=== PATIENT | male | born 1965 | race African-American/Black ===

== ENCOUNTER 2025-10-22 01:26 | Inpatient (IN) | payer MEDICAID, SELFPAY ==
[2025-10-22] VITALS (119 sets, daily range): BP systolic 0–162; BP diastolic 0–112; PULSE 42–111; RESP 0–117; TEMP 35.5–36.9; O2SAT 74–100; BMI 35.0
--- NOTE | 2025-10-22 01:53 | XR_ITS ---
EXAMINATION: AP chest single view TECHNIQUE: AP portable upright chest single view Date and time: October 22, 2025, 0314 hours, comparison January 26, 2024 INDICATIONS: Shortness of breath today. FINDINGS: Mild enlargement cardiac contour Moderate vascular congestion Scarring versus atelectasis in the upper lung zones and left lower lobe No amelia pulmonary edema No lobar pneumonia IMPRESSION: Enlarged cardiac contour with moderate vascular congestion
--- NOTE | 2025-10-22 01:53 | EKG_ITS ---
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 : 1965 Requested By: Yuliana Lindsay Order Number: [id number] Reading MD: Yuliana Lindsay Measurements Intervals [place] Rate: 78 P: [place]: QRS: 188 QRSD: 117 T: 32 QT: 417 QTc: 478 Interpretive Statements ATRIAL FIBRILLATION INCOMPLETE RIGHT BUNDLE BRANCH BLOCK POSSIBLE RIGHT VENTRICULAR HYPERTROPHY POSSIBLE ANTERIOR MYOCARDIAL INFARCTION , PROBABLY OLD Compared to ECG 01/26/2024 16:35:08 Incomplete right bundle-branch block now present Junctional rhythm no longer present Intraventricular conduction delay no longer present Myocardial infarct finding still present /store/S0/[id number]/ecg/[id number].pdf
--- NOTE | 2025-10-22 01:56 | PD.EDADULT ---
ED General RME/HPI General Chief complaint: General Adult/Misc Complain Stated complaint: ABNORMAL LABS Time Seen by Provider: 10/22/25 02:06 Source: patient, EMS and RN notes reviewed Arrival date/time: 10/22/25 01:26 Mode of arrival: EMS Limitations: no limitations RME / HPI RME / HPI narrative: This is a 60-year-old male with chronic low back pain, COPD, hypertension who is not on dialysis coming in with shortness of breath, wheezing x 1 day. The [facility] also reported that he may have had an elevated potassium earlier today. The patient states that this is similar to his COPD exacerbation in the past. Related Data Previous Rx's ?Medication ?Instructions ?Recorded amoxicillin 875 mg-potassium 1 tab PO Q12H #14 tabs 01/26/24 clavulanate 125 mg tablet doxycycline monohydrate 100 mg 100 mg PO BID #14 caps 01/26/24 capsule ibuprofen 600 mg tablet 600 mg PO Q8H PRN pain #14 tabs 01/26/24 Allergies Allergy/AdvReac Type Severity Reaction Status Date / Time No Known Allergies Allergy Verified 01/26/24 20:00 Past Medical History Past Medical History CARDIAC: Positive Congestive Heart Failure, Congenital Heart Disease, Deep Vein Thrombosis and Hypertension; Negative Cardiac Disorders RESPIRATORY: Positive Chronic Obstructive Pulmonary Disease (COPD) and Asthma GENITOURINARY: Negative Renal Disease ENDOCRINE: Negative Diabetes Mellitus Type 1 or Diabetes Mellitus Type 2 HEMATOLOGIC: Negative Sickle Cell Disease Social History SMOKING STATUS: Former smoker ED Exam Narrative Physical exam: Physical Exam: GENERAL: Awake, answering questions appropriately, appears stated age HEENT: NC/AT. Moist mucosa. PERRLA/EOMI. Possible Leser-Trelat freckling/seborrheic keratoses. Exophthalmos. CARDIO: Heart RRR, no obvious murmurs, no JVD. PULM: No coughing or visible SOB. Lungs CTA B/L. GI: Abdomen grossly distended with fluid wave noted, tympanic on percussion, mildly tender to palpation, borborygmi apparent. SKIN/MSK/EXT: No wounds/rashes/edema/amputations noted. +Pedal pulses present B/L. NEURO: Oriented x3, Moves extremities x4, no focal neurologic deficits noted General Limitations: Present no limitations General appearance: Present alert and in no apparent distress Head Head exam: Present atraumatic Eye Eye exam: Present normal appearance, PERRL and EOMI ENT ENT exam: Present normal exam, normal oropharynx and mucous membranes moist Neck Neck exam: Present normal inspection, full ROM and trachea midline Chest Chest inspection: Present normal inspection and symmetric chest wall rise Abdominal Exam Abdominal exam: Present soft and normal bowel sounds Extremities Exam Extremities exam: Present normal inspection and full ROM Back Exam Back exam: Present normal inspection and full ROM Neurological Exam Neurological exam: Present alert, oriented X3 and CN II-XII intact Psychiatric Psychiatric exam: Present normal affect and normal mood Skin Skin exam: Present warm, dry, intact and normal color Course Quality Measures none Orders Category Date Time Status COVID-19 Screening Questionnaire NOW Care 10/22/25 05:14 Active Decision to Admit X1 Care 10/22/25 05:14 Active EKG (ED ONLY) *Do not use* NOW Care 10/22/25 01:53 Completed EKG (ED Only) Stat Exams 10/22/25 01:53 Ordered US abdomen Stat Exams 10/22/25 03:25 Taken XR chest 1V portable Stat Exams 10/22/25 01:53 Taken ABG [Arterial Blood Gas] Stat Lab 10/22/25 03:27 Completed B-Type Natriuretic Peptide Stat Lab 10/22/25 02:46 Completed Blood Culture (Lab) Stat Lab 10/22/25 02:46 Received CBC Stat Lab 10/22/25 02:30 Completed Comprehensive Metabolic Panel Stat Lab 10/22/25 02:46 Completed D-Dimer Stat Lab 10/22/25 02:46 Completed Magnesium Stat Lab 10/22/25 02:46 Completed Partial Thromboplastin Time Stat Lab 10/22/25 02:46 Completed Path Review Blood Smear Stat Lab 10/22/25 02:30 Completed Prothrombin Time with INR Stat Lab 10/22/25 02:46 Completed Renal Function Panel Stat Lab 10/22/25 05:40 Ordered Troponin I Stat Lab 10/22/25 02:46 Completed Urinalysis, C/S if Indicated Stat Lab 10/22/25 01:53 Ordered Albuterol/Ipratr Rt Irais [Duoneb Rt Irais] Med 10/22/25 01:56 Discontinued 3 ml INH X1 ONE Calcium Gluconate 10% Inj Med 10/22/25 03:58 Discontinued 1 gm IV X1 ONE Dextrose 50% Syr [D50w Syringe Abboject] Med 10/22/25 03:57 Discontinued 50 ml IVP X1 ONE Insulin Regular Med 10/22/25 03:57 Discontinued 10 unit IV X1 ONE MethylPREDNISolone.* [SoluMEDROL Inj] Med 10/22/25 01:56 Discontinued 125 mg IVP X1 ONE Morphine* Inj Med 10/22/25 02:07 Discontinued 4 mg IVP X1 ONE Ondansetron Inj [Zofran Inj] Med 10/22/25 03:20 Discontinued 4 mg .ROUTE .STK-MED ONE Ondansetron Inj [Zofran Inj] Med 10/22/25 02:07 Discontinued 4 mg IVP X1 ONE Sod Polystyrene Sulfon Susp [Kayexalate Susp] Med 10/22/25 03:58 Discontinued 15 gm PO X1 ONE Vital Signs Vital signs: Vital Signs Pulse Rate 87 10/22/25 02:09 Respiratory Rate 18 10/22/25 02:09 Pulse Oximetry (%) 95 10/22/25 02:09 Oxygen Flow Rate 2 10/22/25 02:09 Discharge Plan Plan Patient Disposition: Admit Acute Care w/in Hospital Patient condition on transfer: Stable Prescriptions/Referrals Prescriptions/Med Rec: No Action doxycycline monohydrate 100 mg capsule 100 mg PO BID Qty: 14 0RF ibuprofen 600 mg tablet 600 mg PO Q8H PRN (Reason: pain) Qty: 14 0RF amoxicillin-pot clavulanate 875-125 mg tablet 1 tab PO Q12H Qty: 14 0RF Referrals: Duke Mojica MD [Primary Care Provider] - In 1 week Problem List Clinical Impression: Acute renal failure Patient/Caregiver Discharge Instructions Print Language: [place]serratian Stand Alone Forms: Norma Award Info., Patient Portal Info Letter MDM Narrative MDM hospital course (for use when minimal MDM required): HPI: 60-year-old male with past medical history of possible lymphoma, COPD, cirrhosis, CKD presenting to the ED on 10/22 from nursing facility for increased shortness of breath and wheezing. Patient apparently has not had any home oxygen but has been feeling more short of breath recently. He was apparently seen by PCP who did blood work and noted that the patient had elevated potassium levels; as a result, patient was brought into the ED. Patient states that he feels generalized pain all throughout his body and then his shortness of breath waxes and wanes. History is difficult to obtain as the patient is somewhat confused although does answer to questions correctly at times. He states that in the past he was told that he has lymphoma that a biopsy was not; however, he denies having any chemotherapy or follow-up with any oncologist. He also did not know that he has cirrhosis and does not follow any GI physician outpatient. On examination, please review physical exam note above; vitals include blood pressure 159/112, heart rate of 82, respiratory 22, afebrile satting at 92 on 5 L nasal cannula. Pertinent lab findings include no white count, microcytic anemia likely secondary to liver disease versus other etiology, mildly elevated coagulation panel with PT of 15.4 and INR of 1.5, ABG does show mild acidosis with a pCO2 of 48, pH of 7.30, CMP does show potassium of 6.3, creatinine 2.9, eGFR 24 but T. bili is 1.3, AST 31, ALT 16 alk phos of 37. Troponin 0.028 and BNP 638. Chest x-ray and abdominal ultrasound have been ordered and are pending official read from radiology. Differentials include: Acute renal failure secondary to hepatorenal syndrome, acute respiratory failure secondary to COPD exacerbation, volume overload state from acute renal failure, cirrhosis with ascites #Hyperkalemia Patient's potassium of 6.3 without any EKG changes noted; plan: Gave patient 50 mg of Kayexalate IV insulin regular 10 units along with D50, DuoNeb breathing treatment and 1 g of calcium gluconate IV Repeat renal panel ordered #Acute renal failure secondary to hepatorenal syndrome Will admit patient for closer monitoring #Acute respiratory failure secondary to possibly COPD exacerbation Supplemental oxygen Chest x-ray is pending read but no infiltration seen Hospitalist team has been informed and will be reviewing the case for admission. Patient seen and assessed with attending Dr. Enriqueta Cullen, PGY-2 Internal Medicine - G[facility] Medication Administration(s) Medication Administration History Discontinued Medications Albuterol/Ipratropium (Albuterol/Ipratropium (Duoneb) Rt Irais 3 Ml Nebu) 3 ml INH X1 ONE Stop: 10/22/25 01:57 Last Admin: 10/22/25 02:07 Dose: 3 ml Documented By: BRYANNA Calcium Gluconate (Calcium Gluconate 10% Inj 1 Gm/10 Ml Vial) 1 gm IV X1 ONE Stop: 10/22/25 03:59 Last Admin: 10/22/25 05:31 Dose: 1 gm Documented By: ASHLEY Dextrose (Dextrose 50%-Water Inj 50 Ml Syringe) 50 ml IVP X1 ONE Stop: 10/22/25 03:58 Last Admin: 10/22/25 05:30 Dose: 50 ml Documented By: ASHLEY Insulin Human Regular (Insulin Hum Regular 1 Unit/0.01 Ml (Per Unit)) 10 unit IV X1 ONE Stop: 10/22/25 03:58 Last Admin: 10/22/25 05:31 Dose: 10 unit Documented By: ASHLEY Co-signed By: JODI Methylprednisolone Sodium Succinate (Methylprednisolone Sod Succ 62.5 Mg/Ml 2ml Vial) 125 mg IVP X1 ONE Stop: 10/22/25 01:57 Last Admin: 10/22/25 03:23 Dose: 125 mg Documented By: JODI Morphine Sulfate (Morphine Sulf Inj 4 Mg/Ml Vial) 4 mg IVP X1 ONE Stop: 10/22/25 02:08 Last Admin: 10/22/25 03:22 Dose: 4 mg Documented By: JODI Ondansetron HCl (Ondansetron Inj 2 Mg/Ml Inj 2 Ml) 4 mg IVP X1 ONE; Protocol Stop: 10/22/25 02:08 Last Admin: 10/22/25 03:22 Dose: 4 mg Documented By: JODI Ondansetron HCl (Ondansetron Inj 2 Mg/Ml Inj 2 Ml) Confirm Administered Dose 4 mg .ROUTE .STK-MED ONE Stop: 10/22/25 03:21 Last Admin: 10/22/25 03:23 Dose: Not Given Documented By: JODI Non-Admin Reason: Duplicate Medication on eMAR Sodium Polystyrene Sulfonate (Sod Polystyrene Sulfon Susp 15 Gm/60 Ml Btl) 15 gm PO X1 ONE Stop: 10/22/25 03:59 Last Admin: 10/22/25 05:30 Dose: 15 gm Documented By: ASHLEY
[2025-10-22] MEDS: ALBUTEROL/IPRATROPIUM (Duoneb) RT SOL 3 ML NEBU INH ×4 (02:07→22:18)
[2025-10-22 03:00] LABS: Basophils # (Auto) 0.1 Thou/mm3 (0.0-0.2); Basophils % (Auto) 1 % (0-2.5); Eosinophils # (Auto) 0.1 Thou/mm3 (0.0-0.5); Eosinophils % (Auto) 1 % (0-10); Hematocrit 32.4 % (41.0-53.0); Hemoglobin 9.7 g/dL (13.5-16.0); Immature Granulocytes Auto 0.10 Thou/mm3 (0.00-0.00); Lymphocytes # (Auto) 0.8 Thou/mm3 (1.0-4.8); Lymphocytes % (Auto) 10 % (10-50); Mean Corpuscular HGB Conc 29.9 g/dl (31.0-37.0); Mean Corpuscular Hemoglobin 20.7 pg (25.0-35.0); Mean Corpuscular Volume 69 fL (80-100); Monocytes # (Auto) 1.7 Thou/mm3 (0.0-0.8); Monocytes % (Auto) 20 % (0-12); Neutrophils # (Auto) 5.7 Thou/mm3 (1.8-7.7); Neutrophils % (Auto) 67 % (37-80); Nucleated Red Blood Cell # 0.08 Thou/mm3 (0.00-0.00); Nucleated Red Blood Cell % 1 /100 WBC (0); Platelet Count 272 Thou/mm3 (140-440); RDW Standard Deviation 53.3 fL (35.1-43.9); Red Blood Count 4.68 Miln/mm3 (4.50-5.90); White Blood Count 8.4 Thou/mm3 (3.8-10.6)
[2025-10-22 03:20] LABS: D-Dimer 1600 ng/mL (<600)
[2025-10-22] MEDS: MORPHINE SULF INJ 4 MG/ML VIAL IVP (03:22)
[2025-10-22] MEDS: ONDANSETRON INJ 2 MG/ML INJ 2 ML 4 MG IVP (03:22)
[2025-10-22] MEDS: MethylPREDNISolone SOD SUCC 62.5 MG/ML 2ML VIAL 125 MG IVP (03:23)
[2025-10-22 03:24] LABS: B-Type Natriuretic Peptide 638 pg/mL (0-100)
--- NOTE | 2025-10-22 03:25 | XR_ITS ---
Examination: Abdomen sonogram, complete Date and time of exam: October 22, 2025, 0416 hours INDICATIONS: Diagnosis cirrhosis, abdominal distention and ascites today. Technique: Multiple real-time grayscale transabdominal sonographic images of the abdomen have been obtained. Findings: No diagnostic visualization gallbladder Common bile duct 10 mm no stones Pancreas obscured by bowel gas as well as aorta Liver 16.7 cm, contour is irregular, significant ascites Normal hepatopetal portal venous flow Patent IVC Right kidney 9.8 cm renal cortex 1.6 cm Left ovary obscured by bowel gas Spleen obscured by bowel gas IMPRESSION: Limited study as above Cirrhosis Significant ascites
[2025-10-22 03:30] LABS: INR 1.5 (0.9-1.3); Partial Thromboplastin Time 28.5 Seconds (22.0-36.0); Prothrombin Time 15.4 Seconds (9.0-12.2)
[2025-10-22 03:31] LABS: Troponin I 0.028 ng/mL (0.0-0.045)
[2025-10-22 03:35] LABS: Base Excess -2 (-3-3); HCO3 24 mEq/L (20-26); Inspired O2, VO2 Liters 3 L/min; Inspired Oxygen, FIO2 21 %; PCO2 48 mmHg (32.0-48.0); PO2 80 mmHg (83-108); pH, Arterial 7.30 (7.35-7.45)
[2025-10-22 03:39] LABS: Allen Test Performed/OK; O2 Saturation 98 % (91-98); Puncture Site Left Radial
[2025-10-22 03:41] LABS: Alanine Aminotransferase 16 U/L (10-49); Albumin, Serum 4.4 gm/dL (3.5-5.0); Albumin/Globulin Ratio 1.2 (1.2-2.2); Alkaline Phosphatase 307 U/L (46-116); Anion Gap 7 (7-16); Aspartate Amino Transferase 31 U/L (0-34); BUN/Creatinine Ratio 14 Ratio (12-20); Bilirubin,Total 1.3 mg/dL (0.3-1.2); Blood Urea Nitrogen 42 mg/dL (9-23); Calcium 8.9 mg/dL (8.3-10.6); Calcium (Corrected) 8.9 mg/dL (8.5-10.1); Carbon Dioxide 26.8 mMol/L (20.0-31.0); Chloride 102 mMol/L (98-107); Creatinine (Component) 2.9 mg/dL (0.6-1.3); Estimated Creatinine Clearance 28.6 mL/min (>60); Globulin 3.7 gm/dL (2.3-3.5); Glucose 110 mg/dL (74-106); Magnesium 1.8 mg/dL (1.6-2.6); Osmolality,Calculated 283 (275-295); Sodium 136 mMol/L (136-145); Total Protein 8.1 gm/dL (5.7-8.2); eGFR 24 See Note
[2025-10-22 03:44] LABS: Potassium 6.3 mMol/L (3.4-5.1)
[2025-10-22 04:12] LABS: Path Review Blood Smear Sent to Pathologist
[2025-10-22] MEDS: SOD POLYSTYRENE SULFON SUSP 15 GM/60 ML BTL PO (05:30)
[2025-10-22] MEDS: DEXTROSE 50%-WATER INJ 50 ML SYRINGE IVP ×3 (05:30→17:40)
[2025-10-22] MEDS: INSULIN HUM REGULAR 1 UNIT/0.01 ML (PER UNIT) 10 UNIT IV ×3 (05:31→17:39)
[2025-10-22] MEDS: CALCIUM GLUCONATE 10% INJ 1 GM/10 ML VIAL IV ×2 (05:31→10:14)
--- NOTE | 2025-10-22 05:34 | PRELIM_ITS ---
Ultrasound Abdomen. October 22, 2025 0416 hours Clinical history: Cirrhosis, ascites. Technique: Grayscale and color flow images of the abdomen are provided. Hepatic and portal veins were also imaged with color flow images. No prior study is available for comparison. Findings: The liver demonstrates a nodular contour. Main portal vein is patent with hepatopetal flow. No intrahepatic biliary ductal dilatation. The gallbladder is surgically absent. The common bile duct is dilated up to 9.6 mm without evidence of stones. Free fluid is seen in all quadrants. The pancreas is not seen due to bowel gas. The right kidney measures 9.8 x 5.2 x 5.9 cm. The left kidney is not seen due to bowel gas. There is no hydronephrosis and the corticomedullary differentiation is maintained. The spleen is not seen due to bowel gas. The abdominal aorta is not seen. The inferior vena cava to the extent visualized is within normal limits. Impression: Liver cirrhosis. Ascites. Common bile duct dilatation in the postcholecystectomy state. Suggest clinical correlation and further evaluation with MRCP, if clinically indicated. Report Electronically Signed By: Surinder Galeano 10/22/2025 5:33:44 AM [EST]
--- NOTE | 2025-10-22 06:05 | ECHO_ITS ---
Patient Info Name: Isaias Amador Age: 60 years : 1965 Gender: Male Ht: 163 cm Wt: 95 kg BSA: 2.12 m2 BP: 151 / 113 mmHg HR: 67 bpm Heart Rhythm: Atrial Fibrillation Exam Date: 10/22/2025 7:08 AM Admit Date: 10/22/2025 Site: [facility] Room Number: ER 7 Patient Status: I Technical Quality: Fair Exam Type: CA echo doppler complete Technical Internship: Sofia Cloud Ordering Physician: Carroll Gutiérrez Study Info Indications History of Heart Failure - Primary Location: [facility] Left Ventricular Outflow Tract Name Value Normal LVOT 2D LVOT Diameter 1.9 cm LVOT Doppler LVOT Peak Velocity 99 cm/s LVOT Mean Gradient 2 mmHg LVOT VTI 15 cm LVOT VTI/AV VTI Ratio 0.8 LVOT Stroke Volume 41 ml Pulmonic Valve Name Value Normal PV Doppler PV Peak Velocity 98 cm/s PV Regurgitation Doppler OH Peak End Diastolic Velocity 205 cm/s Mitral Valve Name Value Normal MV Doppler MV Decel Greene 434 cm/s2 MV PHT 49 ms MV Area (PHT) 4.5 cm2 4.0-5.0 MV Diastolic Function MV E Peak Velocity 73 cm/s Tricuspid Valve Name Value Normal TV Regurgitation Doppler TR Peak Velocity 286 cm/s Estimated PAP/RSVP RA Pressure 15 mmHg <=5 PA Systolic Pressure 48 mmHg <36 RV Systolic Pressure 48 mmHg <36 Aortic Valve Name Value Normal AV 2D/MM AV Cusp Sep (MM) 1.2 cm AV Doppler AV Peak Velocity 135 cm/s AV Mean Gradient 4 mmHg AV VTI 18 cm AV Area (Cont Eq VTI) 2.3 cm2 >=3.0 AV Area (Cont Eq Ceferino) 2.1 cm2 AV DI (Ceferino) 0.73 AV Regurgitation 2D LVOT Area 2.8 cm2 Ventricles Name Value Normal LV Dimensions 2D/MM IVS Diastolic Thickness (2D) 1.4 cm 0.6-1.0 LVID Diastole (2D) 5.4 cm 4.2-5.8 LVIW Diastolic Thickness (2D) 1.5 cm 0.6-1.0 LVID Systole (2D) 4.7 cm 2.5-4.0 LVOT Diameter 1.9 cm LV Mass (2D Cubed) 345.32 g 88.00-224.00 LV Mass Index (2D Cubed) 163 g/m2 49-115 Relative Wall Thickness (2D) 0.56 <=0.42 IVS/LVIW Diastolic Thickness (2D) 0.93 0.00-1.50 LV Fractional Shortening/Ejection Fraction 2D/MM LV Fractional Shortening (2D) 13 % 25-43 LV EF (2D Teichholz) 28 % LV Diastolic Volume (4C MOD) 84 ml LV EF (4C MOD) 7 % LV Diastolic Volume (2C MOD) 191 ml LV EF (2C MOD) 20 % LV Diastolic Volume (BP MOD) 133 ml 62-150 LV Diastolic Volume Index (BP MOD) 63 ml/m2 34-74 LV Systolic Volume (BP MOD) 113 ml 21-61 LV Systolic Volume Index (BP MOD) 53 ml/m2 11-31 LV EF (BP MOD) 15 % 52-72 LV Diastolic Length (4C) 7.1 cm LV Systolic Length (4C) 7.5 cm LV Stroke Volume (4C MOD) 6 ml Atria Name Value Normal LA Dimensions LA Volume (4C A-L) 106 ml LA Volume (BP A-L) 112 ml Wall Motion Scoring Wall Motion Scoring Index: 2.38 Left Ventricle Left ventricular chamber dimension is normal. Left ventricular systolic function is severely reduced with visually estimated ejection fraction of 35-40%. There is mild concentric hypertrophy noted in the left ventricle. Left ventricular segmental wall motion is normal. There is indeterminate diastolic function in the left ventricle. Right Ventricle Right ventricular chamber dimension is severely enlarged. Right ventricular systolic function is reduced. Flattening of the ventricular septum in mid to late systole consistent with right ventricular volume overload. Left Atrium Left atrial chamber dimension is moderately enlarged. Right Atrium Right atrial chamber dimension is severely enlarged. Aortic Valve The aortic valve is trileaflet. There is no aortic valve sclerosis. There is no aortic valve stenosis with a peak velocity of 135 cm/s, mean gradient of 4 mmHg, and aortic valve area of 2.3 cm2. There is no aortic valve regurgitation. Pulmonic Valve The pulmonic valve is normal. There is no pulmonic valve stenosis. There is mild to moderate pulmonic regurgitation. Mitral Valve The mitral valve has thickened leaflets. There is no mitral valve stenosis. There is mild to moderate mitral valve regurgitation. Tricuspid Valve The tricuspid valve leaflets are normal. There is no tricuspid valve stenosis. There is moderate tricuspid valve regurgitation. Pulmonary hypertension, estimated pulmonary arterial systolic pressure is 48 mmHg and systemic blood pressure of 151 mmHg in systole. Pericardium/Pleural The pericardium appears normal. There is no pericardial effusion. No pleural effusion visualized. Inferior Vena Cava Not well visualized inferior vena cava with >50% collapse upon inspiration consistent with normal right atrial pressure, 15 mmHg. Aorta The aortic measurements are indexed to age and body surface area. The aortic root at the sinus of Valsalva is not well visualized. The prox ascending aorta is not well visualized. Summary 1. Left ventricle size is normal and systolic function is severely reduced. Estimated ejection fraction is 35-40%. There is indeterminate diastolic function. There is mild concentric hypertrophy noted. 2. Right ventricle chamber size is severely enlarged and systolic function is reduced. Estimated RVSP is 48 mmHg. Moderate pulmonary hypertension Group II. 3. The mitral valve has thickened leaflets. 4. Flattening of the ventricular septum in mid to late systole consistent with right ventricular volume overload. 5. There is mild to moderate mitral valve regurgitation. 6. There is moderate tricuspid valve regurgitation. 7. mild to moderate pulmonic valve regurgitation. 8. The left atrium is moderately enlarged. The right atrium is severely enlarged. 9. Not well visualized IVC with estimated RA pressure 15 mmHg. Report Signatures Finalized by Toni Marinelli on 10/22/2025 05:54 PM
--- NOTE | 2025-10-22 06:09 | ESHP_ITS ---
<Statement entered by Elias Tavera MD - 10/22/25 07:10> Patient is a poor historian. 60-year-old male with significant past medical history of cirrhosis, COPD on oxygen at home, chronic low back pain, hypertension,? Lymphoma on the left neck, gout was brought to the hospital from nursing facility in view of worsening shortness of breath. Reported that since a week, shortness of breath is gradually worsening and progressive in nature. 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 Vitals at the time of admission are stable. On physical examination, noted to have diffuse pigmentation all over the body predominantly on the face, noted to have proptosis, swelling in the left neck, cystic in consistency, severe abdominal distention and tense without any tenderness, Mild bilateral 1+ pitting pedal edema. Labs at the time of admission are significant for hemoglobin 9.7, platelets 272, INR 1.5, potassium 6.3, BUN 42, creatinine 2.9, total bilirubin 1.3, BNP 638. Chest x-ray noted to have cardiomegaly. Abdominal ultrasound showed cirrhosis, ascites, mildly dilated CBD secondary to postcholecystectomy state. Ultrasound-guided paracentesis and peritoneal fluid analysis was ordered. Received hyperkalemia treatment in the ED. Repeated renal panel. Started on ceftriaxone 1 g daily for SBP prophylaxis and resume his home medications. I have personally seen and examined the patient, agree with residents assessment and plan Patient plan of care was discussed with the attending physician, Dr. Aubrey Tavera, PGY2 Documentation for date of: 10/22/25 HPI History of Present Illness History of present illness: HPI: 60-year-old male past medical history of COPD, alcoholic cirrhosis, diabetes, gout, hypertension, A-fib, heart failure, hyperlipidemia, acidosis, CKD, stage III lymphoma who presented from SNF to the ED in the enterprise applications manager hours of 10/2025 with shortness of breath. He was found to have a potassium of 6.3, BNP of 638, creatinine of 2.9, and ascites. He was also confused compared to his baseline. Patient was admitted for acute decompensated cirrhosis, hyperkalemia, and CADY. ED Course: * Significant vitals: BP 108/89. Patient was desaturating into the 70s on 4 L nasal cannula, however upon arousal he would return to the 90s. * Significant vitals: Potassium 6.3, BUN 42, creatinine 2.9, alk phos 307, BNP 638, PT 15.4, INR 1.5, D-dimer 1600, ABG pH of 7.3, pO2 of 80. * Imaging: Both are pending official read. Chest x-ray showed vascular congestion, heart failure. Abdominal ultrasound showed ascites. * ED intervention: Patient received DuoNeb treatment, 4 mg morphine, 4 mg Zofran, methylprednisolone 125 IV push x 1, dextrose, 10 units of insulin, and 1 g of calcium gluconate, and 15 GM sodium polystyrene sulfonate orally. History: (Unable to obtain from the patient as he was giving one-word answers and was lethargic. Obtained from contacting his SNF.) * Past medical history: COPD, alcoholic cirrhosis, diabetes, gout, hypertension, A-fib, heart failure, hyperlipidemia, stage III lymphoma * Social history: Lives at SNF, baseline is alert and oriented x 4 and conversational Allergies: * No known drug allergies Home medications: (Pending Med Rec) * Amoxicillin, doxycycline, ibuprofen, allopurinol 100 mg, budesonide 2 mg, buspirone 7.5 mg, carvedilol 3.125 mg, empagliflozin 10 mg, vitamin D2, gabapentin 300 mg, levothyroxine 25 mg, neomycin 100 mg, pantoprazole 40 mg, potassium chloride 10 mill EQ tablets, spironolactone 100 mg, tamsulosin 0.4 mg, hydrocodone 5-3 25, ipratropium, fluticasone, nystatin powder, lactulose, albuterol, hydroxyzine 25 mg, rifaximin 550 mg, furosemide 40 mg CODE STATUS: Full code Review of Systems Review of Systems Narrative Review of Systems: Review of systems: Patient mentioned shortness of breath. A full review of systems was unable to be obtained due to the patient being lethargic and giving one-word answers. Exam Vital Signs Temp Pulse Resp BP Pulse Ox O2 Del Method O2 Flow Rate 98.4 F 82 22 H 151/112 H 92 L Nasal Cannula 4 10/22/25 03:23 10/22/25 05:23 10/22/25 05:23 10/22/25 05:23 10/22/25 05:23 10/22/25 05:23 10/22/25 05:23 Narrative Exam General: Lethargic. Giving one-word answers Neurologic: No gross neurological deficit, and patient able to move all 4 extremities. HEENT: Large left-sided neck mass, nontender to palpation. Proptosis. Mucous membranes dry. Heart: Regular rate and rhythm, normal S1 and S2, no murmurs. Lungs: Crackles in the bases bilaterally. Abdomen: Distended, fluid wave. No guarding or rebound tenderness. Extremities: No edema. 2+ radial and dorsalis pedis pulses bilaterally. Skin: Warm. Dry. No rash or ecchymoses. Results: Labs 10/23/25 06:24 10/23/25 15:00 Labs: Short CBC 10/22/25 Range/Units 02:30 WBC 8.4 (3.8-10.6) Thou/mm3 Hgb 9.7 L (13.5-16.0) g/dL Hct 32.4 L (41.0-53.0) % Plt Count 272 (140-440) Thou/mm3 BMP 10/22/25 02:46 Sodium 136 Potassium 6.3 H* Chloride 102 Carbon Dioxide 26.8 BUN 42 H Creatinine 2.9 H Glucose 110 H Calcium 8.9 Cardiac Enzymes 10/22/25 Range/Units 02:46 Troponin I 0.028 (0.0-0.045) ng/mL Liver Function 10/22/25 Range/Units 02:46 Total Bilirubin 1.3 H (0.3-1.2) mg/dL AST 31 (0-34) U/L ALT 16 (10-49) U/L Alkaline Phosphatase 307 H (46-116) U/L Albumin 4.4 (3.5-5.0) gm/dL ABG Interpretation ABG results: 10/22/25 03:27 ABG pH 7.30 L ABG pCO2 48 ABG pO2 80 L ABG HCO3 24 ABG O2 Saturation 98 ABG Base Excess -2 Quality Measures Quality Measures VTE prophylaxis Medications Home Medications and Allergies Allergies Allergy/AdvReac Type Severity Reaction Status Date / Time No Known Allergies Allergy Verified 01/26/24 20:00 Visit Medications Acetaminophen (Acetaminophen 325 Mg Tablet) 650 mg PO Q6H PRN PRN Reason: Fever >101.5 Stop: 11/21/25 06:00 Allopurinol (Allopurinol 100 Mg Tablet) 100 mg PO QDAY [facility] Stop: 11/21/25 08:59 Bumetanide (Bumetanide Inj 0.25 Mg/Ml Vial 4 Ml) 2 mg IVP QDAY [facility] Stop: 11/21/25 08:59 Carvedilol (Carvedilol 3.125 Mg Tablet) 3.125 mg PO BIDWM [facility] Stop: 11/21/25 07:59 Enoxaparin Sodium (Enoxaparin Sod Inj 30 Mg/0.3 Ml Syringe) 30 mg SC QDAY [facility] Stop: 11/05/25 08:59 Ceftriaxone Sodium/Dextrose (Rocephin/D5w 1gm Iv Premix) 1 gm in 50 mls @ 100 mls/hr IV QDAY [facility] Stop: 10/29/25 06:08 Lactulose (Lactulose Syrup 20 Gm/30 Ml Udc) 20 gm PO QID [facility]; Protocol Stop: 11/21/25 06:14 Levothyroxine Sodium (Levothyroxine Sodium 25 Mcg Tablet) 25 mcg PO ACBR [facility] Stop: 11/22/25 05:59 Spironolactone (Spironolactone 25 Mg Tablet) 100 mg PO QDAY [facility] Stop: 11/21/25 08:59 Discontinued Medications Albuterol/Ipratropium (Albuterol/Ipratropium (Duoneb) Rt Irais 3 Ml Nebu) 3 ml INH X1 ONE Stop: 10/22/25 01:57 Last Admin: 10/22/25 02:07 Dose: 3 ml Calcium Gluconate (Calcium Gluconate 10% Inj 1 Gm/10 Ml Vial) 1 gm IV X1 ONE Stop: 10/22/25 03:59 Last Admin: 10/22/25 05:31 Dose: 1 gm Dextrose (Dextrose 50%-Water Inj 50 Ml Syringe) 50 ml IVP X1 ONE Stop: 10/22/25 03:58 Last Admin: 10/22/25 05:30 Dose: 50 ml Insulin Human Regular (Insulin Hum Regular 1 Unit/0.01 Ml (Per Unit)) 10 unit IV X1 ONE Stop: 10/22/25 03:58 Last Admin: 10/22/25 05:31 Dose: 10 unit Methylprednisolone Sodium Succinate (Methylprednisolone Sod Succ 62.5 Mg/Ml 2ml Vial) 125 mg IVP X1 ONE Stop: 10/22/25 01:57 Last Admin: 10/22/25 03:23 Dose: 125 mg Morphine Sulfate (Morphine Sulf Inj 4 Mg/Ml Vial) 4 mg IVP X1 ONE Stop: 10/22/25 02:08 Last Admin: 10/22/25 03:22 Dose: 4 mg Ondansetron HCl (Ondansetron Inj 2 Mg/Ml Inj 2 Ml) 4 mg IVP X1 ONE; Protocol Stop: 10/22/25 02:08 Last Admin: 10/22/25 03:22 Dose: 4 mg Sodium Polystyrene Sulfonate (Sod Polystyrene Sulfon Susp 15 Gm/60 Ml Btl) 15 gm PO X1 ONE Stop: 10/22/25 03:59 Last Admin: 10/22/25 05:30 Dose: 15 gm Assessment & Plan Plan Summary: 60-year-old male past medical history of COPD, alcoholic cirrhosis, diabetes, gout, hypertension, A-fib, heart failure, hyperlipidemia, acidosis, CKD, stage III lymphoma who presented from SNF with shortness of breath. He was found to have a potassium of 6.3, BNP of 638, creatinine of 2.9, and ascites. Patient was admitted for acute decompensated cirrhosis, hyperkalemia, and CADY. #Acute Decompensated Cirrhosis #Acute hepatic encephalopathy? * Patient has a history of alcoholic cirrhosis * Abdominal ultrasound pending official read but showed evidence of ascites * PT 15.4, INR 1.5, may reinforce cirrhosis * Maddrey score 16 * Child-Dove score 8 * MELD score 24, 14-15% estimated 90-day mortality Plan: * Ceftriaxone 1 g daily for SBP prophylaxis * Ammonia ordered * Paracentesis ordered * Restarted home rifaximin 550 mg p.o. twice daily * Restarted home lactulose 20 GM p.o. 4 times daily #Hyperkalemia * Patient presented with a potassium of 6.3 * Received 1 g calcium gluconate, 10 units insulin, dextrose in the ED Plan: * Repeat potassium pending, ordered for 9 AM on 10/22/25 #CADY on CKD * Patient presented with a creatinine of 2.9, baseline unknown * Presented with a BUN 42 * Patient is not on dialysis Plan: * No direct intervention at this time, monitor # HFrEF * Per history given by staff from [facility] * Patient has crackles on exam * Chest x-ray showed enlarged cardiac silhouette * BNP 638 Plan: * Echo ordered * Bumex 2 mg IV push daily * Strict ins and outs * Fluid restriction #Hypertension stage II * Per patient history * BP 151/112 on admission Plan: * Resumed home carvedilol 3.125 mg p.o. twice daily #Hypothyroidism * Per patient history Plan: * Restarted home levothyroxine * Follow-up TSH #Microcytic Anemia * Hemoglobin 9.7 on arrival * MCV 69 Plan: * No direct intervention at this time * Transfuse if hemoglobin below 7 #History of gout * Per patient history Plan: * Restarted home allopurinol Hospital Maintenance: DVT ppx: Lovenox 30 mg subcu daily GI ppx: Protonix IV 40 mg daily Diet: N.p.o. IV lines: Peripheral IVs Code status: Full code Dispo: Telemetry monitoring floor, paracentesis ordered, ammonia ordered, repeat potassium ordered. Patient was seen and discussed with my attending physician Dr. Aubrey CARROLL and my senior resident Dr. Ayse CARROLL PGY-2. Carroll Gutiérrez DO PGY-1. Attending Provider Attestation/Addendum I have seen and examined the patient. I was physically present for the blount portions of the services provided including history, physical exam, diagnosis, treatment plans and orders. I agree with assessment and plan of care as documented by residents. After examination of the patient and review of the clinical data I feel that this patient needs admission in the hospital for further treatment/evaluation. Even though this note was carefully revised there may still be minor errors in sheet combining operator due to voice recognition software. Nicole Burgos MD
[2025-10-22] MEDS: cefTRIAXone/D5w 1gm IV premix 1 GM/50 ML BAG IV (06:23)
[2025-10-22] MEDS: LACTULOSE SYRUP 20 GM/30 ML UDC PO ×3 (06:26→21:37)
[2025-10-22 06:50] LABS: Collection Type, Urine Clean Catch; Squamous Epithelial Cell,Urine 0 /hpf (0-5)
[2025-10-22 07:01] LABS: Bilirubin,Urine Negative (Negative); Blood,Urine Negative (Negative); Clarity,Urine Clear (Clear/Hazy); Color,Urine Yellow (Lt Yel-Yel); Culture Indicated,Urine Not Indicated; Glucose, Urine Negative (Negative); Hyaline Casts,Urine 1 /hpf (0-1); Ketones,Urine Negative (Negative); Leukocyte Esterase,Urine Negative (Negative); Nitrite,Urine Negative (Negative); PH,Urine 5.5 (5.0-7.0); Protein,Urine Negative (Neg - Trace); RBC,Urine 1 /hpf (0-3); Specific Gravity,Urine 1.013 (1.001-1.035); Urobilinogen,Urine Negative mg/dL (0.0-1.0); WBC,Urine 1 /hpf (0-5)
[2025-10-22 07:19] LABS: COVID-19 Antigen (In-House) Negative (Negative)
[2025-10-22] MEDS: BUMETANIDE INJ 0.25 MG/ML VIAL 4 ML 2 MG IVP (07:51)
[2025-10-22] MEDS: ALBUMIN HUMAN 25% IVPB 12.5 GM/50 ML BTL IV (07:55)
[2025-10-22 08:58] LABS: Ammonia 32 uMol/L (11-32)
[2025-10-22 09:17] LABS: Albumin, Serum 4.6 gm/dL (3.5-5.0); Anion Gap 11 (7-16); BUN/Creatinine Ratio 14 Ratio (12-20); Blood Urea Nitrogen 41 mg/dL (9-23); Calcium 9.1 mg/dL (8.3-10.6); Calcium (Corrected) 9.1 mg/dL (8.5-10.1); Carbon Dioxide 23.3 mMol/L (20.0-31.0); Chloride 101 mMol/L (98-107); Creatinine (Component) 3.0 mg/dL (0.6-1.3); Estimated Creatinine Clearance 27.6 mL/min (>60); Free T4 (Free Thyroxine) 0.94 ng/dL (0.89-1.76); Glucose 139 mg/dL (74-106); Osmolality,Calculated 282 (275-295); Phosphorous 8.1 mg/dL (2.4-5.1); Sodium 135 mMol/L (136-145); Thyroid Stimulating Hormone 11.98 uIU/mL (0.55-4.78); eGFR 23 See Note
[2025-10-22] MEDS: ENOXAPARIN SOD INJ 30 MG/0.3 ML SYRINGE SC (09:22)
[2025-10-22 09:26] LABS: Potassium 7.0 mMol/L (3.4-5.1)
[2025-10-22 09:57] LABS: Potassium 6.8 mMol/L (3.4-5.1)
[2025-10-22] MEDS: ALBUTEROL RT 2.5 MG/0.5 ML NEBU INH (10:20)
--- NOTE | 2025-10-22 11:14 | PD.RESCONSUL ---
HPI Data of Consult Consult date: 10/22/25 Requesting Physician: Nicole Burgos MD Admitting Provider: Nicole Burgos MD Attending Provider: Nicole Burgos MD Primary Care Provider: Gal Paz MD Consult Narrative Reason for consult: CADY, hyperkalemia-need for dialysis History of present illness: 60-year-old male past medical history of COPD, alcoholic cirrhosis, diabetes, gout, hypertension, A-fib, heart failure, hyperlipidemia, acidosis, CKD, stage III lymphoma who presented from SNF on 10/22 with shortness of breath and altered mental status. He was found to have a potassium of 6.3, BNP of 638, creatinine of 2.9, and ascites. Per staff, patient is AOx4 and conversational at baseline. ED course: - Vitals: BP 108/89. Patient was desaturating into the 70s on 4 L nasal cannula, however upon arousal he would return to the 90s. - Labs: Potassium 6.3, BUN 42, creatinine 2.9, alk phos 307, BNP 638, PT 15.4, INR 1.5, D-dimer 1600, ABG pH of 7.3, pO2 of 80. - Imaging: Chest x-ray showed vascular congestion, heart failure. Abdominal ultrasound showed ascites. - Patient received DuoNeb treatment, 4 mg morphine, 4 mg Zofran, methylprednisolone 125 IV push x 1, dextrose, 10 units of insulin, and 1 g of calcium gluconate, and 15 GM sodium polystyrene sulfonate orally. Past Medical History: COPD, alcoholic cirrhosis, diabetes, gout, hypertension, A-fib, heart failure, hyperlipidemia, stage III lymphoma Family History: unable to be obtained due to AMS Surgical History: unable to be obtained due to AMS Social History: Hx of alcohol use, unknown amount. Current Medications: allopurinol 100 mg, budesonide 2 mg, buspirone 7.5 mg, carvedilol 3.125 mg, empagliflozin 10 mg, vitamin D2, gabapentin 300 mg, levothyroxine 25 mg, pantoprazole 40 mg, potassium chloride 10 mill EQ tablets, spironolactone 100 mg, tamsulosin 0.4 mg, hydrocodone 5-3 25, ipratropium, fluticasone, lactulose, albuterol, hydroxyzine 25 mg, rifaximin 550 mg, furosemide 40 mg (Source: ) Allergies: No known drug allergies Patient was admitted for acute decompensated cirrhosis, hyperkalemia, and CADY, upgraded to ICU for worsening AHRF requiring intubation. Nephrology was consulted for urgent dialysis for hyperkalemia likely secondary to concomitant use of spironolactone and potassium. cc:: cc: Nicole Burgos MD Review of Systems Review of Systems ROS Unobtainable: due to endotracheal tube Exam Vital Signs Temp Pulse Resp BP Pulse Ox O2 Del Method O2 Flow Rate 97.6 F 52 L 15 138/104 H 98 Nasal Cannula 4 10/22/25 07:33 10/22/25 10:20 10/22/25 10:20 10/22/25 07:51 10/22/25 10:20 10/22/25 07:33 10/22/25 07:33 FiO2 50 10/22/25 10:20 Narrative Exam Physical Exam General: Intubated and sedated. HEENT: Normocephalic, atraumatic, mucous membranes dry. Heart: Distant. Regular rate and rhythm, normal S1 and S2, no murmurs appreciated. Lungs: Bibasilar crackles. Abdomen: Soft, obese, positive bowel sounds. Moderate ascites. No guarding or rebound tenderness. Neurologic: Unable to assess due to sedation. Extremities: No lower edema. Skin: Scattered freckles on face and upper arms. No rash or ecchymoses. Results Labs 10/23/25 06:24 10/23/25 11:42 Labs: Short CBC 10/22/25 Range/Units 02:30 WBC 8.4 (3.8-10.6) Thou/mm3 Hgb 9.7 L (13.5-16.0) g/dL Hct 32.4 L (41.0-53.0) % Plt Count 272 (140-440) Thou/mm3 BMP 10/22/25 10/22/25 10/22/25 02:46 06:35 08:13 Sodium 136 135 L Potassium 6.3 H* 6.8 H* D 7.0 H* Chloride 102 101 Carbon Dioxide 26.8 23.3 BUN 42 H 41 H Creatinine 2.9 H 3.0 H Glucose 110 H 139 H Calcium 8.9 9.1 Cardiac Enzymes 10/22/25 Range/Units 02:46 Troponin I 0.028 (0.0-0.045) ng/mL Liver Function 10/22/25 10/22/25 Range/Units 02:46 08:13 Total Bilirubin 1.3 H (0.3-1.2) mg/dL AST 31 (0-34) U/L ALT 16 (10-49) U/L Alkaline Phosphatase 307 H (46-116) U/L Albumin 4.4 4.6 (3.5-5.0) gm/dL Urine 10/22/25 Range/Units 06:40 Urine Color Yellow (Lt Yel-Yel) Urine Clarity Clear (Clear/Hazy) Urine pH 5.5 (5.0-7.0) Ur Specific [place] 1.013 (1.001-1.035) Urine Protein Negative (Neg - Trace) Urine Glucose (UA) Negative (Negative) ABG Interpretation ABG results: 10/22/25 03:27 ABG pH 7.30 L ABG pCO2 48 ABG pO2 80 L ABG HCO3 24 ABG O2 Saturation 98 ABG Base Excess -2 Quality Measures Quality Measures VTE prophylaxis Medications Home Medications and Allergies Allergies Allergy/AdvReac Type Severity Reaction Status Date / Time No Known Allergies Allergy Verified 01/26/24 20:00 Visit Medications Acetaminophen (Acetaminophen 325 Mg Tablet) 650 mg PO Q6H PRN PRN Reason: Fever >101.5 Stop: 11/21/25 06:00 Albuterol/Ipratropium (Albuterol/Ipratropium (Duoneb) Rt Irais 3 Ml Nebu) 3 ml INH [facility] Stop: 11/21/25 06:59 Last Admin: 10/22/25 08:11 Dose: 3 ml Allopurinol (Allopurinol 100 Mg Tablet) 100 mg PO QDAY [facility] Stop: 11/21/25 08:59 Last Admin: 10/22/25 09:35 Dose: Not Given Bumetanide (Bumetanide Inj 0.25 Mg/Ml Vial 4 Ml) 2 mg IVP BID [facility] Stop: 11/21/25 20:59 Carvedilol (Carvedilol 3.125 Mg Tablet) 3.125 mg PO BIDWM [facility] Stop: 11/21/25 07:59 Last Admin: 10/22/25 07:50 Dose: 3.125 mg Enoxaparin Sodium (Enoxaparin Sod Inj 30 Mg/0.3 Ml Syringe) 30 mg SC QDAY [facility] Stop: 11/05/25 08:59 Last Admin: 10/22/25 09:22 Dose: 30 mg Ceftriaxone Sodium/Dextrose (Rocephin/D5w 1gm Iv Premix) 1 gm in 50 mls @ 100 mls/hr IV QDAY [facility] Stop: 10/29/25 06:08 Last Infusion: 10/22/25 06:59 Dose: Infused Octreotide Acetate 1,000 mcg/ (Sodium Chloride) 102 mls @ 5.1 mls/hr IV .Q20H [facility]; Protocol Stop: 10/27/25 04:29 Octreotide Acetate 1,000 mcg/ (Sodium Chloride) 102 mls @ 5.1 mls/hr IV .Q20H [facility]; Protocol Stop: 10/23/25 03:29 Last Admin: 10/22/25 09:21 Dose: Not Given Albumin Human (Albuminar-25 Ivpb) 12.5 gm in 50 mls @ 100 mls/hr IV QDAY [facility] Stop: 11/21/25 07:21 Last Admin: 10/22/25 09:11 Dose: Not Given Lactulose (Lactulose Syrup 20 Gm/30 Ml Udc) 20 gm PO QID [facility]; Protocol Stop: 11/21/25 06:14 Last Admin: 10/22/25 06:26 Dose: 20 gm Levothyroxine Sodium (Levothyroxine Sodium 25 Mcg Tablet) 25 mcg PO ACBR [facility] Stop: 11/22/25 05:59 Pantoprazole Sodium (Pantoprazole Inj 40 Mg Vial) 40 mg IVP QDAY [facility] Stop: 11/21/25 08:59 Last Admin: 10/22/25 09:21 Dose: 40 mg Rifaximin (Rifaximin 550 Mg Tablet) 550 mg PO BID [facility] Stop: 10/29/25 08:59 Last Admin: 10/22/25 09:35 Dose: Not Given Discontinued Medications Albuterol (Albuterol Rt 2.5 Mg/0.5 Ml Nebu) 2.5 mg INH X1 ONE Stop: 10/22/25 09:27 Last Admin: 10/22/25 10:20 Dose: 2.5 mg Albuterol/Ipratropium (Albuterol/Ipratropium (Duoneb) Rt Irais 3 Ml Nebu) 3 ml INH X1 ONE Stop: 10/22/25 01:57 Last Admin: 10/22/25 02:07 Dose: 3 ml Bumetanide (Bumetanide Inj 0.25 Mg/Ml Vial 4 Ml) 2 mg IVP QDAY [facility] Stop: 10/22/25 09:00 Bumetanide (Bumetanide Inj 0.25 Mg/Ml Vial 4 Ml) 2 mg IVP QDAY [facility] Stop: 11/21/25 08:59 Bumetanide (Bumetanide Inj 0.25 Mg/Ml Vial 4 Ml) 2 mg IVP X1 ONE Stop: 10/22/25 07:31 Last Admin: 10/22/25 07:51 Dose: 2 mg Calcium Gluconate (Calcium Gluconate 10% Inj 1 Gm/10 Ml Vial) 1 gm IV X1 ONE Stop: 10/22/25 03:59 Last Admin: 10/22/25 05:31 Dose: 1 gm Calcium Gluconate (Calcium Gluconate 10% Inj 1 Gm/10 Ml Vial) 1 gm IV X1 ONE Stop: 10/22/25 09:32 Last Admin: 10/22/25 10:14 Dose: 1 gm Dextrose (Dextrose 50%-Water Inj 50 Ml Syringe) 50 ml IVP X1 ONE Stop: 10/22/25 03:58 Last Admin: 10/22/25 05:30 Dose: 50 ml Dextrose (Dextrose 50%-Water Inj 50 Ml Syringe) 50 ml IVP X1 ONE Stop: 10/22/25 09:27 Last Admin: 10/22/25 10:00 Dose: 50 ml Insulin Human Regular (Insulin Hum Regular 1 Unit/0.01 Ml (Per Unit)) 10 unit IV X1 ONE Stop: 10/22/25 03:58 Last Admin: 10/22/25 05:31 Dose: 10 unit Insulin Human Regular (Insulin Hum Regular 1 Unit/0.01 Ml (Per Unit)) 10 unit IV X1 ONE Stop: 10/22/25 09:27 Last Admin: 10/22/25 10:00 Dose: 10 unit Methylprednisolone Sodium Succinate (Methylprednisolone Sod Succ 62.5 Mg/Ml 2ml Vial) 125 mg IVP X1 ONE Stop: 10/22/25 01:57 Last Admin: 10/22/25 03:23 Dose: 125 mg Morphine Sulfate (Morphine Sulf Inj 4 Mg/Ml Vial) 4 mg IVP X1 ONE Stop: 10/22/25 02:08 Last Admin: 10/22/25 03:22 Dose: 4 mg Ondansetron HCl (Ondansetron Inj 2 Mg/Ml Inj 2 Ml) 4 mg IVP X1 ONE; Protocol Stop: 10/22/25 02:08 Last Admin: 10/22/25 03:22 Dose: 4 mg Sodium Polystyrene Sulfonate (Sod Polystyrene Sulfon Susp 15 Gm/60 Ml Btl) 15 gm PO X1 ONE Stop: 10/22/25 03:59 Last Admin: 10/22/25 05:30 Dose: 15 gm Sodium Polystyrene Sulfonate (Sod Polystyrene Sulfon Susp 15 Gm/60 Ml Btl) 15 gm PO X1 ONE Stop: 10/22/25 09:27 Sodium Polystyrene Sulfonate (Sod Polystyrene Sulfon Susp 15 Gm/60 Ml Btl) 15 gm AL X1 ONE Stop: 10/22/25 09:48 Spironolactone (Spironolactone 25 Mg Tablet) 100 mg PO QDAY [facility] Stop: 11/21/25 08:59 Assessment & Plan Plan Patient is a 60-year-old male past medical history of COPD, alcoholic cirrhosis, diabetes, gout, hypertension, A-fib, heart failure, hyperlipidemia, acidosis, CKD IIIa, stage III lymphoma who presented from SNF on 10/22 with shortness of breath and altered mental status, upgraded to ICU due to worsening AHRF requiring intubation. Nephrology consulted for urgent dialysis for hyperkalemia. #Hyperkalemia #CADY on CKD IIIa - Presented with altered mental status from SNF - Home medications include potassium chloride 10 mill EQ tablets and spironolactone 100 mg - Potassium 6.3 on admission, increased to 7.0 despite insulin, albuterol, and Kayexelate - Cr 2.9 on admission, previously 1.4 in 01/2024 - EKG showed normal sinus rhythm, no peaked T waves observed Plan: - Upgraded to ICU - Per ICU, will give Kayexelate and Patiromer and repeat renal panel. If potassium remains uncorrected, will place vasc cath and plan for urgent dialysis. #Respiratory acidosis #AHRF #Intubated #Acute decompensated cirrhosis 2/2 alcohol use #Acute encephalopathy #HFrEF #Hypertension #Hypothyroidism #Microcytic Anemia #History of gout #Stage III lymphoma #Diabetes #Afib paroxysmal? #HLD - Defer to primary team for management Thank you for your consultation, please do not hesitate to reach out if you have any question or concern Patient plan of care was discussed with the attending physician, Dr. Platt. Celeste Nation DO, PGY-1 Attending Provider Attestation/Addendum Patient currently seen and examined with resident physician Dr. Nation. Note reviewed, agree with findings and recommendations. Patient currently seen in ICU. Ventilated. He has hypercarbic respiratory failure and metabolic acidosis. Noted to have hyperkalemia. ICU team was able to place right IJ Vas-Cath with difficulty. Patient on dialysis. Tolerating dialysis without any problems. Hemodialysis for 2 hours, 2K, ultrafiltration 0 L, Epogen 6000, no heparin ordered. Plan of care discussed with the dialysis nurse. Please see dialysis flowsheet for further details. Spoke to ICU team. Next dialysis scheduled for tomorrow. Thank you Penelope for allowing me to participate in the care of Mr. Esparza.
[2025-10-22 11:40] LABS: Base Excess -5 (-3-3); HCO3 25 mEq/L (20-26); Inspired Oxygen, FIO2 50 %; O2 Saturation 40 % (91-98); PCO2 80 mmHg (32.0-48.0)
[2025-10-22 11:41] LABS: Allen Test Performed/OK; Puncture Site Right Brachial
[2025-10-22 11:49] LABS: PO2 34 mmHg (83-108); pH, Arterial 7.10 (7.35-7.45)
[2025-10-22] MEDS: ALBUTEROL RT 2.5 MG/0.5 ML NEBU 10 MG INH ×2 (11:49→18:03)
[2025-10-22 12:02] LABS: Albumin, Serum 5.0 gm/dL (3.5-5.0); Anion Gap 11 (7-16); BUN/Creatinine Ratio 15 Ratio (12-20); Blood Urea Nitrogen 46 mg/dL (9-23); Calcium 9.3 mg/dL (8.3-10.6); Calcium (Corrected) 9.3 mg/dL (8.5-10.1); Carbon Dioxide 24.5 mMol/L (20.0-31.0); Chloride 101 mMol/L (98-107); Creatinine (Component) 3.0 mg/dL (0.6-1.3); Estimated Creatinine Clearance 27.6 mL/min (>60); Glucose 131 mg/dL (74-106); Osmolality,Calculated 285 (275-295); Phosphorous 7.9 mg/dL (2.4-5.1); Sodium 136 mMol/L (136-145); eGFR 23 See Note
[2025-10-22 12:09] LABS: Potassium 7.0 mMol/L (3.4-5.1)
[2025-10-22] MEDS: MIDAZOLAM INJ 1 MG/ML VIAL 2 ML 4 MG IVP ×2 (12:32→12:47)
[2025-10-22] MEDS: ETOMIDATE INJ 2 MG/ML VIAL 10 ML 15 MG IVP (12:33)
[2025-10-22] MEDS: ROCURONIUM INJ 10 MG/ML VIAL 10 ML 100 MG IVP (12:34)
[2025-10-22] MEDS: ROCURONIUM INJ 10 MG/ML VIAL 10 ML 100 MG IV ×2 (12:34→12:43)
[2025-10-22] MEDS: fentaNYL CIT INJ 50 mCg/ML AMP 2ML 100 MCG IVP (12:42)
[2025-10-22] MEDS: EPINEPHrine INJ 0.1 MG/ML SYRINGE 10ML 0.5 MG IVP (12:53)
[2025-10-22] MEDS: PROPOFOL 1,000 MG IVPB 1,000 MG/100 ML VIAL 2.864 MG IV (12:56)
[2025-10-22] MEDS: fentaNYL 2,500 MCG/250 ML BAG 2,500 MCG/250 ML BAG IV (12:56)
--- NOTE | 2025-10-22 12:56 | XR_ITS ---
EXAMINATION: AP chest single view TECHNIQUE: AP portable semiupright chest single view Date and time: October 22, 2025, 1445 hours, comparison October 22, 2025 0314 hours INDICATIONS: Hypoxic respiratory failure post intubation FINDINGS: Pneumonia left base with air bronchograms Enlarged cardiac contour and enlarged ectatic thoracic aorta Endotracheal tube tip 2.3 cm above víctor Orogastric tube in the stomach Right lung clear IMPRESSION: Significant left base pneumonia
[2025-10-22 13:09] LABS: Lactate (Lactic Acid) 2.0 mMol/L (0.4-2.0)
--- NOTE | 2025-10-22 13:15 | ESCONSULT_ITS ---
<Statement entered by Rishabh Luo MD - 10/22/25 20:02> I have reviewed the note and agree with the resident's assessment & plan with exceptions as below. I have personally reviewed labs, imaging, home meds/prior records, examined the patient, formulated and discussed management plan with the IM team. Mr. Amador is a 60-year-old male with a past medical history of left neck lymphoma, cirrhosis, COPD on home oxygen, CKD who was upgraded to the ICU after respiratory failure secondary to CO2 retention complicated with respiratory acidosis requiring emergent endotracheal intubation. The patient required high doses of sedatives and muscle relaxants including fentanyl, multiple doses of midazolam, rocuronium and etomidate. Patient's case was also complicated with severe hyperkalemia that was unable to be managed medically. Nephrology was consulted with recommendations for hemodialysis, Dr Platt. After multiple attempts for try flow hemodialysis line insertion, it was successfully inserted. Patient's respiratory failure was also complicated with ascites in which patient had paracentesis diagnostic and therapeutic done and had 9 L removed. Patient with continue with hemodialysis per nephrology recommendations. Patient is currently mechanically intubated as well. Will continue to follow-up patient's respiratory and renal failure. Head CT ordered for patient as patient's pupils have become pinpoint, will follow-up. Repeat hematology, chemistry in the a.m. #Acute encephalopathy #History of HFrEF #History of hypertension #Acute hypoxic hypercarbic respiratory failure #History of COPD #Mucor pneumonia #Acute decompensated liver failure secondary to cirrhosis and complicated with ascites #Acute renal failure #Severe hyperkalemia #Respiratory acidosis with compensatory metabolic alkalosis #Hyperphosphatemia #History of hypothyroidism #Microcytic anemia Rishabh Luo, PGY-2 Internal Medicine HPI Data of Consult Requesting Physician: Nicole Burgos MD Admitting Provider: Nicole Burgos MD Attending Provider: Nicole Burgos MD Primary Care Provider: Gal Paz MD Consult Narrative Reason for consult: Severe Acidemia on abg History of present illness: Mr. Amador is a 60-year-old gentleman with a past medical history significant for left neck lymphoma, cirrhosis, COPD on home oxygen, and? 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 Patient was admitted to floors overnight labs were notable for ABG with pH 7.3, pCO2 48, pO2 80, subsequent ABG at 11 AM with pH of 7.10, pCO2 80, pO2 34. CMP notable for potassium 7.0 bicarb 24.5, anion gap 11, BUN 46, creatinine of 3.0 with baseline of 1.4 as of greater than 1 year ago. eGFR 23, lactic acid 2.0, Phos 7.9, mag 1.8, T. bili 1.3, AST ALT within normal limits, elevated alk phos at 307 (chronic), ammonia 32, BNP 638 previously noted to be in the 600 in January 2024, TSH 11.98, free T4 94, urine analysis bland urine culture not indicated SARS COVID-negative. Labs notable for PTT elevation 15.4, INR 1.5, PTT 28.5, D-dimer 1600 ABG initially was 7.21 with pCO2 48 subsequent ABG demonstrated severe acidemia with pH of 7.10 pCO2 of 80 and pO2 of 34 Nephrology was consulted taras Green to be placed by ICU team pending initiation of emergent HD given severe acidosis and hyperkalemia Patient was given 3 times of hyperkalemia cocktail with albuterol, insulin calcium gluconate and Kayexalate. Hyperkalemia was refractory so nephrology was notified Patient was then intubated for acute hypoxic respiratory failure? Acute encephalopathy. Patient was transferred physically to ICU where there was multiple attempts to place central access all of which failed. Bilateral IJ's were attempted and right Baum was attempted with severe kinking noted in the wire. Right IJ was reattempted by attending physician Dr. Jacobson with success chest x-ray confirms position of Tri flow venous catheter. HD to be initiated today. Paracentesis was performed with 9 L removed subsequently 50 g of albumin was given. Will follow-up with LFTs and physical exam for subsequent paracentesis. cc:: cc: Nicole Burgos MD Exam Vital Signs Temp Pulse Resp BP Pulse Ox O2 Del Method O2 Flow Rate 97.6 F 75 14 117/82 99 BiPAP 4 10/22/25 08:45 10/22/25 11:50 10/22/25 11:50 10/22/25 08:45 10/22/25 11:50 10/22/25 08:45 10/22/25 07:33 FiO2 100 10/22/25 11:50 Narrative Exam Patient with head normocephalic atraumatic Eyes fixed and dilated nonresponsive to light eyes noted to be protuberant with bulging. Heart regular rate rhythm no murmurs appreciated on auscultation Lungs diminished breath sounds on the left lung bases with ventilator breaths noted patient is on mechanical ventilation Abdomen is protuberant and soft with positive fluid wave, status post paracentesis with 9 L removed caput medusa noted on lower abdomen Lower extremities with 1+ pitting up to the thigh most notably on the lateral aspects of bilateral thighs and 1+ to trace pitting edema on the anterior tibial surfaces Feet are cool to the touch with pedal pulses unable to be appreciated upon palpation, will follow-up with Doppler Results Labs 10/23/25 06:24 10/23/25 11:42 Labs: Short CBC 10/22/25 Range/Units 02:30 WBC 8.4 (3.8-10.6) Thou/mm3 Hgb 9.7 L (13.5-16.0) g/dL Hct 32.4 L (41.0-53.0) % Plt Count 272 (140-440) Thou/mm3 BMP 10/22/25 10/22/25 10/22/25 02:46 06:35 08:13 Sodium 136 135 L Potassium 6.3 H* 6.8 H* D 7.0 H* Chloride 102 101 Carbon Dioxide 26.8 23.3 BUN 42 H 41 H Creatinine 2.9 H 3.0 H Glucose 110 H 139 H Calcium 8.9 9.1 10/22/25 10:45 Sodium 136 Potassium 7.0 H* Chloride 101 Carbon Dioxide 24.5 BUN 46 H Creatinine 3.0 H Glucose 131 H Calcium 9.3 Cardiac Enzymes 10/22/25 Range/Units 02:46 Troponin I 0.028 (0.0-0.045) ng/mL Liver Function 10/22/25 10/22/25 10/22/25 Range/Units 02:46 08:13 10:45 Total Bilirubin 1.3 H (0.3-1.2) mg/dL AST 31 (0-34) U/L ALT 16 (10-49) U/L Alkaline Phosphatase 307 H (46-116) U/L Albumin 4.4 4.6 5.0 (3.5-5.0) gm/dL Urine 10/22/25 Range/Units 06:40 Urine Color Yellow (Lt Yel-Yel) Urine Clarity Clear (Clear/Hazy) Urine pH 5.5 (5.0-7.0) Ur Specific [place] 1.013 (1.001-1.035) Urine Protein Negative (Neg - Trace) Urine Glucose (UA) Negative (Negative) ABG Interpretation ABG results: 10/22/25 10/22/25 03:27 11:26 ABG pH 7.30 L 7.10 L* D ABG pCO2 48 80 H* D ABG pO2 80 L 34 L* D ABG HCO3 24 25 ABG O2 Saturation 98 40 L ABG Base Excess -2 -5 L Quality Measures Quality Measures VTE prophylaxis Medications Home Medications and Allergies Allergies Allergy/AdvReac Type Severity Reaction Status Date / Time No Known Allergies Allergy Verified 01/26/24 20:00 Visit Medications Acetaminophen (Acetaminophen 325 Mg Tablet) 650 mg PO Q6H PRN PRN Reason: Fever >101.5 Stop: 11/21/25 06:00 Albuterol/Ipratropium (Albuterol/Ipratropium (Duoneb) Rt Irais 3 Ml Nebu) 3 ml INH Q8HRRT [facility] Stop: 11/21/25 06:59 Last Admin: 10/22/25 08:11 Dose: 3 ml Allopurinol (Allopurinol 100 Mg Tablet) 100 mg PO QDAY [facility] Stop: 11/21/25 08:59 Last Admin: 10/22/25 09:35 Dose: Not Given Bumetanide (Bumetanide Inj 0.25 Mg/Ml Vial 4 Ml) 2 mg IVP BID [facility] Stop: 11/21/25 20:59 Carvedilol (Carvedilol 3.125 Mg Tablet) 3.125 mg PO BIDWM [facility] Stop: 11/21/25 07:59 Last Admin: 10/22/25 07:50 Dose: 3.125 mg Enoxaparin Sodium (Enoxaparin Sod Inj 30 Mg/0.3 Ml Syringe) 30 mg SC QDAY [facility] Stop: 11/05/25 08:59 Last Admin: 10/22/25 09:22 Dose: 30 mg Fentanyl Citrate (Fentanyl Cit Inj 50 Mcg/Ml Amp 2ml) 100 mcg IVP X1 ONE Stop: 11/19/25 12:42 Last Admin: 10/22/25 12:42 Dose: 100 mcg Ceftriaxone Sodium/Dextrose (Rocephin/D5w 1gm Iv Premix) 1 gm in 50 mls @ 100 mls/hr IV QDAY [facility] Stop: 10/29/25 06:08 Last Infusion: 10/22/25 06:59 Dose: Infused Octreotide Acetate 1,000 mcg/ (Sodium Chloride) 102 mls @ 5.1 mls/hr IV .Q20H [facility]; Protocol Stop: 10/27/25 04:29 Octreotide Acetate 1,000 mcg/ (Sodium Chloride) 102 mls @ 5.1 mls/hr IV .Q20H [facility]; Protocol Stop: 10/23/25 03:29 Last Admin: 10/22/25 09:21 Dose: Not Given Albumin Human (Albuminar-25 Ivpb) 12.5 gm in 50 mls @ 100 mls/hr IV QDAY [facility] Stop: 11/21/25 07:21 Last Admin: 10/22/25 09:11 Dose: Not Given Propofol (Diprivan Ivpb) 1,000 mg in 100 mls @ 2.864 mls/hr IV .Q24H PRN; Protocol PRN Reason: PER PROTOCOL Stop: 11/21/25 12:08 Fentanyl Citrate (Sublimaze Inj 2,500 Mcg/250 Ml Bag) 2,500 mcg in 250 mls @ 2.5 mls/hr IV .Q24H PRN; Protocol PRN Reason: PER PROTOCOL Stop: 10/27/25 12:08 Lactulose (Lactulose Syrup 20 Gm/30 Ml Udc) 20 gm PO QID [facility]; Protocol Stop: 11/21/25 06:14 Last Admin: 10/22/25 06:26 Dose: 20 gm Levothyroxine Sodium (Levothyroxine Sodium 25 Mcg Tablet) 25 mcg PO ACBR [facility] Stop: 11/22/25 05:59 Pantoprazole Sodium (Pantoprazole Inj 40 Mg Vial) 40 mg IVP QDAY [facility] Stop: 11/21/25 08:59 Last Admin: 10/22/25 09:21 Dose: 40 mg Rifaximin (Rifaximin 550 Mg Tablet) 550 mg PO BID [facility] Stop: 10/29/25 08:59 Last Admin: 10/22/25 09:35 Dose: Not Given Sodium Chloride (Sodium Chloride Rt Irais 0.9% 3 Ml Nebu) 3 ml INH PRN PRN PRN Reason: SOLN Stop: 11/21/25 11:25 Discontinued Medications Albuterol (Albuterol Rt 2.5 Mg/0.5 Ml Nebu) 2.5 mg INH X1 ONE Stop: 10/22/25 09:27 Last Admin: 10/22/25 10:20 Dose: 2.5 mg Albuterol (Albuterol Rt 2.5 Mg/0.5 Ml Nebu) 10 mg INH X1 ONE Stop: 10/22/25 11:27 Last Admin: 10/22/25 11:49 Dose: 10 mg Albuterol/Ipratropium (Albuterol/Ipratropium (Duoneb) Rt Irais 3 Ml Nebu) 3 ml INH X1 ONE Stop: 10/22/25 01:57 Last Admin: 10/22/25 02:07 Dose: 3 ml Bumetanide (Bumetanide Inj 0.25 Mg/Ml Vial 4 Ml) 2 mg IVP QDAY [facility] Stop: 10/22/25 09:00 Bumetanide (Bumetanide Inj 0.25 Mg/Ml Vial 4 Ml) 2 mg IVP QDAY [facility] Stop: 11/21/25 08:59 Bumetanide (Bumetanide Inj 0.25 Mg/Ml Vial 4 Ml) 2 mg IVP X1 ONE Stop: 10/22/25 07:31 Last Admin: 10/22/25 07:51 Dose: 2 mg Calcium Gluconate (Calcium Gluconate 10% Inj 1 Gm/10 Ml Vial) 1 gm IV X1 ONE Stop: 10/22/25 03:59 Last Admin: 10/22/25 05:31 Dose: 1 gm Calcium Gluconate (Calcium Gluconate 10% Inj 1 Gm/10 Ml Vial) 1 gm IV X1 ONE Stop: 10/22/25 09:32 Last Admin: 10/22/25 10:14 Dose: 1 gm Dextrose (Dextrose 50%-Water Inj 50 Ml Syringe) 50 ml IVP X1 ONE Stop: 10/22/25 03:58 Last Admin: 10/22/25 05:30 Dose: 50 ml Dextrose (Dextrose 50%-Water Inj 50 Ml Syringe) 50 ml IVP X1 ONE Stop: 10/22/25 09:27 Last Admin: 10/22/25 10:00 Dose: 50 ml Epinephrine HCl (Epinephrine Inj 0.1 Mg/Ml Syringe 10ml) 0.5 mg IVP X1 ONE Stop: 10/22/25 12:53 Etomidate (Etomidate Inj 2 Mg/Ml Vial 10 Ml) 15 mg IVP X1 ONE Stop: 10/22/25 12:31 Insulin Human Regular (Insulin Hum Regular 1 Unit/0.01 Ml (Per Unit)) 10 unit IV X1 ONE Stop: 10/22/25 03:58 Last Admin: 10/22/25 05:31 Dose: 10 unit Insulin Human Regular (Insulin Hum Regular 1 Unit/0.01 Ml (Per Unit)) 10 unit IV X1 ONE Stop: 10/22/25 09:27 Last Admin: 10/22/25 10:00 Dose: 10 unit Methylprednisolone Sodium Succinate (Methylprednisolone Sod Succ 62.5 Mg/Ml 2ml Vial) 125 mg IVP X1 ONE Stop: 10/22/25 01:57 Last Admin: 10/22/25 03:23 Dose: 125 mg Midazolam HCl (Midazolam Inj 1 Mg/Ml Vial 2 Ml) 4 mg IVP X1 ONE Stop: 10/22/25 12:07 Last Admin: 10/22/25 12:32 Dose: 4 mg Midazolam HCl (Midazolam Inj 1 Mg/Ml Vial 2 Ml) 4 mg IVP X1 ONE Stop: 10/22/25 12:48 Morphine Sulfate (Morphine Sulf Inj 4 Mg/Ml Vial) 4 mg IVP X1 ONE Stop: 10/22/25 02:08 Last Admin: 10/22/25 03:22 Dose: 4 mg Ondansetron HCl (Ondansetron Inj 2 Mg/Ml Inj 2 Ml) 4 mg IVP X1 ONE; Protocol Stop: 10/22/25 02:08 Last Admin: 10/22/25 03:22 Dose: 4 mg Rocuronium [place] (Rocuronium Inj 10 Mg/Ml Vial 10 Ml) 100 mg IV X1 ONE Stop: 10/22/25 12:07 Last Admin: 10/22/25 12:43 Dose: 100 mg Rocuronium [place] (Rocuronium Inj 10 Mg/Ml Vial 10 Ml) 100 mg IVP X1 ONE Stop: 10/22/25 12:43 Sodium Chloride (Sodium Chloride Rt 10% 15 Ml Nebu) 5 ml INH X1 ONE Stop: 10/22/25 12:19 Sodium Polystyrene Sulfonate (Sod Polystyrene Sulfon Susp 15 Gm/60 Ml Btl) 15 gm PO X1 ONE Stop: 10/22/25 03:59 Last Admin: 10/22/25 05:30 Dose: 15 gm Sodium Polystyrene Sulfonate (Sod Polystyrene Sulfon Susp 15 Gm/60 Ml Btl) 15 gm PO X1 ONE Stop: 10/22/25 09:27 Sodium Polystyrene Sulfonate (Sod Polystyrene Sulfon Susp 15 Gm/60 Ml Btl) 15 gm VA X1 ONE Stop: 10/22/25 09:48 Spironolactone (Spironolactone 25 Mg Tablet) 100 mg PO QDAY [facility] Stop: 11/21/25 08:59 Assessment & Plan Plan Mr. Amador is a 60-year-old gentleman with history of heart failure with reduced ejection fraction alcohol-related cirrhosis COPD on home oxygen hypertension CKD and? Lymphoma of the right neck was brought in for 1 week of shortness of breath from prison who had severe refractory hyperkalemia that was refractory to hyperkalemia cocktail upgraded from floors to the ICU with severe acidemia and refractory hyper-K. Plan to start HD. Patient was intubated on 10/22 given decreased mental status and increased respiration. Neuro Acute metabolic encephalopathy secondary to cirrhosis Pupils fixed and dilated Diagnostic workup: - pending head ct - sedated CVS Acute CHF exacerbation Heart failure with reduced ejection fraction 20 to 25%, on this admission 10/2025 Home medications GDMT carvedilol, spironolactone, empagliflozin not on GREY or ARB His exacerbation likely secondary to cystitis or pneumonia with chest x-ray showing vascular congestion with pedal and lower extremity edema with increased perihilar interstitial markings left greater than right At this time , no plan for diuresis, with plan for fluid removal on HD Left basilar pneumonia Versus aspiration pneumonia versus community-acquired pneumonia versus healthcare-acquired pneumonia Patient presents from SNF, chest x-ray with left basilar opacities, patient intubated today concern for aspiration pneumonia versus pneumonitis Treatment given 1 g ceftriaxone daily Follow-up on sputum cultures GI Acute decompensated liver failure ? Acute hepatic encephalopathy Severe ascites Status post paracentesis with 9 L of fluid removed that were straw-colored fluid studies pending follow-up for SAAG calculation 15 g of albumin given Follow-up LFTs and reassess for possible repeat paracentesis if clinically indicated Renal CADY on CKD versus worsening CKD No baseline creatinine given patient does not have several labs here at [facility] January 2024 with creatinine 1.4 presented today with creatinine of 3 GFR of 23 from 60 and January 2024 Plan for urgent dialysis today and every 6 hour renal panel Hyperkalemia refractory At home patient is on spironolactone and potassium 10 mill equivalents Upon ED presentation potassium was 7.3 given hyperkalemia cocktail x 3 and current potassium level is 6.8 plan for urgent HD Hyperphosphatemia Plan first of Alomere 800 3 times daily per NG tube Endo Hypothyroidism Patient has history of hypothyroidism, takes levothyroxine 25 at home, plan for oral given patient is not on pressors actively ? Diabetes versus metabolic syndrome Patient does not have any documentation of type 2 diabetes however patient is obese and there is? Concern for possible diabetes will follow-up with a.m. A1c and lipid panel Heme/unk Chronic microcytic anemia Follow-up iron panel, plan to treat with IV iron 200 IV daily for 3 days ? epgen to be given with HD per nephrology recommendations PRBC if hemoglobin is less than 7, postprocedure for multiple attempts at venous central access for HD patient lost significant amount of blood follow-up post H&H and transfuse as indicated type and screen already in Coagulopathy secondary to cirrhosis and acute decompensated liver failure PT, INR, PTT all elevated with elevated D-dimer 1600 Follow-up coags in the a.m. ID ? Community-acquired pneumonia versus healthcare associated pneumonia Patient received 1 g of ceftriaxone in the ED continue with ceftriaxone 1 g daily IV DVT prophylaxis, heparin 500 every 12 GI prophylaxis Protonix 40 IV daily given patient's intubated CODE STATUS: Full Case disclosed with my senior resident Dr. Luo and my Attending Dr. Kavon Goff MD PGY1 Attending Provider Attestation/Addendum Patient seen and examined. Discussed with resident. In brief this is a 60-year-old male who was admitted to the hospital for COPD and cirrhosis. He was originally admitted to telemetry. He was found to have some labored breathing and started on a BiPAP. An ABG was ordered and he was found to have significant CO2 retention with respiratory acidosis and pH 7.1. He had a significant amount abdominal distention due to tense ascites. The decision was made to take him to the ICU for intubation due to his acute encephalopathy and acute respiratory failure on BiPAP. He was intubated and it was a complicated intubation. He had significant hyperkalemia and nephrology requested an HD line. There was an extreme amount of difficulty placing an HD line as the patient had difficult vasculature with multiple kinking of guidewires. Initially the resident tried to place a right IJ unsuccessfully then an attempt was made at a right femoral. Both of these attempts were unsuccessful. I attempted a left IJ however had trouble advancing the guidewire. Since there was resistance with advancing the guidewire the guidewire was withdrawn and the attempt aborted. Eventually I was successful in placing a right IJ Tri flow catheter for emergent dialysis. He was treated with medical management for his hyperkalemia until dialysis can be achieved. Vent settings were adjusted for his respiratory acidosis. He had did undergo a paracentesis for his tense ascites. Approximately 9 L were removed and albumin was given postprocedure. He is continued on medications for his cirrhosis. Case discussed with ICU team Labs, imaging and records reviewed Approximately 85 critical care minutes required for evaluation, exam, review, intervention, discussion and formulation of plan of care for this critically ill patient with acute hypercapnic respiratory failure and cirrhosis at high risk for further and ongoing decompensation.
--- NOTE | 2025-10-22 14:00 | PD.RESPROC ---
PROCEDURES: Procedure Date / Time 10/22/25 1400 Central Line Placement Right IJ: Indication(s): other (Hemodialysis (Tri-Flow) ) Informed consent obtained: procedure done urgently Time out done, and the following verified: correct patient, side and site, procedure and patient position Patient placed on monitor/pulse ox: Yes Hand Hygiene: soap & water Max Sterile Barrier Techniques used: cap, mask, sterile gown, sterile gloves and sterile full body drape Central line prep: Chlorhexidine scrub Local anesthesia used: lidocaine 1% Amount of anesthesia used (mL): 3 Ultrasound used for placement: Yes Sterile Technique if Ultrasound used, including sterile gel: yes Central line lumen inserted: triple EBL(ml): 5 Complications: other (Could not dilate catheter ) Procedure comment: My hands were washed immediately prior to the procedure. I wore a surgical cap, mask, full gown and sterile gloves throughout the procedure. The patient was placed flat. The RIGHT chest and neck region was prepped using chlorhexidine scrub and draped in sterile fashion using a full drape and sterile probe cover and sterile gel employed. The Internal Jugular vein was identified using the ultrasound. Anesthesia was achieved over the vein using 1% lidocaine. Using real-time out of plane guidance, the introducer needle was inserted into the Internal Jugular vein under direct ultrasound visualization. Venous blood was withdrawn. The syringe was removed and a guidewire was advanced into the introducer needle. The guidewire was visualized in the Internal Jugular Vein by ultrasound. A small incision was made at the skin surface with a scalpel and the introducer needle was exchanged for a dilator over the guidewire. However, after multiple attempts to dilate, dilator would get kinked and skin could not be fully penetrated. A decision was made to stop the procedure at this time as line placement was unsuccessful at this time.
[2025-10-22 15:43] LABS: Base Excess -3 (-3-3); HCO3 23 mEq/L (20-26); Inspired Oxygen, FIO2 21 %; O2 Saturation 101 % (91-98); PCO2 48 mmHg (32.0-48.0); PO2 236 mmHg (83-108); pH, Arterial 7.29 (7.35-7.45)
[2025-10-22 15:44] LABS: Allen Test Not Performed; Puncture Site Right Radial
[2025-10-22] MEDS: SOD POLYSTYRENE SULFON SUSP 15 GM/60 ML BTL 45 GM PO (15:44)
[2025-10-22] MEDS: ALBUMIN HUMAN-KJDA 25% IVPB 25 GM/100 ML BTL IV ×2 (16:14→16:22)
[2025-10-22] MEDS: PATIROMER CALCIUM 8.4 GM PACKET PO (16:22)
--- NOTE | 2025-10-22 16:32 | PD.INTPROC ---
PROCEDURES: Procedure Date / Time 10/22/25 5742 Intubation Indication(s): acute Resp Failure and inability to protect airway Informed consent obtained: procedure done urgently Time out done, and the following verified: correct patient, side and site, procedure, patient position and implants and/or equipment Sedative: versed Mg given: 8 Sedative #2: etomidate Mg Given (sedative #2): 15 Paralytic: rocuronium Mg given: 200 Laryngoscope: fiber optic video scope ET tube size: 7.5 ET tube uncuffed: No Tube secured depth (cm): 21 Tube secured location: lips Tube placement confirmation: visualized tube passing through cords, equal breath sounds bilaterally, no breath sounds over epigastrium and confirmation by capnometry Patient tolerated procedure: well Intubation complications: difficult intubation and hypotension Additional comments: Patient had a very anterior airway. Initially gave 4 mg of Versed and 15 of etomidate with 100 of sadi. The patient was still awake and it seemed that the line may have infiltrated. Switched to the other arm and given another 4 of Versed and another 100 of sadi. Once the patient was sedated GlideScope with an S3 blade was used however unable to visualize the cords given his body habitus. At that point in time the patient was bagged and the blade was switched out to an S4. With the S4 I was able to visualize the patient's cords however he was very anterior cricoid pressure was required. He was intubated with some difficulty and placement was confirmed with capnography. There was some bleeding noted in the airway. A chest x-ray was later obtained to confirm position and the tube was found to be too deep on the left. The ET tube was retracted by 4 cm and eventually secured 1 more time at 21 cm from original 25.
--- NOTE | 2025-10-22 16:38 | PD.RESPROC ---
PROCEDURES: Procedure Date / Time 10/22/25 1538 Paracentesis Indication: Ascites Informed consent obtained: from patient Time out done, and the following verified: correct patient, side and site, procedure and patient position Procedure: therapeutic paracentesis Location: RLQ Local anesthetic used: lidocaine 1% Amount of anesthesia used (mL): 4 Bedside ultrasound used: yes, Ascites confirmed and location marked Preparation: sterile prep and drape Amount of fluid obtained (mL): 9,000 Fluid: sent to lab for analysis EBL(ml): 0 Post procedure exam: other (sedated and intubated) Patient tolerated procedure: well Complications: none Procedure comment: Indication: Symptomatic ascites with abdominal distention Supervising Physician: Dr. Jacobson (Reject Opener And Filler) ? present, supervised, and assisted throughout the procedure. Performing Physician: Dr. Coley, PGY1 Consent: Prior to the patient being intubated and sedated, the patient was awake and oriented. I discussed the presence of significant ascites causing abdominal distention and discomfort. The patient expressed understanding and verbally agreed to proceed with therapeutic paracentesis. Risks, benefits, and alternatives were explained. The patient consented to the procedure. Time Out: Completed. Verified correct patient, procedure, site, side (RLQ), and patient position prior to starting. Procedure: Therapeutic paracentesis Location: Right lower quadrant (RLQ) Bedside Ultrasound: Used; confirmed large volume ascites and appropriate needle insertion site. Site was marked. Preparation: Sterile technique maintained throughout. Area prepped with antiseptic solution and draped. Anesthesia: Local anesthesia with 1% lidocaine; total of 4 mL used. Technique: Using ultrasound guidance, a paracentesis needle/catheter was advanced into the ascitic fluid pocket. Clear yellow fluid was aspirated without resistance. Catheter connected to drainage system. Amount of Fluid Removed: 9,000 mL of ascitic fluid removed. Fluid Studies: Specimen sent to laboratory for analysis. EBL: 0 mL Needle Size: Standard paracentesis catheter (per hospital kit). Post-Procedure Exam: Patient sedated and intubated (post-intubation for respiratory status). Abdomen softer and less tense. Hemodynamically stable. Complications: None observed. Procedure tolerated well. Successful large-volume therapeutic paracentesis performed under direct supervision of Dr. Jacosbon. No immediate complications. ----- Jared Coley MD PGY-1 Internal Medicine Attending note I was present for and assisted with all blount aspects of this procedure. Approximately 9 L of ascitic fluid were removed and the patient tolerated the procedure well. He remained hemodynamically stable.
--- NOTE | 2025-10-22 16:40 | PC.RT ---
unable to obtain sputum sample at this time.
[2025-10-22 17:50] LABS: Peritoneal Fluid WBC 80 /cmm; RBC,Peritoneal Fluid 0.003 /cmm
[2025-10-22] MEDS: CALCIUM CHLORIDE 10% INJ 10 ML SYRG IV (17:50)
[2025-10-22] MEDS: Sodium Bicarb Inj 8.4% SYR 50 ML SYRINGE IV (17:50)
[2025-10-22 17:55] LABS: Peritoneal Fluid Appearance Clear; Peritoneal Fluid Color Yellow; Peritoneal Fluid Mononuclear 77 %; Peritoneal Fluid Polynuclear 23 %
[2025-10-22 18:04] LABS: Albumin, Peritoneal Fluid 2.4 gm/dL; Glucose,Peritoneal Fluid 124 mg/dL; Protein Total,Peritoneal Fluid 4 g/dL
[2025-10-22 18:10] LABS: Alanine Aminotransferase 12 U/L (10-49); Albumin, Serum 4.2 gm/dL (3.5-5.0); Albumin/Globulin Ratio 1.4 (1.2-2.2); Alkaline Phosphatase 251 U/L (46-116); Anion Gap 12 (7-16); Aspartate Amino Transferase 26 U/L (0-34); BUN/Creatinine Ratio 14 Ratio (12-20); Bilirubin,Total 1.2 mg/dL (0.3-1.2); Blood Urea Nitrogen 44 mg/dL (9-23); Calcium 9.2 mg/dL (8.3-10.6); Calcium (Corrected) 9.2 mg/dL (8.5-10.1); Carbon Dioxide 23.5 mMol/L (20.0-31.0); Chloride 101 mMol/L (98-107); Creatinine (Component) 3.1 mg/dL (0.6-1.3); Estimated Creatinine Clearance 26.7 mL/min (>60); Globulin 3.1 gm/dL (2.3-3.5); Glucose 126 mg/dL (74-106); Osmolality,Calculated 285 (275-295); Sodium 136 mMol/L (136-145); Total Protein 7.3 gm/dL (5.7-8.2); eGFR 22 See Note
[2025-10-22 18:13] LABS: Potassium 6.8 mMol/L (3.4-5.1)
--- NOTE | 2025-10-22 18:28 | XR_ITS ---
EXAMINATION: AP chest single view TECHNIQUE: AP portable supine chest single view Date and time: October 22, 2025, 1840 hours INDICATIONS: Post dialysis catheter insertion FINDINGS: Right internal jugular dialysis catheter tip SVC satisfactory position Endotracheal tube tip 4.2 cm above víctor Orogastric tube in the stomach tip below the level of the film Moderate enlargement left ventricle Suspicious for pneumonia and pleural fluid left base IMPRESSION: Right internal jugular dialysis catheter tip SVC satisfactory position, no pneumothorax
--- NOTE | 2025-10-22 18:28 | PD.INTPROC ---
PROCEDURES: Procedure Date / Time 10/22/25 1828 Central Line Placement Right IJ: Indication(s): poor, or inadequate peripheral venous access Informed consent obtained: from patient and procedure done urgently Time out done, and the following verified: correct patient, side and site, procedure and patient position Patient placed on monitor/pulse ox: Yes Hand Hygiene: scrub and alcohol-based hand rub Max Sterile Barrier Techniques used: cap, mask, sterile gown, sterile gloves and sterile full body drape Central line prep: Chlorhexidine scrub and sterile drapes applied Local anesthesia used: lidocaine 1% Amount of anesthesia used (mL): 5 Ultrasound used for placement: Yes Sterile Technique if Ultrasound used, including sterile gel: yes Central line lumen inserted: triple Post procedure: sutured in place, good blood return, all ports aspirated, flushed, capped and sterile dressing applied Post procedure x-ray: tip of catheter in good position and no pneumothorax seen EBL(ml): 45 Complications: hematoma at puncture site
--- NOTE | 2025-10-22 18:33 | XR_ITS ---
Examination: CT brain head without contrast. 2-D sagittal coronal reconstructions Date and time of exam: October 22, 2025, 1936 hours INDICATIONS: Fixed and dilated pupils beginning 1 hour ago CTDI: vol (mGy): 56.2 DLP: (mGycm): 1134 Technique: Multiple CT axial sections of the brain have been obtained, 5 mm slice thickness. Contrast has not been administered. 2-D sagittal, coronal reconstructions have been obtained Low dose protocols were performed. One or more of the following dose reduction techniques were used; automated exposure control, adjustment of the mA and/or KV according to patient size, use of iterative reconstruction technique. Findings: No significant ventricular enlargement. Intra-axial or extra-axial hemorrhage density is not seen. No mass effect or midline shift Basal cisterns are not remarkable. Fourth ventricle is midline. Cranial vault intact. 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
[2025-10-22] MEDS: HEPARIN SOD INJ 1000 UNIT/ML VIAL 10 ML 3000 UNIT INDWELLCAT ×2 (18:46→22:24)
[2025-10-22 19:05] LABS: Basophils # (Auto) 0.0 Thou/mm3 (0.0-0.2); Basophils % (Auto) 0 % (0-2.5); Eosinophils # (Auto) 0.0 Thou/mm3 (0.0-0.5); Eosinophils % (Auto) 0 % (0-10); Hematocrit 29.9 % (41.0-53.0); Hemoglobin 8.9 g/dL (13.5-16.0); Immature Granulocytes Auto 0.02 Thou/mm3 (0.00-0.00); Lymphocytes # (Auto) 0.3 Thou/mm3 (1.0-4.8); Lymphocytes % (Auto) 7 % (10-50); Mean Corpuscular HGB Conc 29.8 g/dl (31.0-37.0); Mean Corpuscular Hemoglobin 20.7 pg (25.0-35.0); Mean Corpuscular Volume 70 fL (80-100); Monocytes # (Auto) 0.2 Thou/mm3 (0.0-0.8); Monocytes % (Auto) 4 % (0-12); Neutrophils # (Auto) 4.3 Thou/mm3 (1.8-7.7); Neutrophils % (Auto) 89 % (37-80); Nucleated Red Blood Cell # 0.05 Thou/mm3 (0.00-0.00); Nucleated Red Blood Cell % 1 /100 WBC (0); Platelet Count 189 Thou/mm3 (140-440); RDW Standard Deviation 49.8 fL (35.1-43.9); Red Blood Count 4.30 Miln/mm3 (4.50-5.90); White Blood Count 4.9 Thou/mm3 (3.8-10.6)
[2025-10-22 19:12] LABS: Base Excess -1 (-3-3); HCO3 24 mEq/L (20-26); Inspired Oxygen, FIO2 21 %; O2 Saturation 100 % (91-98); PCO2 43 mmHg (32.0-48.0); PO2 173 mmHg (83-108); pH, Arterial 7.36 (7.35-7.45)
[2025-10-22 19:14] LABS: Puncture Site Left Radial
[2025-10-22 19:15] LABS: Allen Test Not Performed
[2025-10-22 19:22] LABS: INR 1.6 (0.9-1.3); Prothrombin Time 16.7 Seconds (9.0-12.2)
[2025-10-22 19:23] LABS: Alanine Aminotransferase 11 U/L (10-49); Albumin, Serum 4.2 gm/dL (3.5-5.0); Albumin/Globulin Ratio 1.4 (1.2-2.2); Alkaline Phosphatase 231 U/L (46-116); Anion Gap 10 (7-16); Aspartate Amino Transferase 22 U/L (0-34); BUN/Creatinine Ratio 15 Ratio (12-20); Bilirubin,Total 1.2 mg/dL (0.3-1.2); Blood Urea Nitrogen 46 mg/dL (9-23); Calcium 9.9 mg/dL (8.3-10.6); Calcium (Corrected) 9.9 mg/dL (8.5-10.1); Carbon Dioxide 25.3 mMol/L (20.0-31.0); Chloride 103 mMol/L (98-107); Creatinine (Component) 3.1 mg/dL (0.6-1.3); Estimated Creatinine Clearance 26.7 mL/min (>60); Globulin 3.0 gm/dL (2.3-3.5); Glucose 162 mg/dL (74-106); Osmolality,Calculated 291 (275-295); Potassium 5.6 mMol/L (3.4-5.1); Sodium 138 mMol/L (136-145); Total Protein 7.2 gm/dL (5.7-8.2); eGFR 22 See Note
--- NOTE | 2025-10-22 19:39 | XR_ITS ---
Examination: CT CT soft tissue neck, without contrast. 2-D sagittal reconstructions. 2-D coronal reconstructions. 3-D reconstructions. Date and time of exam: October 22, 2025, 1947 hours INDICATIONS: Neck pain and swelling months CTDI: vol (mGy): 17.9 DLP: (mGycm): 627 Technique: Multiple 1.25 mm axial sections of the neck without intravenous contrast 2D sagittal coronal reconstructions 3D reconstructions Low-dose protocols, automatic exposure control, adjustment of MA KV according to patien size FINDINGS: There are large areas of posterior bilateral lipomatous change, on the right side measuring 10 x 8.8 cm, on the right side 10.6 x 9.4 cm No pathologic cervical lymphadenopathy Thyroid lobes exhibit symmetry The endotracheal tube obliterates detail of the epiglottis Maxillary antra are clear Symmetrical optic globes Cellulitis pattern in the subcutaneous fatty tissue posterior upper chest primarily on the right side IMPRESSION: Large areas of lipomatous change in the posterior neck bilaterally Cellulitis pattern in the subcutaneous fatty tissue posterior upper chest primarily on the right side
[2025-10-22] MEDS: MIDAZOLAM INJ 1 MG/ML VIAL 2 ML 2 MG IVP (20:40)
--- NOTE | 2025-10-22 20:49 | ESPR_ITS ---
<Statement entered by Richard John MD - 11/02/25 09:19> I reviewed above note and agree with findings and plans. I have also personally examined the patient with medicine team and went over assessment and plan with medical team including communications intern and resident physician. <Statement entered by Lilian Quiñonez MD - 10/24/25 09:48> In summary: A 60-year-old man with a history of COPD, alcoholic cirrhosis, CKD, and heart failure presented with worsening shortness of breath, hyperkalemia, and CADY. He was intubated and transferred to the ICU for treatment of acute decompensated cirrhosis, respiratory failure, and refractory hyperkalemia. He is currently under close care in the ICU. His acute decompensated cirrhosis is complicated by possible hepatic encephalopathy, with worsening ascites, lethargy, and coagulopathy PT 15.4, INR 1.5. He?s being treated with Ceftriaxone for SBP prophylaxis, ammonia monitoring, paracentesis, and his home medications of rifaximin and lactulose have been restarted. His CADY, on top of CKD, is complicated by malignant hyperkalemia. Despite treatments with insulin, albuterol, Kayexalate, and calcium gluconate, his potassium levels remained elevated. Nephrology has been consulted for emergent dialysis, and his renal function is being carefully monitored. He also developed acute hypoxic respiratory failure and respiratory acidosis, initially managed with BiPAP, but his condition worsened, requiring intubation. His HFpEF EF 35-40% is being managed with Bumex for diuresis and strict fluid monitoring. His blood pressure is under control with carvedilol, and his hypothyroidism is being managed with levothyroxine. Additionally, his microcytic anemia is being monitored, and his gout treatment has resumed with allopurinol. I?ve reviewed the note and agree with this assessment and plan, with the exceptions outlined above. I personally went over the labs, imaging, home medications, and prior records, and examined the patient. The case was also reviewed with the attending physician. Please note: this document was transcribed using voice recognition technology; minor inaccuracies may be present. Lilian Quiñonez DO PGY II Documentation for date of: 10/22/25 Subjective Subjective Interval history: 60-year-old male with a history of COPD, alcoholic cirrhosis, diabetes, gout, hypertension, A-fib, heart failure with reduced ejection fraction (HFrEF), hyperlipidemia, acidosis, CKD, and stage III lymphoma. He was brought to the hospital from the nursing facility due to worsening shortness of breath for the past week. The patient reports that his breathing has been gradually worsening and has become more difficult over the last few days. He also mentioned a history of kidney issues, but it was noted that he has never undergone dialysis and had previous problems with potassium. He is unable to provide further history due to lethargy. This morning, patient was initially managed on the primary team floor but was later upgraded to the ICU due to worsening respiratory failure and acidosis, as evidenced by ABG findings. Exam Vital Signs Temp Pulse Resp BP Pulse Ox O2 Del Method O2 Flow Rate 95.9 F L 74 18 123/80 100 BiPAP 4 10/22/25 19:44 10/22/25 20:45 10/22/25 19:44 10/22/25 20:45 10/22/25 19:44 10/22/25 08:45 10/22/25 07:33 FiO2 80 10/22/25 19:44 Narrative Exam Physical Exam General: Lethargy, requiring a lot of effort to speak, obese body habitus. HEENT: Normocephalic, atraumatic, mucous membranes moist. Proptosis. Heart: Regular rate and rhythm, no murmurs. Labored respirations and use of accessory muscles. Lungs: Crackles in the bases bilaterally. Abdomen: Protuberant and soft with positive fluid wave. No guarding or rebound tenderness. Neurologic: Alert and oriented x3, no gross neurological deficit, and patient able to move all 4 extremities. Extremities: Lower extremities with 1+ pitting up to the thigh most notably on the lateral aspects of bilateral thighs and 1+ to trace pitting edema on the anterior tibial surfaces. Skin: No rash or ecchymoses. Scattered freckles on face and upper arms. Psychiatric: Cooperative, appropriate mood and affect. Objective Labs 10/24/25 04:32 10/24/25 04:32 Labs: Laboratory Results - last 24 hr 10/22/25 10/22/25 10/22/25 02:30 02:46 03:27 WBC 8.4 RBC 4.68 Hgb 9.7 L Hct 32.4 L MCV 69 L MCH 20.7 L MCHC 29.9 L RDW Std Deviation 53.3 H Plt Count 272 Neut % (Auto) 67 Lymph % (Auto) 10 [place] % (Auto) 20 H Eos % (Auto) 1 Baso % (Auto) 1 Neut # (Auto) 5.7 Lymph # (Auto) 0.8 L [place] # (Auto) 1.7 H Eos # (Auto) 0.1 Baso # (Auto) 0.1 Immature Gran # (Auto) 0.10 H Absolute Nucleated RBC 0.08 H Immature Gran % 1 H Nucleated RBC % 1 H Smear Path Review Sent to Pathologist PT 15.4 H INR 1.5 H APTT 28.5 D-Dimer 1600 H Puncture Site Left Radial ABG pH 7.30 L ABG pCO2 48 ABG pO2 80 L ABG HCO3 24 ABG O2 Saturation 98 ABG Base Excess -2 Oxygen Liter Flow 3 FiO2 21 Sodium 136 Potassium 6.3 H* Chloride 102 Carbon Dioxide 26.8 Anion Gap 7 BUN 42 H Creatinine 2.9 H Estim Creat Clear Calc 28.6 L eGFR 24 L BUN/Creatinine Ratio 14 Glucose 110 H Calculated Osmolality 283 Lactic Acid Calcium 8.9 Corrected Calcium 8.9 Phosphorus Magnesium 1.8 Total Bilirubin 1.3 H AST 31 ALT 16 Alkaline Phosphatase 307 H Ammonia Troponin I 0.028 B-Natriuretic Peptide 638 H* Total Protein 8.1 Albumin 4.4 Globulin 3.7 H Albumin/Globulin Ratio 1.2 TSH Free T4 Ur Collection Type Urine Color Urine Clarity Urine pH Ur Specific [place] Urine Protein Urine Glucose (UA) Urine Ketones Urine Blood Urine Nitrite Urine Bilirubin Urine Urobilinogen (Auto) Ur Leukocyte Esterase Urine RBC Urine WBC Ur Squamous Epith Cells Urine Bacteria Hyaline Casts Ur Culture Indicated? Peritoneal Color Peritoneal Appearance Peritoneal WBC Peritoneal RBC Periton Polynucl WBCs Periton Mononucl WBCs Peritoneal Tot Protein Peritoneal Albumin Peritoneal Glucose SARS-CoV-2 Ag (Rapid) Blood Type Antibody Screen Crossmatch Blood Bank Wristband ID 10/22/25 10/22/25 10/22/25 06:15 06:35 06:40 WBC RBC Hgb Hct MCV MCH MCHC RDW Std Deviation Plt Count Neut % (Auto) Lymph % (Auto) [place] % (Auto) Eos % (Auto) Baso % (Auto) Neut # (Auto) Lymph # (Auto) [place] # (Auto) Eos # (Auto) Baso # (Auto) Immature Gran # (Auto) Absolute Nucleated RBC Immature Gran % Nucleated RBC % Smear Path Review PT INR APTT D-Dimer Puncture Site ABG pH ABG pCO2 ABG pO2 ABG HCO3 ABG O2 Saturation ABG Base Excess Oxygen Liter Flow FiO2 Sodium Potassium 6.8 H* D Chloride Carbon Dioxide Anion Gap BUN Creatinine Estim Creat Clear Calc eGFR BUN/Creatinine Ratio Glucose Calculated Osmolality Lactic Acid Calcium Corrected Calcium Phosphorus Magnesium Total Bilirubin AST ALT Alkaline Phosphatase Ammonia Troponin I B-Natriuretic Peptide Total Protein Albumin Globulin Albumin/Globulin Ratio TSH Free T4 Ur Collection Type Clean Catch Urine Color Yellow Urine Clarity Clear Urine pH 5.5 Ur Specific [place] 1.013 Urine Protein Negative Urine Glucose (UA) Negative Urine Ketones Negative Urine Blood Negative Urine Nitrite Negative Urine Bilirubin Negative Urine Urobilinogen (Auto) Negative Ur Leukocyte Esterase Negative Urine RBC 1 Urine WBC 1 Ur Squamous Epith Cells 0 Urine Bacteria None Hyaline Casts 1 Ur Culture Indicated? Not Indicated Peritoneal Color Peritoneal Appearance Peritoneal WBC Peritoneal RBC Periton Polynucl WBCs Periton Mononucl WBCs Peritoneal Tot Protein Peritoneal Albumin Peritoneal Glucose SARS-CoV-2 Ag (Rapid) Negative Blood Type B Positive Antibody Screen NEGATIVE Crossmatch See Detail Blood Bank Wristband ID Yes 10/22/25 10/22/25 10/22/25 08:13 10:45 11:26 WBC RBC Hgb Hct MCV MCH MCHC RDW Std Deviation Plt Count Neut % (Auto) Lymph % (Auto) [place] % (Auto) Eos % (Auto) Baso % (Auto) Neut # (Auto) Lymph # (Auto) [place] # (Auto) Eos # (Auto) Baso # (Auto) Immature Gran # (Auto) Absolute Nucleated RBC Immature Gran % Nucleated RBC % Smear Path Review PT INR APTT D-Dimer Puncture Site Right Brachial ABG pH 7.10 L* D ABG pCO2 80 H* D ABG pO2 34 L* D ABG HCO3 25 ABG O2 Saturation 40 L ABG Base Excess -5 L Oxygen Liter Flow FiO2 50 Sodium 135 L 136 Potassium 7.0 H* 7.0 H* Chloride 101 101 Carbon Dioxide 23.3 24.5 Anion Gap 11 11 BUN 41 H 46 H Creatinine 3.0 H 3.0 H Estim Creat Clear Calc 27.6 L 27.6 L eGFR 23 L 23 L BUN/Creatinine Ratio 14 15 Glucose 139 H 131 H Calculated Osmolality 282 285 Lactic Acid Calcium 9.1 9.3 Corrected Calcium 9.1 9.3 Phosphorus 8.1 H 7.9 H Magnesium Total Bilirubin AST ALT Alkaline Phosphatase Ammonia 32 Troponin I B-Natriuretic Peptide Total Protein Albumin 4.6 5.0 Globulin Albumin/Globulin Ratio TSH 11.98 H Free T4 0.94 Ur Collection Type Urine Color Urine Clarity Urine pH Ur Specific [place] Urine Protein Urine Glucose (UA) Urine Ketones Urine Blood Urine Nitrite Urine Bilirubin Urine Urobilinogen (Auto) Ur Leukocyte Esterase Urine RBC Urine WBC Ur Squamous Epith Cells Urine Bacteria Hyaline Casts Ur Culture Indicated? Peritoneal Color Peritoneal Appearance Peritoneal WBC Peritoneal RBC Periton Polynucl WBCs Periton Mononucl WBCs Peritoneal Tot Protein Peritoneal Albumin Peritoneal Glucose SARS-CoV-2 Ag (Rapid) Blood Type Antibody Screen Crossmatch Blood Bank Wristband ID 10/22/25 10/22/25 10/22/25 13:05 15:35 16:16 WBC RBC Hgb Hct MCV MCH MCHC RDW Std Deviation Plt Count Neut % (Auto) Lymph % (Auto) [place] % (Auto) Eos % (Auto) Baso % (Auto) Neut # (Auto) Lymph # (Auto) [place] # (Auto) Eos # (Auto) Baso # (Auto) Immature Gran # (Auto) Absolute Nucleated RBC Immature Gran % Nucleated RBC % Smear Path Review PT INR APTT D-Dimer Puncture Site Right Radial ABG pH 7.29 L D ABG pCO2 48 D ABG pO2 236 H D ABG HCO3 23 ABG O2 Saturation 101 H ABG Base Excess -3 Oxygen Liter Flow FiO2 21 Sodium Potassium Chloride Carbon Dioxide Anion Gap BUN Creatinine Estim Creat Clear Calc eGFR BUN/Creatinine Ratio Glucose Calculated Osmolality Lactic Acid 2.0 Calcium Corrected Calcium Phosphorus Magnesium Total Bilirubin AST ALT Alkaline Phosphatase Ammonia Troponin I B-Natriuretic Peptide Total Protein Albumin Globulin Albumin/Globulin Ratio TSH Free T4 Ur Collection Type Urine Color Urine Clarity Urine pH Ur Specific [place] Urine Protein Urine Glucose (UA) Urine Ketones Urine Blood Urine Nitrite Urine Bilirubin Urine Urobilinogen (Auto) Ur Leukocyte Esterase Urine RBC Urine WBC Ur Squamous Epith Cells Urine Bacteria Hyaline Casts Ur Culture Indicated? Peritoneal Color Yellow Peritoneal Appearance Clear Peritoneal WBC 80 Peritoneal RBC 0.003 Per[place] Polynucl WBCs 23 Periton Mononucl WBCs 77 Peritoneal Tot Protein 4 Peritoneal Albumin 2.4 Peritoneal Glucose 124 SARS-CoV-2 Ag (Rapid) Blood Type Antibody Screen Crossmatch Blood Bank Wristband ID 10/22/25 10/22/25 10/22/25 16:20 17:30 18:41 WBC 4.9 D RBC 4.30 L Hgb 8.9 L Hct 29.9 L MCV 70 L MCH 20.7 L MCHC 29.8 L RDW Std Deviation 49.8 H Plt Count 189 D Neut % (Auto) 89 H Lymph % (Auto) 7 L [place] % (Auto) 4 Eos % (Auto) 0 Baso % (Auto) 0 Neut # (Auto) 4.3 Lymph # (Auto) 0.3 L [place] # (Auto) 0.2 Eos # (Auto) 0.0 Baso # (Auto) 0.0 Immature Gran # (Auto) 0.02 H Absolute Nucleated RBC 0.05 H Immature Gran % 0 Nucleated RBC % 1 H Smear Path Review PT 16.7 H INR 1.6 H APTT D-Dimer Puncture Site ABG pH ABG pCO2 ABG pO2 ABG HCO3 ABG O2 Saturation ABG Base Excess Oxygen Liter Flow FiO2 Sodium Cancelled 136 138 Potassium Cancelled 6.8 H* 5.6 H D Chloride Cancelled 101 103 Carbon Dioxide Cancelled 23.5 25.3 Anion Gap Cancelled 12 10 BUN Cancelled 44 H 46 H Creatinine Cancelled 3.1 H 3.1 H Estim Creat Clear Calc Cancelled 26.7 L 26.7 L eGFR Cancelled 22 L 22 L BUN/Creatinine Ratio Cancelled 14 15 Glucose Cancelled 126 H 162 H Calculated Osmolality Cancelled 285 291 Lactic Acid Calcium Cancelled 9.2 9.9 Corrected Calcium Cancelled 9.2 9.9 Phosphorus Magnesium Total Bilirubin Cancelled 1.2 1.2 AST Cancelled 26 22 ALT Cancelled 12 11 Alkaline Phosphatase Cancelled 251 H D 231 H D Ammonia Troponin I B-Natriuretic Peptide Total Protein Cancelled 7.3 7.2 Albumin Cancelled 4.2 D 4.2 Globulin Cancelled 3.1 3.0 Albumin/Globulin Ratio Cancelled 1.4 1.4 TSH Free T4 Ur Collection Type Urine Color Urine Clarity Urine pH Ur Specific [place] Urine Protein Urine Glucose (UA) Urine Ketones Urine Blood Urine Nitrite Urine Bilirubin Urine Urobilinogen (Auto) Ur Leukocyte Esterase Urine RBC Urine WBC Ur Squamous Epith Cells Urine Bacteria Hyaline Casts Ur Culture Indicated? Peritoneal Color Peritoneal Appearance Peritoneal WBC Peritoneal RBC Periton Polynucl WBCs Periton Mononucl WBCs Peritoneal Tot Protein Peritoneal Albumin Peritoneal Glucose SARS-CoV-2 Ag (Rapid) Blood Type Antibody Screen Crossmatch Blood Bank Wristband ID 10/22/25 19:01 WBC RBC Hgb Hct MCV MCH MCHC RDW Std Deviation Plt Count Neut % (Auto) Lymph % (Auto) [place] % (Auto) Eos % (Auto) Baso % (Auto) Neut # (Auto) Lymph # (Auto) [place] # (Auto) Eos # (Auto) Baso # (Auto) Immature Gran # (Auto) Absolute Nucleated RBC Immature Gran % Nucleated RBC % Smear Path Review PT INR APTT D-Dimer Puncture Site Left Radial ABG pH 7.36 ABG pCO2 43 ABG pO2 173 H D ABG HCO3 24 ABG O2 Saturation 100 H ABG Base Excess -1 Oxygen Liter Flow FiO2 21 Sodium Potassium Chloride Carbon Dioxide Anion Gap BUN Creatinine Estim Creat Clear Calc eGFR BUN/Creatinine Ratio Glucose Calculated Osmolality Lactic Acid Calcium Corrected Calcium Phosphorus Magnesium Total Bilirubin AST ALT Alkaline Phosphatase Ammonia Troponin I B-Natriuretic Peptide Total Protein Albumin Globulin Albumin/Globulin Ratio TSH Free T4 Ur Collection Type Urine Color Urine Clarity Urine pH Ur Specific [place] Urine Protein Urine Glucose (UA) Urine Ketones Urine Blood Urine Nitrite Urine Bilirubin Urine Urobilinogen (Auto) Ur Leukocyte Esterase Urine RBC Urine WBC Ur Squamous Epith Cells Urine Bacteria Hyaline Casts Ur Culture Indicated? Peritoneal Color Peritoneal Appearance Peritoneal WBC Peritoneal RBC Periton Polynucl WBCs Periton Mononucl WBCs Peritoneal Tot Protein Peritoneal Albumin Peritoneal Glucose SARS-CoV-2 Ag (Rapid) Blood Type Antibody Screen Crossmatch Blood Bank Wristband ID ABG Interpretation ABG results: 10/22/25 10/22/25 10/22/25 03:27 11:26 15:35 ABG pH 7.30 L 7.10 L* D 7.29 L D ABG pCO2 48 80 H* D 48 D ABG pO2 80 L 34 L* D 236 H D ABG HCO3 24 25 23 ABG O2 Saturation 98 40 L 101 H ABG Base Excess -2 -5 L -3 10/22/25 19:01 ABG pH 7.36 ABG pCO2 43 ABG pO2 173 H D ABG HCO3 24 ABG O2 Saturation 100 H ABG Base Excess -1 Quality Measures Quality Measures VTE prophylaxis Assessment & Plan Assessment Current Active Medications: Generic Name Dose Route Start Last Admin Trade Name Freq PRN Reason Stop Dose Admin Acetaminophen 650 mg 10/22/25 06:01 Acetaminophen 325 Mg Tablet PO 11/21/25 06:00 Q6H PRN Fever >101.5 Albuterol/Ipratropium 3 ml 10/22/25 07:00 10/22/25 14:49 Albuterol/Ipratropium (Duoneb) Rt Irais 3 Ml Nebu INH 11/21/25 06:59 3 ml [id number] YOVANI Administration Carvedilol 3.125 mg 10/22/25 08:00 10/22/25 17:55 Carvedilol 3.125 Mg Tablet PO 11/21/25 07:59 Not Given On Hold: 10/22/25 19:26 BIDWM YOVANI Enoxaparin Sodium 30 mg 10/22/25 09:00 10/22/25 09:22 Enoxaparin Sod Inj 30 Mg/0.3 Ml Syringe SC 11/05/25 08:59 30 mg QDAY YOVANI Administration Fentanyl Citrate 100 mcg 11/19/25 12:41 10/22/25 12:42 Fentanyl Cit Inj 50 Mcg/Ml Amp 2ml IVP 11/19/25 12:42 100 mcg X1 ONE Administration Heparin Sodium (Porcine) 3,000 unit 10/22/25 18:42 10/22/25 18:46 Heparin Sod Inj 1000 Unit/Ml Vial 10 Ml [facility] 11/05/25 18:41 3,000 unit PRN PRN Administration heplock vascath Heparin Sodium (Porcine) 3,000 unit 10/22/25 20:09 Heparin Sod Inj 1000 Unit/Ml Vial 10 Ml [facility] 11/05/25 20:08 X1 PRN DIALYSIS Ceftriaxone Sodium/Dextrose 1 gm in 50 mls @ 100 mls/hr 10/22/25 06:09 10/22/25 06:59 Rocephin/D5w 1gm Iv Premix IV 10/29/25 06:08 Infused QDAY YOVANI Infusion Octreotide Acetate 1,000 mcg/ 102 mls @ 5.1 mls/hr 10/22/25 07:30 10/22/25 09:21 Sodium Chloride IV 10/23/25 03:29 Not Given .Q20H YOVANI Protocol 50 MCG/HR Propofol 1,000 mg in 100 mls @ 2.864 mls/hr 10/22/25 12:09 10/22/25 19:00 Diprivan Ivpb IV 11/21/25 12:08 5 mcg/kg/min .Q24H PRN 2.864 mls/hr PER PROTOCOL Titration Protocol 5 MCG/KG/MIN Fentanyl Citrate 2,500 mcg in 250 mls @ 2.5 mls/hr 10/22/25 12:09 10/22/25 19:00 Sublimaze Inj 2,500 Mcg/250 Ml Bag IV 10/27/25 12:08 25 mcg/hr .Q24H PRN 2.5 mls/hr PER PROTOCOL Titration Protocol 25 MCG/HR Octreotide Acetate 1,000 mcg/ 102 mls @ 5.1 mls/hr 10/23/25 04:30 Sodium Chloride IV 10/27/25 04:29 .Q20H YOVANI Protocol 50 MCG/HR Albumin Human 25 gm in 100 mls @ 0 mls/hr 10/22/25 19:47 Albuminex 25% Ivpb IV Q30MIN PRN To maintain SBP>90 Per Protocol Lactulose 20 gm 10/22/25 06:15 10/22/25 17:54 Lactulose Syrup 20 Gm/30 Ml Udc PO 11/21/25 06:14 Not Given QID YOVANI Protocol Levothyroxine Sodium 25 mcg 10/23/25 06:00 Levothyroxine Sodium 25 Mcg Tablet PO 11/22/25 05:59 ACBR YOVANI Pantoprazole Sodium 40 mg 10/22/25 09:00 10/22/25 09:21 Pantoprazole Inj 40 Mg Vial IVP 11/21/25 08:59 40 mg QDAY YOVANI Administration Patiromer 8.4 gm 10/22/25 16:15 10/22/25 16:22 Patiromer Calcium 8.4 Gm Packet PO 10/25/25 16:14 8.4 gm QDAY YOVANI Administration Protocol Rifaximin 550 mg 10/22/25 09:00 10/22/25 09:35 Rifaximin 550 Mg Tablet PO 10/29/25 08:59 Not Given BID YOVANI Sodium Chloride 3 ml 10/22/25 11:26 Sodium Chloride Rt Irais 0.9% 3 Ml Nebu INH 11/21/25 11:25 PRN PRN SOLN Sodium Chloride 3 ml 10/22/25 17:47 Sodium Chloride Rt [place] 0.9% 3 Ml Nebu INH 11/21/25 17:46 PRN PRN SOLN Plan 60-year-old male with a history of COPD, alcoholic cirrhosis, CKD, and heart failure, presenting with worsening shortness of breath, hyperkalemia, and CADY, currently upgraded to ICU and intubated and managed in the ICU for acute decompensated cirrhosis, respiratory failure, and refractory hyperkalemia. #Acute decompensated cirrhosis #Possible acute hepatic encephalopathy - History of alcoholic cirrhosis. - Present with worsening shortness of breath, ascites, lethargy - Coagulopathy PT 15.4, INR 1.5. Plan: * Ceftriaxone 1 g daily for SBP prophylaxis. * Ammonia ordered. * Paracentesis ordered. * Restarted home rifaximin 550 mg p.o. twice daily. * Restarted home lactulose 20 GM p.o. 4 times daily #CADY on CKD IIIa #Malignant hyperkalemia - Potassium on admission was 6.3. - Home medications include potassium chloride 10 mill EQ tablets and spironolactone 100 mg. - Potassium 6.3 on admission, increased to 7.0 despite insulin, albuterol, Kayexelate, and calcium gluconate. - Cr 2.9 on admission, previously 1.4 in 01/2024. - Potassium continue to increase despite treatment. Plan: * Continue monitoring potassium levels closely. * Nephrology consult for emergent dialysis. * Monitor renal function with repeat renal panel. * Consult nephrology. #Acute hypoxic respiratory failure #Respiratory acidosis - Initial ABG: pH 7.30, pCO2 48, pO2 80, HCO3 24. - Initially placed on BiPAP - Second ABG: pH 7.10, pCO2 80, pO2 34, HCO3 25, O2 saturation 40. Plan: * Upgrade to ICU for intubation. #Congestive heart failure - Heart failure with reduced ejection fraction 35-40%, on this admission 10/2025. - Home medications GDMT carvedilol, spironolactone, empagliflozin, not on GREY or ARB. - CXR showed mild enlargement cardiac contour and moderate vascular congestion. - BNP 638 Plan: * Continue Bumex 2 mg IV daily. * Strict fluid management and monitoring of input/output. * Fluid restriction as needed. #Hypertension - BP 151/112 on admission, managed with home carvedilol. Plan: * Resume carvedilol 3.125 mg PO twice daily. * Monitor BP closely. #Hypothyroidism Plan: * Resumed home levothyroxine 25 mg PO daily. * Follow-up with TSH levels. #Microcytic Anemia - Hemoglobin 9.7 on admission. - MCV 69. Plan: * No direct intervention unless hemoglobin falls below 7. #History of Gout Gout, managed with allopurinol. Plan: * Restart allopurinol 100 mg daily. Hospital Maintenance: DVT Prophylaxis: Lovenox 30 mg subcutaneous daily. GI Prophylaxis: Protonix 40 mg IV daily. Diet: NPO. Code Status: Full code. Disposition: Patient upgraded to ICU due to worsening AHRF and severe acidemia. Continue dialysis per nephrology recommendations. Paracentesis and ammonia level ordered. Repeat potassium check. Patient plan of care was discussed with the senior resident, Dr. Quiñonez, and attending physician, Dr John. . Juana Schumacher, PGY-1
[2025-10-22 20:58] LABS: Basophils # (Auto) 0.0 Thou/mm3 (0.0-0.2); Basophils % (Auto) 0 % (0-2.5); Eosinophils # (Auto) 0.0 Thou/mm3 (0.0-0.5); Eosinophils % (Auto) 0 % (0-10); Hematocrit 29.1 % (41.0-53.0); Hemoglobin 8.9 g/dL (13.5-16.0); Immature Granulocytes Auto 0.02 Thou/mm3 (0.00-0.00); Lymphocytes # (Auto) 0.4 Thou/mm3 (1.0-4.8); Lymphocytes % (Auto) 8 % (10-50); Mean Corpuscular HGB Conc 30.6 g/dl (31.0-37.0); Mean Corpuscular Hemoglobin 21.2 pg (25.0-35.0); Mean Corpuscular Volume 70 fL (80-100); Monocytes # (Auto) 0.3 Thou/mm3 (0.0-0.8); Monocytes % (Auto) 5 % (0-12); Neutrophils # (Auto) 4.5 Thou/mm3 (1.8-7.7); Neutrophils % (Auto) 87 % (37-80); Nucleated Red Blood Cell # 0.04 Thou/mm3 (0.00-0.00); Nucleated Red Blood Cell % 1 /100 WBC (0); Platelet Count 223 Thou/mm3 (140-440); RDW Standard Deviation 50.0 fL (35.1-43.9); Red Blood Count 4.19 Miln/mm3 (4.50-5.90); White Blood Count 5.2 Thou/mm3 (3.8-10.6)
[2025-10-22 21:12] LABS: Albumin, Serum 3.8 gm/dL (3.5-5.0); Anion Gap 12 (7-16); BUN/Creatinine Ratio 13 Ratio (12-20); Blood Urea Nitrogen 37 mg/dL (9-23); Calcium 9.6 mg/dL (8.3-10.6); Calcium (Corrected) 9.8 mg/dL (8.5-10.1); Carbon Dioxide 25.0 mMol/L (20.0-31.0); Chloride 102 mMol/L (98-107); Creatinine (Component) 2.8 mg/dL (0.6-1.3); Estimated Creatinine Clearance 29.6 mL/min (>60); Glucose 131 mg/dL (74-106); Osmolality,Calculated 288 (275-295); Phosphorous 7.0 mg/dL (2.4-5.1); Potassium 5.4 mMol/L (3.4-5.1); Sodium 139 mMol/L (136-145); eGFR 25 See Note
[2025-10-22 23:03] LABS: INR 1.8 (0.9-1.3); Prothrombin Time 18.2 Seconds (9.0-12.2)
[2025-10-22 23:28] LABS: Albumin, Serum 3.6 gm/dL (3.5-5.0); Anion Gap 12 (7-16); BUN/Creatinine Ratio 13 Ratio (12-20); Blood Urea Nitrogen 35 mg/dL (9-23); Calcium 9.5 mg/dL (8.3-10.6); Calcium (Corrected) 9.8 mg/dL (8.5-10.1); Carbon Dioxide 25.6 mMol/L (20.0-31.0); Chloride 101 mMol/L (98-107); Creatinine (Component) 2.6 mg/dL (0.6-1.3); Estimated Creatinine Clearance 31.9 mL/min (>60); Glucose 128 mg/dL (74-106); Osmolality,Calculated 287 (275-295); Phosphorous 6.4 mg/dL (2.4-5.1); Potassium 5.2 mMol/L (3.4-5.1); Sodium 139 mMol/L (136-145); eGFR 28 See Note
[2025-10-23] VITALS (62 sets, daily range): BP systolic 87–153; BP diastolic 55–130; PULSE 61–93; RESP 15–51; TEMP 35.7–36.4; O2SAT 87–100; BMI 37.6
[2025-10-23 04:09] LABS: Albumin, Serum 3.5 gm/dL (3.5-5.0); Anion Gap 11 (7-16); BUN/Creatinine Ratio 15 Ratio (12-20); Blood Urea Nitrogen 41 mg/dL (9-23); Calcium 9.2 mg/dL (8.3-10.6); Calcium (Corrected) 9.6 mg/dL (8.5-10.1); Carbon Dioxide 26.7 mMol/L (20.0-31.0); Chloride 101 mMol/L (98-107); Creatinine (Component) 2.7 mg/dL (0.6-1.3); Estimated Creatinine Clearance 30.7 mL/min (>60); Glucose 148 mg/dL (74-106); Osmolality,Calculated 290 (275-295); Phosphorous 7.4 mg/dL (2.4-5.1); Potassium 5.2 mMol/L (3.4-5.1); Sodium 139 mMol/L (136-145); eGFR 26 See Note
[2025-10-23] MEDS: OCTREOTIDE ACET INJ 1,000 MCG in SODIUM CHLORIDE 0.9% 100 ML 5.1 MCG IV (05:36)
[2025-10-23 05:37] LABS: Base Excess 1 (-3-3); HCO3 27 mEq/L (20-26); Inspired Oxygen, FIO2 45 %; O2 Saturation 65 % (91-98); PCO2 50 mmHg (32.0-48.0); pH, Arterial 7.34 (7.35-7.45)
[2025-10-23] MEDS: LEVOTHYROXINE SODIUM 25 MCG TABLET PO (05:37)
[2025-10-23] MEDS: LACTULOSE SYRUP 20 GM/30 ML UDC PO ×4 (05:37→20:43)
--- NOTE | 2025-10-23 06:00 | XR_ITS ---
EXAMINATION: AP chest single view TECHNIQUE: AP portable semiupright chest single view Date and time: October 23, 2025, 0523 hours, comparison October 22, 2025 INDICATIONS: Diagnosis cirrhosis, hypoxic respiratory failure, post intubation FINDINGS: Mild heart failure. Mild to moderate enlargement cardiac contour, prominent vascular congestion and septal edema at the lung bases Small to moderate bilateral pleural effusions Endotracheal tube tip 4.5 cm above víctor Right internal jugular dialysis catheter tip satisfactory position SVC Orogastric tube in the stomach, the tip is below the level of the film Prominent osteopenia IMPRESSION: Mild heart failure Small to moderate bilateral pleural effusions Endotracheal tube tip 4.5 cm above víctor
[2025-10-23 06:16] LABS: Allen Test Not Performed; Puncture Site Left Radial
[2025-10-23 06:18] LABS: PO2 40 mmHg (83-108)
[2025-10-23] MEDS: PROPOFOL 1,000 MG IVPB 1,000 MG/100 ML VIAL 5.727 MG IV (06:45)
[2025-10-23] MEDS: fentaNYL 2,500 MCG/250 ML BAG 2,500 MCG/250 ML BAG IV (06:45)
[2025-10-23 06:55] LABS: Basophils # (Auto) 0.0 Thou/mm3 (0.0-0.2); Basophils % (Auto) 0 % (0-2.5); Eosinophils # (Auto) 0.0 Thou/mm3 (0.0-0.5); Eosinophils % (Auto) 0 % (0-10); Hematocrit 33.7 % (41.0-53.0); Hemoglobin 10.6 g/dL (13.5-16.0); Immature Granulocytes Auto 0.03 Thou/mm3 (0.00-0.00); Lymphocytes # (Auto) 0.3 Thou/mm3 (1.0-4.8); Lymphocytes % (Auto) 4 % (10-50); Mean Corpuscular HGB Conc 31.5 g/dl (31.0-37.0); Mean Corpuscular Hemoglobin 22.0 pg (25.0-35.0); Mean Corpuscular Volume 70 fL (80-100); Monocytes # (Auto) 0.5 Thou/mm3 (0.0-0.8); Monocytes % (Auto) 6 % (0-12); Neutrophils # (Auto) 7.6 Thou/mm3 (1.8-7.7); Neutrophils % (Auto) 90 % (37-80); Nucleated Red Blood Cell # 0.04 Thou/mm3 (0.00-0.00); Nucleated Red Blood Cell % 1 /100 WBC (0); Platelet Count 222 Thou/mm3 (140-440); RDW Standard Deviation 56.0 fL (35.1-43.9); Red Blood Count 4.81 Miln/mm3 (4.50-5.90); White Blood Count 8.5 Thou/mm3 (3.8-10.6)
[2025-10-23 06:58] LABS: Glucose Estimated Average 120 mg/dL (80-131); Hemoglobin A1C 5.8 % Hgb (4.8-6.0)
[2025-10-23] MEDS: ALBUTEROL/IPRATROPIUM (Duoneb) RT SOL 3 ML NEBU INH ×3 (06:58→22:35)
[2025-10-23 07:03] LABS: Partial Thromboplastin Time 35.5 Seconds (22.0-36.0)
[2025-10-23 07:18] LABS: Alanine Aminotransferase 10 U/L (10-49); Albumin, Serum 3.3 gm/dL (3.5-5.0); Albumin/Globulin Ratio 1.2 (1.2-2.2); Alkaline Phosphatase 194 U/L (46-116); Anion Gap 10 (7-16); Aspartate Amino Transferase 18 U/L (0-34); BUN/Creatinine Ratio 15 Ratio (12-20); Bilirubin,Total 1.3 mg/dL (0.3-1.2); Blood Urea Nitrogen 41 mg/dL (9-23); Calcium 9.0 mg/dL (8.3-10.6); Calcium (Corrected) 9.6 mg/dL (8.5-10.1); Carbon Dioxide 26.4 mMol/L (20.0-31.0); Chloride 103 mMol/L (98-107); Creatinine (Component) 2.7 mg/dL (0.6-1.3); Estimated Creatinine Clearance 31.9 mL/min (>60); Globulin 2.8 gm/dL (2.3-3.5); Glucose 157 mg/dL (74-106); Magnesium 1.8 mg/dL (1.6-2.6); Osmolality,Calculated 290 (275-295); Phosphorous 6.9 mg/dL (2.4-5.1); Potassium 5.4 mMol/L (3.4-5.1); Sodium 139 mMol/L (136-145); Total Protein 6.1 gm/dL (5.7-8.2); Triglycerides 64 mg/dL (30-150); eGFR 26 See Note
--- NOTE | 2025-10-23 07:45 | ESPR_ITS ---
<Statement entered by Rishabh Luo MD - 10/24/25 11:38> I have reviewed the note and agree with the resident's assessment & plan with exceptions as below. I have personally reviewed labs, imaging, home meds/prior records, examined the patient, formulated and discussed management plan with the IM team. Rishabh Luo, PGY-2 Internal Medicine Documentation for date of: 10/23/25 Subjective Subjective Interval history: Mr. Amador is a 60-year-old gentleman with a past medical history significant for left neck lymphoma, cirrhosis, COPD on home oxygen, and? 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 10/22/2025: CT head with Negative for acute hemorrhage, mass effect or midline shift, pupils were fixed and dilated. He was intubated, and started on HD after multiple attempts at getting central access. R ij was placed. had paracentesis with 9 L off. cytology sent 10/23/2025: Patient seen and examined at bedside with abdomen notably firm and distended with positive fluid wave. HD today with 1 L removed in 3 hour session. K now within nl at 4.5 pupils are sluggish but responsive to light and no longer fixed and dilated. remains intubated and sedated. appears more volume overloaded on exam. with reacumulated ascites despite 9 L paracentesis done yesterday. Exam Vital Signs Temp Pulse Resp BP Pulse Ox O2 Del Method O2 Flow Rate 96.6 F L 82 22 H 109/74 100 BiPAP 4 10/23/25 05:13 10/23/25 06:58 10/23/25 06:58 10/23/25 06:58 10/23/25 06:58 10/22/25 08:45 10/22/25 07:33 FiO2 45 10/23/25 06:58 Narrative Exam Patient with head normocephalic atraumatic Eyes sluggish but responsive to light eyes noted to be protuberant with bulging. neck with notable L neck bulge ? lipoma vs L neck lymphoma. firm and stable from prior Heart regular rate rhythm no murmurs appreciated on auscultation Lungs diminished breath sounds on the left lung bases with ventilator breaths noted patient is on mechanical ventilation Abdomen is protuberant firm, and soft with positive fluid wave, caput medusa noted on lower abdomen Lower extremities with 1+ pitting up to the thigh most notably on the lateral aspects of bilateral thighs and 1+ to trace pitting edema on the anterior tibial surfaces Feet are cool to the touch with pedal pulses unable to be appreciated upon palpation, will follow-up with Doppler Objective Labs 10/24/25 04:32 10/24/25 04:32 Labs: Laboratory Results - last 24 hr 10/22/25 10/22/25 10/22/25 06:35 08:13 10:45 WBC RBC Hgb Hct MCV MCH MCHC RDW Std Deviation Plt Count Neut % (Auto) Lymph % (Auto) [place] % (Auto) Eos % (Auto) Baso % (Auto) Neut # (Auto) Lymph # (Auto) [place] # (Auto) Eos # (Auto) Baso # (Auto) Immature Gran # (Auto) Absolute Nucleated RBC Immature Gran % Nucleated RBC % PT INR APTT Puncture Site ABG pH ABG pCO2 ABG pO2 ABG HCO3 ABG O2 Saturation ABG Base Excess FiO2 Sodium 135 L 136 Potassium 6.8 H* D 7.0 H* 7.0 H* Chloride 101 101 Carbon Dioxide 23.3 24.5 Anion Gap 11 11 BUN 41 H 46 H Creatinine 3.0 H 3.0 H Estim Creat Clear Calc 27.6 L 27.6 L eGFR 23 L 23 L BUN/Creatinine Ratio 14 15 Glucose [address] Glu mg/dL Hemoglobin A1c Calculated Osmolality 282 285 Lactic Acid Calcium 9.1 9.3 Corrected Calcium 9.1 9.3 Phosphorus 8.1 H 7.9 H Total Bilirubin AST ALT Alkaline Phosphatase Ammonia 32 Total Protein Albumin 4.6 5.0 Globulin Albumin/Globulin Ratio TSH 11.98 H Free T4 0.94 Peritoneal Color Peritoneal Appearance Peritoneal WBC Peritoneal RBC Periton Polynucl WBCs Periton Mononucl WBCs Peritoneal Tot Protein Peritoneal Albumin Peritoneal Glucose Blood Type B Positive Antibody Screen NEGATIVE Crossmatch See Detail Blood Bank Wristband ID Yes 10/22/25 10/22/25 10/22/25 11:26 13:05 15:35 WBC RBC Hgb Hct MCV MCH MCHC RDW Std Deviation Plt Count Neut % (Auto) Lymph % (Auto) [place] % (Auto) Eos % (Auto) Baso % (Auto) Neut # (Auto) Lymph # (Auto) [place] # (Auto) Eos # (Auto) Baso # (Auto) Immature Gran # (Auto) Absolute Nucleated RBC Immature Gran % Nucleated RBC % PT INR APTT Puncture Site Right Brachial Right Radial ABG pH 7.10 L* D 7.29 L D ABG pCO2 80 H* D 48 D ABG pO2 34 L* D 236 H D ABG HCO3 25 23 ABG O2 Saturation 40 L 101 H ABG Base Excess -5 L -3 FiO2 50 21 Sodium Potassium Chloride Carbon Dioxide Anion Gap BUN Creatinine Estim Creat Clear Calc eGFR BUN/Creatinine Ratio Glucose Estimated Ave Glu mg/dL Hemoglobin A1c Calculated Osmolality Lactic Acid 2.0 Calcium Corrected Calcium Phosphorus Total Bilirubin AST ALT Alkaline Phosphatase Ammonia Total Protein Albumin Globulin Albumin/Globulin Ratio TSH Free T4 Peritoneal Color Peritoneal Appearance Peritoneal WBC Peritoneal RBC Periton Polynucl WBCs Periton Mononucl WBCs Peritoneal Tot Protein Peritoneal Albumin Peritoneal Glucose Blood Type Antibody Screen Crossmatch Blood Bank Wristband ID 10/22/25 10/22/25 10/22/25 16:16 16:20 17:30 WBC RBC Hgb Hct MCV MCH MCHC RDW Std Deviation Plt Count Neut % (Auto) Lymph % (Auto) [place] % (Auto) Eos % (Auto) Baso % (Auto) Neut # (Auto) Lymph # (Auto) [place] # (Auto) Eos # (Auto) Baso # (Auto) Immature Gran # (Auto) Absolute Nucleated RBC Immature Gran % Nucleated RBC % PT INR APTT Puncture Site ABG pH ABG pCO2 ABG pO2 ABG HCO3 ABG O2 Saturation ABG Base Excess FiO2 Sodium Cancelled 136 Potassium Cancelled 6.8 H* Chloride Cancelled 101 Carbon Dioxide Cancelled 23.5 Anion Gap Cancelled 12 BUN Cancelled 44 H Creatinine Cancelled 3.1 H Estim Creat Clear Calc Cancelled 26.7 L eGFR Cancelled 22 L BUN/Creatinine Ratio Cancelled 14 Glucose Cancelled [address] Glu mg/dL Hemoglobin A1c Calculated Osmolality Cancelled 285 Lactic Acid Calcium Cancelled 9.2 Corrected Calcium Cancelled 9.2 Phosphorus Total Bilirubin Cancelled 1.2 AST Cancelled 26 ALT Cancelled 12 Alkaline Phosphatase Cancelled 251 H D Ammonia Total Protein Cancelled 7.3 Albumin Cancelled 4.2 D Globulin Cancelled 3.1 Albumin/Globulin Ratio Cancelled 1.4 TSH Free T4 Peritoneal Color Yellow Peritoneal Appearance Clear Peritoneal WBC 80 Peritoneal RBC 0.003 Periton Polynucl WBCs 23 Periton Mononucl WBCs 77 Peritoneal Tot Protein 4 Peritoneal Albumin 2.4 Peritoneal Glucose 124 Blood Type Antibody Screen Crossmatch Blood Bank Wristband ID 10/22/25 10/22/25 10/22/25 18:41 19:01 20:30 WBC 4.9 D 5.2 RBC 4.30 L 4.19 L Hgb 8.9 L 8.9 L Hct 29.9 L 29.1 L MCV 70 L 70 L MCH 20.7 L 21.2 L MCHC 29.8 L 30.6 L RDW Std Deviation 49.8 H 50.0 H Plt Count 189 D 223 D Neut % (Auto) 89 H 87 H Lymph % (Auto) 7 L 8 L [place] % (Auto) 4 5 Eos % (Auto) 0 0 Baso % (Auto) 0 0 Neut # (Auto) 4.3 4.5 Lymph # (Auto) 0.3 L 0.4 L [place] # (Auto) 0.2 0.3 Eos # (Auto) 0.0 0.0 Baso # (Auto) 0.0 0.0 Immature Gran # (Auto) 0.02 H 0.02 H Absolute Nucleated RBC 0.05 H 0.04 H Immature Gran % 0 0 Nucleated RBC % 1 H 1 H PT 16.7 H 18.2 H INR 1.6 H 1.8 H APTT Puncture Site Left Radial ABG pH 7.36 ABG pCO2 43 ABG pO2 173 H D ABG HCO3 24 ABG O2 Saturation 100 H ABG Base Excess -1 FiO2 21 Sodium 138 139 Potassium 5.6 H D 5.4 H Chloride 103 102 Carbon Dioxide 25.3 25.0 Anion Gap 10 12 BUN 46 H 37 H Creatinine 3.1 H 2.8 H Estim Creat Clear Calc 26.7 L 29.6 L eGFR 22 L 25 L BUN/Creatinine Ratio 15 13 Glucose 162 H [address] Glu mg/dL Hemoglobin A1c Calculated Osmolality 291 288 Lactic Acid Calcium 9.9 9.6 Corrected Calcium 9.9 9.8 Phosphorus 7.0 H Total Bilirubin 1.2 AST 22 ALT 11 Alkaline Phosphatase 231 H D Ammonia Total Protein 7.2 Albumin 4.2 3.8 Globulin 3.0 Albumin/Globulin Ratio 1.4 TSH Free T4 Peritoneal Color Peritoneal Appearance Peritoneal WBC Peritoneal RBC Periton Polynucl WBCs Periton Mononucl WBCs Peritoneal Tot Protein Peritoneal Albumin Peritoneal Glucose Blood Type Antibody Screen Crossmstch Blood Bank Wristband ID 10/22/25 10/23/25 10/23/25 22:30 03:37 05:11 WBC RBC Hgb Hct MCV MCH MCHC RDW Std Deviation Plt Count Neut % (Auto) Lymph % (Auto) [place] % (Auto) Eos % (Auto) Baso % (Auto) Neut # (Auto) Lymph # (Auto) [place] # (Auto) Eos # (Auto) Baso # (Auto) Immature Gran # (Auto) Absolute Nucleated RBC Immature Gran % Nucleated RBC % PT INR APTT Puncture Site Left Radial ABG pH 7.34 L ABG pCO2 50 H ABG pO2 40 L* D ABG HCO3 27 H ABG O2 Saturation 65 L ABG Base Excess 1 FiO2 45 Sodium 139 139 Potassium 5.2 H 5.2 H Chloride 101 101 Carbon Dioxide 25.6 26.7 Anion Gap 12 11 BUN 35 H 41 H Creatinine 2.6 H 2.7 H Estim Creat Clear Calc 31.9 L 30.7 L eGFR 28 L 26 L BUN/Creatinine Ratio 13 15 Glucose [address] Glu mg/dL Hemoglobin A1c Calculated Osmolality 287 290 Lactic Acid Calcium 9.5 9.2 Corrected Calcium 9.8 9.6 Phosphorus 6.4 H 7.4 H Total Bilirubin AST ALT Alkaline Phosphatase Ammonia Total Protein Albumin 3.6 3.5 Globulin Albumin/Globulin Ratio TSH Free T4 Peritoneal Color Peritoneal Appearance Peritoneal WBC Peritoneal RBC Periton Polynucl WBCs Periton Mononucl WBCs Peritoneal Tot Protein Peritoneal Albumin Peritoneal Glucose Blood Type Antibody Screen Crossmstch Blood Bank Wristband ID 10/23/25 06:24 WBC 8.5 D RBC 4.81 Hgb 10.6 L Hct 33.7 L MCV 70 L MCH 22.0 L MCHC 31.5 RDW Std Deviation 56.0 H Plt Count 222 Neut % (Auto) 90 H Lymph % (Auto) 4 L [place] % (Auto) 6 Eos % (Auto) 0 Baso % (Auto) 0 Neut # (Auto) 7.6 Lymph # (Auto) 0.3 L [place] # (Auto) 0.5 Eos # (Auto) 0.0 Baso # (Auto) 0.0 Immature Gran # (Auto) 0.03 H Absolute Nucleated RBC 0.04 H Immature Gran % 0 Nucleated RBC % 1 H PT INR APTT 35.5 Puncture Site ABG pH ABG pCO2 ABG pO2 ABG HCO3 ABG O2 Saturation ABG Base Excess FiO2 Sodium Potassium Chloride Carbon Dioxide Anion Gap BUN Creatinine Estim Creat Clear Calc eGFR BUN/Creatinine Ratio Glucose Estimated Ave Glu mg/dL 120 Hemoglobin A1c 5.8 Calculated Osmolality Lactic Acid Calcium Corrected Calcium Phosphorus Total Bilirubin AST ALT Alkaline Phosphatase Ammonia Total Protein Albumin Globulin Albumin/Globulin Ratio TSH Free T4 Peritoneal Color Peritoneal Appearance Peritoneal WBC Peritoneal RBC Periton Polynucl WBCs Periton Mononucl WBCs Peritoneal Tot Protein Peritoneal Albumin Peritoneal Glucose Blood Type Antibody Screen Crossmatch Blood Bank Wristband ID ABG Interpretation ABG results: 10/22/25 10/22/25 10/22/25 03:27 11:26 15:35 ABG pH 7.30 L 7.10 L* D 7.29 L D ABG pCO2 48 80 H* D 48 D ABG pO2 80 L 34 L* D 236 H D ABG HCO3 24 25 23 ABG O2 Saturation 98 40 L 101 H ABG Base Excess -2 -5 L -3 10/22/25 10/23/25 19:01 05:11 ABG pH 7.36 7.34 L ABG pCO2 43 50 H ABG pO2 173 H D 40 L* D ABG HCO3 24 27 H ABG O2 Saturation 100 H 65 L ABG Base Excess -1 1 Quality Measures Quality Measures VTE prophylaxis Assessment & Plan Assessment Current Active Medications: Generic Name Dose Route Start Last Admin Trade Name Freq PRN Reason Stop Dose Admin Acetaminophen 650 mg 10/22/25 06:01 Acetaminophen 325 Mg Tablet PO 11/21/25 06:00 Q6H PRN Fever >101.5 Albuterol/Ipratropium 3 ml 10/22/25 07:00 10/23/25 06:58 Albuterol/Ipratropium (Duoneb) Rt Irais 3 Ml Nebu INH 11/21/25 06:59 3 ml Q8HRRT YOVANI Administration Carvedilol 3.125 mg 10/22/25 08:00 10/22/25 17:55 Carvedilol 3.125 Mg Tablet PO 11/21/25 07:59 Not Given On Hold: 10/22/25 19:26 BIDWM YOVANI Enoxaparin Sodium 30 mg 10/22/25 09:00 10/22/25 09:22 Enoxaparin Sod Inj 30 Mg/0.3 Ml Syringe SC 11/05/25 08:59 30 mg QDAY YOVANI Administration Heparin Sodium (Porcine) 3,000 unit 10/22/25 18:42 10/22/25 22:24 Heparin Sod Inj 1000 Unit/Ml Vial 10 Ml [facility] 11/05/25 18:41 3,000 unit PRN PRN Administration heplock vascath Heparin Sodium (Porcine) 3,000 unit 10/22/25 20:09 Heparin Sod Inj 1000 Unit/Ml Vial 10 Ml [facility] 11/05/25 20:08 X1 PRN DIALYSIS Ceftriaxone Sodium/Dextrose 1 gm in 50 mls @ 100 mls/hr 10/22/25 06:09 10/22/25 06:59 Rocephin/D5w 1gm Iv Premix IV 10/29/25 06:08 Infused QDAY YOVANI Infusion Octreotide Acetate 1,000 mcg/ 102 mls @ 5.1 mls/hr 10/23/25 04:30 10/23/25 05:36 Sodium Chloride IV 10/27/25 04:29 50 mcg/hr .Q20H YOVANI 5.1 mls/hr Protocol Administration 50 MCG/HR Albumin Human 25 gm in 100 mls @ 0 mls/hr 10/22/25 19:47 Albuminex 25% Ivpb IV Q30MIN PRN To maintain SBP>90 Per Protocol Fentanyl Citrate 2,500 mcg in 250 mls @ 2.5 mls/hr 10/22/25 22:51 Sublimaze Inj 2,500 Mcg/250 Ml Bag IV 10/27/25 12:08 .Q24H PRN PER PROTOCOL Protocol 25 MCG/HR Propofol 1,000 mg in 100 mls @ 2.864 mls/hr 10/22/25 22:51 Diprivan Ivpb IV 11/21/25 12:08 .Q24H PRN PER PROTOCOL Protocol 5 MCG/KG/MIN Lactulose 20 gm 10/22/25 06:15 10/23/25 05:37 Lactulose Syrup 20 Gm/30 Ml Udc PO 11/21/25 06:14 20 gm QID YOVANI Administration Protocol Levothyroxine Sodium 25 mcg 10/23/25 06:00 10/23/25 05:37 Levothyroxine Sodium 25 Mcg Tablet PO 11/22/25 05:59 25 mcg ACBR YOVANI Administration Pantoprazole Sodium 40 mg 10/22/25 09:00 10/22/25 09:21 Pantoprazole Inj 40 Mg Vial IVP 11/21/25 08:59 40 mg QDAY YOVANI Administration Patiromer 8.4 gm 10/22/25 16:15 10/22/25 16:22 Patiromer Calcium 8.4 Gm Packet PO 10/25/25 16:14 8.4 gm QDAY YOVANI Administration Protocol Rifaximin 550 mg 10/22/25 09:00 10/22/25 21:37 Rifaximin 550 Mg Tablet PO 10/29/25 08:59 550 mg BID YOVANI Administration Sodium Chloride 3 ml 10/22/25 17:47 Sodium Chloride Rt [place]is 0.9% 3 Ml Nebu INH 11/21/25 17:46 PRN PRN SOLN Plan Assessment Mr. Amador is a 60-year-old gentleman with history of heart failure with reduced ejection fraction alcohol-related cirrhosis COPD on home oxygen hypertension CKD and? Lymphoma of the right neck was brought in for 1 week of shortness of breath from jail who had severe refractory hyperkalemia that was refractory to hyperkalemia cocktail upgraded from floors to the ICU with severe acidemia and refractory hyper-K. Intubated and sedated. Neuro Acute metabolic encephalopathy secondary to acute decompensated liver failure Hepatic encephalopathy Diagnostic workup: - head ct Negative for acute hemorrhage, mass effect or midline shift Treatment - sedated, prop and fent CVS Acute CHF exacerbation Heart failure with reduced ejection fraction 25-30 %, on this admission 10/2025 Home medications GDMT carvedilol, spironolactone, empagliflozin not on GREY or ARB DDX His exacerbation likely secondary to cystitis or pneumonia with chest x-ray showing vascular congestion with pedal and lower extremity edema with increased perihilar interstitial markings left greater than right Dx Echo with reduced ef Tx HD with fluid removal 1 liter was removed today Pulm Left basilar pneumonia vs aspiration pneumonia versus community-acquired pneumonia versus healthcare-acquired pneumonia Patient presents from SNF, chest x-ray with left basilar opacities, patient intubated today concern for aspiration pneumonia versus pneumonitis Dx - serial cxr - sputum cx follow up Treatment - 1 g ceftriaxone daily - intubated, will adjust vent settings as indicated GI Acute decompensated liver failure Severe ascites Status post paracentesis with 9 L of fluid removed 50 g of albumin given 10/22 Dx - Physical exam - SAAG 1.1 consistent with Follow-up LFTs Tx - repeat paracentesis if clinically indicated, replete albumin Renal CADY on CKD versus worsening CKD No baseline creatinine given patient does not have several labs here at [facility] Dx - renal panel q6hr Tx - HD per nephro recs Hyperkalemia - Resolved with HD At home patient is on spironolactone and potassium 10 mill equivalents Dx - renal panel AM Tx - HD per nephrology Hyperphosphatemia Plan first of [place] 800 3 times daily per NG tube Endo Hypothyroidism Patient has history of hypothyroidism, takes levothyroxine 25 at home, plan for oral given patient is not on pressors actively ? Diabetes versus metabolic syndrome Patient does not have any documentation of type 2 diabetes however patient is obese and there is? Concern for possible diabetes will follow-up with a.m. A1c and lipid panel Heme/Onc Chronic microcytic anemia ddx: iron deficiency anemia vs anemia of chronic dz vs ckd Dx - iron panel and ferritin low, Tx consider IV iron 200 IV qd for 3 days epogen with hd transfuse if <7 Coagulopathy secondary to cirrhosis and acute decompensated liver failure PT, INR, PTT all elevated with elevated D-dimer 1600 Dx - Follow-up coags in the a.m. Tx - transfuse platelets as indicated ID ? Community-acquired pneumonia versus healthcare associated pneumonia Patient received 1 g of ceftriaxone in the ED continue with tx ceftriaxone 1 g daily IV DVT prophylaxis, heparin 500 every 12 GI prophylaxis Protonix 40 IV daily given patient's intubated CODE STATUS: Full Case disclosed with my senior resident Dr. Luo and my Attending Dr. Kavon Goff MD PGY1 Attending Provider Attestation/Addendum pt seen and examined, d/w resident team. in brief this is a 60yo M with AMS and acute resp failure. He is s/p HD for hyperkalemia. His home meds for HF on hold for now. He remains on abx for PNA. on physical exam he remains sedated, intubated, on MV, NC/AT, mucosa hydrated, sclera anicteric, PERRL, ETT/OGT in place, LCTA but diminished, HRRR, abd distended though no apparent pain on palp, edema b/l LE, pulses palp. h/o cirrhosis on lactulose. CT of the neck from overnight shows large post neck mass of unclear etiology. case d/w ICU team labs, imaging, records reviewed ~36ccmin required for eval, exam, review, intervention, discussion and formulation of POC
[2025-10-23 08:33] LABS: Ferritin 38 ng/mL (10.5-307.3); Iron 19 mcg/dL (65-175); Percent Iron Saturation 10 % (20-55); Total Iron Binding Capacity 181 mcg/dL (250-425); Unsaturated Iron Binding 162 (225-295)
[2025-10-23 09:23] LABS: INR 1.7 (0.9-1.3); Prothrombin Time 17.4 Seconds (9.0-12.2)
--- NOTE | 2025-10-23 09:47 | PD.RESPRO ---
Documentation for date of: 10/23/25 Subjective Subjective Interval history: History of present illness: 60-year-old male past medical history of COPD, alcoholic cirrhosis, diabetes, gout, hypertension, A-fib, heart failure, hyperlipidemia, acidosis, CKD, stage III lymphoma who presented from SNF on 10/22 with shortness of breath and altered mental status. He was found to have a potassium of 6.3, BNP of 638, creatinine of 2.9, and ascites. Per staff, patient is AOx4 and conversational at baseline. ED course: - Vitals: BP 108/89. Patient was desaturating into the 70s on 4 L nasal cannula, however upon arousal he would return to the 90s. - Labs: Potassium 6.3, BUN 42, creatinine 2.9, alk phos 307, BNP 638, PT 15.4, INR 1.5, D-dimer 1600, ABG pH of 7.3, pO2 of 80. - Imaging: Chest x-ray showed vascular congestion, heart failure. Abdominal ultrasound showed ascites. - Patient received DuoNeb treatment, 4 mg morphine, 4 mg Zofran, methylprednisolone 125 IV push x 1, dextrose, 10 units of insulin, and 1 g of calcium gluconate, and 15 GM sodium polystyrene sulfonate orally. Past Medical History: COPD, alcoholic cirrhosis, diabetes, gout, hypertension, A-fib, heart failure, hyperlipidemia, stage III lymphoma Family History: unable to be obtained due to AMS Surgical History: unable to be obtained due to AMS Social History: Hx of alcohol use, unknown amount. Current Medications: allopurinol 100 mg, budesonide 2 mg, buspirone 7.5 mg, carvedilol 3.125 mg, empagliflozin 10 mg, vitamin D2, gabapentin 300 mg, levothyroxine 25 mg, pantoprazole 40 mg, potassium chloride 10 mill EQ tablets, spironolactone 100 mg, tamsulosin 0.4 mg, hydrocodone 5-3 25, ipratropium, fluticasone, lactulose, albuterol, hydroxyzine 25 mg, rifaximin 550 mg, furosemide 40 mg Allergies: No known drug allergies Patient was admitted for acute decompensated cirrhosis, hyperkalemia, and CADY, upgraded to ICU for worsening AHRF requiring intubation. Nephrology was consulted for urgent dialysis for hyperkalemia likely secondary to concomitant use of spironolactone and potassium. 10/23/25: Right femoral triple lumen line placed yesterday in ICU. Received HD last night, no ultrafiltration, tolerated session well. Patient seen and examined at bedside. Creatinine 2.9, improved to 2.1 in the afternoon. Scheduled for dialysis again today, goal 1L fluid removal. Exam Vital Signs Temp Pulse Resp BP Pulse Ox O2 Del Method O2 Flow Rate 96.6 F L 70 51 H 118/81 100 BiPAP 4 10/23/25 05:13 10/23/25 07:00 10/23/25 07:00 10/23/25 07:00 10/23/25 07:00 10/22/25 08:45 10/22/25 07:33 FiO2 45 10/23/25 07:00 Narrative Exam Physical Exam General: Intubated and sedated. HEENT: Normocephalic, atraumatic, mucous membranes dry. Heart: Distant. Regular rate and rhythm, normal S1 and S2, no murmurs appreciated. Lungs: Bibasilar crackles. Abdomen: Soft, obese, positive bowel sounds. Moderate ascites. No guarding or rebound tenderness. Neurologic: Unable to assess due to sedation. Extremities: No lower edema. Skin: Scattered freckles on face and upper arms. No rash or ecchymoses. Objective Labs 10/25/25 03:15 10/25/25 03:15 Labs: Laboratory Results - last 24 hr 10/22/25 10/22/25 10/22/25 06:35 08:13 10:45 WBC RBC Hgb Hct MCV MCH MCHC RDW Std Deviation Plt Count Neut % (Auto) Lymph % (Auto) Alpine % (Auto) Eos % (Auto) Baso % (Auto) Neut # (Auto) Lymph # (Auto) Alpine # (Auto) Eos # (Auto) Baso # (Auto) Immature Gran # (Auto) Absolute Nucleated RBC Immature Gran % Nucleated RBC % PT INR APTT Puncture Site ABG pH ABG pCO2 ABG pO2 ABG HCO3 ABG O2 Saturation ABG Base Excess FiO2 Sodium 136 Potassium 6.8 H* D 7.0 H* 7.0 H* Chloride 101 Carbon Dioxide 24.5 Anion Gap 11 BUN 46 H Creatinine 3.0 H Estim Creat Clear Calc 27.6 L eGFR 23 L BUN/Creatinine Ratio [address]ucose [address] Glu mg/dL Hemoglobin A1c Calculated Osmolality 285 Lactic Acid Calcium 9.3 Corrected Calcium 9.3 Phosphorus 7.9 H Magnesium Iron TIBC Iron Saturation Unsat Iron Binding Ferritin Total Bilirubin AST ALT Alkaline Phosphatase Total Protein Albumin 5.0 Globulin Albumin/Globulin Ratio Triglycerides Peritoneal Color Peritoneal Appearance Peritoneal WBC Peritoneal RBC Periton Polynucl WBCs Periton Mononucl WBCs Peritoneal Tot Protein Peritoneal Albumin Peritoneal Glucose Blood Type B Positive Antibody Screen NEGATIVE Crossmatch See Detail Blood Bank Wristband ID Yes 10/22/25 10/22/25 10/22/25 11:26 13:05 15:35 WBC RBC Hgb Hct MCV MCH MCHC RDW Std Deviation Plt Count Neut % (Auto) Lymph % (Auto) Alpine % (Auto) Eos % (Auto) Baso % (Auto) Neut # (Auto) Lymph # (Auto) Alpine # (Auto) Eos # (Auto) Baso # (Auto) Immature Gran # (Auto) Absolute Nucleated RBC Immature Gran % Nucleated RBC % PT INR APTT Puncture Site Right Brachial Right Radial ABG pH 7.10 L* D 7.29 L D ABG pCO2 80 H* D 48 D ABG pO2 34 L* D 236 H D ABG HCO3 25 23 ABG O2 Saturation 40 L 101 H ABG Base Excess -5 L -3 FiO2 50 21 Sodium Potassium Chloride Carbon Dioxide Anion Gap BUN Creatinine Estim Creat Clear Calc eGFR BUN/Creatinine Ratio Glucose Estimated Ave Glu mg/dL Hemoglobin A1c Calculated Osmolality Lactic Acid 2.0 Calcium Corrected Calcium Phosphorus Magnesium Iron TIBC Iron Saturation Unsat Iron Binding Ferritin Total Bilirubin AST ALT Alkaline Phosphatase Total Protein Albumin Globulin Albumin/Globulin Ratio Triglycerides Peritoneal Color Peritoneal Appearance Peritoneal WBC Peritoneal RBC Periton Polynucl WBCs Periton Mononucl WBCs Peritoneal Tot Protein Peritoneal Albumin Peritoneal Glucose Blood Type Antibody Screen Crossmatch Blood Bank Wristband ID 10/22/25 10/22/25 10/22/25 16:16 16:20 17:30 WBC RBC Hgb Hct MCV MCH MCHC RDW Std Deviation Plt Count Neut % (Auto) Lymph % (Auto) Alpine % (Auto) Eos % (Auto) Baso % (Auto) Neut # (Auto) Lymph # (Auto) Alpine # (Auto) Eos # (Auto) Baso # (Auto) Immature Gran # (Auto) Absolute Nucleated RBC Immature Gran % Nucleated RBC % PT INR APTT Puncture Site ABG pH ABG pCO2 ABG pO2 ABG HCO3 ABG O2 Saturation ABG Base Excess FiO2 Sodium Cancelled 136 Potassium Cancelled 6.8 H* Chloride Cancelled 101 Carbon Dioxide Cancelled 23.5 Anion Gap Cancelled 12 BUN Cancelled 44 H Creatinine Cancelled 3.1 H Estim Creat Clear Calc Cancelled 26.7 L eGFR Cancelled 22 L BUN/Creatinine Ratio Cancelled 14 Glucose Cancelled [address] Glu mg/dL Hemoglobin A1c Calculated Osmolality Cancelled 285 Lactic Acid Calcium Cancelled 9.2 Corrected Calcium Cancelled 9.2 Phosphorus Magnesium Iron TIBC Iron Saturation Unsat Iron Binding Ferritin Total Bilirubin Cancelled 1.2 AST Cancelled 26 ALT Cancelled 12 Alkaline Phosphatase Cancelled 251 H D Total Protein Cancelled 7.3 Albumin Cancelled 4.2 D Globulin Cancelled 3.1 Albumin/Globulin Ratio Cancelled 1.4 Triglycerides Peritoneal Color Yellow Peritoneal Appearance Clear Peritoneal WBC 80 Peritoneal RBC 0.003 Periton Polynucl WBCs 23 Periton Mononucl WBCs 77 Peritoneal Tot Protein 4 Peritoneal Albumin 2.4 Peritoneal Glucose 124 Blood Type Antibody Screen Crossmatch Blood Bank Wristband ID 10/22/25 10/22/25 10/22/25 18:41 19:01 20:30 WBC 4.9 D 5.2 RBC 4.30 L 4.19 L Hgb 8.9 L 8.9 L Hct 29.9 L 29.1 L MCV 70 L 70 L MCH 20.7 L 21.2 L MCHC 29.8 L 30.6 L RDW Std Deviation 49.8 H 50.0 H Plt Count 189 D 223 D Neut % (Auto) 89 H 87 H Lymph % (Auto) 7 L 8 L Alpine % (Auto) 4 5 Eos % (Auto) 0 0 Baso % (Auto) 0 0 Neut # (Auto) 4.3 4.5 Lymph # (Auto) 0.3 L 0.4 L Alpine # (Auto) 0.2 0.3 Eos # (Auto) 0.0 0.0 Baso # (Auto) 0.0 0.0 Immature Gran # (Auto) 0.02 H 0.02 H Absolute Nucleated RBC 0.05 H 0.04 H Immature Gran % 0 0 Nucleated RBC % 1 H 1 H PT 16.7 H 18.2 H INR 1.6 H 1.8 H APTT Puncture Site Left Radial ABG pH 7.36 ABG pCO2 43 ABG pO2 173 H D ABG HCO3 24 ABG O2 Saturation 100 H ABG Base Excess -1 FiO2 21 Sodium 138 139 Potassium 5.6 H D 5.4 H Chloride 103 102 Carbon Dioxide 25.3 25.0 Anion Gap 10 12 BUN 46 H 37 H Creatinine 3.1 H 2.8 H Estim Creat Clear Calc 26.7 L 29.6 L eGFR 22 L 25 L BUN/Creatinine Ratio 15 13 Glucose 162 H [address] Glu mg/dL Hemoglobin A1c Calculated Osmolality 291 288 Lactic Acid Calcium 9.9 9.6 Corrected Calcium 9.9 9.8 Phosphorus 7.0 H Magnesium Iron TIBC Iron Saturation Unsat Iron Binding Ferritin Total Bilirubin 1.2 AST 22 ALT 11 Alkaline Phosphatase 231 H D Total Protein 7.2 Albumin 4.2 3.8 Globulin 3.0 Albumin/Globulin Ratio 1.4 Triglycerides Peritoneal Color Peritoneal Appearance Peritoneal WBC Peritoneal RBC Periton Polynucl WBCs Periton Mononucl WBCs Peritoneal Tot Protein Peritoneal Albumin Peritoneal Glucose Blood Type Antibody Screen Crossmatch Blood Bank Wristband ID 10/22/25 10/23/25 10/23/25 22:30 03:37 05:11 WBC RBC Hgb Hct MCV MCH MCHC RDW Std Deviation Plt Count Neut % (Auto) Lymph % (Auto) Alpine % (Auto) Eos % (Auto) Baso % (Auto) Neut # (Auto) Lymph # (Auto) Alpine # (Auto) Eos # (Auto) Baso # (Auto) Immature Gran # (Auto) Absolute Nucleated RBC Immature Gran % Nucleated RBC % PT INR APTT Puncture Site Left Radial ABG pH 7.34 L ABG pCO2 50 H ABG pO2 40 L* D ABG HCO3 27 H ABG O2 Saturation 65 L ABG Base Excess 1 FiO2 45 Sodium 139 139 Potassium 5.2 H 5.2 H Chloride 101 101 Carbon Dioxide 25.6 26.7 Anion Gap 12 11 BUN 35 H 41 H Creatinine 2.6 H 2.7 H Estim Creat Clear Calc 31.9 L 30.7 L eGFR 28 L 26 L BUN/Creatinine Ratio 13 15 Glucose [address] H [address] Glu mg/dL Hemoglobin A1c Calculated Osmolality 287 290 Lactic Acid Calcium 9.5 9.2 Corrected Calcium 9.8 9.6 Phosphorus 6.4 H 7.4 H Magnesium Iron TIBC Iron Saturation Unsat Iron Binding Ferritin Total Bilirubin AST ALT Alkaline Phosphatase Total Protein Albumin 3.6 3.5 Globulin Albumin/Globulin Ratio Triglycerides Peritoneal Color Peritoneal Appearance Peritoneal WBC Peritoneal RBC Periton Polynucl WBCs Periton Mononucl WBCs Peritoneal Tot Protein Peritoneal Albumin Peritoneal Glucose Blood Type Antibody Screen Crossmatch Blood Bank Wristband ID 10/23/25 06:24 WBC 8.5 D RBC 4.81 Hgb 10.6 L Hct 33.7 L MCV 70 L MCH 22.0 L MCHC 31.5 RDW Std Deviation 56.0 H Plt Count 222 Neut % (Auto) 90 H Lymph % (Auto) 4 L Alpine % (Auto) 6 Eos % (Auto) 0 Baso % (Auto) 0 Neut # (Auto) 7.6 Lymph # (Auto) 0.3 L Alpine # (Auto) 0.5 Eos # (Auto) 0.0 Baso # (Auto) 0.0 Immature Gran # (Auto) 0.03 H Absolute Nucleated RBC 0.04 H Immature Gran % 0 Nucleated RBC % 1 H PT 17.4 H INR 1.7 H APTT 35.5 Puncture Site ABG pH ABG pCO2 ABG pO2 ABG HCO3 ABG O2 Saturation ABG Base Excess FiO2 Sodium 139 Potassium 5.4 H Chloride 103 Carbon Dioxide 26.4 Anion Gap 10 BUN 41 H Creatinine 2.7 H Estim Creat Clear Calc 31.9 L eGFR 26 L BUN/Creatinine Ratio 15 Glucose [address] Glu mg/dL 120 Hemoglobin A1c 5.8 Calculated Osmolality 290 Lactic Acid Calcium 9.0 Corrected Calcium 9.6 Phosphorus 6.9 H Magnesium 1.8 Iron 19 L TIBC 181 L Iron Saturation 10 L Unsat Iron Binding 162 L Ferritin 38 Total Bilirubin 1.3 H AST 18 ALT 10 Alkaline Phosphatase 194 H D Total Protein 6.1 Albumin 3.3 L Globulin 2.8 Albumin/Globulin Ratio 1.2 Triglycerides 64 Peritoneal Color Peritoneal Appearance Peritoneal WBC Peritoneal RBC Periton Polynucl WBCs Periton Mononucl WBCs Peritoneal Tot Protein Peritoneal Albumin Peritoneal Glucose Blood Type Antibody Screen Crossmatch Blood Bank Wristband ID ABG Interpretation ABG results: 10/22/25 10/22/25 10/22/25 03:27 11:26 15:35 ABG pH 7.30 L 7.10 L* D 7.29 L D ABG pCO2 48 80 H* D 48 D ABG pO2 80 L 34 L* D 236 H D ABG HCO3 24 25 23 ABG O2 Saturation 98 40 L 101 H ABG Base Excess -2 -5 L -3 10/22/25 10/23/25 19:01 05:11 ABG pH 7.36 7.34 L ABG pCO2 43 50 H ABG pO2 173 H D 40 L* D ABG HCO3 24 27 H ABG O2 Saturation 100 H 65 L ABG Base Excess -1 1 Quality Measures Quality Measures VTE prophylaxis Assessment & Plan Assessment Current Active Medications: Generic Name Dose Route Start Last Admin Trade Name Freq PRN Reason Stop Dose Admin Acetaminophen 650 mg 10/22/25 06:01 Acetaminophen 325 Mg Tablet PO 11/21/25 06:00 Q6H PRN Fever >101.5 Albuterol/Ipratropium 3 ml 10/22/25 07:00 10/23/25 06:58 Albuterol/Ipratropium (Duoneb) Rt Irais 3 Ml Nebu INH 11/21/25 06:59 3 ml Q8HRRT YOVANI Administration Carvedilol 3.125 mg 10/22/25 08:00 10/22/25 17:55 Carvedilol 3.125 Mg Tablet PO 11/21/25 07:59 Not Given On Hold: 10/22/25 19:26 BIDWM YOVANI Enoxaparin Sodium 30 mg 10/22/25 09:00 10/22/25 09:22 Enoxaparin Sod Inj 30 Mg/0.3 Ml Syringe SC 11/05/25 08:59 30 mg QDAY YOVANI Administration Epoetin Cliff 10,000 unit 10/23/25 10:00 Epoetin Cliff-Epbx Inj 10,000 Unit/Ml Vial (Non-Esrd) SC 10/23/25 10:01 X1 ONE Heparin Sodium (Porcine) 3,000 unit 10/22/25 18:42 10/22/25 22:24 Heparin Sod Inj 1000 Unit/Ml Vial 10 Ml INDWELLCAT 11/05/25 18:41 3,000 unit PRN PRN Administration heplock vascath Heparin Sodium (Porcine) 3,000 unit 10/22/25 20:09 Heparin Sod Inj 1000 Unit/Ml Vial 10 Ml INDWELLCAT 11/05/25 20:08 X1 PRN DIALYSIS Ceftriaxone Sodium/Dextrose 1 gm in 50 mls @ 100 mls/hr 10/22/25 06:09 10/22/25 06:59 Rocephin/D5w 1gm Iv Premix IV 10/29/25 06:08 Infused QDAY YOVANI Infusion Octreotide Acetate 1,000 mcg/ 102 mls @ 5.1 mls/hr 10/23/25 04:30 10/23/25 05:36 Sodium Chloride IV 10/27/25 04:29 50 mcg/hr .Q20H YOVANI 5.1 mls/hr Protocol Administration 50 MCG/HR Albumin Human 25 gm in 100 mls @ 0 mls/hr 10/22/25 19:47 Albuminex 25% Ivpb IV Q30MIN PRN To maintain SBP>90 Per Protocol Fentanyl Citrate 2,500 mcg in 250 mls @ 2.5 mls/hr 10/22/25 22:51 Sublimaze Inj 2,500 Mcg/250 Ml Bag IV 10/27/25 12:08 .Q24H PRN PER PROTOCOL Protocol 25 MCG/HR Propofol 1,000 mg in 100 mls @ 2.864 mls/hr 10/22/25 22:51 Diprivan Ivpb IV 11/21/25 12:08 .Q24H PRN PER PROTOCOL Protocol 5 MCG/KG/MIN Lactulose 20 gm 10/22/25 06:15 10/23/25 05:37 Lactulose Syrup 20 Gm/30 Ml Udc PO 11/21/25 06:14 20 gm QID YOVANI Administration Protocol Levothyroxine Sodium 25 mcg 10/23/25 06:00 10/23/25 05:37 Levothyroxine Sodium 25 Mcg Tablet PO 11/22/25 05:59 25 mcg ACBR YOVANI Administration Pantoprazole Sodium 40 mg 10/22/25 09:00 10/22/25 09:21 Pantoprazole Inj 40 Mg Vial IVP 11/21/25 08:59 40 mg QDAY YOVANI Administration Patiromer 8.4 gm 10/22/25 16:15 10/22/25 16:22 Patiromer Calcium 8.4 Gm Packet PO 10/25/25 16:14 8.4 gm QDAY YOVANI Administration Protocol Rifaximin 550 mg 10/22/25 09:00 10/22/25 21:37 Rifaximin 550 Mg Tablet PO 10/29/25 08:59 550 mg BID YOVANI Administration Sodium Chloride 3 ml 10/22/25 17:47 Sodium Chloride Rt Irais 0.9% 3 Ml Nebu INH 01/03/26 17:46 PRN PRN SOLN Plan Patient is a 60-year-old male past medical history of COPD, alcoholic cirrhosis, diabetes, gout, hypertension, A-fib, heart failure, hyperlipidemia, acidosis, CKD IIIa, stage III lymphoma who presented from SNF on 10/22 with shortness of breath and altered mental status, upgraded to ICU due to worsening AHRF requiring intubation. Nephrology consulted for urgent dialysis for hyperkalemia. #Hyperkalemia (improving) #CADY on CKD IIIa - Presented with altered mental status from SNF - Home medications include potassium chloride 10 mill EQ tablets and spironolactone 100 mg - Potassium 6.3 on admission, increased to 7.0 despite insulin, albuterol, and Kayexelate - Cr 2.9 on admission, previously 1.4 in 01/2024 - EKG showed normal sinus rhythm, no peaked T waves observed - Upgraded to ICU 10/22, HD cath placed in right femoral. - S/p HD 10/22 (no ultrafiltration) Plan: - Scheduled for dialysis today, goal remove 1L - Continue to monitor creatinine #Respiratory acidosis #AHRF #Intubated #Acute decompensated cirrhosis 2/2 alcohol use #Acute encephalopathy #HFrEF #Hypertension #Hypothyroidism #Microcytic Anemia #History of gout #Stage III lymphoma #Diabetes #Afib paroxysmal? #HLD - Defer to primary team for management Thank you for your consultation, please do not hesitate to reach out if you have any question or concern Patient plan of care was discussed with the attending physician, Dr. Platt. Celeste Nation DO, PGY-1 Attending Provider Attestation/Addendum Patient currently seen and examined with resident physician Dr. Nation. Note reviewed, agree with findings and recommendations. Patient currently seen in ICU. Ventilated. He has hypercarbic respiratory failure and metabolic acidosis. Noted to have hyperkalemia. ICU team was able to place right IJ Vas-Cath with difficulty. Patient did receive 1 dialysis session last night ended second session was ordered for today. Significant edema noted. Remains on ventilator. Patient on dialysis. Tolerating dialysis without any problems. Hemodialysis for 2.5 hours, 2K, ultrafiltration 1 L, Epogen 6000, no heparin ordered. Plan of care discussed with the dialysis nurse. Please see dialysis flowsheet for further details. Spoke to ICU team. Next dialysis scheduled for tomorrow. Care discussed with ICU team. Thank you Penelope for allowing me to participate in the care of Mr. Esparza.
[2025-10-23] MEDS: cefTRIAXone/D5w 1gm IV premix 1 GM/50 ML BAG IV (09:51)
[2025-10-23] MEDS: ENOXAPARIN SOD INJ 30 MG/0.3 ML SYRINGE SC (09:51)
--- NOTE | 2025-10-23 11:28 | PD.RESPROC ---
PROCEDURES: Procedure Date / Time 10/22/25 1700 Central Line Placement Right Femoral: Indication(s): poor, or inadequate peripheral venous access Informed consent obtained: implied and procedure done urgently Time out done, and the following verified: correct patient, side and site, procedure, patient position and implants and/or equipment Patient placed on monitor/pulse ox: Yes Hand Hygiene: soap & water Max Sterile Barrier Techniques used: cap, mask, sterile gown, sterile gloves and sterile full body drape Central line prep: Chlorhexidine scrub and sterile drapes applied Local anesthesia used: lidocaine 1% Amount of anesthesia used (mL): 5 Ultrasound used for placement: Yes Sterile Technique if Ultrasound used, including sterile gel: yes Central line lumen inserted: triple Post procedure x-ray: other Patient tolerated procedure: well and no complications Procedure comment: A time out was performed. My hands were washed immediately prior to the procedure. I wore a surgical cap, mask with protective eyewear, full gown and sterile gloves throughout the procedure. The Right groin was prepped using chlorhexidine scrub and draped in sterile fashion using a sterile towels. Skin preparation was allowed to dry prior to skin puncture. Anatomic landmarks were identified. Anesthesia was achieved over the vein using 1% lidocaine. Using real-time ultrasound, with sterile probe cover and sterile gel, the introducer needle was inserted into the vein under direct ultrasound visualization. Venous blood was withdrawn. The syringe was removed and a guidewire was advanced into the introducer needle. The guidewire was visualized in the appropriate vein by ultrasound. A small incision was made at the skin surface with a scalpel and the introducer needle was exchanged for a dilator over the guidewire. The dilator was kinked when it was removed and the larger dilator was also kinked after dilation. The triflow cath was advanced over the wire, but was unable to be hubbed. There was a lot of resistance as the catheter was advanced, we attempted to advance the catheter and pull the wire out but the wire was seriously kinked and difficult to pull back on. The catheter had was able to be flushed and have draw back, but it was not hubbed inside due to difficulty advancing over the wire. The catheter and the wire were removed and pressure was applied at the site. We reattempted to place the line in the R fem agian but had the same issues with the wire , and dilator and catheter kinking. pressure was applied. Case disclosed with my Attending Dr. Kavon Goff MD PGY1 Attending note I was present for and assisted with all aspects of this procedure. The resident made the first attempt and I made the second attempt. I was unable to advance the HD catheter into place and there was significant kinking of the guidewire. Ultimately the attempt was aborted. A significant amount of bleeding did occur from the right femoral. Pressure was applied and hemostasis achieved.
[2025-10-23] MEDS: PATIROMER CALCIUM 8.4 GM PACKET PO (11:32)
--- NOTE | 2025-10-23 11:32 | PC.DIETICIAN ---
Nutrition prescription If EN is indicated, consider: Nepro at 15 ml/hr via OG tube by pump. Advance 10 ml every 8 hrs to goal rate of 35 ml/hr x 24 hrs. If no IV fluids, water flushes of 25 ml/hr (or per MD).
[2025-10-23] MEDS: SEVELAMER CARBONATE 800 MG TABLET PO ×2 (12:08→18:54)
[2025-10-23 12:35] LABS: Albumin, Serum 3.3 gm/dL (3.5-5.0); Anion Gap 11 (7-16); BUN/Creatinine Ratio 14 Ratio (12-20); Blood Urea Nitrogen 42 mg/dL (9-23); Calcium 8.9 mg/dL (8.3-10.6); Calcium (Corrected) 9.5 mg/dL (8.5-10.1); Carbon Dioxide 26.0 mMol/L (20.0-31.0); Chloride 102 mMol/L (98-107); Creatinine (Component) 2.9 mg/dL (0.6-1.3); Estimated Creatinine Clearance 29.7 mL/min (>60); Glucose 157 mg/dL (74-106); Osmolality,Calculated 291 (275-295); Phosphorous 6.9 mg/dL (2.4-5.1); Potassium 5.4 mMol/L (3.4-5.1); Sodium 139 mMol/L (136-145); eGFR 24 See Note
[2025-10-23] MEDS: PROPOFOL 1,000 MG IVPB 1,000 MG/100 ML VIAL 20.045 MG IV (13:00)
[2025-10-23] MEDS: EPOETIN ALFA-EPBX INJ 10,000 UNIT/ML VIAL (NON-ESRD) 10000 UNIT SC (14:18)
--- NOTE | 2025-10-23 15:03 | PC.SS ---
PART MAKER conducted phone contact with the patient?s brother, Eleni Amador to conduct initial assessment and to discuss discharge planning.? Brother confirmed that patient is a resident of [place].? Per brother patient is a short term resident.? Patient utilizes a walker to assist with ambulation.? Patient does not utilize oxygen at [facility].? Patient utilizes a C-PAP for nocturnal use.? Patient requires assistance with completion of ADL?s.? Patient?s surrogate medical decision maker is brother Eleni Amador.? Patient?s PCP is Dr. Paz.? Discharge plan is for the patient to return to [place].? front services agent will assist on arranging transportation on behalf of the patient.? No further discharge needs identified by the patient?s brother.? No further intervention required at this time, social media specialist will be available to address any further concerns.? Next of Kin: Eleni Amador D/C Plan: [facility]
[2025-10-23] MEDS: HEPARIN SOD INJ 1000 UNIT/ML VIAL 10 ML 3000 UNIT INDWELLCAT (15:49)
[2025-10-23 16:05] LABS: Albumin, Serum 3.3 gm/dL (3.5-5.0); Anion Gap 11 (7-16); BUN/Creatinine Ratio 14 Ratio (12-20); Blood Urea Nitrogen 29 mg/dL (9-23); Calcium 8.5 mg/dL (8.3-10.6); Calcium (Corrected) 9.1 mg/dL (8.5-10.1); Carbon Dioxide 27.1 mMol/L (20.0-31.0); Chloride 102 mMol/L (98-107); Creatinine (Component) 2.1 mg/dL (0.6-1.3); Estimated Creatinine Clearance 41.0 mL/min (>60); Glucose 138 mg/dL (74-106); Osmolality,Calculated 287 (275-295); Phosphorous 4.7 mg/dL (2.4-5.1); Potassium 4.5 mMol/L (3.4-5.1); Sodium 140 mMol/L (136-145); eGFR 36 See Note
[2025-10-23 19:46] LABS: Base Excess 4 (-3-3); HCO3 27 mEq/L (20-26); Inspired Oxygen, FIO2 35 %; O2 Saturation 95 % (91-98); PCO2 36 mmHg (32.0-48.0); PO2 72 mmHg (83-108); pH, Arterial 7.48 (7.35-7.45)
[2025-10-23 19:48] LABS: Allen Test Not Performed; Puncture Site Right Radial
[2025-10-23 20:13] LABS: Albumin, Serum 3.1 gm/dL (3.5-5.0); Anion Gap 10 (7-16); BUN/Creatinine Ratio 14 Ratio (12-20); Blood Urea Nitrogen 30 mg/dL (9-23); Calcium 8.8 mg/dL (8.3-10.6); Calcium (Corrected) 9.5 mg/dL (8.5-10.1); Carbon Dioxide 27.5 mMol/L (20.0-31.0); Chloride 102 mMol/L (98-107); Creatinine (Component) 2.2 mg/dL (0.6-1.3); Estimated Creatinine Clearance 39.1 mL/min (>60); Glucose 141 mg/dL (74-106); Osmolality,Calculated 285 (275-295); Phosphorous 5.6 mg/dL (2.4-5.1); Potassium 4.7 mMol/L (3.4-5.1); Sodium 139 mMol/L (136-145); eGFR 34 See Note
[2025-10-23] MEDS: PROPOFOL 1,000 MG IVPB 1,000 MG/100 ML VIAL 11.454 MG IV (21:18)
[2025-10-23] MEDS: fentaNYL 2,500 MCG/250 ML BAG 2,500 MCG/250 ML BAG 12.5 MCG IV (22:43)
[2025-10-23 23:52] LABS: Albumin, Serum 3.1 gm/dL (3.5-5.0); Anion Gap 10 (7-16); BUN/Creatinine Ratio 12 Ratio (12-20); Blood Urea Nitrogen 27 mg/dL (9-23); Calcium 8.8 mg/dL (8.3-10.6); Calcium (Corrected) 9.5 mg/dL (8.5-10.1); Carbon Dioxide 26.8 mMol/L (20.0-31.0); Chloride 101 mMol/L (98-107); Creatinine (Component) 2.3 mg/dL (0.6-1.3); Estimated Creatinine Clearance 37.4 mL/min (>60); Glucose 139 mg/dL (74-106); Osmolality,Calculated 282 (275-295); Phosphorous 5.4 mg/dL (2.4-5.1); Potassium 4.8 mMol/L (3.4-5.1); Sodium 138 mMol/L (136-145); eGFR 32 See Note
[2025-10-24] VITALS (44 sets, daily range): BP systolic 47–120; BP diastolic 27–91; PULSE 68–129; RESP 14–24; TEMP 36.3–37.7; O2SAT 23–100; BMI 38.0
[2025-10-24] MEDS: OCTREOTIDE ACET INJ 1,000 MCG in SODIUM CHLORIDE 0.9% 100 ML 5.1 MCG IV (00:55)
[2025-10-24] MEDS: PROPOFOL 1,000 MG IVPB 1,000 MG/100 ML VIAL 11.454 MG IV (04:28)
--- NOTE | 2025-10-24 05:00 | XR_ITS ---
EXAMINATION: AP chest single view TECHNIQUE: AP portable supine chest single view Date and time: October 24, 2025, 0524 hours, comparison October 23, 2025 INDICATIONS: Hypoxic respiratory failure this week post intubation FINDINGS: Mild to moderate enlargement cardiac contour Prominent vascular congestion including central vascular engorgement Dense opacity left base Right internal jugular dialysis catheter tip SVC Endotracheal tube tip 4.6 cm above víctor Orogastric tube in the stomach, the tip is below the level of the film Moderate osteopenia IMPRESSION: Mild to moderate heart failure Prominent pneumonia left base
[2025-10-24 05:03] LABS: Base Excess 4 (-3-3); HCO3 27 mEq/L (20-26); Inspired Oxygen, FIO2 21 %; O2 Saturation 96 % (91-98); PCO2 37 mmHg (32.0-48.0); PO2 76 mmHg (83-108); pH, Arterial 7.47 (7.35-7.45)
[2025-10-24 05:06] LABS: Allen Test Not Performed; Puncture Site Right Radial
[2025-10-24] MEDS: LACTULOSE SYRUP 20 GM/30 ML UDC PO ×4 (05:28→21:52)
[2025-10-24] MEDS: LEVOTHYROXINE SODIUM 25 MCG TABLET PO (05:28)
[2025-10-24 05:35] LABS: Basophils # (Auto) 0.0 Thou/mm3 (0.0-0.2); Basophils % (Auto) 0 % (0-2.5); Eosinophils # (Auto) 0.0 Thou/mm3 (0.0-0.5); Eosinophils % (Auto) 0 % (0-10); Hematocrit 33.9 % (41.0-53.0); Hemoglobin 10.9 g/dL (13.5-16.0); Immature Granulocytes Auto 0.08 Thou/mm3 (0.00-0.00); Lymphocytes # (Auto) 0.3 Thou/mm3 (1.0-4.8); Lymphocytes % (Auto) 2 % (10-50); Mean Corpuscular HGB Conc 32.2 g/dl (31.0-37.0); Mean Corpuscular Hemoglobin 22.3 pg (25.0-35.0); Mean Corpuscular Volume 69 fL (80-100); Monocytes # (Auto) 1.5 Thou/mm3 (0.0-0.8); Monocytes % (Auto) 9 % (0-12); Neutrophils # (Auto) 14.1 Thou/mm3 (1.8-7.7); Neutrophils % (Auto) 88 % (37-80); Nucleated Red Blood Cell # 0.09 Thou/mm3 (0.00-0.00); Nucleated Red Blood Cell % 1 /100 WBC (0); Platelet Count 168 Thou/mm3 (140-440); RDW Standard Deviation 56.5 fL (35.1-43.9); Red Blood Count 4.89 Miln/mm3 (4.50-5.90); White Blood Count 16.0 Thou/mm3 (3.8-10.6)
[2025-10-24 05:48] LABS: INR 1.6 (0.9-1.3); Prothrombin Time 15.9 Seconds (9.0-12.2)
[2025-10-24] MEDS: ALBUTEROL/IPRATROPIUM (Duoneb) RT SOL 3 ML NEBU INH ×2 (06:00→22:26)
[2025-10-24 06:21] LABS: Alanine Aminotransferase 8 U/L (10-49); Albumin, Serum 3.1 gm/dL (3.5-5.0); Albumin/Globulin Ratio 1.3 (1.2-2.2); Alkaline Phosphatase 175 U/L (46-116); Anion Gap 10 (7-16); Aspartate Amino Transferase 15 U/L (0-34); BUN/Creatinine Ratio 13 Ratio (12-20); Bilirubin,Total 1.3 mg/dL (0.3-1.2); Blood Urea Nitrogen 32 mg/dL (9-23); Calcium 8.5 mg/dL (8.3-10.6); Calcium (Corrected) 9.2 mg/dL (8.5-10.1); Carbon Dioxide 28.4 mMol/L (20.0-31.0); Chloride 101 mMol/L (98-107); Creatinine (Component) 2.4 mg/dL (0.6-1.3); Estimated Creatinine Clearance 35.9 mL/min (>60); Globulin 2.3 gm/dL (2.3-3.5); Glucose 138 mg/dL (74-106); Magnesium 1.8 mg/dL (1.6-2.6); Osmolality,Calculated 286 (275-295); Phosphorous 5.1 mg/dL (2.4-5.1); Potassium 4.8 mMol/L (3.4-5.1); Sodium 139 mMol/L (136-145); Total Protein 5.4 gm/dL (5.7-8.2); Triglycerides 119 mg/dL (30-150); eGFR 30 See Note
[2025-10-24] MEDS: cefTRIAXone/D5w 1gm IV premix 1 GM/50 ML BAG IV (08:59)
[2025-10-24] MEDS: SEVELAMER CARBONATE 800 MG TABLET PO ×3 (08:59→18:12)
[2025-10-24] MEDS: ENOXAPARIN SOD INJ 30 MG/0.3 ML SYRINGE SC (09:00)
[2025-10-24] MEDS: PATIROMER CALCIUM 8.4 GM PACKET PO (09:14)
[2025-10-24] MEDS: MIDAZOLAM INJ 1 MG/ML VIAL 2 ML 2 MG IVP (10:15)
--- NOTE | 2025-10-24 10:34 | PD.INTPROG ---
Documentation for date of: 10/24/25 Subjective Subjective Interval history: This is a 60yo M who was admitted on 10/22 for AMS 2/2 decompensated cirrhosis and COPD with CO2 retention. He failed bipap and was intubated. He was also noted to have severe hyperkalemia. A dialysis catheter was placed and he underwent emergency dialysis. He also underwent paracentesis with 9 L removed. Currently he is undergoing ultrafiltration, there were no acute overnight events. He is afebrile, he has had some urinary output however it has slowed down to approximately 20 cc an hour Critical Care Note Critical care time (min.): 40 Exam Vital Signs Temp Pulse Resp BP Pulse Ox O2 Del Method O2 Flow Rate 98.1 F 110 H 21 H 96/74 92 L Mechanical Ventilation 4 10/24/25 09:50 10/24/25 10:30 10/24/25 06:00 10/24/25 10:30 10/24/25 09:56 10/23/25 16:00 10/23/25 16:05 FiO2 35 10/24/25 09:56 Narrative Exam General-intubated, sedated, no acute distress, obese body habitus HEENT-normocephalic, atraumatic, sclera icteric, oral mucosas hydrated, ET tube and OG tube in place, left-sided neck swelling/mass, right try flow in place Chest-lung crowley are diminished, heart rate regular and rhythmic, occasional extrasystole, no murmurs auscultated, no increased work of breathing Abdomen-distended, tense, no apparent pain on palpation, no rebound or guarding, fluid wave present Extremities-pitting edema throughout, pulses palpable, no clubbing, no mottling, no focal deficit Vent AC/VC Drips Octreotide Physical Exam Completion Physical Exam Complete?: Yes Objective - [employer] Labs 10/24/25 04:32 10/24/25 04:32 Labs: Laboratory Results - last 24 hr 10/23/25 10/23/25 10/23/25 11:42 15:00 19:30 WBC RBC Hgb Hct MCV MCH MCHC RDW Std Deviation Plt Count Neut % (Auto) Lymph % (Auto) [place] % (Auto) Eos % (Auto) Baso % (Auto) Neut # (Auto) Lymph # (Auto) [place] # (Auto) Eos # (Auto) Baso # (Auto) Immature Gran # (Auto) Absolute Nucleated RBC Immature Gran % Nucleated RBC % PT INR Puncture Site Right Radial ABG pH 7.48 H D ABG pCO2 36 D ABG pO2 72 L D ABG HCO3 27 H ABG O2 Saturation 95 ABG Base Excess 4 H FiO2 35 Sodium 139 140 Potassium 5.4 H 4.5 D Chloride 102 102 Carbon Dioxide 26.0 27.1 Anion Gap 11 11 BUN 42 H 29 H Creatinine 2.9 H 2.1 H D Estim Creat Clear Calc 29.7 L 41.0 L eGFR 24 L 36 L BUN/Creatinine Ratio 14 14 Glucose 157 H 138 H Calculated Osmolality 291 287 Calcium 8.9 8.5 Corrected Calcium 9.5 9.1 Phosphorus 6.9 H 4.7 Magnesium Total Bilirubin AST ALT Alkaline Phosphatase Total Protein Albumin 3.3 L 3.3 L Globulin Albumin/Globulin Ratio Triglycerides 10/23/25 10/23/25 10/24/25 19:42 23:15 04:32 WBC 16.0 H D RBC 4.89 Hgb 10.9 L Hct 33.9 L MCV 69 L MCH 22.3 L MCHC 32.2 RDW Std Deviation 56.5 H Plt Count 168 D Neut % (Auto) 88 H Lymph % (Auto) 2 L [place] % (Auto) 9 Eos % (Auto) 0 Baso % (Auto) 0 Neut # (Auto) 14.1 H Lymph # (Auto) 0.3 L [place] # (Auto) 1.5 H Eos # (Auto) 0.0 Baso # (Auto) 0.0 Immature Gran # (Auto) 0.08 H Absolute Nucleated RBC 0.09 H Immature Gran % 1 H Nucleated RBC % 1 H PT 15.9 H INR 1.6 H Puncture Site ABG pH ABG pCO2 ABG pO2 ABG HCO3 ABG O2 Saturation ABG Base Excess FiO2 Sodium 139 138 139 Potassium 4.7 4.8 4.8 Chloride 102 101 101 Carbon Dioxide 27.5 26.8 28.4 Anion Gap 10 10 10 BUN 30 H 27 H 32 H Creatinine 2.2 H 2.3 H 2.4 H Estim Creat Clear Calc 39.1 L 37.4 L 35.9 L eGFR 34 L 32 L 30 L BUN/Creatinine Ratio 14 12 13 Glucose 141 H 139 H 138 H Calculated Osmolality 285 282 286 Calcium 8.8 8.8 8.5 Corrected Calcium 9.5 9.5 9.2 Phosphorus 5.6 H 5.4 H 5.1 Magnesium 1.8 Total Bilirubin 1.3 H AST 15 ALT 8 L Alkaline Phosphatase 175 H Total Protein 5.4 L Albumin 3.1 L 3.1 L 3.1 L Globulin 2.3 Albumin/Globulin Ratio 1.3 Triglycerides 119 10/24/25 04:47 WBC RBC Hgb Hct MCV MCH MCHC RDW Std Deviation Plt Count Neut % (Auto) Lymph % (Auto) [place] % (Auto) Eos % (Auto) Baso % (Auto) Neut # (Auto) Lymph # (Auto) [place] # (Auto) Eos # (Auto) Baso # (Auto) Immature Gran # (Auto) Absolute Nucleated RBC Immature Gran % Nucleated RBC % PT INR Puncture Site Right Radial ABG pH 7.47 H ABG pCO2 37 ABG pO2 76 L ABG HCO3 27 H ABG O2 Saturation 96 ABG Base Excess 4 H FiO2 21 Sodium Potassium Chloride Carbon Dioxide Anion Gap BUN Creatinine Estim Creat Clear Calc eGFR BUN/Creatinine Ratio Glucose Calculated Osmolality Calcium Corrected Calcium Phosphorus Magnesium Total Bilirubin AST ALT Alkaline Phosphatase Total Protein Albumin Globulin Albumin/Globulin Ratio Triglycerides Assessment & Plan Additional Assessment Additional Assessment: In summary this is a 60-year-old male admitted to the ICU for acute hypercapnic respiratory failure and altered mental status a/p [employer]ING [employer] AMS-patient's acute cephalopathy is likely secondary to his hepatic encephalopathy as well as CO2 narcosis. These both seem to be improving. Will attempt sedation vacation today and evaluate his mental status. Encephalomalacia also noted on prior head CT CV Heart failure with reduced EF-patient's Coreg is on hold due to his borderline blood pressure -EF noted to be approximately 35% with LVH -Pulmonary hypertension also noted on echo with elevated right ventricular systolic pressures -RV volume overload noted on echo as well -Requires additional volume removal Resp Acute hypercapnic respiratory failure-patient is intubated and on mechanical ventilation, follow-up on ABG, follow-up chest x-ray, will try sedation vacation and spontaneous breathing trial today Pulmonary edema-in the setting of total volume overload and heart failure, will diurese as able, improving FiO2 requirements on the ventilator, currently on dialysis for volume removal Aspiration pneumonia-patient's sputum cultures growing gram-negative benigno, continue with antibiotics for now until speciation has resulted. No need for bank this is MRSA is negative and GNR's are reported COPD-DuoNebs every 4 as needed Renal CADY-patient's baseline is unclear -Numbers seem to be stable -Followed by nephrology Decreasing urinary output today Hypophosphatemia-on sevelamer Hyperkalemia-resolved GI Cirrhosis-currently on lactulose 20mg q6 - aldactone on hold given soft BP and hyperkalemia - started on rixamine 550mg BID today Endo Hypothyroid-on levothyroxine Diabetes-sliding scale insulin fingersticks every 6 Heme Leukocytosis Anemia-patient did have some bleeding from his procedures 2 days ago and was transfused a unit of PRBCs yesterday. His H&H remained stable -An iron panel was checked and he is found to have iron deficiency will be started on p.o. Coagulopathy-in the setting of cirrhosis DVT prophylaxis- heparin [id number] History of possible lymphoma-will try and get more data ID Aspiration pneumonia-on antibiotics Case discussed with ICU team Discussed with nephrology Labs, imaging and records reviewed ~ 40ccmin required for evaluation, exam, review, intervention, discussion formulation of plan of care for this critically ill patient with acute respiratory failure at high risk for further ongoing decompensation Provider Notation Provider Notation: Although this document has been carefully reviewed, there may still be some phonetic and other typographical errors. These errors are purely grammatical due to imperfections in the software program and should not be construed in any way to compromise the substance of the patient's medical care during this visit. Thank you for the opportunity and privilege in assisting you with this patient's care and management.
--- NOTE | 2025-10-24 11:15 | ESPR_ITS ---
<Statement entered by Rishabh Luo MD - 10/26/25 14:32> I have reviewed the note and agree with the resident's assessment & plan with exceptions as below. I have personally reviewed labs, imaging, home meds/prior records, examined the patient, formulated and discussed management plan with the IM team. Rishabh Luo, PGY-2 Internal Medicine Documentation for date of: 10/24/25 Subjective Subjective Interval history: Mr. Amador is a 60-year-old gentleman with a past medical history significant for left neck lymphoma, cirrhosis, COPD on home oxygen, and? 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 10/22/2025: CT head with Negative for acute hemorrhage, mass effect or midline shift, pupils were fixed and dilated. He was intubated, and started on HD after multiple attempts at getting central access. R ij was placed. had paracentesis with 9 L off. cytology sent 10/23/2025: Patient seen and examined at bedside with abdomen notably firm and distended with positive fluid wave. HD today with 1 L removed in 3 hour session. K now within nl at 4.5 pupils are sluggish but responsive to light and no longer fixed and dilated. remains intubated and sedated. appears more volume overloaded on exam. with reacumulated ascites despite 9 L paracentesis done yesterday. 10/24/2025 Patient examined bedside, labs reviewed. Abdomen is still notably firm and distended with positive fluid wave. HD not happening today instead had sequential ultrafiltration with 3 L removed. Plan to downgrade stalled because patient BPs dropped and was not responsive to fluids per NICOM restarted dobutamine and levophed to maintain SvO2 >65. Exam Vital Signs Temp Pulse Resp BP Pulse Ox O2 Del Method O2 Flow Rate 98.1 F 124 H 21 H 92/77 92 L Mechanical Ventilation 4 10/24/25 09:50 10/24/25 11:00 10/24/25 06:00 10/24/25 11:00 10/24/25 09:56 10/23/25 16:00 10/23/25 16:05 FiO2 35 10/24/25 09:56 Narrative Exam Patient with head normocephalic atraumatic Eyes sluggish but responsive to light eyes noted to be protuberant with bulging. neck with notable L neck bulge ? lipoma vs L neck lymphoma. firm and stable from prior Heart regular rate rhythm no murmurs appreciated on auscultation Lungs diminished breath sounds on the left lung bases with ventilator breaths noted patient is on mechanical ventilation Abdomen is protuberant firm, and soft with positive fluid wave, caput medusa noted on lower abdomen Lower extremities with 1+ pitting up to the thigh most notably on the lateral aspects of bilateral thighs and 1+ to trace pitting edema on the anterior tibial surfaces Feet are cool to the touch with pedal pulses unable to be appreciated upon palpation, will follow-up with Doppler Objective Labs 10/26/25 04:12 10/26/25 04:12 Labs: Laboratory Results - last 24 hr 10/23/25 10/23/25 10/23/25 11:42 15:00 19:30 WBC RBC Hgb Hct MCV MCH MCHC RDW Std Deviation Plt Count Neut % (Auto) Lymph % (Auto) [place] % (Auto) Eos % (Auto) Baso % (Auto) Neut # (Auto) Lymph # (Auto) [place] # (Auto) Eos # (Auto) Baso # (Auto) Immature Gran # (Auto) Absolute Nucleated RBC Immature Gran % Nucleated RBC % PT INR Puncture Site Right Radial ABG pH 7.48 H D ABG pCO2 36 D ABG pO2 72 L D ABG HCO3 27 H ABG O2 Saturation 95 ABG Base Excess 4 H FiO2 35 Sodium 139 140 Potassium 5.4 H 4.5 D Chloride 102 102 Carbon Dioxide 26.0 27.1 Anion Gap 11 11 BUN 42 H 29 H Creatinine 2.9 H 2.1 H D Estim Creat Clear Calc 29.7 L 41.0 L eGFR 24 L 36 L BUN/Creatinine Ratio 14 14 Glucose 157 H 138 H Calculated Osmolality 291 287 Calcium 8.9 8.5 Corrected Calcium 9.5 9.1 Phosphorus 6.9 H 4.7 Magnesium Total Bilirubin AST ALT Alkaline Phosphatase Total Protein Albumin 3.3 L 3.3 L Globulin Albumin/Globulin Ratio Triglycerides 10/23/25 10/23/25 10/24/25 19:42 23:15 04:32 WBC 16.0 H D RBC 4.89 Hgb 10.9 L Hct 33.9 L MCV 69 L MCH 22.3 L MCHC 32.2 RDW Std Deviation 56.5 H Plt Count 168 D Neut % (Auto) 88 H Lymph % (Auto) 2 L [place] % (Auto) 9 Eos % (Auto) 0 Baso % (Auto) 0 Neut # (Auto) 14.1 H Lymph # (Auto) 0.3 L [place] # (Auto) 1.5 H Eos # (Auto) 0.0 Baso # (Auto) 0.0 Immature Gran # (Auto) 0.08 H Absolute Nucleated RBC 0.09 H Immature Gran % 1 H Nucleated RBC % 1 H PT 15.9 H INR 1.6 H Puncture Site ABG pH ABG pCO2 ABG pO2 ABG HCO3 ABG O2 Saturation ABG Base Excess FiO2 Sodium 139 138 139 Potassium 4.7 4.8 4.8 Chloride 102 101 101 Carbon Dioxide 27.5 26.8 28.4 Anion Gap 10 10 10 BUN 30 H 27 H 32 H Creatinine 2.2 H 2.3 H 2.4 H Estim Creat Clear Calc 39.1 L 37.4 L 35.9 L eGFR 34 L 32 L 30 L BUN/Creatinine Ratio 14 12 13 Glucose 141 H 139 H 138 H Calculated Osmolality 285 282 286 Calcium 8.8 8.8 8.5 Corrected Calcium 9.5 9.5 9.2 Phosphorus 5.6 H 5.4 H 5.1 Magnesium 1.8 Total Bilirubin 1.3 H AST 15 ALT 8 L Alkaline Phosphatase 175 H Total Protein 5.4 L Albumin 3.1 L 3.1 L 3.1 L Globulin 2.3 Albumin/Globulin Ratio 1.3 Triglycerides 119 10/24/25 04:47 WBC RBC Hgb Hct MCV MCH MCHC RDW Std Deviation Plt Count Neut % (Auto) Lymph % (Auto) [place] % (Auto) Eos % (Auto) Baso % (Auto) Neut # (Auto) Lymph # (Auto) [place] # (Auto) Eos # (Auto) Baso # (Auto) Immature Gran # (Auto) Absolute Nucleated RBC Immature Gran % Nucleated RBC % PT INR Puncture Site Right Radial ABG pH 7.47 H ABG pCO2 37 ABG pO2 76 L ABG HCO3 27 H ABG O2 Saturation 96 ABG Base Excess 4 H FiO2 21 Sodium Potassium Chloride Carbon Dioxide Anion Gap BUN Creatinine Estim Creat Clear Calc eGFR BUN/Creatinine Ratio Glucose Calculated Osmolality Calcium Corrected Calcium Phosphorus Magnesium Total Bilirubin AST ALT Alkaline Phosphatase Total Protein Albumin Globulin Albumin/Globulin Ratio Triglycerides ABG Interpretation ABG results: 10/22/25 10/22/25 10/22/25 03:27 11:26 15:35 ABG pH 7.30 L 7.10 L* D 7.29 L D ABG pCO2 48 80 H* D 48 D ABG pO2 80 L 34 L* D 236 H D ABG HCO3 24 25 23 ABG O2 Saturation 98 40 L 101 H ABG Base Excess -2 -5 L -3 10/22/25 10/23/25 10/23/25 19:01 05:11 19:30 ABG pH 7.36 7.34 L 7.48 H D ABG pCO2 43 50 H 36 D ABG pO2 173 H D 40 L* D 72 L D ABG HCO3 24 27 H 27 H ABG O2 Saturation 100 H 65 L 95 ABG Base Excess -1 1 4 H 10/24/25 04:47 ABG pH 7.47 H ABG pCO2 37 ABG pO2 76 L ABG HCO3 27 H ABG O2 Saturation 96 ABG Base Excess 4 H Quality Measures Quality Measures VTE prophylaxis Assessment & Plan Assessment Current Active Medications: Generic Name Dose Route Start Last Admin Trade Name Freq PRN Reason Stop Dose Admin Acetaminophen 650 mg 10/22/25 06:01 Acetaminophen 325 Mg Tablet PO 11/21/25 06:00 Q6H PRN Fever >101.5 Albuterol/Ipratropium 3 ml 10/22/25 07:00 10/24/25 06:00 Albuterol/Ipratropium (Duoneb) Rt Irais 3 Ml Nebu INH 11/21/25 06:59 3 ml Q8HRRT YOVANI Administration Carvedilol 3.125 mg 10/22/25 08:00 10/22/25 17:55 Carvedilol 3.125 Mg Tablet PO 11/21/25 07:59 Not Given On Hold: 10/22/25 19:26 BIDWM YOVANI Enoxaparin Sodium 30 mg 10/22/25 09:00 10/24/25 09:00 Enoxaparin Sod Inj 30 Mg/0.3 Ml Syringe SC 11/05/25 08:59 30 mg QDAY YOVANI Administration Heparin Sodium (Porcine) 3,000 unit 10/22/25 18:42 10/22/25 22:24 Heparin Sod Inj 1000 Unit/Ml Vial 10 Ml INDWELLCAT 11/05/25 18:41 3,000 unit PRN PRN Administration heplock vascath Heparin Sodium (Porcine) 3,000 unit 10/22/25 20:09 10/23/25 15:49 Heparin Sod Inj 1000 Unit/Ml Vial 10 Ml INDWELLCAT 11/05/25 20:08 3,000 unit X1 PRN Administration DIALYSIS Octreotide Acetate 1,000 mcg/ 102 mls @ 5.1 mls/hr 10/23/25 04:30 10/24/25 00:55 Sodium Chloride IV 10/27/25 04:29 50 mcg/hr .Q20H YOVANI 5.1 mls/hr Protocol Administration 50 MCG/HR Albumin Human 25 gm in 100 mls @ 0 mls/hr 10/22/25 19:47 Albuminex 25% Ivpb IV Q30MIN PRN To maintain SBP>90 Per Protocol Fentanyl Citrate 2,500 mcg in 250 mls @ 2.5 mls/hr 10/22/25 22:51 10/24/25 06:00 Sublimaze Inj 2,500 Mcg/250 Ml Bag IV 10/27/25 12:08 125 mcg/hr .Q24H PRN 12.5 mls/hr PER PROTOCOL Titration Protocol 25 MCG/HR Propofol 1,000 mg in 100 mls @ 2.864 mls/hr 10/22/25 22:51 10/24/25 06:00 Diprivan Ivpb IV 11/21/25 12:08 15 mcg/kg/min .Q24H PRN 8.591 mls/hr PER PROTOCOL Titration Protocol 5 MCG/KG/MIN Norepinephrine/Dextrose 8 mg in 250 mls @ 9.703 mls/hr 10/24/25 10:14 Levophed In D5w 8mg/250ml IV 11/23/25 10:13 .Q24H PRN PER PROTOCOL Protocol 0.05 MCG/KG/MIN Piperacillin/Tazobactam/Dextrose 3.375 gm in 50 mls @ 12.5 mls/hr 10/24/25 22:00 Zosyn IV 10/31/25 21:59 Q8HR YOVANI Protocol Lactulose 20 gm 10/22/25 06:15 10/24/25 05:28 Lactulose Syrup 20 Gm/30 Ml Udc PO 11/21/25 06:14 20 gm QID YOVANI Administration Protocol Levothyroxine Sodium 25 mcg 10/23/25 06:00 10/24/25 05:28 Levothyroxine Sodium 25 Mcg Tablet PO 11/22/25 05:59 25 mcg ACBR YOVANI Administration Pantoprazole Sodium 40 mg 10/22/25 09:00 10/24/25 08:55 Pantoprazole Inj 40 Mg Vial IVP 11/21/25 08:59 40 mg QDAY YOVANI Administration Patiromer 8.4 gm 10/22/25 16:15 10/24/25 09:14 Patiromer Calcium 8.4 Gm Packet PO 10/25/25 16:14 8.4 gm QDAY YOVANI Administration Protocol Rifaximin 550 mg 10/24/25 21:00 Rifaximin 550 Mg Tablet PO 10/31/25 20:59 BID YOVANI Sevelamer Carbonate 800 mg 10/23/25 12:00 10/24/25 08:59 Sevelamer Carbonate 800 Mg Tablet PO 11/22/25 11:59 800 mg TIDWM YOVANI Administration Sodium Chloride 3 ml 10/22/25 17:47 Sodium Chloride Rt Irais 0.9% 3 Ml Nebu INH 11/21/25 17:46 PRN PRN SOLN Plan Assessment Mr. Amador is a 60-year-old gentleman with history of heart failure with reduced ejection fraction alcohol-related cirrhosis COPD on home oxygen hypertension CKD and? Lymphoma of the right neck was brought in for 1 week of shortness [facility] breath [facility] who had severe refractory hyperkalemia that was refractory to hyperkalemia cocktail upgraded from floors to the ICU with severe acidemia and refractory hyper-K. Intubated and now off sedation. Neuro Acute metabolic encephalopathy secondary to acute decompensated liver failure - resolving Hepatic encephalopathy Diagnostic workup: - head ct Negative for acute hemorrhage, mass effect or midline shift Treatment - sedated, prop and fent - DC'd 10/24 CVS Acute CHF exacerbation Heart failure with reduced ejection fraction 25-30 %, on this admission 10/2025 Home medications GDMT carvedilol, spironolactone, empagliflozin not on GREY or ARB DDX His exacerbation likely secondary to cystitis or pneumonia with chest x-ray showing vascular congestion with pedal and lower extremity edema with increased perihilar interstitial markings left greater than right Dx Echo with reduced ef Tx HD with fluid removal 1 liter was removed today, 3L removed with ultrafiltrate 10/24 -Bumex x1 10/24 Pulm Left basilar pneumonia vs aspiration pneumonia versus community-acquired pneumonia versus healthcare-acquired pneumonia Patient presents from SNF, chest x-ray with left basilar opacities, patient intubated today concern for aspiration pneumonia versus pneumonitis Dx - serial cxr - sputum cx follow up Treatment - 1 g ceftriaxone daily -Dc'd - zosyn 3.36 (10/24 - intubated, will adjust vent settings as indicated GI Acute decompensated liver failure Severe ascites Status post paracentesis with 9 L of fluid removed 50 g of albumin given 10/22 Dx - Physical exam - SAAG 1.1 consistent with Follow-up LFTs Tx - repeat paracentesis if clinically indicated, replete albumin Renal CADY on CKD versus worsening CKD No baseline creatinine given patient does not have several labs here at [facility] Dx - renal panel q6hr Tx - HD per nephro recs Hyperkalemia - Resolved with HD At home patient is on spironolactone and potassium 10 mill equivalents Dx - renal panel AM Tx - HD per nephrology Hyperphosphatemia - resolved Plan first of Sevalomer 800 3 times daily per NG tube Endo Hypothyroidism Patient has history of hypothyroidism, takes levothyroxine 25 at home, plan for oral given patient is not on pressors actively ? Diabetes versus metabolic syndrome Patient does not have any documentation of type 2 diabetes however patient is obese and there is? Concern for possible diabetes will follow-up with a.m. A1c 5.8 and lipid panel (triglycerides wnl) Heme/Onc Chronic microcytic anemia ddx: iron deficiency anemia vs anemia of chronic dz vs ckd Dx - iron panel and ferritin low, Tx consider IV iron 200 IV qd for 3 days epogen with hd transfuse if <7 Coagulopathy secondary to cirrhosis and acute decompensated liver failure PT, INR, PTT all elevated with elevated D-dimer 1600 Dx - Follow-up coags in the a.m. Tx - transfuse platelets as indicated ID ? Community-acquired pneumonia versus healthcare associated pneumonia Patient received 1 g of ceftriaxone in the ED continue with tx ceftriaxone 1 g daily IV DVT prophylaxis, heparin 500 every 12 GI prophylaxis Protonix 40 IV daily given patient's intubated CODE STATUS: Full Case disclosed with my senior resident Dr. Luo and my Attending Dr. Kavon Larios MD PGY1 Attending Provider Attestation/Addendum pt seen and examined, d/w resident team. in brief this is a 60yo M with AMS and acute resp failure. He is s/p HD for hyperkalemia. His home meds for HF on hold for now. He remains on abx for PNA. on physical exam he remains sedated, intubated, on MV, NC/AT, mucosa hydrated, sclera anicteric, PERRL, ETT/OGT in place, LCTA but diminished, HRRR, abd distended though no apparent pain on palp, edema b/l LE, pulses palp. h/o cirrhosis on lactulose. CT of the neck from overnight shows large post neck mass of unclear etiology. case d/w ICU team labs, imaging, records reviewed ~36ccmin required for eval, exam, review, intervention, discussion and formulation of POC
--- NOTE | 2025-10-24 11:24 | ESPR_ITS ---
Documentation for date of: 10/24/25 Subjective Subjective Interval history: History of present illness: 60-year-old male past medical history of COPD, alcoholic cirrhosis, diabetes, gout, hypertension, A-fib, heart failure, hyperlipidemia, acidosis, CKD, stage III lymphoma who presented from SN[facility] on 10/22 with shortness of breath and altered mental status. He was found to have a potassium of 6.3, BNP of 638, creatinine of 2.9, and ascites. Per staff, patient is AOx4 and conversational at baseline. ED course: - Vitals: BP 108/89. Patient was desaturating into the 70s on 4 L nasal cannula, however upon arousal he would return to the 90s. - Labs: Potassium 6.3, BUN 42, creatinine 2.9, alk phos 307, BNP 638, PT 15.4, INR 1.5, D-dimer 1600, ABG pH of 7.3, pO2 of 80. - Imaging: Chest x-ray showed vascular congestion, heart failure. Abdominal ultrasound showed ascites. - Patient received DuoNeb treatment, 4 mg morphine, 4 mg Zofran, methylprednisolone 125 IV push x 1, dextrose, 10 units of insulin, and 1 g of calcium gluconate, and 15 GM sodium polystyrene sulfonate orally. Past Medical History: COPD, alcoholic cirrhosis, diabetes, gout, hypertension, A-fib, heart failure, hyperlipidemia, stage III lymphoma Family History: unable to be obtained due to AMS Surgical History: unable to be obtained due to AMS Social History: Hx of alcohol use, unknown amount. Current Medications: allopurinol 100 mg, budesonide 2 mg, buspirone 7.5 mg, carvedilol 3.125 mg, empagliflozin 10 mg, vitamin D2, gabapentin 300 mg, levothyroxine 25 mg, pantoprazole 40 mg, potassium chloride 10 mill EQ tablets, spironolactone 100 mg, tamsulosin 0.4 mg, hydrocodone 5-3 25, ipratropium, fluticasone, lactulose, albuterol, hydroxyzine 25 mg, rifaximin 550 mg, furosemide 40 mg Allergies: No known drug allergies Patient was admitted for acute decompensated cirrhosis, hyperkalemia, and CADY, upgraded to ICU for worsening AHRF requiring intubation. Nephrology was consulted for urgent dialysis for hyperkalemia likely secondary to concomitant use of spironolactone and potassium. 10/23/25: Right femoral triple lumen line placed yesterday in ICU. Received HD last night, no ultrafiltration, tolerated session well. Patient seen and examined at bedside. Creatinine 2.9, improved to 2.1 in the afternoon. Scheduled for dialysis again today, goal 1L fluid removal. 10/24/25: Patient seen and assessed in ICU. Off sedation, tachycardic with HR 130s at bedside. Dialysis day #3, removed 1L yesterday, will remove 3L. Potassium 4.8. Creatinine 2.4. Ordered PPD and hepatitis panel in anticipation for outpatient dialysis. Exam Vital Signs Temp Pulse Resp BP Pulse Ox O2 Del Method O2 Flow Rate 98.1 F 112 H 21 H 97/73 92 L Mechanical Ventilation 4 10/24/25 09:50 10/24/25 11:15 10/24/25 06:00 10/24/25 11:15 10/24/25 09:56 10/23/25 16:00 10/23/25 16:05 FiO2 35 10/24/25 09:56 Narrative Exam Physical Exam General: Intubated. Off sedation. HEENT: Normocephalic, atraumatic, mucous membranes dry. Heart: Distant. Regular rate and rhythm, normal S1 and S2, no murmurs appreciated. Lungs: Bibasilar crackles. Abdomen: Soft, obese, positive bowel sounds. Moderate ascites. No guarding or rebound tenderness. Neurologic: Unable to assess due to sedation. Extremities: No lower edema. Skin: Scattered freckles on face and upper arms. No rash or ecchymoses. Objective Labs 10/25/25 03:15 10/25/25 03:15 Labs: Laboratory Results - last 24 hr 10/23/25 10/23/25 10/23/25 11:42 15:00 19:30 WBC RBC Hgb Hct MCV MCH MCHC RDW Std Deviation Plt Count Neut % (Auto) Lymph % (Auto) [place] % (Auto) Eos % (Auto) Baso % (Auto) Neut # (Auto) Lymph # (Auto) [place] # (Auto) Eos # (Auto) Baso # (Auto) Immature Gran # (Auto) Absolute Nucleated RBC Immature Gran % Nucleated RBC % PT INR Puncture Site Right Radial ABG pH 7.48 H D ABG pCO2 36 D ABG pO2 72 L D ABG HCO3 27 H ABG O2 Saturation 95 ABG Base Excess 4 H FiO2 35 Sodium 139 140 Potassium 5.4 H 4.5 D Chloride 102 102 Carbon Dioxide 26.0 27.1 Anion Gap 11 11 BUN 42 H 29 H Creatinine 2.9 H 2.1 H D Estim Creat Clear Calc 29.7 L 41.0 L eGFR 24 L 36 L BUN/Creatinine Ratio 14 14 Glucose 157 H 138 H Calculated Osmolality 291 287 Calcium 8.9 8.5 Corrected Calcium 9.5 9.1 Phosphorus 6.9 H 4.7 Magnesium Total Bilirubin AST ALT Alkaline Phosphatase Total Protein Albumin 3.3 L 3.3 L Globulin Albumin/Globulin Ratio Triglycerides 10/23/25 10/23/25 10/24/25 19:42 23:15 04:32 WBC 16.0 H D RBC 4.89 Hgb 10.9 L Hct 33.9 L MCV 69 L MCH 22.3 L MCHC 32.2 RDW Std Deviation 56.5 H Plt Count 168 D Neut % (Auto) 88 H Lymph % (Auto) 2 L [place] % (Auto) 9 Eos % (Auto) 0 Baso % (Auto) 0 Neut # (Auto) 14.1 H Lymph # (Auto) 0.3 L [place] # (Auto) 1.5 H Eos # (Auto) 0.0 Baso # (Auto) 0.0 Immature Gran # (Auto) 0.08 H Absolute Nucleated RBC 0.09 H Immature Gran % 1 H Nucleated RBC % 1 H PT 15.9 H INR 1.6 H Puncture Site ABG pH ABG pCO2 ABG pO2 ABG HCO3 ABG O2 Saturation ABG Base Excess FiO2 Sodium 139 138 139 Potassium 4.7 4.8 4.8 Chloride 102 101 101 Carbon Dioxide 27.5 26.8 28.4 Anion Gap 10 10 10 BUN 30 H 27 H 32 H Creatinine 2.2 H 2.3 H 2.4 H Estim Creat Clear Calc 39.1 L 37.4 L 35.9 L eGFR 34 L 32 L 30 L BUN/Creatinine Ratio 14 12 13 Glucose 141 H 139 H 138 H Calculated Osmolality 285 282 286 Calcium 8.8 8.8 8.5 Corrected Calcium 9.5 9.5 9.2 Phosphorus 5.6 H 5.4 H 5.1 Magnesium 1.8 Total Bilirubin 1.3 H AST 15 ALT 8 L Alkaline Phosphatase 175 H Total Protein 5.4 L Albumin 3.1 L 3.1 L 3.1 L Globulin 2.3 Albumin/Globulin Ratio 1.3 Triglycerides 119 10/24/25 04:47 WBC RBC Hgb Hct MCV MCH MCHC RDW Std Deviation Plt Count Neut % (Auto) Lymph % (Auto) [place] % (Auto) Eos % (Auto) Baso % (Auto) Neut # (Auto) Lymph # (Auto) [place] # (Auto) Eos # (Auto) Baso # (Auto) Immature Gran # (Auto) Absolute Nucleated RBC Immature Gran % Nucleated RBC % PT INR Puncture Site Right Radial ABG pH 7.47 H ABG pCO2 37 ABG pO2 76 L ABG HCO3 27 H ABG O2 Saturation 96 ABG Base Excess 4 H FiO2 21 Sodium Potassium Chloride Carbon Dioxide Anion Gap BUN Creatinine Estim Creat Clear Calc eGFR BUN/Creatinine Ratio Glucose Calculated Osmolality Calcium Corrected Calcium Phosphorus Magnesium Total Bilirubin AST ALT Alkaline Phosphatase Total Protein Albumin Globulin Albumin/Globulin Ratio Triglycerides ABG Interpretation ABG results: 10/22/25 10/22/25 10/22/25 03:27 11:26 15:35 ABG pH 7.30 L 7.10 L* D 7.29 L D ABG pCO2 48 80 H* D 48 D ABG pO2 80 L 34 L* D 236 H D ABG HCO3 24 25 23 ABG O2 Saturation 98 40 L 101 H ABG Base Excess -2 -5 L -3 10/22/25 10/23/25 10/23/25 19:01 05:11 19:30 ABG pH 7.36 7.34 L 7.48 H D ABG pCO2 43 50 H 36 D ABG pO2 173 H D 40 L* D 72 L D ABG HCO3 24 27 H 27 H ABG O2 Saturation 100 H 65 L 95 ABG Base Excess -1 1 4 H 10/24/25 04:47 ABG pH 7.47 H ABG pCO2 37 ABG pO2 76 L ABG HCO3 27 H ABG O2 Saturation 96 ABG Base Excess 4 H Quality Measures Quality Measures VTE prophylaxis Assessment & Plan Assessment Current Active Medications: Generic Name Dose Route Start Last Admin Trade Name Freq PRN Reason Stop Dose Admin Acetaminophen 650 mg 10/22/25 06:01 Acetaminophen 325 Mg Tablet PO 11/21/25 06:00 Q6H PRN Fever >101.5 Albuterol/Ipratropium 3 ml 10/22/25 07:00 10/24/25 06:00 Albuterol/Ipratropium (Duoneb) Rt Irais 3 Ml Nebu INH 11/21/25 06:59 3 ml Q8HRRT YOVANI Administration Carvedilol 3.125 mg 10/22/25 08:00 10/22/25 17:55 Carvedilol 3.125 Mg Tablet PO 11/21/25 07:59 Not Given On Hold: 10/22/25 19:26 BIDWM YOVANI Enoxaparin Sodium 30 mg 10/22/25 09:00 10/24/25 09:00 Enoxaparin Sod Inj 30 Mg/0.3 Ml Syringe SC 11/05/25 08:59 30 mg QDAY YOVANI Administration Heparin Sodium (Porcine) 3,000 unit 10/22/25 18:42 10/22/25 22:24 Heparin Sod Inj 1000 Unit/Ml Vial 10 Ml [facility] 11/05/25 18:41 3,000 unit PRN PRN Administration heplock vascath Heparin Sodium (Porcine) 3,000 unit 10/22/25 20:09 10/23/25 15:49 Heparin Sod Inj 1000 Unit/Ml Vial 10 Ml [facility] 11/05/25 20:08 3,000 unit X1 PRN Administration DIALYSIS Octreotide Acetate 1,000 mcg/ 102 mls @ 5.1 mls/hr 10/23/25 04:30 10/24/25 00:55 Sodium Chloride IV 10/27/25 04:29 50 mcg/hr .Q20H YOVANI 5.1 mls/hr Protocol Administration 50 MCG/HR Albumin Human 25 gm in 100 mls @ 0 mls/hr 10/22/25 19:47 Albuminex 25% Ivpb IV Q30MIN PRN To maintain SBP>90 Per Protocol Fentanyl Citrate 2,500 mcg in 250 mls @ 2.5 mls/hr 10/22/25 22:51 10/24/25 06:00 Sublimaze Inj 2,500 Mcg/250 Ml Bag IV 10/27/25 12:08 125 mcg/hr .Q24H PRN 12.5 mls/hr PER PROTOCOL Titration Protocol 25 MCG/HR Propofol 1,000 mg in 100 mls @ 2.864 mls/hr 10/22/25 22:51 10/24/25 06:00 Diprivan Ivpb IV 11/21/25 12:08 15 mcg/kg/min .Q24H PRN 8.591 mls/hr PER PROTOCOL Titration Protocol 5 MCG/KG/MIN Norepinephrine/Dextrose 8 mg in 250 mls @ 9.703 mls/hr 10/24/25 10:14 Levophed In D5w 8mg/250ml IV 11/23/25 10:13 .Q24H PRN PER PROTOCOL Protocol 0.05 MCG/KG/MIN Piperacillin/Tazobactam/Dextrose 3.375 gm in 50 mls @ 12.5 mls/hr 10/24/25 22:00 Zosyn IV 10/31/25 21:59 Q8HR YOVANI Protocol Lactulose 20 gm 10/22/25 06:15 10/24/25 05:28 Lactulose Syrup 20 Gm/30 Ml Udc PO 11/21/25 06:14 20 gm QID YOVANI Administration Protocol Levothyroxine Sodium 25 mcg 10/23/25 06:00 10/24/25 05:28 Levothyroxine Sodium 25 Mcg Tablet PO 11/22/25 05:59 25 mcg ACBR YOVANI Administration Pantoprazole Sodium 40 mg 10/22/25 09:00 10/24/25 08:55 Pantoprazole Inj 40 Mg Vial IVP 11/21/25 08:59 40 mg QDAY YOVANI Administration Patiromer 8.4 gm 10/22/25 16:15 10/24/25 09:14 Patiromer Calcium 8.4 Gm Packet PO 10/25/25 16:14 8.4 gm QDAY YOVANI Administration Protocol Rifaximin 550 mg 10/24/25 21:00 Rifaximin 550 Mg Tablet PO 10/31/25 20:59 BID YOVANI Sevelamer Carbonate 800 mg 10/23/25 12:00 10/24/25 08:59 Sevelamer Carbonate 800 Mg Tablet PO 11/22/25 11:59 800 mg TIDWM YOVANI Administration Sodium Chloride 3 ml 10/22/25 17:47 Sodium Chloride Rt Irais 0.9% 3 Ml Nebu INH 11/21/25 17:46 PRN PRN SOLN Plan Patient is a 60-year-old male past medical history of COPD, alcoholic cirrhosis, diabetes, gout, hypertension, A-fib, heart failure, hyperlipidemia, acidosis, CKD IIIa, stage III lymphoma who presented from SNF on 10/22 with shortness of breath and altered mental status, upgraded to ICU due to worsening AHRF requiring intubation. Nephrology consulted for urgent dialysis for hyperkalemia. #Hyperkalemia (resolved) #CADY on CKD IIIa - Presented with altered mental status from SNF - Home medications include potassium chloride 10 mill EQ tablets and spironolactone 100 mg - Potassium 6.3 on admission, increased to 7.0 despite insulin, albuterol, and Kayexelate - Cr 2.9 on admission, previously 1.4 in 01/2024 - EKG showed normal sinus rhythm, no peaked T waves observed - Upgraded to ICU 10/22, HD cath placed in right femoral. - S/p HD 10/22 (no ultrafiltration), 10/23 (-1L) Plan: - Plan to remove 3L today - Continue to monitor creatinine - Hold potassium and spiranolactone #Respiratory acidosis #AHRF #Intubated #Acute decompensated cirrhosis 2/2 alcohol use #Acute encephalopathy #HFrEF #Hypertension #Hypothyroidism #Microcytic Anemia #History of gout #Stage III lymphoma #Diabetes #Afib paroxysmal? #HLD - Defer to primary team for management Thank you for your consultation, please do not hesitate to reach out if you have any question or concern Patient plan of care was discussed with the attending physician, Dr. Platt. Celeste Nation DO, PGY-1 Attending Provider Attestation/Addendum Patient currently seen and examined with resident physician Dr. Nation. Note reviewed, agree with findings and recommendations. Patient currently seen in ICU. Ventilated. He has hypercarbic respiratory failure and metabolic acidosis. Noted to have hyperkalemia. ICU team was able to place right IJ Vas-Cath with difficulty. Patient did receive 1 dialysis session last night ended second session was ordered for today. Significant edema noted. Remains on ventilator. Patient on dialysis. Tolerating dialysis without any problems. Hemodialysis for 3 hours, 2K, ultrafiltration 3 L, Epogen 6000, no heparin ordered. Plan of care discussed with the dialysis nurse. Please see dialysis flowsheet for further details. Spoke to ICU team. Next dialysis/UF scheduled for tomorrow. Care discussed with ICU team.
[2025-10-24] MEDS: TUBERCULIN PPD INJ 5 UNIT/0.1 ML DOSE ID (12:57)
[2025-10-24] MEDS: HEPARIN SOD INJ 1000 UNIT/ML VIAL 10 ML 3000 UNIT INDWELLCAT (13:20)
--- NOTE | 2025-10-24 13:44 | XR_ITS ---
EXAMINATION: AP chest single view TECHNIQUE: AP portable semiupright chest single view Date and time: October 24, 2025, 1403 hours, comparison October 24, 2025 0524 hours INDICATIONS: Hypoxic respiratory failure. FINDINGS: Moderate enlargement cardiac contour Prominent vascular congestion with perihilar and basilar edema Right dialysis catheter and endotracheal tube remain in satisfactory position Orogastric tube tip is below the level of the film IMPRESSION: Mild heart failure Suspicious for significant pneumonia right base
[2025-10-24] MEDS: PIPER/TAZO 3.375 GM PREMIX 3.375 GM/50 ML BAG IV ×2 (14:31→21:52)
[2025-10-24 16:24] LABS: Base Excess, Venous -3 (-3-3); O2 Saturation, Venous 48 % (96-97); PCO2, Venous 72 mmHg (36-56); PO2, Venous 36 mmHg (15-58); pH, Venous 7.18 (7.33-7.66)
--- NOTE | 2025-10-24 17:12 | PC.NURSE ---
at approximately 1100 noticed the pt SPO2 monitor was not getting accurate readings on the monitor in his room. Attempted to get SPO2 readings on different extremities and was unsuccessful. Called RT to try and get SPO2 on pts forehead, that was also unsuccessful , notified Residents of situation and no orders were given to me at the time
[2025-10-24] MEDS: DOBUTamine/D5w 500 MG IVPB 500 MG/250 ML BAG 14.85 MG IV (17:55)
[2025-10-24 18:24] LABS: Base Excess, Venous -4 (-3-3); O2 Saturation, Venous 90 % (96-97); PCO2, Venous 54 mmHg (36-56); PO2, Venous 67 mmHg (15-58); pH, Venous 7.25 (7.33-7.66)
[2025-10-24 19:50] LABS: Base Excess, Venous -3 (-3-3); O2 Saturation, Venous 79 % (96-97); PCO2, Venous 55 mmHg (36-56); PO2, Venous 51 mmHg (15-58); pH, Venous 7.26 (7.33-7.66)
[2025-10-24 22:04] LABS: Base Excess, Venous -4 (-3-3); O2 Saturation, Venous 69 % (96-97); PCO2, Venous 51 mmHg (36-56); PO2, Venous 42 mmHg (15-58); pH, Venous 7.27 (7.33-7.66)
[2025-10-24 23:36] LABS: Base Excess, Venous -3 (-3-3); O2 Saturation, Venous 48 % (96-97); PCO2, Venous 52 mmHg (36-56); PO2, Venous 31 mmHg (15-58); pH, Venous 7.28 (7.33-7.66)
[2025-10-25] VITALS (43 sets, daily range): BP systolic 81–165; BP diastolic 50–140; PULSE 88–109; RESP 8–25; TEMP 36.2–37.2; O2SAT 58–100; BMI 36.1
[2025-10-25] MEDS: OCTREOTIDE ACET INJ 1,000 MCG in SODIUM CHLORIDE 0.9% 100 ML 5.1 MCG IV ×2 (00:06→20:45)
[2025-10-25 01:33] LABS: Base Excess, Venous -2 (-3-3); O2 Saturation, Venous 59 % (96-97); PCO2, Venous 55 mmHg (36-56); PO2, Venous 37 mmHg (15-58); pH, Venous 7.27 (7.33-7.66)
[2025-10-25 03:19] LABS: Base Excess, Venous -3 (-3-3); O2 Saturation, Venous 85 % (96-97); PCO2, Venous 40 mmHg (36-56); PO2, Venous 56 mmHg (15-58); pH, Venous 7.36 (7.33-7.66)
[2025-10-25 03:23] LABS: Basophils # (Auto) 0.0 Thou/mm3 (0.0-0.2); Basophils % (Auto) 0 % (0-2.5); Eosinophils # (Auto) 0.0 Thou/mm3 (0.0-0.5); Eosinophils % (Auto) 0 % (0-10); Hematocrit 37.1 % (41.0-53.0); Hemoglobin 11.1 g/dL (13.5-16.0); Immature Granulocytes Auto 0.10 Thou/mm3 (0.00-0.00); Lymphocytes # (Auto) 0.6 Thou/mm3 (1.0-4.8); Lymphocytes % (Auto) 4 % (10-50); Mean Corpuscular HGB Conc 29.9 g/dl (31.0-37.0); Mean Corpuscular Hemoglobin 22.2 pg (25.0-35.0); Mean Corpuscular Volume 74 fL (80-100); Monocytes # (Auto) 2.6 Thou/mm3 (0.0-0.8); Monocytes % (Auto) 17 % (0-12); Neutrophils # (Auto) 12.3 Thou/mm3 (1.8-7.7); Neutrophils % (Auto) 78 % (37-80); Nucleated Red Blood Cell # 0.32 Thou/mm3 (0.00-0.00); Nucleated Red Blood Cell % 2 /100 WBC (0); Platelet Count 105 Thou/mm3 (140-440); RDW Standard Deviation 63.5 fL (35.1-43.9); Red Blood Count 5.01 Miln/mm3 (4.50-5.90); White Blood Count 15.7 Thou/mm3 (3.8-10.6)
[2025-10-25 03:39] LABS: INR 1.6 (0.9-1.3); Prothrombin Time 16.1 Seconds (9.0-12.2)
[2025-10-25 03:51] LABS: Alanine Aminotransferase 11 U/L (10-49); Albumin, Serum 3.5 gm/dL (3.5-5.0); Albumin/Globulin Ratio 1.2 (1.2-2.2); Alkaline Phosphatase 202 U/L (46-116); Anion Gap 10 (7-16); Aspartate Amino Transferase 19 U/L (0-34); BUN/Creatinine Ratio 11 Ratio (12-20); Bilirubin,Total 1.8 mg/dL (0.3-1.2); Blood Urea Nitrogen 38 mg/dL (9-23); Calcium 8.7 mg/dL (8.3-10.6); Calcium (Corrected) 9.1 mg/dL (8.5-10.1); Carbon Dioxide 26.1 mMol/L (20.0-31.0); Chloride 102 mMol/L (98-107); Creatinine (Component) 3.5 mg/dL (0.6-1.3); Estimated Creatinine Clearance 24.1 mL/min (>60); Globulin 3.0 gm/dL (2.3-3.5); Glucose 109 mg/dL (74-106); Magnesium 1.9 mg/dL (1.6-2.6); Osmolality,Calculated 285 (275-295); Phosphorous 8.1 mg/dL (2.4-5.1); Potassium 5.4 mMol/L (3.4-5.1); Sodium 138 mMol/L (136-145); Total Protein 6.5 gm/dL (5.7-8.2); Triglycerides 80 mg/dL (30-150); eGFR 19 See Note
[2025-10-25 03:58] LABS: Path Review Blood Smear Sent to Pathologist
[2025-10-25 04:51] LABS: Base Excess -5 (-3-3); HCO3 22 mEq/L (20-26); Inspired Oxygen, FIO2 21 %; O2 Saturation 99 % (91-98); PCO2 46 mmHg (32.0-48.0); PO2 128 mmHg (83-108); pH, Arterial 7.29 (7.35-7.45)
[2025-10-25 04:54] LABS: Allen Test Not Performed; Puncture Site Right Radial
--- NOTE | 2025-10-25 05:00 | XR_ITS ---
EXAMINATION: AP chest single view TECHNIQUE: AP portable supine chest single view Date and time: October 25, 2025, 0533 hours, comparison October 24, 2025 INDICATIONS: Hypoxic respiratory failure post intubation FINDINGS: Bibasilar opacity consistent with pneumonia Endotracheal tube tip 3.8 cm above víctor Orogastric tube in the stomach the tip is below the level of the film Right internal jugular line satisfactory position No pneumothorax IMPRESSION: Bibasilar pneumonia Endotracheal tube tip 3.8 cm above víctor
[2025-10-25] MEDS: LEVOTHYROXINE SODIUM 25 MCG TABLET PO (05:52)
[2025-10-25] MEDS: PIPER/TAZO 3.375 GM PREMIX 3.375 GM/50 ML BAG IV ×3 (05:52→21:26)
[2025-10-25] MEDS: LACTULOSE SYRUP 20 GM/30 ML UDC PO (05:52)
[2025-10-25] MEDS: ALBUTEROL/IPRATROPIUM (Duoneb) RT SOL 3 ML NEBU INH ×4 (06:39→22:53)
[2025-10-25 06:49] LABS: Base Excess, Venous -3 (-3-3); O2 Saturation, Venous 78 % (96-97); PCO2, Venous 57 mmHg (36-56); PO2, Venous 49 mmHg (15-58); pH, Venous 7.25 (7.33-7.66)
--- NOTE | 2025-10-25 07:21 | EKG_ITS ---
[facility] Test Date: 2025-10-25 Pat Name: ABBI ELLIS Department: Room: 54A Gender: Male Ordnance Handler: JOSELITO : [id number] Requested By: Eugenia Goff Order Number: [id number] Reading MD: Eugenia Goff Measurements Intervals [place] Rate: 103 P: SD: QRS: 222 QRSD: 144 T: 74 QT: 366 QTc: 480 Interpretive Statements ATRIAL FIBRILLATION WITH RAPID VENTRICULAR RESPONSE MARKED RIGHT AXIS DEVIATION RIGHT BUNDLE BRANCH BLOCK POSSIBLE ANTERIOR MYOCARDIAL INFARCTION , OF INDETERMINATE AGE INFERIOR MYOCARDIAL INFARCTION , PROBABLY OLD Compared to ECG 10/22/2025 11:34:09 Right-axis deviation now present Right bundle-branch block now present Incomplete right bundle-branch block no longer present Myocardial infarct finding still present /store/S0/[id number]
--- NOTE | 2025-10-25 07:57 | PD.RESPRO ---
Documentation for date of: 10/25/25 Subjective Subjective Interval history: Mr. Amador is a 60-year-old gentleman with a past medical history significant for left neck lymphoma, cirrhosis, COPD on home oxygen, and? Renal problems following with outpatient dance historian not on HD, hypertension, chronic lower back pain who presented with worsening shortness of breath from [facility], unable to obtain history from patient given she is currently intubated. 10/22/2025: CT head with Negative for acute hemorrhage, mass effect or midline shift, pupils were fixed and dilated. He was intubated, and started on HD after multiple attempts at getting central access. R ij was placed. had paracentesis with 9 L off. cytology sent 10/23/2025: Patient seen and examined at bedside with abdomen notably firm and distended with positive fluid wave. HD today with 1 L removed in 3 hour session. K now within nl at 4.5 pupils are sluggish but responsive to light and no longer fixed and dilated. remains intubated and sedated. appears more volume overloaded on exam. with reacumulated ascites despite 9 L paracentesis done yesterday. 10/24/2025 Patient examined bedside, labs reviewed. Abdomen is still notably firm and distended with positive fluid wave. HD not happening today instead had sequential ultrafiltration with 3 L removed. Plan to downgrade stalled because patient BPs dropped and was not responsive to fluids per NICOM restarted dobutamine and levophed to maintain SvO2 >65. 10/25/2025: Patient examined at bedside, labs reviewed. Patient was extubated, and placed on bipap, ABG are difficult to draw, they demonstrate persistent acidosis, so bipap settings were augmented. Presidex protocol was initiated given some agitation. Exam Vital Signs Temp Pulse Resp BP Pulse Ox O2 Del Method O2 Flow Rate 98.8 F 99 16 111/66 94 L Mechanical Ventilation 4 10/25/25 04:01 10/25/25 07:00 10/25/25 06:47 10/25/25 07:00 10/25/25 07:00 10/23/25 16:00 10/23/25 16:05 FiO2 30 10/25/25 06:47 Narrative Exam Patient with head normocephalic atraumatic Eyes sluggish but responsive to light eyes noted to be protuberant with bulging. neck with notable L neck bulge ? lipoma vs L neck lymphoma. firm and stable from prior Heart regular rate rhythm no murmurs appreciated on auscultation Lungs diminished breath sounds on the left lung bases on Bipap Abdomen is protuberant firm, and soft with positive fluid wave, caput medusa noted on lower abdomen Lower extremities with trace to 1+ pitting up to the thigh most notably on the lateral aspects of bilateral thighs and 1+ to trace pitting edema on the anterior tibial surfaces Feet are cool to the touch with pedal pulses unable to be appreciated upon palpation, Objective Labs 10/25/25 03:15 10/25/25 11:37 Labs: Laboratory Results - last 24 hr 10/24/25 10/24/25 10/24/25 15:55 16:18 18:15 WBC RBC Hgb Hct MCV MCH MCHC RDW Std Deviation Plt Count Neut % (Auto) Lymph % (Auto) [place] % (Auto) Eos % (Auto) Baso % (Auto) Neut # (Auto) Lymph # (Auto) [place] # (Auto) Eos # (Auto) Baso # (Auto) Immature Gran # (Auto) Absolute Nucleated RBC Immature Gran % Nucleated RBC % Smear Path Review PT INR Puncture Site Cancelled ABG pH Cancelled ABG pCO2 Cancelled ABG pO2 Cancelled ABG HCO3 Cancelled ABG O2 Saturation Cancelled ABG Base Excess Cancelled VBG pH 7.18 L 7.25 L VBG pCO2 72 H 54 D VBG pO2 36 67 H D VBG O2 Sat (Isa) 48 L 90 L D VBG Base Excess -3 -4 L Oxygen Liter Flow Cancelled FiO2 Cancelled Sodium Potassium Chloride Carbon Dioxide Anion Gap BUN Creatinine Estim Creat Clear Calc eGFR BUN/Creatinine Ratio Glucose Calculated Osmolality Calcium Corrected Calcium Phosphorus Magnesium Total Bilirubin AST ALT Alkaline Phosphatase Total Protein Albumin Globulin Albumin/Globulin Ratio Triglycerides 10/24/25 10/24/25 10/24/25 19:39 21:50 23:17 WBC RBC Hgb Hct MCV MCH MCHC RDW Std Deviation Plt Count Neut % (Auto) Lymph % (Auto) [place] % (Auto) Eos % (Auto) Baso % (Auto) Neut # (Auto) Lymph # (Auto) [place] # (Auto) Eos # (Auto) Baso # (Auto) Immature Gran # (Auto) Absolute Nucleated RBC Immature Gran % Nucleated RBC % Smear Path Review PT INR Puncture Site ABG pH ABG pCO2 ABG pO2 ABG HCO3 ABG O2 Saturation ABG Base Excess VBG pH 7.26 L 7.27 L 7.28 L VBG pCO2 55 51 52 VBG pO2 51 42 31 VBG O2 Sat (Isa) 79 L D 69 L D 48 L D VBG Base Excess -3 -4 L -3 Oxygen Liter Flow FiO2 Sodium Potassium Chloride Carbon Dioxide Anion Gap BUN Creatinine Estim Creat Clear Calc eGFR BUN/Creatinine Ratio Glucose Calculated Osmolality Calcium Corrected Calcium Phosphorus Magnesium Total Bilirubin AST ALT Alkaline Phosphatase Total Protein Albumin Globulin Albumin/Globulin Ratio Triglycerides 10/25/25 10/25/25 10/25/25 01:28 03:15 04:41 WBC 15.7 H RBC 5.01 Hgb 11.1 L Hct 37.1 L MCV 74 L MCH 22.2 L MCHC 29.9 L RDW Std Deviation 63.5 H Plt Count 105 L D Neut % (Auto) 78 Lymph % (Auto) 4 L [place] % (Auto) 17 H Eos % (Auto) 0 Baso % (Auto) 0 Neut # (Auto) 12.3 H Lymph # (Auto) 0.6 L [place] # (Auto) 2.6 H Eos # (Auto) 0.0 Baso # (Auto) 0.0 Immature Gran # (Auto) 0.10 H Absolute Nucleated RBC 0.32 H Immature Gran % 1 H Nucleated RBC % 2 H Smear Path Review Sent to Pathologist PT 16.1 H INR 1.6 H Puncture Site Right Radial ABG pH 7.29 L D ABG pCO2 46 ABG pO2 128 H D ABG HCO3 22 ABG O2 Saturation 99 H ABG Base Excess -5 L VBG pH 7.27 L 7.36 VBG pCO2 55 40 D VBG pO2 37 56 VBG O2 Sat (Isa) 59 L D 85 L D VBG Base Excess -2 -3 Oxygen Liter Flow FiO2 21 Sodium 138 Potassium 5.4 H D Chloride 102 Carbon Dioxide 26.1 Anion Gap 10 BUN 38 H Creatinine 3.5 H D Estim Creat Clear Calc 24.1 L eGFR 19 L BUN/Creatinine Ratio 11 L Glucose 109 H Calculated Osmolality 285 Calcium 8.7 Corrected Calcium 9.1 Phosphorus 8.1 H Magnesium 1.9 Total Bilirubin 1.8 H D AST 19 ALT 11 Alkaline Phosphatase 202 H D Total Protein 6.5 Albumin 3.5 Globulin 3.0 Albumin/Globulin Ratio 1.2 Triglycerides 80 10/25/25 06:20 WBC RBC Hgb Hct MCV MCH MCHC RDW Std Deviation Plt Count Neut % (Auto) Lymph % (Auto) [place] % (Auto) Eos % (Auto) Baso % (Auto) Neut # (Auto) Lymph # (Auto) [place] # (Auto) Eos # (Auto) Baso # (Auto) Immature Gran # (Auto) Absolute Nucleated RBC Immature Gran % Nucleated RBC % Smear Path Review PT INR Puncture Site ABG pH ABG pCO2 ABG pO2 ABG HCO3 ABG O2 Saturation ABG Base Excess VBG pH 7.25 L VBG pCO2 57 H D VBG pO2 49 VBG O2 Sat (Isa) 78 L VBG Base Excess -3 Oxygen Liter Flow FiO2 Sodium Potassium Chloride Carbon Dioxide Anion Gap BUN Creatinine Estim Creat Clear Calc eGFR BUN/Creatinine Ratio Glucose Calculated Osmolality Calcium Corrected Calcium Phosphorus Magnesium Total Bilirubin AST ALT Alkaline Phosphatase Total Protein Albumin Globulin Albumin/Globulin Ratio Triglycerides ABG Interpretation ABG results: 10/22/25 10/22/25 10/22/25 03:27 11:26 15:35 ABG pH 7.30 L 7.10 L* D 7.29 L D ABG pCO2 48 80 H* D 48 D ABG pO2 80 L 34 L* D 236 H D ABG HCO3 24 25 23 ABG O2 Saturation 98 40 L 101 H ABG Base Excess -2 -5 L -3 VBG pH VBG pCO2 VBG pO2 VBG Base Excess 10/22/25 10/23/25 10/23/25 19:01 05:11 19:30 ABG pH 7.36 7.34 L 7.48 H D ABG pCO2 43 50 H 36 D ABG pO2 173 H D 40 L* D 72 L D ABG HCO3 24 27 H 27 H ABG O2 Saturation 100 H 65 L 95 ABG Base Excess -1 1 4 H VBG pH VBG pCO2 VBG pO2 VBG Base Excess 10/24/25 10/24/25 10/24/25 04:47 15:55 16:18 ABG pH 7.47 H Cancelled ABG pCO2 37 Cancelled ABG pO2 76 L Cancelled ABG HCO3 27 H Cancelled ABG O2 Saturation 96 Cancelled ABG Base Excess 4 H Cancelled VBG pH 7.18 L VBG pCO2 72 H VBG pO2 36 VBG Base Excess -3 10/24/25 10/24/25 10/24/25 18:15 19:39 21:50 ABG pH ABG pCO2 ABG pO2 ABG HCO3 ABG O2 Saturation ABG Base Excess VBG pH 7.25 L 7.26 L 7.27 L VBG pCO2 54 D 55 51 VBG pO2 67 H D 51 42 VBG Base Excess -4 L -3 -4 L 10/24/25 10/25/25 10/25/25 23:17 01:28 03:15 ABG pH ABG pCO2 ABG pO2 ABG HCO3 ABG O2 Saturation ABG Base Excess VBG pH 7.28 L 7.27 L 7.36 VBG pCO2 52 55 40 D VBG pO2 31 37 56 VBG Base Excess -3 -2 -3 10/25/25 10/25/25 04:41 06:20 ABG pH 7.29 L D ABG pCO2 46 ABG pO2 128 H D ABG HCO3 22 ABG O2 Saturation 99 H ABG Base Excess -5 L VBG pH 7.25 L VBG pCO2 57 H D VBG pO2 49 VBG Base Excess -3 Quality Measures Quality Measures VTE prophylaxis Assessment & Plan Assessment Current Active Medications: Generic Name Dose Route Start Last Admin Trade Name Freq PRN Reason Stop Dose Admin Acetaminophen 650 mg 10/22/25 06:01 Acetaminophen 325 Mg Tablet PO 11/21/25 06:00 Q6H PRN Fever >101.5 Albuterol/Ipratropium 3 ml 10/22/25 07:00 10/25/25 06:39 Albuterol/Ipratropium (Duoneb) Rt Irais 3 Ml Nebu INH 11/21/25 06:59 3 ml Q8HRRT YOVANI Administration Enoxaparin Sodium 30 mg 10/22/25 09:00 10/24/25 09:00 Enoxaparin Sod Inj 30 Mg/0.3 Ml Syringe SC 11/05/25 08:59 30 mg QDAY YOVANI Administration Heparin Sodium (Porcine) 3,000 unit 10/22/25 18:42 10/24/25 13:20 Heparin Sod Inj 1000 Unit/Ml Vial 10 Ml INDWELLCAT 11/05/25 18:41 3,000 unit PRN PRN Administration heplock vascath Heparin Sodium (Porcine) 3,000 unit 10/22/25 20:09 10/23/25 15:49 Heparin Sod Inj 1000 Unit/Ml Vial 10 Ml INDWELLCAT 11/05/25 20:08 3,000 unit X1 PRN Administration DIALYSIS Octreotide Acetate 1,000 mcg/ 102 mls @ 5.1 mls/hr 10/23/25 04:30 10/25/25 00:06 Sodium Chloride IV 10/27/25 04:29 50 mcg/hr .Q20H YOVANI 5.1 mls/hr Protocol Administration 50 MCG/HR Albumin Human 25 gm in 100 mls @ 0 mls/hr 10/22/25 19:47 Albuminex 25% Ivpb IV Q30MIN PRN To maintain SBP>90 Per Protocol Fentanyl Citrate 2,500 mcg in 250 mls @ 2.5 mls/hr 10/22/25 22:51 10/24/25 08:17 Sublimaze Inj 2,500 Mcg/250 Ml Bag IV 10/27/25 12:08 0 mcg/hr .Q24H PRN 0 mls/hr PER PROTOCOL Titration Protocol 25 MCG/HR Propofol 1,000 mg in 100 mls @ 2.864 mls/hr 10/22/25 22:51 10/24/25 08:17 Diprivan Ivpb IV 11/21/25 12:08 0 mcg/kg/min .Q24H PRN 0 mls/hr PER PROTOCOL Titration Protocol 5 MCG/KG/MIN Norepinephrine/Dextrose 8 mg in 250 mls @ 9.703 mls/hr 10/24/25 10:14 Levophed In D5w 8mg/250ml IV 11/23/25 10:13 .Q24H PRN PER PROTOCOL Protocol 0.05 MCG/KG/MIN Piperacillin/Tazobactam/Dextrose 3.375 gm in 50 mls @ 12.5 mls/hr 10/24/25 22:00 10/25/25 05:52 Zosyn IV 10/31/25 21:59 12.5 mls/hr Q8HR YOVANI Administration Protocol Dobutamine HCl/Dextrose 500 mg in 250 mls @ 14.85 mls/hr 10/24/25 18:00 10/24/25 21:20 Dobutrex/D5w Ivpb IV 11/23/25 17:43 0 mcg/kg/min .[id number] YOVANI 0 mls/hr 5 MCG/KG/MIN Infusion Lactulose 20 gm 10/22/25 06:15 10/25/25 05:52 Lactulose Syrup 20 Gm/30 Ml Udc PO 11/21/25 06:14 20 gm QID YOVANI Administration Protocol Levothyroxine Sodium 25 mcg 10/23/25 06:00 10/25/25 05:52 Levothyroxine Sodium 25 Mcg Tablet PO 11/22/25 05:59 25 mcg ACBR YOVANI Administration Pantoprazole Sodium 40 mg 10/22/25 09:00 10/24/25 08:55 Pantoprazole Inj 40 Mg Vial IVP 11/21/25 08:59 40 mg QDAY YOVANI Administration Patiromer 8.4 gm 10/22/25 16:15 10/24/25 09:14 Patiromer Calcium 8.4 Gm Packet PO 10/25/25 16:14 8.4 gm QDAY YOVANI Administration Protocol Rifaximin 550 mg 10/24/25 21:00 10/24/25 21:52 Rifaximin 550 Mg Tablet PO 10/31/25 20:59 550 mg BID YOVANI Administration Sevelamer Carbonate 800 mg 10/23/25 12:00 10/24/25 18:12 Sevelamer Carbonate 800 Mg Tablet PO 11/22/25 11:59 800 mg TIDWM YOVANI Administration Sodium Chloride 3 ml 10/22/25 17:47 Sodium Chloride Rt Irais 0.9% 3 Ml Nebu INH 11/21/25 17:46 PRN PRN SOLN Plan Assessment Mr. Amador is a 60-year-old gentleman with history of heart failure with reduced ejection fraction alcohol-related cirrhosis COPD on home oxygen hypertension CKD and? Lymphoma of the right neck was brought in for 1 week of shortness of breath from [facility] who had severe refractory hyperkalemia that was refractory to hyperkalemia cocktail upgraded from floors to the ICU with severe acidemia and refractory hyper-K. Extubated and now off sedation. on Bipap Neuro Acute metabolic encephalopathy secondary to acute decompensated liver failure - resolving Hepatic encephalopathy Diagnostic workup: - head ct Negative for acute hemorrhage, mass effect or midline shift Treatment - not sedated Agitation in setting of post extubation - presexex protocol CVS Acute CHF exacerbation Heart failure with reduced ejection fraction 25-30 %, on this admission 10/2025 Home medications GDMT carvedilol, spironolactone, empagliflozin not on GREY or ARB DDX His exacerbation likely secondary to cystitis or pneumonia with chest x-ray showing vascular congestion with pedal and lower extremity edema with increased perihilar interstitial markings left greater than right Dx Echo with reduced ef Tx HD on 10/25 with fluid removal Pulm Left basilar pneumonia vs aspiration pneumonia versus community-acquired pneumonia versus healthcare-acquired pneumonia Patient presents from SNF, chest x-ray with left basilar opacities, patient intubated today concern for aspiration pneumonia versus pneumonitis Dx - serial cxr - sputum cx with pseudamonas Treatment - 1 g ceftriaxone daily -Dc'd - zosyn 3.36 (10/24 - extubated and on biap, will adjust bipap settings as indicated GI Acute decompensated liver failure Severe ascites reaccumulation of ascites - Physical exam - SAAG 1.1 consistent with Follow-up LFTs Tx - repeat paracentesis if clinically indicated, replete albumin Renal CADY on CKD versus worsening CKD No baseline creatinine given patient does not have several labs here at [facility] Dx - renal panel q6hr Tx - HD per nephro recs Hyperkalemia - Resolved with HD At home patient is on spironolactone and potassium 10 mill equivalents Dx - renal panel AM Tx - HD per nephrology Hyperphosphatemia - Sevalomer 800 3 times daily (held in setting of ng tube being removed, and on bipap) Endo Hypothyroidism Patient has history of hypothyroidism, takes levothyroxine 25 at home, plan for oral given patient is not on pressors actively Heme/Onc Chronic microcytic anemia ddx: iron deficiency anemia vs anemia of chronic dz vs ckd Dx - iron panel and ferritin low, Tx consider IV iron 200 IV qd for 3 days epogen with hd transfuse if <7 Coagulopathy secondary to cirrhosis and acute decompensated liver failure PT, INR, PTT all elevated with elevated D-dimer 1600 Dx - Follow-up coags in the a.m. Tx - transfuse platelets as indicated ID ? Community-acquired pneumonia versus healthcare associated pneumonia Patient received 1 g of ceftriaxone in the ED continue with tx Zosyn DVT prophylaxis, heparin 500 every 12 GI prophylaxis Protonix 40 IV daily , consider d.c given patient was extubated today CODE STATUS: Full Case disclosed with my Attending Dr. Kavon Goff MD PGY1 Attending Provider Attestation/Addendum pt seen and examined, d/w resident team. in brief this is a 60yo M with AMS and acute resp failure. He is s/p HD for hyperkalemia. His home meds for HF on hold for now. He remains on abx for PNA. on physical exam he remains sedated, intubated, on MV, NC/AT, mucosa hydrated, sclera anicteric, PERRL, ETT/OGT in place, LCTA but diminished, HRRR, abd distended though no apparent pain on palp, edema b/l LE, pulses palp. h/o cirrhosis on lactulose. CT of the neck from overnight shows large post neck mass of unclear etiology. case d/w ICU team labs, imaging, records reviewed ~36ccmin required for eval, exam, review, intervention, discussion and formulation of POC
[2025-10-25 08:03] LABS: Base Excess, Venous -3 (-3-3); O2 Saturation, Venous 68 % (96-97); PCO2, Venous 56 mmHg (36-56); PO2, Venous 42 mmHg (15-58); pH, Venous 7.25 (7.33-7.66)
[2025-10-25] MEDS: SEVELAMER CARBONATE 800 MG TABLET PO (08:26)
[2025-10-25] MEDS: PATIROMER CALCIUM 8.4 GM PACKET PO (08:26)
[2025-10-25] MEDS: ENOXAPARIN SOD INJ 30 MG/0.3 ML SYRINGE SC (08:26)
[2025-10-25] MEDS: DEXMEDETOMIDINE 400 MCG IVPB 400 MCG/100 ML BAG IV (08:46)
[2025-10-25 09:59] LABS: Base Excess, Venous -3 (-3-3); O2 Saturation, Venous 65 % (96-97); PCO2, Venous 51 mmHg (36-56); PO2, Venous 37 mmHg (15-58); pH, Venous 7.29 (7.33-7.66)
--- NOTE | 2025-10-25 10:02 | PD.NEPHPROG ---
Documentation for date of: 10/25/25 Subjective Subjective Interval history: 60-year-old male past medical history of COPD, alcoholic cirrhosis, diabetes, gout, hypertension, A-fib, heart failure, hyperlipidemia, acidosis, CKD, stage III lymphoma who presented from SNF on 10/22 with shortness of breath and altered mental status. He was found to have a potassium of 6.3, BNP of 638, creatinine of 2.9, and ascites. Per staff, patient is AOx4 and conversational at baseline. ED course: - Vitals: BP 108/89. Patient was desaturating into the 70s on 4 L nasal cannula, however upon arousal he would return to the 90s. - Labs: Potassium 6.3, BUN 42, creatinine 2.9, alk phos 307, BNP 638, PT 15.4, INR 1.5, D-dimer 1600, ABG pH of 7.3, pO2 of 80. - Imaging: Chest x-ray showed vascular congestion, heart failure. Abdominal ultrasound showed ascites. - Patient received DuoNeb treatment, 4 mg morphine, 4 mg Zofran, methylprednisolone 125 IV push x 1, dextrose, 10 units of insulin, and 1 g of calcium gluconate, and 15 GM sodium polystyrene sulfonate orally. Current Medications: allopurinol 100 mg, budesonide 2 mg, buspirone 7.5 mg, carvedilol 3.125 mg, empagliflozin 10 mg, vitamin D2, gabapentin 300 mg, levothyroxine 25 mg, pantoprazole 40 mg, potassium chloride 10 mill EQ tablets, spironolactone 100 mg, tamsulosin 0.4 mg, hydrocodone 5-3 25, ipratropium, fluticasone, lactulose, albuterol, hydroxyzine 25 mg, rifaximin 550 mg, furosemide 40 mg Allergies: No known drug allergies Patient was admitted for acute decompensated cirrhosis, hyperkalemia, and CADY, upgraded to ICU for worsening AHRF requiring intubation. Nephrology was consulted for urgent dialysis for hyperkalemia likely secondary to concomitant use of spironolactone and potassium. 10/23/25: Right femoral triple lumen line placed yesterday in ICU. Received HD last night, no ultrafiltration, tolerated session well. Patient seen and examined at bedside. Creatinine 2.9, improved to 2.1 in the afternoon. Scheduled for dialysis again today, goal 1L fluid removal. 10/24/25: Patient seen and assessed in ICU. Off sedation, tachycardic with HR 130s at bedside. Dialysis day #3, removed 1L yesterday, will remove 3L. Potassium 4.8. Creatinine 2.4. Ordered PPD and hepatitis panel in anticipation for outpatient dialysis. 10/25/2025 patient extubated and is currently on BiPAP. Short of breath and is currently seen on dialysis. In ICU. Heart rate 92-100 Labs and medications reviewed. Review of Systems Review of Systems Narrative Review of Systems: Unable to obtain due to his mentation Exam Vital Signs Temp Pulse Resp BP Pulse Ox O2 Del Method O2 Flow Rate 37.1 C 104 H 25 H 102/73 95 Mechanical Ventilation 4 10/25/25 04:01 10/25/25 09:37 10/25/25 09:37 10/25/25 09:01 10/25/25 09:37 10/23/25 16:00 10/25/25 07:00 FiO2 30 10/25/25 08:00 Narrative Exam Physical Exam General: Extubated-on BiPAP HEENT: Looks hypervolemic Heart: Distant. Regular rate and rhythm, normal S1 and S2, no murmurs appreciated. Lungs: Bibasilar crackles. Abdomen: Soft, obese, positive bowel sounds. Moderate ascites. No guarding or rebound tenderness. Neurologic: Unable to assess due to being on BiPAP Extremities: Significant edema Skin: Scattered freckles on face and upper arms. No rash or ecchymoses. Objective Labs 10/25/25 03:15 10/25/25 11:37 Labs: Laboratory Results - last 24 hr 10/24/25 10/24/25 10/24/25 15:55 16:18 18:15 WBC RBC Hgb Hct MCV MCH MCHC RDW Std Deviation Plt Count Neut % (Auto) Lymph % (Auto) Gonzales % (Auto) Eos % (Auto) Baso % (Auto) Neut # (Auto) Lymph # (Auto) Gonzales # (Auto) Eos # (Auto) Baso # (Auto) Immature Gran # (Auto) Absolute Nucleated RBC Immature Gran % Nucleated RBC % Smear Path Review PT INR Puncture Site Cancelled ABG pH Cancelled ABG pCO2 Cancelled ABG pO2 Cancelled ABG HCO3 Cancelled ABG O2 Saturation Cancelled ABG Base Excess Cancelled VBG pH 7.18 L 7.25 L VBG pCO2 72 H 54 D VBG pO2 36 67 H D VBG O2 Sat (Isa) 48 L 90 L D VBG Base Excess -3 -4 L Oxygen Liter Flow Cancelled FiO2 Cancelled Sodium Potassium Chloride Carbon Dioxide Anion Gap BUN Creatinine Estim Creat Clear Calc eGFR BUN/Creatinine Ratio Glucose Calculated Osmolality Calcium Corrected Calcium Phosphorus Magnesium Total Bilirubin AST ALT Alkaline Phosphatase Total Protein Albumin Globulin Albumin/Globulin Ratio Triglycerides 10/24/25 10/24/25 10/24/25 19:39 21:50 23:17 WBC RBC Hgb Hct MCV MCH MCHC RDW Std Deviation Plt Count Neut % (Auto) Lymph % (Auto) Gonzales % (Auto) Eos % (Auto) Baso % (Auto) Neut # (Auto) Lymph # (Auto) Gonzales # (Auto) Eos # (Auto) Baso # (Auto) Immature Gran # (Auto) Absolute Nucleated RBC Immature Gran % Nucleated RBC % Smear Path Review PT INR Puncture Site ABG pH ABG pCO2 ABG pO2 ABG HCO3 ABG O2 Saturation ABG Base Excess VBG pH 7.26 L 7.27 L 7.28 L VBG pCO2 55 51 52 VBG pO2 51 42 31 VBG O2 Sat (Isa) 79 L D 69 L D 48 L D VBG Base Excess -3 -4 L -3 Oxygen Liter Flow FiO2 Sodium Potassium Chloride Carbon Dioxide Anion Gap BUN Creatinine Estim Creat Clear Calc eGFR BUN/Creatinine Ratio Glucose Calculated Osmolality Calcium Corrected Calcium Phosphorus Magnesium Total Bilirubin AST ALT Alkaline Phosphatase Total Protein Albumin Globulin Albumin/Globulin Ratio Triglycerides 10/25/25 10/25/25 10/25/25 01:28 03:15 04:41 WBC 15.7 H RBC 5.01 Hgb 11.1 L Hct 37.1 L MCV 74 L MCH 22.2 L MCHC 29.9 L RDW Std Deviation 63.5 H Plt Count 105 L D Neut % (Auto) 78 Lymph % (Auto) 4 L Gonzales % (Auto) 17 H Eos % (Auto) 0 Baso % (Auto) 0 Neut # (Auto) 12.3 H Lymph # (Auto) 0.6 L Gonzales # (Auto) 2.6 H Eos # (Auto) 0.0 Baso # (Auto) 0.0 Immature Gran # (Auto) 0.10 H Absolute Nucleated RBC 0.32 H Immature Gran % 1 H Nucleated RBC % 2 H Smear Path Review Sent to Pathologist PT 16.1 H INR 1.6 H Puncture Site Right Radial ABG pH 7.29 L D ABG pCO2 46 ABG pO2 128 H D ABG HCO3 22 ABG O2 Saturation 99 H ABG Base Excess -5 L VBG pH 7.27 L 7.36 VBG pCO2 55 40 D VBG pO2 37 56 VBG O2 Sat (Isa) 59 L D 85 L D VBG Base Excess -2 -3 Oxygen Liter Flow FiO2 21 Sodium 138 Potassium 5.4 H D Chloride 102 Carbon Dioxide 26.1 Anion Gap 10 BUN 38 H Creatinine 3.5 H D Estim Creat Clear Calc 24.1 L eGFR 19 L BUN/Creatinine Ratio 11 L Glucose 109 H Calculated Osmolality 285 Calcium 8.7 Corrected Calcium 9.1 Phosphorus 8.1 H Magnesium 1.9 Total Bilirubin 1.8 H D AST 19 ALT 11 Alkaline Phosphatase 202 H D Total Protein 6.5 Albumin 3.5 Globulin 3.0 Albumin/Globulin Ratio 1.2 Triglycerides 80 10/25/25 10/25/25 06:20 07:44 WBC RBC Hgb Hct MCV MCH MCHC RDW Std Deviation Plt Count Neut % (Auto) Lymph % (Auto) Gonzales % (Auto) Eos % (Auto) Baso % (Auto) Neut # (Auto) Lymph # (Auto) Gonzales # (Auto) Eos # (Auto) Baso # (Auto) Immature Gran # (Auto) Absolute Nucleated RBC Immature Gran % Nucleated RBC % Smear Path Review PT INR Puncture Site ABG pH ABG pCO2 ABG pO2 ABG HCO3 ABG O2 Saturation ABG Base Excess VBG pH 7.25 L 7.25 L VBG pCO2 57 H D 56 VBG pO2 49 42 VBG O2 Sat (Isa) 78 L 68 L D VBG Base Excess -3 -3 Oxygen Liter Flow FiO2 Sodium Potassium Chloride Carbon Dioxide Anion Gap BUN Creatinine Estim Creat Clear Calc eGFR BUN/Creatinine Ratio Glucose Calculated Osmolality Calcium Corrected Calcium Phosphorus Magnesium Total Bilirubin AST ALT Alkaline Phosphatase Total Protein Albumin Globulin Albumin/Globulin Ratio Triglycerides ABG Interpretation ABG results: 10/22/25 10/22/25 10/22/25 03:27 11:26 15:35 ABG pH 7.30 L 7.10 L* D 7.29 L D ABG pCO2 48 80 H* D 48 D ABG pO2 80 L 34 L* D 236 H D ABG HCO3 24 25 23 ABG O2 Saturation 98 40 L 101 H ABG Base Excess -2 -5 L -3 VBG pH VBG pCO2 VBG pO2 VBG Base Excess 10/22/25 10/23/25 10/23/25 19:01 05:11 19:30 ABG pH 7.36 7.34 L 7.48 H D ABG pCO2 43 50 H 36 D ABG pO2 173 H D 40 L* D 72 L D ABG HCO3 24 27 H 27 H ABG O2 Saturation 100 H 65 L 95 ABG Base Excess -1 1 4 H VBG pH VBG pCO2 VBG pO2 VBG Base Excess 10/24/25 10/24/25 10/24/25 04:47 15:55 16:18 ABG pH 7.47 H Cancelled ABG pCO2 37 Cancelled ABG pO2 76 L Cancelled ABG HCO3 27 H Cancelled ABG O2 Saturation 96 Cancelled ABG Base Excess 4 H Cancelled VBG pH 7.18 L VBG pCO2 72 H VBG pO2 36 VBG Base Excess -3 10/24/25 10/24/25 10/24/25 18:15 19:39 21:50 ABG pH ABG pCO2 ABG pO2 ABG HCO3 ABG O2 Saturation ABG Base Excess VBG pH 7.25 L 7.26 L 7.27 L VBG pCO2 54 D 55 51 VBG pO2 67 H D 51 42 VBG Base Excess -4 L -3 -4 L 10/24/25 10/25/25 10/25/25 23:17 01:28 03:15 ABG pH ABG pCO2 ABG pO2 ABG HCO3 ABG O2 Saturation ABG Base Excess VBG pH 7.28 L 7.27 L 7.36 VBG pCO2 52 55 40 D VBG pO2 31 37 56 VBG Base Excess -3 -2 -3 10/25/25 10/25/25 10/25/25 04:41 06:20 07:44 ABG pH 7.29 L D ABG pCO2 46 ABG pO2 128 H D ABG HCO3 22 ABG O2 Saturation 99 H ABG Base Excess -5 L VBG pH 7.25 L 7.25 L VBG pCO2 57 H D 56 VBG pO2 49 42 VBG Base Excess -3 -3 Assessment & Plan Additional Assessment & Plan Additional Plan: 60-year-old male past medical history of COPD, alcoholic cirrhosis, diabetes, gout, hypertension, A-fib, heart failure, hyperlipidemia, acidosis, CKD IIIa, stage III lymphoma who presented from SNF on 10/22 with shortness of breath and altered mental status, upgraded to ICU due to worsening AHRF requiring intubation. Nephrology consulted for urgent dialysis for hyperkalemia. #Hyperkalemia (resolved) #CADY on CKD IIIa - Presented with altered mental status from SNF - Home medications include potassium chloride 10 mill EQ tablets and spironolactone 100 mg - Potassium 6.3 on admission, increased to 7.0 despite insulin, albuterol, and Kayexelate - Cr 2.9 on admission, previously 1.4 in 01/2024 - EKG showed normal sinus rhythm, no peaked T waves observed - Upgraded to ICU 10/22, HD cath placed in right IJ - S/p HD 10/22 (no ultrafiltration), 10/23 (-1L) Plan: - Patient currently seen on dialysis. Tolerating dialysis without any problems. Hemodialysis for 2 hours, sequential ultrafiltration 2-3 L, Epogen 6000, no heparin ordered. Plan of care discussed with the dialysis nurse. Please see dialysis flowsheet for further details. - Continue to monitor creatinine - Hold potassium and spiranolactone #Respiratory acidosis #AHRF #Intubated #Acute decompensated cirrhosis 2/2 alcohol use #Acute encephalopathy #HFrEF #Hypertension #Hypothyroidism #Microcytic Anemia #History of gout #Stage III lymphoma #Diabetes #Afib paroxysmal? #HLD - Defer to primary team for management Care discussed with ICU team
--- NOTE | 2025-10-25 11:18 | ESPR_ITS ---
Documentation for date of: 10/25/25 Subjective Subjective Interval history: This is a 60yo M who was admitted on 10/22 for AMS 2/2 decompensated cirrhosis and COPD with CO2 retention. He failed bipap and was intubated. He was also noted to have severe hyperkalemia. A dialysis catheter was placed and he underwent emergency dialysis. He also underwent paracentesis with 9 L removed. Currently he is undergoing ultrafiltration, there were no acute overnight events. He is afebrile, he has had some urinary output however it has slowed down to approximately 20 cc an hour 10/25- yesterday desatted to mid 70s requiring increase to 100% FiO2 and increase in PEEP. unable to obtain ABG on him despite multiple attempts, and SVO2 was checked from his central line and found to be in the mid 40s. At this point his blood pressure was also borderline. A NICOM was checked and he was not found to be fluid responsive. It was unclear if the SVO 2 represented a increase in oxygen extraction and therefore need to increase his cardiac output versus a decrease in his arterial sats given the difficulty in obtaining both a pulse ox on him as well as a ABG. He was started on dobutamine with Levophed if needed to maintain a MAP over 65 with repeat draws of SVO 2 from the central line and to target an SVO 2 over 60. This was achieved overnight and he improved with decrease both in his FiO2 and dobutamine no longer required. This morning he is awake and interactive on 30% FiO2. He appears to be doing much better than yesterday. He has decreased urinary output at approximately 10 to 15 cc an hour Critical Care Note Critical care time (min.): 38 Exam Vital Signs Temp Pulse Resp BP Pulse Ox O2 Del Method O2 Flow Rate 98.8 F 92 18 102/73 96 Mechanical Ventilation 4 10/25/25 04:01 10/25/25 10:55 10/25/25 10:55 10/25/25 09:01 10/25/25 10:55 10/23/25 16:00 10/25/25 07:00 FiO2 30 10/25/25 08:00 Narrative Exam Gen- NAD, awake and interactive, obese HEENT- NC/AT, mucosa hydrated, sclera anicteric, ETT/OGT in place Chest- lungs diminished, no crackles/wheeze, HRIR, no increase in WOB Abd- distended, no pain on palp, fluid shift + Ext- edema 2-3+ pitting, no focal deficits, pulses palp, no clubbing, no mottling Vent PSV Drips octreotide Physical Exam Completion Physical Exam Complete?: Yes 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 Labs 10/25/25 03:15 10/25/25 03:15 Labs: Laboratory Results - last 24 hr 10/24/25 10/24/25 10/24/25 15:55 16:18 18:15 WBC RBC Hgb Hct MCV MCH MCHC RDW Std Deviation Plt Count Neut % (Auto) Lymph % (Auto) Hopkins % (Auto) Eos % (Auto) Baso % (Auto) Neut # (Auto) Lymph # (Auto) Hopkins # (Auto) Eos # (Auto) Baso # (Auto) Immature Gran # (Auto) Absolute Nucleated RBC Immature Gran % Nucleated RBC % Smear Path Review PT INR Puncture Site Cancelled ABG pH Cancelled ABG pCO2 Cancelled ABG pO2 Cancelled ABG HCO3 Cancelled ABG O2 Saturation Cancelled ABG Base Excess Cancelled VBG pH 7.18 L 7.25 L VBG pCO2 72 H 54 D VBG pO2 36 67 H D VBG O2 Sat (Isa) 48 L 90 L D VBG Base Excess -3 -4 L Oxygen Liter Flow Cancelled FiO2 Cancelled Sodium Potassium Chloride Carbon Dioxide Anion Gap BUN Creatinine Estim Creat Clear Calc eGFR BUN/Creatinine Ratio Glucose Calculated Osmolality Calcium Corrected Calcium Phosphorus Magnesium Total Bilirubin AST ALT Alkaline Phosphatase Total Protein Albumin Globulin Albumin/Globulin Ratio Triglycerides 10/24/25 10/24/25 10/24/25 19:39 21:50 23:17 WBC RBC Hgb Hct MCV MCH MCHC RDW Std Deviation Plt Count Neut % (Auto) Lymph % (Auto) Hopkins % (Auto) Eos % (Auto) Baso % (Auto) Neut # (Auto) Lymph # (Auto) Hopkins # (Auto) Eos # (Auto) Baso # (Auto) Immature Gran # (Auto) Absolute Nucleated RBC Immature Gran % Nucleated RBC % Smear Path Review PT INR Puncture Site ABG pH ABG pCO2 ABG pO2 ABG HCO3 ABG O2 Saturation ABG Base Excess VBG pH 7.26 L 7.27 L 7.28 L VBG pCO2 55 51 52 VBG pO2 51 42 31 VBG O2 Sat (Isa) 79 L D 69 L D 48 L D VBG Base Excess -3 -4 L -3 Oxygen Liter Flow FiO2 Sodium Potassium Chloride Carbon Dioxide Anion Gap BUN Creatinine Estim Creat Clear Calc eGFR BUN/Creatinine Ratio Glucose Calculated Osmolality Calcium Corrected Calcium Phosphorus Magnesium Total Bilirubin AST ALT Alkaline Phosphatase Total Protein Albumin Globulin Albumin/Globulin Ratio Triglycerides 10/25/25 10/25/25 10/25/25 01:28 03:15 04:41 WBC 15.7 H RBC 5.01 Hgb 11.1 L Hct 37.1 L MCV 74 L MCH 22.2 L MCHC 29.9 L RDW Std Deviation 63.5 H Plt Count 105 L D Neut % (Auto) 78 Lymph % (Auto) 4 L Hopkins % (Auto) 17 H Eos % (Auto) 0 Baso % (Auto) 0 Neut # (Auto) 12.3 H Lymph # (Auto) 0.6 L Hopkins # (Auto) 2.6 H Eos # (Auto) 0.0 Baso # (Auto) 0.0 Immature Gran # (Auto) 0.10 H Absolute Nucleated RBC 0.32 H Immature Gran % 1 H Nucleated RBC % 2 H Smear Path Review Sent to Pathologist PT 16.1 H INR 1.6 H Puncture Site Right Radial ABG pH 7.29 L D ABG pCO2 46 ABG pO2 128 H D ABG HCO3 22 ABG O2 Saturation 99 H ABG Base Excess -5 L VBG pH 7.27 L 7.36 VBG pCO2 55 40 D VBG pO2 37 56 VBG O2 Sat (Isa) 59 L D 85 L D VBG Base Excess -2 -3 Oxygen Liter Flow FiO2 21 Sodium 138 Potassium 5.4 H D Chloride 102 Carbon Dioxide 26.1 Anion Gap 10 BUN 38 H Creatinine 3.5 H D Estim Creat Clear Calc 24.1 L eGFR 19 L BUN/Creatinine Ratio 11 L Glucose 109 H Calculated Osmolality 285 Calcium 8.7 Corrected Calcium 9.1 Phosphorus 8.1 H Magnesium 1.9 Total Bilirubin 1.8 H D AST 19 ALT 11 Alkaline Phosphatase 202 H D Total Protein 6.5 Albumin 3.5 Globulin 3.0 Albumin/Globulin Ratio 1.2 Triglycerides 80 10/25/25 10/25/25 10/25/25 06:20 07:44 09:50 WBC RBC Hgb Hct MCV MCH MCHC RDW Std Deviation Plt Count Neut % (Auto) Lymph % (Auto) Hopkins % (Auto) Eos % (Auto) Baso % (Auto) Neut # (Auto) Lymph # (Auto) Hopkins # (Auto) Eos # (Auto) Baso # (Auto) Immature Gran # (Auto) Absolute Nucleated RBC Immature Gran % Nucleated RBC % Smear Path Review PT INR Puncture Site ABG pH ABG pCO2 ABG pO2 ABG HCO3 ABG O2 Saturation ABG Base Excess VBG pH 7.25 L 7.25 L 7.29 L VBG pCO2 57 H D 56 51 VBG pO2 49 42 37 VBG O2 Sat (Isa) 78 L 68 L D 65 L VBG Base Excess -3 -3 -3 Oxygen Liter Flow FiO2 Sodium Potassium Chloride Carbon Dioxide Anion Gap BUN Creatinine Estim Creat Clear Calc eGFR BUN/Creatinine Ratio Glucose Calculated Osmolality Calcium Corrected Calcium Phosphorus Magnesium Total Bilirubin AST ALT Alkaline Phosphatase Total Protein Albumin Globulin Albumin/Globulin Ratio Triglycerides Assessment & Plan Additional Assessment Additional Assessment: In summary this is a 60-year-old male admitted to the ICU for acute hypercapnic respiratory failure and 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 These both seem to be improving. Will attempt sedation vacation today and evaluate his mental status. Encephalomalacia also noted on prior head CT - improving today CV Heart failure with reduced EF-patient's Coreg is on hold due to his borderline blood pressure -EF noted to be approximately 35% with LVH -Pulmonary hypertension also noted on echo with elevated right ventricular systolic pressures -RV volume overload noted on echo as well -Requires additional volume removal - minimal UOP with worsening creatinine Resp Acute hypercapnic respiratory failure-patient is intubated and on mechanical ventilation - yesterday SBT aborted - today did well on SBT and extubated to bipap - minimal vent settings Pulmonary edema-in the setting of total volume overload and heart failure, will diurese as able, improving FiO2 requirements on the ventilator, currently on dialysis for volume removal - improving Aspiration pneumonia-patient's sputum cultures growing gram-negative benigno, continue with antibiotics for now until speciation has resulted. - growing pseudomonas - on zosyn and off of vanc COPD-DuoNebs every 4 as needed Renal CADY-patient's baseline is unclear -Numbers seem to be stable -Followed by nephrology Decreasing urinary output - trial bumex 2g - on HD Hypophosphatemia-on sevelamer Hyperkalemia-resolved GI Cirrhosis-currently on lactulose 20mg q6 - aldactone on hold given soft BP and hyperkalemia - started on rixamine 550mg BID Endo Hypothyroid-on levothyroxine Diabetes-sliding scale insulin fingersticks every 6 Heme Leukocytosis- improving Anemia-patient did have some bleeding from his procedures 2 days ago and was transfused a unit of PRBCs yesterday. His H&H remained stable -An iron panel was checked and he is found to have iron deficiency will be started on p.o. - stable Coagulopathy-in the setting of cirrhosis DVT prophylaxis- heparin 5000q8 History of possible lymphoma-will try and get more data ID Aspiration pneumonia-on antibiotics Case discussed with ICU team Discussed with nephrology Labs, imaging and records reviewed ~ 38ccmin required for evaluation, exam, review, intervention, discussion formulation of plan of care for this critically ill patient with acute respiratory failure at high risk for further ongoing decompensation Provider Notation Provider Notation: Although this document has been carefully reviewed, there may still be some phonetic and other typographical errors. These errors are purely grammatical due to imperfections in the software program and should not be construed in any way to compromise the substance of the patient's medical care during this visit. Thank you for the opportunity and privilege in assisting you with this patient's care and management.
[2025-10-25 11:46] LABS: Base Excess, Venous -3 (-3-3); O2 Saturation, Venous 65 % (96-97); PCO2, Venous 59 mmHg (36-56); PO2, Venous 41 mmHg (15-58); pH, Venous 7.25 (7.33-7.66)
[2025-10-25 12:08] LABS: Albumin, Serum 3.4 gm/dL (3.5-5.0); Anion Gap 11 (7-16); BUN/Creatinine Ratio 13 Ratio (12-20); Blood Urea Nitrogen 45 mg/dL (9-23); Calcium 8.8 mg/dL (8.3-10.6); Calcium (Corrected) 9.3 mg/dL (8.5-10.1); Carbon Dioxide 26.6 mMol/L (20.0-31.0); Chloride 101 mMol/L (98-107); Creatinine (Component) 3.6 mg/dL (0.6-1.3); Estimated Creatinine Clearance 23.4 mL/min (>60); Glucose 120 mg/dL (74-106); Osmolality,Calculated 290 (275-295); Phosphorous 8.0 mg/dL (2.4-5.1); Potassium 5.2 mMol/L (3.4-5.1); Sodium 139 mMol/L (136-145); eGFR 19 See Note
[2025-10-25] MEDS: HEPARIN SOD INJ 1000 UNIT/ML VIAL 10 ML 3000 UNIT INDWELLCAT (14:06)
[2025-10-25 14:43] LABS: Allen Test Performed/OK; Base Excess -6 (-3-3); HCO3 22 mEq/L (20-26); Inspired Oxygen, FIO2 30 %; O2 Saturation 100 % (91-98); PCO2 49 mmHg (32.0-48.0); PO2 230 mmHg (83-108); Puncture Site Left Radial; pH, Arterial 7.26 (7.35-7.45)
[2025-10-25] MEDS: BUMETANIDE INJ 0.25 MG/ML VIAL 4 ML 2 MG IVP (15:01)
[2025-10-25 16:37] LABS: Base Excess -4 (-3-3); HCO3 24 mEq/L (20-26); Inspired Oxygen, FIO2 50 %; O2 Saturation 95 % (91-98); PCO2 53 mmHg (32.0-48.0); PO2 87 mmHg (83-108); pH, Arterial 7.25 (7.35-7.45)
[2025-10-25 16:38] LABS: Allen Test Performed/OK; Puncture Site Left Radial
[2025-10-25 20:28] LABS: Base Excess -3 (-3-3); HCO3 24 mEq/L (20-26); Inspired Oxygen, FIO2 50 %; O2 Saturation 91 % (91-98); PCO2 51 mmHg (32.0-48.0); PO2 68 mmHg (83-108); pH, Arterial 7.28 (7.35-7.45)
[2025-10-25 20:34] LABS: Allen Test Performed/OK; Puncture Site Right Radial
[2025-10-25 21:34] LABS: Hepatitis A Antibody IgM Non Reactive (Non React); Hepatitis B Core Antibody IgM Non Reactive (Non React); Hepatitis B Surface Antigen Non Reactive (Non React); Hepatitis C Antibody Non Reactive (Non React)
[2025-10-26] VITALS (33 sets, daily range): BP systolic 84–109; BP diastolic 62–88; PULSE 84–108; RESP 10–24; TEMP 36–36.8; O2SAT 17–100; BMI 36.2
[2025-10-26 01:36] LABS: Base Excess -3 (-3-3); HCO3 23 mEq/L (20-26); O2 Saturation 99 % (91-98); PCO2 46 mmHg (32.0-48.0); PO2 120 mmHg (83-108); pH, Arterial 7.32 (7.35-7.45)
[2025-10-26 01:41] LABS: Inspired Oxygen, FIO2 70 %
[2025-10-26 01:42] LABS: Allen Test Performed/OK; Puncture Site Right Radial
[2025-10-26] MEDS: ALBUTEROL/IPRATROPIUM (Duoneb) RT SOL 3 ML NEBU INH ×6 (02:31→22:09)
--- NOTE | 2025-10-26 05:00 | XR_ITS ---
EXAMINATION: AP chest single view TECHNIQUE: AP portable semiupright chest single view Date and time: 2024, 0611 hours, comparison October 25, 2025 INDICATIONS: Hypoxic respiratory failure, bibasilar pneumonia on chest film October 25, 2025 FINDINGS: Mild to moderate enlargement cardiac contour Ectatic thoracic aorta. Right internal jugular temporary dialysis catheter tip SVC Prominent vascular congestion Atelectasis versus pneumonia left base Mild osteopenia IMPRESSION: Suspicious for mild heart failure Atelectasis versus pneumonia left base, clinical correlation advised
[2025-10-26] MEDS: PIPER/TAZO 3.375 GM PREMIX 3.375 GM/50 ML BAG IV ×3 (05:50→21:07)
[2025-10-26 06:20] LABS: Basophils # (Auto) 0.0 Thou/mm3 (0.0-0.2); Basophils % (Auto) 0 % (0-2.5); Eosinophils # (Auto) 0.0 Thou/mm3 (0.0-0.5); Eosinophils % (Auto) 0 % (0-10); Hematocrit 36.5 % (41.0-53.0); Hemoglobin 11.1 g/dL (13.5-16.0); Immature Granulocytes Auto 0.07 Thou/mm3 (0.00-0.00); Lymphocytes # (Auto) 0.8 Thou/mm3 (1.0-4.8); Lymphocytes % (Auto) 7 % (10-50); Mean Corpuscular HGB Conc 30.4 g/dl (31.0-37.0); Mean Corpuscular Hemoglobin 22.5 pg (25.0-35.0); Mean Corpuscular Volume 74 fL (80-100); Monocytes # (Auto) 1.8 Thou/mm3 (0.0-0.8); Monocytes % (Auto) 15 % (0-12); Neutrophils # (Auto) 9.1 Thou/mm3 (1.8-7.7); Neutrophils % (Auto) 77 % (37-80); Nucleated Red Blood Cell # 0.28 Thou/mm3 (0.00-0.00); Nucleated Red Blood Cell % 2 /100 WBC (0); Platelet Count 103 Thou/mm3 (140-440); RDW Standard Deviation 62.5 fL (35.1-43.9); Red Blood Count 4.94 Miln/mm3 (4.50-5.90); White Blood Count 11.7 Thou/mm3 (3.8-10.6)
[2025-10-26 06:38] LABS: INR 1.5 (0.9-1.3); Prothrombin Time 15.6 Seconds (9.0-12.2)
--- NOTE | 2025-10-26 06:50 | PC.NURSE ---
MD made aware of spO2 not reading correctly consistently, ABG series order continued.
[2025-10-26 07:16] LABS: Alanine Aminotransferase 9 U/L (10-49); Albumin, Serum 3.6 gm/dL (3.5-5.0); Albumin/Globulin Ratio 1.2 (1.2-2.2); Alkaline Phosphatase 163 U/L (46-116); Anion Gap 14 (7-16); Aspartate Amino Transferase 18 U/L (0-34); BUN/Creatinine Ratio 14 Ratio (12-20); Bilirubin,Total 1.8 mg/dL (0.3-1.2); Blood Urea Nitrogen 50 mg/dL (9-23); Calcium 9.2 mg/dL (8.3-10.6); Calcium (Corrected) 9.5 mg/dL (8.5-10.1); Carbon Dioxide 26.3 mMol/L (20.0-31.0); Chloride 98 mMol/L (98-107); Creatinine (Component) 3.5 mg/dL (0.6-1.3); Estimated Creatinine Clearance 24.1 mL/min (>60); Globulin 3.1 gm/dL (2.3-3.5); Glucose 87 mg/dL (74-106); Magnesium 2.0 mg/dL (1.6-2.6); Osmolality,Calculated 287 (275-295); Phosphorous 7.6 mg/dL (2.4-5.1); Potassium 5.1 mMol/L (3.4-5.1); Sodium 138 mMol/L (136-145); Total Protein 6.7 gm/dL (5.7-8.2); eGFR 19 See Note
--- NOTE | 2025-10-26 07:32 | ESPR_ITS ---
<Statement entered by Rishabh Luo MD - 10/26/25 15:06> I have reviewed the note and agree with the resident's assessment & plan with exceptions as below. I have personally reviewed labs, imaging, home meds/prior records, examined the patient, formulated and discussed management plan with the IM team. Pt examined at bedside today. No acute overnight events. Pt continued with biPAP during the night. Morning ABG shows pH 7.32, PCO2 46. Chronic respiratory acidosis should represent a bicarbonate of 26, which is what is found on the chem panel today indicating adequate compensation. However, pt does have acidemia and AG of 14, indiciating a possible underlying NAGMA. DDx could be underlying RTA for patient however, will need further workup with urine lytes. Pt to continue with BiPAP during the day with permissible 1 hour breaks and to continue with it during the night. Pt can also get ABGs for monitoring as well. Pt was also checked for possible tap for ascites, however there was not an identifiable pocket of fluid for paracentesis at this time. At this time, pt will be downgraded. Pt's UOP 525 cc, will give 2 mg Bumex with Albumin. Nephrology continues to follow. Will initiate Ciprofloxacin drops for possible R Otitis Externa seen on Otoscope exam. Consider increase Sevelamer due to persistent hyperphosphatemia. Pt passed swallow eval. Continue with Lactulose and Rifaxmin PO. Continue with scheduled Duoneb, O2 saturation goals 88-92%. Continue Zosyn for suspected PNA and Pseudomonas Sputum culture. #Acute metabolic encephalopathy secondary to acute decompensated liver failure - resolved #Hepatic encephalopathy, improving #Agitation - resolved #Acute CHF exacerbation #Heart failure with reduced ejection fraction 25-30 %, on this admission 10/2025 #R Aspiration PNA- Pseudamonas #Hx of COPD #Acute decompensated liver failure #Severe ascites #CADY on CKD versus worsening CKD #Hyperkalemia, resolved #Hyperphosphatemia #Hypothyroidism #Chronic microcytic anemia #Coagulopathy secondary to cirrhosis and acute decompensated liver failure #Community-acquired pneumonia versus healthcare associated pneumonia #Aspiration PNA #R Otitis Externa Rishabh Luo, PGY-2 Internal Medicine Documentation for date of: 10/26/25 Subjective Subjective Interval history: Mr. Amador is a 60-year-old gentleman with a past medical history significant for left neck lymphoma, cirrhosis, COPD on home oxygen, and? Renal problems following with outpatient management assistant not on HD, hypertension, chronic lower back pain who presented with worsening shortness of breath from correction, unable to obtain history from patient given she is currently intubated. 10/22/2025: CT head with Negative for acute hemorrhage, mass effect or midline shift, pupils were fixed and dilated. He was intubated, and started on HD after multiple attempts at getting central access. R ij was placed. had paracentesis with 9 L off. cytology sent 10/23/2025: Patient seen and examined at bedside with abdomen notably firm and distended with positive fluid wave. HD today with 1 L removed in 3 hour session. K now within nl at 4.5 pupils are sluggish but responsive to light and no longer fixed and dilated. remains intubated and sedated. appears more volume overloaded on exam. with reacumulated ascites despite 9 L paracentesis done yesterday. 10/24/2025 Patient examined bedside, labs reviewed. Abdomen is still notably firm and distended with positive fluid wave. HD not happening today instead had sequential ultrafiltration with 3 L removed. Plan to downgrade stalled because patient BPs dropped and was not responsive to fluids per NICOM restarted dobutamine and levophed to maintain SvO2 >65. 10/25/2025: Patient examined at bedside, labs reviewed. Patient was extubated, and placed on bipap, ABG are difficult to draw, they demonstrate persistent acidosis, so bipap settings were augmented. Presidex protocol was initiated given some agitation. 10/26/2025: Patient seen and examined at bedside, labs reviewed. Patient with notable puralent drainage slightly blood tinged on his R ear, and tenderness with pulling of the pinnea, L ear nl. R ear c/f otitis externa, started on cipro drops BID for 7 day course. On Bipap 08/23, pt requesting that we contact his brother, Otoniel Amador to provide updates. Pt underwent trial of bumex yesterday, with good UOP, so today will hold HD and diurese with 2 bumex and albumin. possible downgrade. Exam Vital Signs Temp Pulse Resp BP Pulse Ox O2 Del Method O2 Flow Rate 96.8 F 95 18 105/73 85 L BiPAP 4 10/26/25 04:00 10/26/25 07:00 10/26/25 07:00 10/26/25 07:00 10/26/25 07:00 10/25/25 18:00 10/25/25 07:00 FiO2 70 10/26/25 06:15 Narrative Exam Patient with head normocephalic atraumatic Eyes equal and responsive to light bilaterally. proptosis is significant neck with notable L neck bulge ? lipoma vs L neck lymphoma. firm and stable from prior ears, R ear with puralent and blood tinged drainage pooling in the external ear doc, pain with external manipulation of the pinna, left side without pain with manipulation of external ear, and no puralent drainage noted in the ear canal. Heart regular rate rhythm + systolic murmor at the 4ther intercostal space on the L . Lungs diminished breath sounds on the left lung bases on BiPAP, and crackles diffusely. Abdomen is protuberant firm, and soft with positive fluid wave, caput medusa noted on lower abdomen, + bowel sounds. with morgan in place draining yellow clear urine Lower extremities with woody, tense edema 1+ pitting up to the knees Feet are cool to the touch Objective Labs 10/26/25 04:12 10/26/25 04:12 Labs: Laboratory Results - last 24 hr 10/24/25 10/25/25 10/25/25 04:32 07:44 09:50 WBC RBC Hgb Hct MCV MCH MCHC RDW Std Deviation Plt Count Neut % (Auto) Lymph % (Auto) [place] % (Auto) Eos % (Auto) Baso % (Auto) Neut # (Auto) Lymph # (Auto) [place] # (Auto) Eos # (Auto) Baso # (Auto) Immature Gran # (Auto) Absolute Nucleated RBC Immature Gran % Nucleated RBC % PT INR Puncture Site ABG pH ABG pCO2 ABG pO2 ABG HCO3 ABG O2 Saturation ABG Base Excess VBG pH 7.25 L 7.29 L VBG pCO2 56 51 VBG pO2 42 37 VBG O2 Sat (Isa) 68 L D 65 L VBG Base Excess -3 -3 Oxygen Liter Flow FiO2 Sodium Potassium Chloride Carbon Dioxide Anion Gap BUN Creatinine Estim Creat Clear Calc eGFR BUN/Creatinine Ratio Glucose Calculated Osmolality Calcium Corrected Calcium Phosphorus Magnesium Total Bilirubin AST ALT Alkaline Phosphatase Total Protein Albumin Globulin Albumin/Globulin Ratio Hepatitis A IgM Ab Non Reactive Hep Bs Antigen Non Reactive Hep B Core IgM Ab Non Reactive Hepatitis C Antibody Non Reactive 10/25/25 10/25/25 10/25/25 11:04 11:37 14:40 WBC RBC Hgb Hct MCV MCH MCHC RDW Std Deviation Plt Count Neut % (Auto) Lymph % (Auto) [place] % (Auto) Eos % (Auto) Baso % (Auto) Neut # (Auto) Lymph # (Auto) [place] # (Auto) Eos # (Auto) Baso # (Auto) Immature Gran # (Auto) Absolute Nucleated RBC Immature Gran % Nucleated RBC % PT INR Puncture Site Cancelled Left Radial ABG pH Cancelled 7.26 L ABG pCO2 Cancelled 49 H ABG pO2 Cancelled 230 H D ABG HCO3 Cancelled 22 ABG O2 Saturation Cancelled 100 H ABG Base Excess Cancelled -6 L VBG pH 7.25 L VBG pCO2 59 H VBG pO2 41 VBG O2 Sat (Isa) 65 L VBG Base Excess -3 Oxygen Liter Flow Cancelled FiO2 Cancelled 30 Sodium 139 Potassium 5.2 H Chloride 101 Carbon Dioxide 26.6 Anion Gap 11 BUN 45 H Creatinine 3.6 H Estim Creat Clear Calc 23.4 L eGFR 19 L BUN/Creatinine Ratio 13 Glucose 120 H Calculated Osmolality 290 Calcium 8.8 Corrected Calcium 9.3 Phosphorus 8.0 H Magnesium Total Bilirubin AST ALT Alkaline Phosphatase Total Protein Albumin 3.4 L Globulin Albumin/Globulin Ratio Hepatitis A IgM Ab Hep Bs Antigen Hep B Core IgM Ab Hepatitis C Antibody 10/25/25 10/25/25 10/26/25 16:26 20:00 01:25 WBC RBC Hgb Hct MCV MCH MCHC RDW Std Deviation Plt Count Neut % (Auto) Lymph % (Auto) [place] % (Auto) Eos % (Auto) Baso % (Auto) Neut # (Auto) Lymph # (Auto) [place] # (Auto) Eos # (Auto) Baso # (Auto) Immature Gran # (Auto) Absolute Nucleated RBC Immature Gran % Nucleated RBC % PT INR Puncture Site Left Radial Right Radial Right Radial ABG pH 7.25 L 7.28 L 7.32 L ABG pCO2 53 H 51 H 46 ABG pO2 87 D 68 L 120 H D ABG HCO3 24 24 23 ABG O2 Saturation 95 91 99 H ABG Base Excess -4 L -3 -3 VBG pH VBG pCO2 VBG pO2 VBG O2 Sat (Isa) VBG Base Excess Oxygen Liter Flow FiO2 50 50 70 Sodium Potassium Chloride Carbon Dioxide Anion Gap BUN Creatinine Estim Creat Clear Calc eGFR BUN/Creatinine Ratio Glucose Calculated Osmolality Calcium Corrected Calcium Phosphorus Magnesium Total Bilirubin AST ALT Alkaline Phosphatase Total Protein Albumin Globulin Albumin/Globulin Ratio Hepatitis A IgM Ab Hep Bs Antigen Hep B Core IgM Ab Hepatitis C Antibody 10/26/25 04:12 WBC 11.7 H RBC 4.94 Hgb 11.1 L Hct 36.5 L MCV 74 L MCH 22.5 L MCHC 30.4 L RDW Std Deviation 62.5 H Plt Count 103 L Neut % (Auto) 77 Lymph % (Auto) 7 L [place] % (Auto) 15 H Eos % (Auto) 0 Baso % (Auto) 0 Neut # (Auto) 9.1 H Lymph # (Auto) 0.8 L [place] # (Auto) 1.8 H Eos # (Auto) 0.0 Baso # (Auto) 0.0 Immature Gran # (Auto) 0.07 H Absolute Nucleated RBC 0.28 H Immature Gran % 1 H Nucleated RBC % 2 H PT 15.6 H INR 1.5 H Puncture Site ABG pH ABG pCO2 ABG pO2 ABG HCO3 ABG O2 Saturation ABG Base Excess VBG pH VBG pCO2 VBG pO2 VBG O2 Sat (Isa) VBG Base Excess Oxygen Liter Flow FiO2 Sodium 138 Potassium 5.1 Chloride 98 Carbon Dioxide 26.3 Anion Gap 14 BUN 50 H Creatinine 3.5 H Estim Creat Clear Calc 24.1 L eGFR 19 L BUN/Creatinine Ratio 14 Glucose 87 Calculated Osmolality 287 Calcium 9.2 Corrected Calcium 9.5 Phosphorus 7.6 H Magnesium 2.0 Total Bilirubin 1.8 H AST 18 ALT 9 L Alkaline Phosphatase 163 H D Total Protein 6.7 Albumin 3.6 Globulin 3.1 Albumin/Globulin Ratio 1.2 Hepatitis A IgM Ab Hep Bs Antigen Hep B Core IgM Ab Hepatitis C Antibody ABG Interpretation ABG results: 10/22/25 10/22/25 10/22/25 03:27 11:26 15:35 ABG pH 7.30 L 7.10 L* D 7.29 L D ABG pCO2 48 80 H* D 48 D ABG pO2 80 L 34 L* D 236 H D ABG HCO3 24 25 23 ABG O2 Saturation 98 40 L 101 H ABG Base Excess -2 -5 L -3 VBG pH VBG pCO2 VBG pO2 VBG Base Excess 10/22/25 10/23/25 10/23/25 19:01 05:11 19:30 ABG pH 7.36 7.34 L 7.48 H D ABG pCO2 43 50 H 36 D ABG pO2 173 H D 40 L* D 72 L D ABG HCO3 24 27 H 27 H ABG O2 Saturation 100 H 65 L 95 ABG Base Excess -1 1 4 H VBG pH VBG pCO2 VBG pO2 VBG Base Excess 10/24/25 10/24/25 10/24/25 04:47 15:55 16:18 ABG pH 7.47 H Cancelled ABG pCO2 37 Cancelled ABG pO2 76 L Cancelled ABG HCO3 27 H Cancelled ABG O2 Saturation 96 Cancelled ABG Base Excess 4 H Cancelled VBG pH 7.18 L VBG pCO2 72 H VBG pO2 36 VBG Base Excess -3 10/24/25 10/24/25 10/24/25 18:15 19:39 21:50 ABG pH ABG pCO2 ABG pO2 ABG HCO3 ABG O2 Saturation ABG Base Excess VBG pH 7.25 L 7.26 L 7.27 L VBG pCO2 54 D 55 51 VBG pO2 67 H D 51 42 VBG Base Excess -4 L -3 -4 L 10/24/25 10/25/25 10/25/25 23:17 01:28 03:15 ABG pH ABG pCO2 ABG pO2 ABG HCO3 ABG O2 Saturation ABG Base Excess VBG pH 7.28 L 7.27 L 7.36 VBG pCO2 52 55 40 D VBG pO2 31 37 56 VBG Base Excess -3 -2 -3 10/25/25 10/25/25 10/25/25 04:41 06:20 07:44 ABG pH 7.29 L D ABG pCO2 46 ABG pO2 128 H D ABG HCO3 22 ABG O2 Saturation 99 H ABG Base Excess -5 L VBG pH 7.25 L 7.25 L VBG pCO2 57 H D 56 VBG pO2 49 42 VBG Base Excess -3 -3 10/25/25 10/25/25 10/25/25 09:50 11:04 11:37 ABG pH Cancelled ABG pCO2 Cancelled ABG pO2 Cancelled ABG HCO3 Cancelled ABG O2 Saturation Cancelled ABG Base Excess Cancelled VBG pH 7.29 L 7.25 L VBG pCO2 51 59 H VBG pO2 37 41 VBG Base Excess -3 -3 10/25/25 10/25/25 10/25/25 14:40 16:26 20:00 ABG pH 7.26 L 7.25 L 7.28 L ABG pCO2 49 H 53 H 51 H ABG pO2 230 H D 87 D 68 L ABG HCO3 22 24 24 ABG O2 Saturation 100 H 95 91 ABG Base Excess -6 L -4 L -3 VBG pH VBG pCO2 VBG pO2 VBG Base Excess 10/26/25 01:25 ABG pH 7.32 L ABG pCO2 46 ABG pO2 120 H D ABG HCO3 23 ABG O2 Saturation 99 H ABG Base Excess -3 VBG pH VBG pCO2 VBG pO2 VBG Base Excess Quality Measures Quality Measures VTE prophylaxis Assessment & Plan Assessment Current Active Medications: Generic Name Dose Route Start Last Admin Trade Name Freq PRN Reason Stop Dose Admin Acetaminophen 650 mg 10/22/25 06:01 Acetaminophen 325 Mg Tablet PO 11/21/25 06:00 Q6H PRN Fever >101.5 Albuterol/Ipratropium 3 ml 10/25/25 19:00 10/26/25 06:15 Albuterol/Ipratropium (Duoneb) Rt Irais 3 Ml Nebu INH 11/24/25 18:59 3 ml Q4HRRT YOVANI Administration Ciprofloxacin/Hydrocortisone 3 drop 10/26/25 09:00 Ciprofloxacin/Hc Otic Gretta 10 Ml Btl BOTH EARS 11/25/25 08:59 BID YOVANI Enoxaparin Sodium 30 mg 10/22/25 09:00 10/25/25 08:26 Enoxaparin Sod Inj 30 Mg/0.3 Ml Syringe SC 11/05/25 08:59 30 mg QDAY YOVANI Administration Heparin Sodium (Porcine) 3,000 unit 10/22/25 18:42 10/25/25 14:06 Heparin Sod Inj 1000 Unit/Ml Vial 10 Ml INDWELLCAT 11/05/25 18:41 3,000 unit PRN PRN Administration heplock vascath Heparin Sodium (Porcine) 3,000 unit 10/22/25 20:09 10/23/25 15:49 Heparin Sod Inj 1000 Unit/Ml Vial 10 Ml INDWELLCAT 11/05/25 20:08 3,000 unit X1 PRN Administration DIALYSIS Octreotide Acetate 1,000 mcg/ 102 mls @ 5.1 mls/hr 10/23/25 04:30 10/25/25 20:45 Sodium Chloride IV 10/27/25 04:29 50 mcg/hr .Q20H YOVANI 5.1 mls/hr Protocol Administration 50 MCG/HR Albumin Human 25 gm in 100 mls @ 0 mls/hr 10/22/25 19:47 Albuminex 25% Ivpb IV Q30MIN PRN To maintain SBP>90 Per Protocol Fentanyl Citrate 2,500 mcg in 250 mls @ 2.5 mls/hr 10/22/25 22:51 10/24/25 08:17 Sublimaze Inj 2,500 Mcg/250 Ml Bag IV 10/27/25 12:08 0 mcg/hr .Q24H PRN 0 mls/hr PER PROTOCOL Titration Protocol 25 MCG/HR Propofol 1,000 mg in 100 mls @ 2.864 mls/hr 10/22/25 22:51 10/24/25 08:17 Diprivan Ivpb IV 11/21/25 12:08 0 mcg/kg/min .Q24H PRN 0 mls/hr PER PROTOCOL Titration Protocol 5 MCG/KG/MIN Norepinephrine/Dextrose 8 mg in 250 mls @ 9.703 mls/hr 10/24/25 10:14 Levophed In D5w 8mg/250ml IV 11/23/25 10:13 .Q24H PRN PER PROTOCOL Protocol 0.05 MCG/KG/MIN Piperacillin/Tazobactam/Dextrose 3.375 gm in 50 mls @ 12.5 mls/hr 10/24/25 22:00 10/26/25 05:50 Zosyn IV 10/31/25 21:59 12.5 mls/hr Q8HR YOVANI Administration Protocol Dobutamine HCl/Dextrose 500 mg in 250 mls @ 14.85 mls/hr 10/24/25 18:00 10/26/25 04:36 Dobutrex/D5w Ivpb IV 11/23/25 17:43 Not Given .[id number] YOVANI 5 MCG/KG/MIN Dexmedetomidine/Sodium Chloride 400 mcg in 100 mls @ 4.915 mls/hr 10/25/25 08:34 10/25/25 18:54 Precedex Ivpb IV 11/24/25 08:33 0 mcg/kg/hr .[id number] PRN 0 mls/hr Per PROTOCOL Titration Protocol 0.2 MCG/KG/HR Lactulose 20 gm 10/22/25 06:15 10/26/25 05:16 Lactulose Syrup 20 Gm/30 Ml Udc PO 11/21/25 06:14 Not Given QID YOVANI Protocol Levothyroxine Sodium 25 mcg 10/23/25 06:00 10/26/25 05:16 Levothyroxine Sodium 25 Mcg Tablet PO 11/22/25 05:59 Not Given ACBR YOVANI Pantoprazole Sodium 40 mg 10/22/25 09:00 10/25/25 08:26 Pantoprazole Inj 40 Mg Vial IVP 11/21/25 08:59 40 mg QDAY YOVANI Administration Rifaximin 550 mg 10/24/25 21:00 10/25/25 20:38 Rifaximin 550 Mg Tablet PO 10/31/25 20:59 Not Given BID YOVANI Sevelamer Carbonate 800 mg 10/23/25 12:00 10/25/25 19:22 Sevelamer Carbonate 800 Mg Tablet PO 11/22/25 11:59 Not Given TIDWM YOVANI Sodium Chloride 3 ml 10/22/25 17:47 Sodium Chloride Rt Irais 0.9% 3 Ml Nebu INH 11/21/25 17:46 PRN PRN SOLN Plan Assessment Mr. Amador is a 60-year-old gentleman with history of heart failure with reduced ejection fraction alcohol-related cirrhosis COPD on home oxygen hypertension CKD and? Lymphoma of the right neck was brought in for 1 week of shortness of breath from correction who had severe refractory hyperkalemia that was refractory to hyperkalemia cocktail upgraded from floors to the ICU with severe acidemia and refractory hyper-K. Extubated and now off sedation. on Bipap Neuro Acute metabolic encephalopathy secondary to acute decompensated liver failure - resolved Hepatic encephalopathy Dx ammonia wnl Tx cont lactulose 20 q6hr Agitation - resolved CVS Acute CHF exacerbation Heart failure with reduced ejection fraction 25-30 %, on this admission 10/2025 Home medications GDMT carvedilol, spironolactone, empagliflozin not on GREY or ARB DDX exaccerbation likely 2/2 PNA Dx Monitor UOP Tx Hold HD in setting of good uop with 2 bumex given yesterday Albumin 25 + Bumex 2 mg IV Pulm R Aspiration PNA- Pseudamonas Dx - serial cxr, imaging looks improved from prior Treatment - zosyn 3.36 (10/24- COPD Dx Serial CXR Tx duonebs q4hr prn GI Acute decompensated liver failure Severe ascites reaccumulation of ascites, abdomen tense - Physical exam - SAAG 1.1 consistent with Follow-up LFTs Tx - repeat paracentesis if clinically indicated, replete albumin Renal CADY on CKD versus worsening CKD UOP 30-40 cc/hr, responsive to bumex Dx - qAM renal panel - monitor UOP Tx - HD per nephro recs Hyperkalemia - Resolved with HD Hyperphosphatemia - DDX, suspect in setting of CKD Dx : daily Phos labs Tx: Sevalomer 800 3 times daily Endo Proptosis ? Thyroid eye disease Hypothyroidism Patient has history of hypothyroidism, takes levothyroxine 25 at home, plan for oral given patient is not on pressors actively -outpatient f/u Heme/Onc Chronic microcytic anemia ddx: iron deficiency anemia vs anemia of chronic dz vs ckd Dx - iron panel and ferritin low, Tx given patient in acute illness iso aspiration pneumonia, hold iv iron, give PO Iron POD. transfuse if <7 Coagulopathy secondary to cirrhosis and acute decompensated liver failure PT, INR, PTT all elevated with elevated D-dimer 1600 Dx - Follow-up coags in the a.m. Tx - transfuse platelets as indicated ID ? Community-acquired pneumonia versus healthcare associated pneumonia Aspiration PNA ET secretions with Pseudamonas, tx Zosyn R Otitis Externa DDx Consider acute otitis media with vs without tympanic membrane perforation, less likely suppurative otitis media given his presentation is acute, without a persistent otitis media history and more associated with hearing loss and less with acute pain, consider furunculosis (infection of the hair follicle in the outer ear, causing otalgia and tenderness and pustular lesions, patient without any infected hair follicles in the outer ear, so less likely, Cant miss dx necrotizing/ malignant otitis externa,, monitor for failure to respond to standard therapy and cranial nerve involvement, patient without any facial nerve palsy. Dx: Otoscopy, consider pneumatic otoscopy for better visualization of the typmanic memb Tx: Ciprofloxacin drops 3, 12/8 - (intend for 7 day course) Bundle DVT prophylaxis, heparin 500 every 12 GI prophylaxis d/c protonix Lines: RIJ, PIV, morgan cath CODE STATUS: Full Case disclosed with my Attending Dr. Kavon Goff MD PGY1
[2025-10-26] MEDS: SEVELAMER CARBONATE 800 MG TABLET PO ×3 (08:55→17:43)
[2025-10-26] MEDS: ENOXAPARIN SOD INJ 30 MG/0.3 ML SYRINGE SC (08:56)
--- NOTE | 2025-10-26 09:05 | ESPR_ITS ---
Documentation for date of: 10/26/25 Subjective Subjective Interval history: Interval history: 60-year-old male past medical history of COPD, alcoholic cirrhosis, diabetes, gout, hypertension, A-fib, heart failure, hyperlipidemia, acidosis, CKD, stage III lymphoma who presented from SNF on 10/22 with shortness of breath and altered mental status. He was found to have a potassium of 6.3, BNP of 638, creatinine of 2.9, and ascites. Per staff, patient is AOx4 and conversational at baseline. ED course: - Vitals: BP 108/89. Patient was desaturating into the 70s on 4 L nasal cannula, however upon arousal he would return to the 90s. - Labs: Potassium 6.3, BUN 42, creatinine 2.9, alk phos 307, BNP 638, PT 15.4, INR 1.5, D-dimer 1600, ABG pH of 7.3, pO2 of 80. - Imaging: Chest x-ray showed vascular congestion, heart failure. Abdominal ultrasound showed ascites. - Patient received DuoNeb treatment, 4 mg morphine, 4 mg Zofran, methylprednisolone 125 IV push x 1, dextrose, 10 units of insulin, and 1 g of calcium gluconate, and 15 GM sodium polystyrene sulfonate orally. Current Medications: allopurinol 100 mg, budesonide 2 mg, buspirone 7.5 mg, carvedilol 3.125 mg, empagliflozin 10 mg, vitamin D2, gabapentin 300 mg, levothyroxine 25 mg, pantoprazole 40 mg, potassium chloride 10 mill EQ tablets, spironolactone 100 mg, tamsulosin 0.4 mg, hydrocodone 5-3 25, ipratropium, fluticasone, lactulose, albuterol, hydroxyzine 25 mg, rifaximin 550 mg, furosemide 40 mg Allergies: No known drug allergies Patient was admitted for acute decompensated cirrhosis, hyperkalemia, and CADY, upgraded to ICU for worsening AHRF requiring intubation. Nephrology was consulted for urgent dialysis for hyperkalemia likely secondary to concomitant use of spironolactone and potassium. 10/23/25: Right femoral triple lumen line placed yesterday in ICU. Received HD last night, no ultrafiltration, tolerated session well. Patient seen and examined at bedside. Creatinine 2.9, improved to 2.1 in the afternoon. Scheduled for dialysis again today, goal 1L fluid removal. 10/24/25: Patient seen and assessed in ICU. Off sedation, tachycardic with HR 130s at bedside. Dialysis day #3, removed 1L yesterday, will remove 3L. Potassium 4.8. Creatinine 2.4. Ordered PPD and hepatitis panel in anticipation for outpatient dialysis. 10/25/2025 patient extubated and is currently on BiPAP. Short of breath and is currently seen on dialysis. In ICU. Heart rate 92-100. Labs and medications reviewed. 10/26/25: Patient seen and assessed in ICU. S/p Bumex 2mg IVP overnight, UOP 700 cc. On BiPAP. WBC downtrending. Sodium 138, potassium 5.1, chloride 98, BUN 50, creatinine 3.5, GFR 19, calcium 9.2, phosphorus 7.6. No dialysis today, continue Bumex and monitor urine output. Exam Vital Signs Temp Pulse Resp BP Pulse Ox O2 Del Method O2 Flow Rate 96.8 F 97 20 105/73 85 L BiPAP 3 10/26/25 04:00 10/26/25 08:54 10/26/25 08:54 10/26/25 07:00 10/26/25 07:00 10/25/25 18:00 10/26/25 08:54 FiO2 70 10/26/25 06:15 Narrative Exam Physical Exam General: Extubated-on BiPAP HEENT: Looks hypervolemic Heart: Distant. Regular rate and rhythm, normal S1 and S2, no murmurs appreciated. Lungs: Bibasilar crackles. Abdomen: Soft, obese, positive bowel sounds. Moderate ascites. No guarding or rebound tenderness. Neurologic: Unable to assess due to being on BiPAP Extremities: Significant edema Skin: Scattered freckles on face and upper arms. No rash or ecchymoses. Objective Labs 10/27/25 04:10 10/27/25 04:10 Labs: Laboratory Results - last 24 hr 10/22/25 10/24/25 10/25/25 06:35 04:32 09:50 WBC RBC Hgb Hct MCV MCH MCHC RDW Std Deviation Plt Count Neut % (Auto) Lymph % (Auto) [place] % (Auto) Eos % (Auto) Baso % (Auto) Neut # (Auto) Lymph # (Auto) [place] # (Auto) Eos # (Auto) Baso # (Auto) Immature Gran # (Auto) Absolute Nucleated RBC Immature Gran % Nucleated RBC % PT INR Puncture Site ABG pH ABG pCO2 ABG pO2 ABG HCO3 ABG O2 Saturation ABG Base Excess VBG pH 7.29 L VBG pCO2 51 VBG pO2 37 VBG O2 Sat (Isa) 65 L VBG Base Excess -3 Oxygen Liter Flow FiO2 Sodium Potassium Chloride Carbon Dioxide Anion Gap BUN Creatinine Estim Creat Clear Calc eGFR BUN/Creatinine Ratio Glucose Calculated Osmolality Calcium Corrected Calcium Phosphorus Magnesium Total Bilirubin AST ALT Alkaline Phosphatase Total Protein Albumin Globulin Albumin/Globulin Ratio Hepatitis A IgM Ab Non Reactive Hep Bs Antigen Non Reactive Hep B Core IgM Ab Non Reactive Hepatitis C Antibody Non Reactive Crossmatch See Detail 10/25/25 10/25/25 10/25/25 11:04 11:37 14:40 WBC RBC Hgb Hct MCV MCH MCHC RDW Std Deviation Plt Count Neut % (Auto) Lymph % (Auto) [place] % (Auto) Eos % (Auto) Baso % (Auto) Neut # (Auto) Lymph # (Auto) [place] # (Auto) Eos # (Auto) Baso # (Auto) Immature Gran # (Auto) Absolute Nucleated RBC Immature Gran % Nucleated RBC % PT INR Puncture Site Cancelled Left Radial ABG pH Cancelled 7.26 L ABG pCO2 Cancelled 49 H ABG pO2 Cancelled 230 H D ABG HCO3 Cancelled 22 ABG O2 Saturation Cancelled 100 H ABG Base Excess Cancelled -6 L VBG pH 7.25 L VBG pCO2 59 H VBG pO2 41 VBG O2 Sat (Isa) 65 L VBG Base Excess -3 Oxygen Liter Flow Cancelled FiO2 Cancelled 30 Sodium 139 Potassium 5.2 H Chloride 101 Carbon Dioxide 26.6 Anion Gap 11 BUN 45 H Creatinine 3.6 H Estim Creat Clear Calc 23.4 L eGFR 19 L BUN/Creatinine Ratio 13 Glucose 120 H Calculated Osmolality 290 Calcium 8.8 Corrected Calcium 9.3 Phosphorus 8.0 H Magnesium Total Bilirubin AST ALT Alkaline Phosphatase Total Protein Albumin 3.4 L Globulin Albumin/Globulin Ratio Hepatitis A IgM Ab Hep Bs Antigen Hep B Core IgM Ab Hepatitis C Antibody Crossmatch 10/25/25 10/25/25 10/26/25 16:26 20:00 01:25 WBC RBC Hgb Hct MCV MCH MCHC RDW Std Deviation Plt Count Neut % (Auto) Lymph % (Auto) [place] % (Auto) Eos % (Auto) Baso % (Auto) Neut # (Auto) Lymph # (Auto) [place] # (Auto) Eos # (Auto) Baso # (Auto) Immature Gran # (Auto) Absolute Nucleated RBC Immature Gran % Nucleated RBC % PT INR Puncture Site Left Radial Right Radial Right Radial ABG pH 7.25 L 7.28 L 7.32 L ABG pCO2 53 H 51 H 46 ABG pO2 87 D 68 L 120 H D ABG HCO3 24 24 23 ABG O2 Saturation 95 91 99 H ABG Base Excess -4 L -3 -3 VBG pH VBG pCO2 VBG pO2 VBG O2 Sat (Isa) VBG Base Excess Oxygen Liter Flow FiO2 50 50 70 Sodium Potassium Chloride Carbon Dioxide Anion Gap BUN Creatinine Estim Creat Clear Calc eGFR BUN/Creatinine Ratio Glucose Calculated Osmolality Calcium Corrected Calcium Phosphorus Magnesium Total Bilirubin AST ALT Alkaline Phosphatase Total Protein Albumin Globulin Albumin/Globulin Ratio Hepatitis A IgM Ab Hep Bs Antigen Hep B Core IgM Ab Hepatitis C Antibody Crossmatch 10/26/25 04:12 WBC 11.7 H RBC 4.94 Hgb 11.1 L Hct 36.5 L MCV 74 L MCH 22.5 L MCHC 30.4 L RDW Std Deviation 62.5 H Plt Count 103 L Neut % (Auto) 77 Lymph % (Auto) 7 L [place] % (Auto) 15 H Eos % (Auto) 0 Baso % (Auto) 0 Neut # (Auto) 9.1 H Lymph # (Auto) 0.8 L [place] # (Auto) 1.8 H Eos # (Auto) 0.0 Baso # (Auto) 0.0 Immature Gran # (Auto) 0.07 H Absolute Nucleated RBC 0.28 H Immature Gran % 1 H Nucleated RBC % 2 H PT 15.6 H INR 1.5 H Puncture Site ABG pH ABG pCO2 ABG pO2 ABG HCO3 ABG O2 Saturation ABG Base Excess VBG pH VBG pCO2 VBG pO2 VBG O2 Sat (Isa) VBG Base Excess Oxygen Liter Flow FiO2 Sodium 138 Potassium 5.1 Chloride 98 Carbon Dioxide 26.3 Anion Gap 14 BUN 50 H Creatinine 3.5 H Estim Creat Clear Calc 24.1 L eGFR 19 L BUN/Creatinine Ratio 14 Glucose 87 Calculated Osmolality 287 Calcium 9.2 Corrected Calcium 9.5 Phosphorus 7.6 H Magnesium 2.0 Total Bilirubin 1.8 H AST 18 ALT 9 L Alkaline Phosphatase 163 H D Total Protein 6.7 Albumin 3.6 Globulin 3.1 Albumin/Globulin Ratio 1.2 Hepatitis A IgM Ab Hep Bs Antigen Hep B Core IgM Ab Hepatitis C Antibody Crossmatch ABG Interpretation ABG results: 10/22/25 10/22/25 10/22/25 03:27 11:26 15:35 ABG pH 7.30 L 7.10 L* D 7.29 L D ABG pCO2 48 80 H* D 48 D ABG pO2 80 L 34 L* D 236 H D ABG HCO3 24 25 23 ABG O2 Saturation 98 40 L 101 H ABG Base Excess -2 -5 L -3 VBG pH VBG pCO2 VBG pO2 VBG Base Excess 10/22/25 10/23/25 10/23/25 19:01 05:11 19:30 ABG pH 7.36 7.34 L 7.48 H D ABG pCO2 43 50 H 36 D ABG pO2 173 H D 40 L* D 72 L D ABG HCO3 24 27 H 27 H ABG O2 Saturation 100 H 65 L 95 ABG Base Excess -1 1 4 H VBG pH VBG pCO2 VBG pO2 VBG Base Excess 10/24/25 10/24/25 10/24/25 04:47 15:55 16:18 ABG pH 7.47 H Cancelled ABG pCO2 37 Cancelled ABG pO2 76 L Cancelled ABG HCO3 27 H Cancelled ABG O2 Saturation 96 Cancelled ABG Base Excess 4 H Cancelled VBG pH 7.18 L VBG pCO2 72 H VBG pO2 36 VBG Base Excess -3 10/24/25 10/24/25 10/24/25 18:15 19:39 21:50 ABG pH ABG pCO2 ABG pO2 ABG HCO3 ABG O2 Saturation ABG Base Excess VBG pH 7.25 L 7.26 L 7.27 L VBG pCO2 54 D 55 51 VBG pO2 67 H D 51 42 VBG Base Excess -4 L -3 -4 L 10/24/25 10/25/25 10/25/25 23:17 01:28 03:15 ABG pH ABG pCO2 ABG pO2 ABG HCO3 ABG O2 Saturation ABG Base Excess VBG pH 7.28 L 7.27 L 7.36 VBG pCO2 52 55 40 D VBG pO2 31 37 56 VBG Base Excess -3 -2 -3 10/25/25 10/25/25 10/25/25 04:41 06:20 07:44 ABG pH 7.29 L D ABG pCO2 46 ABG pO2 128 H D ABG HCO3 22 ABG O2 Saturation 99 H ABG Base Excess -5 L VBG pH 7.25 L 7.25 L VBG pCO2 57 H D 56 VBG pO2 49 42 VBG Base Excess -3 -3 10/25/25 10/25/25 10/25/25 09:50 11:04 11:37 ABG pH Cancelled ABG pCO2 Cancelled ABG pO2 Cancelled ABG HCO3 Cancelled ABG O2 Saturation Cancelled ABG Base Excess Cancelled VBG pH 7.29 L 7.25 L VBG pCO2 51 59 H VBG pO2 37 41 VBG Base Excess -3 -3 10/25/25 10/25/25 10/25/25 14:40 16:26 20:00 ABG pH 7.26 L 7.25 L 7.28 L ABG pCO2 49 H 53 H 51 H ABG pO2 230 H D 87 D 68 L ABG HCO3 22 24 24 ABG O2 Saturation 100 H 95 91 ABG Base Excess -6 L -4 L -3 VBG pH VBG pCO2 VBG pO2 VBG Base Excess 10/26/25 01:25 ABG pH 7.32 L ABG pCO2 46 ABG pO2 120 H D ABG HCO3 23 ABG O2 Saturation 99 H ABG Base Excess -3 VBG pH VBG pCO2 VBG pO2 VBG Base Excess Quality Measures Quality Measures VTE prophylaxis Assessment & Plan Assessment Current Active Medications: Generic Name Dose Route Start Last Admin Trade Name Leandroq PRN Reason Stop Dose Admin Acetaminophen 650 mg 10/22/25 06:01 Acetaminophen 325 Mg Tablet PO 11/21/25 06:00 Q6H PRN Fever >101.5 Albuterol/Ipratropium 3 ml 10/25/25 19:00 10/26/25 06:15 Albuterol/Ipratropium (Duoneb) Rt Irais 3 Ml Nebu INH 11/24/25 18:59 3 ml Q4HRRT YOVANI Administration Ciprofloxacin/Hydrocortisone 3 drop 10/26/25 09:00 Ciprofloxacin/Hc Otic Gretta 10 Ml Btl BOTH EARS 11/25/25 08:59 BID YOVANI Enoxaparin Sodium 30 mg 10/22/25 09:00 10/26/25 08:56 Enoxaparin Sod Inj 30 Mg/0.3 Ml Syringe SC 11/05/25 08:59 30 mg QDAY YOVANI Administration Heparin Sodium (Porcine) 3,000 unit 10/22/25 18:42 10/25/25 14:06 Heparin Sod Inj 1000 Unit/Ml Vial 10 Ml [facility] 11/05/25 18:41 3,000 unit PRN PRN Administration heplock vascath Heparin Sodium (Porcine) 3,000 unit 10/22/25 20:09 10/23/25 15:49 Heparin Sod Inj 1000 Unit/Ml Vial 10 Ml [facility] 11/05/25 20:08 3,000 unit X1 PRN Administration DIALYSIS Octreotide Acetate 1,000 mcg/ 102 mls @ 5.1 mls/hr 10/23/25 04:30 10/25/25 20:45 Sodium Chloride IV 10/27/25 04:29 50 mcg/hr .Q20H YOVANI 5.1 mls/hr Protocol Administration 50 MCG/HR Albumin Human 25 gm in 100 mls @ 0 mls/hr 10/22/25 19:47 Albuminex 25% Ivpb IV Q30MIN PRN To maintain SBP>90 Per Protocol Fentanyl Citrate 2,500 mcg in 250 mls @ 2.5 mls/hr 10/22/25 22:51 10/24/25 08:17 Sublimaze Inj 2,500 Mcg/250 Ml Bag IV 10/27/25 12:08 0 mcg/hr .Q24H PRN 0 mls/hr PER PROTOCOL Titration Protocol 25 MCG/HR Propofol 1,000 mg in 100 mls @ 2.864 mls/hr 10/22/25 22:51 10/24/25 08:17 Diprivan Ivpb IV 11/21/25 12:08 0 mcg/kg/min .Q24H PRN 0 mls/hr PER PROTOCOL Titration Protocol 5 MCG/KG/MIN Norepinephrine/Dextrose 8 mg in 250 mls @ 9.703 mls/hr 10/24/25 10:14 Levophed In D5w 8mg/250ml IV 11/23/25 10:13 .Q24H PRN PER PROTOCOL Protocol 0.05 MCG/KG/MIN Piperacillin/Tazobactam/Dextrose 3.375 gm in 50 mls @ 12.5 mls/hr 10/24/25 22:00 10/26/25 05:50 Zosyn IV 10/31/25 21:59 12.5 mls/hr Q8HR YOVANI Administration Protocol Dobutamine HCl/Dextrose 500 mg in 250 mls @ 14.85 mls/hr 10/24/25 18:00 10/26/25 04:36 Dobutrex/D5w Ivpb IV 11/23/25 17:43 Not Given .[id number] YOVANI 5 MCG/KG/MIN Dexmedetomidine/Sodium Chloride 400 mcg in 100 mls @ 4.915 mls/hr 10/25/25 08:34 10/25/25 18:54 Precedex Ivpb IV 11/24/25 08:33 0 mcg/kg/hr .[id number] PRN 0 mls/hr Per PROTOCOL Titration Protocol 0.2 MCG/KG/HR Lactulose 20 gm 10/22/25 06:15 10/26/25 05:16 Lactulose Syrup 20 Gm/30 Ml Udc PO 11/21/25 06:14 Not Given QID YOVANI Protocol Levothyroxine Sodium 25 mcg 10/23/25 06:00 10/26/25 05:16 Levothyroxine Sodium 25 Mcg Tablet PO 11/22/25 05:59 Not Given ACBR YOVANI Pantoprazole Sodium 40 mg 10/22/25 09:00 10/26/25 08:55 Pantoprazole Inj 40 Mg Vial IVP 11/21/25 08:59 40 mg QDAY YOVANI Administration Rifaximin 550 mg 10/24/25 21:00 10/26/25 08:55 Rifaximin 550 Mg Tablet PO 10/31/25 20:59 550 mg BID YOVAIN Administration Sevelamer Carbonate 800 mg 10/23/25 12:00 10/26/25 08:55 Sevelamer Carbonate 800 Mg Tablet PO 11/22/25 11:59 800 mg TIDWM YOVANI Administration Sodium Chloride 3 ml 10/22/25 17:47 Sodium Chloride Rt Irais 0.9% 3 Ml Nebu INH 11/21/25 17:46 PRN PRN SOLN Plan 60-year-old male past medical history of COPD, alcoholic cirrhosis, diabetes, gout, hypertension, A-fib, heart failure, hyperlipidemia, acidosis, CKD IIIa, stage III lymphoma who presented from SNF on 10/22 with shortness of breath and altered mental status, upgraded to ICU due to worsening AHRF requiring intubation. Nephrology consulted for urgent dialysis for hyperkalemia. #Hyperkalemia (resolved) #CADY on CKD IIIa - Presented with altered mental status from SNF - Home medications include potassium chloride 10 mill EQ tablets and spironolactone 100 mg - Potassium 6.3 on admission, increased to 7.0 despite insulin, albuterol, and Kayexelate - Cr 2.9 on admission, previously 1.4 in 01/2024 - EKG showed normal sinus rhythm, no peaked T waves observed - Upgraded to ICU 10/22, HD cath placed in right IJ - S/p HD 10/22 (no ultrafiltration), 10/23 (-1L), 10/25 (-2.5L) Plan: - Hold dialysis today in light of good urine output overnight s/p Bumex - Continue Bumex daily - Strict INOs - Hold potassium and spiranolactone - Monitor renal panel daily #Respiratory acidosis #AHRF #Intubated #Acute decompensated cirrhosis 2/2 alcohol use #Acute encephalopathy #HFrEF #Hypertension #Hypothyroidism #Microcytic Anemia #History of gout #Stage III lymphoma #Diabetes #Afib paroxysmal? #HLD - Defer to ICU team for management Thank you for your consultation, please do not hesitate to reach out if you have any question or concern Patient plan of care was discussed with the attending physician, Dr. Platt. Celeste Nation DO, PGY-1 Attending Provider Attestation/Addendum Patient currently seen and examined with resident physician Dr. Nation. Note reviewed, agree with findings and recommendations. Patient extubated. More alert and awake. Did make 800 cc of urine with Bumex. Hold off on dialysis today. Continue with IV Bumex. Care discussed with ICU team. Might be transferred down to telemetry
[2025-10-26] MEDS: ALBUMIN HUMAN-KJDA 25% IVPB 25 GM/100 ML BTL IV (11:24)
[2025-10-26] MEDS: BUMETANIDE INJ 0.25 MG/ML VIAL 4 ML 2 MG IVP (12:30)
[2025-10-26] MEDS: LACTULOSE SYRUP 20 GM/30 ML UDC PO ×3 (12:30→21:07)
--- NOTE | 2025-10-26 13:33 | ESPR_ITS ---
Documentation for date of: 10/26/25 Subjective Subjective Interval history: This is a 60yo M who was admitted on 10/22 for AMS 2/2 decompensated cirrhosis and COPD with CO2 retention. He failed bipap and was intubated. He was also noted to have severe hyperkalemia. A dialysis catheter was placed and he underwent emergency dialysis. He also underwent paracentesis with 9 L removed. Currently he is undergoing ultrafiltration, there were no acute overnight events. He is afebrile, he has had some urinary output however it has slowed down to approximately 20 cc an hour 10/25- yesterday desatted to mid 70s requiring increase to 100% FiO2 and increase in PEEP. unable to obtain ABG on him despite multiple attempts, and SVO2 was checked from his central line and found to be in the mid 40s. At this point his blood pressure was also borderline. A NICOM was checked and he was not found to be fluid responsive. It was unclear if the SVO 2 represented a increase in oxygen extraction and therefore need to increase his cardiac output versus a decrease in his arterial sats given the difficulty in obtaining both a pulse ox on him as well as a ABG. He was started on dobutamine with Levophed if needed to maintain a MAP over 65 with repeat draws of SVO 2 from the central line and to target an SVO 2 over 60. This was achieved overnight and he improved with decrease both in his FiO2 and dobutamine no longer required. This morning he is awake and interactive on 30% FiO2. He appears to be doing much better than yesterday. He has decreased urinary output at approximately 10 to 15 cc an hour 10/26- pt was extubated yesterday to bipap, has had some resp acidosis which is improved on bipap settings, had good UOP overnight with bumex, today he is awake and conversant, does c/o R ear pain with discharge noted Critical Care Note Critical care time (min.): 0 Exam Vital Signs Temp Pulse Resp BP Pulse Ox O2 Del Method O2 Flow Rate 97.0 F 99 13 106/88 H 97 BiPAP 3 10/26/25 12:00 10/26/25 12:30 10/26/25 12:00 10/26/25 12:30 10/26/25 10:20 10/26/25 11:01 10/26/25 08:54 FiO2 70 10/26/25 11:01 Narrative Exam Gen- NAD, awake alert and conversant, obese HEENT- NC/AT, mucosa hydrated, sclera anicteric, R ear with purulent drainage, external auditory canal with amelia pus and erythema Chest- LCTAB, diminished at bases, HRRR, no increase in WOB Abd- obese, s/nt/bs+, US shows ascites however not a large pocket to tap currently Ext- edema throughout , pulses palp, no clubbing, no mottling, no focal deficits Physical Exam Completion Physical Exam Complete?: Yes 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 Labs 10/26/25 04:12 10/26/25 04:12 Labs: Laboratory Results - last 24 hr 10/22/25 10/24/25 10/25/25 06:35 04:32 14:40 WBC RBC Hgb Hct MCV MCH MCHC RDW Std Deviation Plt Count Neut % (Auto) Lymph % (Auto) [place] % (Auto) Eos % (Auto) Baso % (Auto) Neut # (Auto) Lymph # (Auto) [place] # (Auto) Eos # (Auto) Baso # (Auto) Immature Gran # (Auto) Absolute Nucleated RBC Immature Gran % Nucleated RBC % PT INR Puncture Site Left Radial ABG pH 7.26 L ABG pCO2 49 H ABG pO2 230 H D ABG HCO3 22 ABG O2 Saturation 100 H ABG Base Excess -6 L FiO2 30 Sodium Potassium Chloride Carbon Dioxide Anion Gap BUN Creatinine Estim Creat Clear Calc eGFR BUN/Creatinine Ratio Glucose Calculated Osmolality Calcium Corrected Calcium Phosphorus Magnesium Total Bilirubin AST ALT Alkaline Phosphatase Total Protein Albumin Globulin Albumin/Globulin Ratio Hepatitis A IgM Ab Non Reactive Hep Bs Antigen Non Reactive Hep B Core IgM Ab Non Reactive Hepatitis C Antibody Non Reactive Crossmatch See Detail 10/25/25 10/25/25 10/26/25 16:26 20:00 01:25 WBC RBC Hgb Hct MCV MCH MCHC RDW Std Deviation Plt Count Neut % (Auto) Lymph % (Auto) [place] % (Auto) Eos % (Auto) Baso % (Auto) Neut # (Auto) Lymph # (Auto) [place] # (Auto) Eos # (Auto) Baso # (Auto) Immature Gran # (Auto) Absolute Nucleated RBC Immature Gran % Nucleated RBC % PT INR Puncture Site Left Radial Right Radial Right Radial ABG pH 7.25 L 7.28 L 7.32 L ABG pCO2 53 H 51 H 46 ABG pO2 87 D 68 L 120 H D ABG HCO3 24 24 23 ABG O2 Saturation 95 91 99 H ABG Base Excess -4 L -3 -3 FiO2 50 50 70 Sodium Potassium Chloride Carbon Dioxide Anion Gap BUN Creatinine Estim Creat Clear Calc eGFR BUN/Creatinine Ratio Glucose Calculated Osmolality Calcium Corrected Calcium Phosphorus Magnesium Total Bilirubin AST ALT Alkaline Phosphatase Total Protein Albumin Globulin Albumin/Globulin Ratio Hepatitis A IgM Ab Hep Bs Antigen Hep B Core IgM Ab Hepatitis C Antibody Crossmatch 10/26/25 04:12 WBC 11.7 H RBC 4.94 Hgb 11.1 L Hct 36.5 L MCV 74 L MCH 22.5 L MCHC 30.4 L RDW Std Deviation 62.5 H Plt Count 103 L Neut % (Auto) 77 Lymph % (Auto) 7 L [place] % (Auto) 15 H Eos % (Auto) 0 Baso % (Auto) 0 Neut # (Auto) 9.1 H Lymph # (Auto) 0.8 L [place] # (Auto) 1.8 H Eos # (Auto) 0.0 Baso # (Auto) 0.0 Immature Gran # (Auto) 0.07 H Absolute Nucleated RBC 0.28 H Immature Gran % 1 H Nucleated RBC % 2 H PT 15.6 H INR 1.5 H Puncture Site ABG pH ABG pCO2 ABG pO2 ABG HCO3 ABG O2 Saturation ABG Base Excess FiO2 Sodium 138 Potassium 5.1 Chloride 98 Carbon Dioxide 26.3 Anion Gap 14 BUN 50 H Creatinine 3.5 H Estim Creat Clear Calc 24.1 L eGFR 19 L BUN/Creatinine Ratio 14 Glucose 87 Calculated Osmolality 287 Calcium 9.2 Corrected Calcium 9.5 Phosphorus 7.6 H Magnesium 2.0 Total Bilirubin 1.8 H AST 18 ALT 9 L Alkaline Phosphatase 163 H D Total Protein 6.7 Albumin 3.6 Globulin 3.1 Albumin/Globulin Ratio 1.2 Hepatitis A IgM Ab Hep Bs Antigen Hep B Core IgM Ab Hepatitis C Antibody Crossmatch Assessment & Plan Additional Assessment Additional Assessment: In summary this is a 60-year-old male admitted to the ICU for acute hypercapnic respiratory failure and altered mental status a/p [employer]SEM[employer]ER AMS-patient's acute encephalopathy is likely secondary to his hepatic encephalopathy as well as CO2 narcosis. These both seem to be improving. Encephalomalacia also noted on prior head CT - improving today - ongoing improvement however unclear if he is at baseline CV Heart failure with reduced EF-patient's Coreg is on hold due to his borderline blood pressure -EF noted to be approximately 35% with LVH -Pulmonary hypertension also noted on echo with elevated right ventricular systolic pressures -RV volume overload noted on echo as well -cont diuresis Resp Acute hypercapnic respiratory failure- improved - now on bipap and doing well Pulmonary edema- improving - good UOP with diuretics Aspiration pneumonia-patient's sputum cultures growing gram-negative benigno, continue with antibiotics for now until speciation has resulted. - growing pseudomonas - on zosyn and off of vanc COPD-DuoNebs every 4 as needed Renal CADY-patient's baseline is unclear -Numbers seem to be stable -Followed by nephrology Decreasing urinary output - trial bumex 2g - on HD Hypophosphatemia-on sevelamer Hyperkalemia-resolved GI Cirrhosis-currently on lactulose 20mg q6 - aldactone on hold given soft BP and hyperkalemia - started on rixamine 550mg BID Endo Hypothyroid-on levothyroxine Diabetes-sliding scale insulin fingersticks every 6 Heme Leukocytosis- improving Anemia-patient did have some bleeding from his procedures 2 days ago and was transfused a unit of PRBCs yesterday. His H&H remained stable -An iron panel was checked and he is found to have iron deficiency will be started on p.o. - stable Coagulopathy-in the setting of cirrhosis Thrombocytopenia- decrease over last few days may be related to sepsis DVT prophylaxis- heparin [id number] History of possible lymphoma-will try and get more data ID Aspiration pneumonia-on antibiotics Otitis Externa- started on cipro gtt for R ear Case discussed with ICU team Discussed with nephrology Labs, imaging and records reviewed ~ 38min required for evaluation, exam, review, intervention, discussion formulation of plan of care Provider Notation Provider Notation: Although this document has been carefully reviewed, there may still be some phonetic and other typographical errors. These errors are purely grammatical due to imperfections in the software program and should not be construed in any way to compromise the substance of the patient's medical care during this visit. Thank you for the opportunity and privilege in assisting you with this patient's care and management.
--- NOTE | 2025-10-26 13:44 | ESPR_ITS ---
<Statement entered by Richard John MD - 11/12/25 08:24> I reviewed above note and agree with findings and plans. I have also personally examined the patient with medicine team and went over assessment and plan with medical team including exercise science internship and resident physician. <Statement entered by Lilian Quiñonez MD - 10/26/25 15:52> In summary: 60-year-old male with a history of cirrhosis, COPD, HFrEF EF 25-30%, CKD, and prior left neck lymphoma. He was admitted to the ICU for acute decompensated liver failure, severe respiratory distress, and worsening renal function. Over the course of his ICU stay, his respiratory status improved with the use of BiPAP, and he required hemodialysis for refractory hyperkalemia and fluid overload. His acid-base status has improved with ABG pH 7.32, pCO2 46, and renal function is stabilizing. The patient is now stable for downgrade, continuing BiPAP with hourly breaks and requiring close monitoring of his ABGs and fluid balance. He is current management includes ZOSYN for aspiration PNA, and he is on DUONEB every 4 hours for his COPD. He is being treated for acute CHF exacerbation with BUMEX 2 mg IV for diuresis and albumin for volume status. Lactulose and RIFAXIMIN are used for hepatic encephalopathy, with ongoing monitoring of liver function. CADY on CKD is stable with urine output improving, and nephrology is following. SEVELAMER is being used to manage hyperphosphatemia. Infectious concerns include R Otitis Externa, for which he is receiving CIPRO otic drops. The patient is on LEVOTHYROXINE for hypothyroidism, and his chronic microcytic anemia is being managed with potential iron supplementation. His coagulopathy secondary to cirrhosis is monitored, with frequent PT/INR checks and platelet transfusions as needed. The patient is stable for ICU downgrade, with ongoing management focused on his respiratory, renal, and hepatic conditions. I?ve reviewed the note and agree with this assessment and plan, with the exceptions outlined above. I personally went over the labs, imaging, home medications, and prior records, and examined the patient. The case was also reviewed with the attending physician. Please note: this document was transcribed using voice recognition technology; minor inaccuracies may be present. Lilian Quiñonez DO PGY II Documentation for date of: 10/26/25 Subjective Subjective Interval history: Mr. Amador is a 60-year-old gentleman with a past medical history significant for left neck lymphoma, cirrhosis, COPD on home oxygen, and? Renal problems following with outpatient attendant honor bar not on HD, hypertension, chronic lower back pain who presented with worsening shortness of breath from jail, unable to obtain history from patient given he is currently intubated. 10/22/2025: CT head with Negative for acute hemorrhage, mass effect or midline shift, pupils were fixed and dilated. He was intubated, and started on HD after multiple attempts at getting central access. R ij was placed. had paracentesis with 9 L off. cytology sent 10/23/2025: Patient seen and examined at bedside with abdomen notably firm and distended with positive fluid wave. HD today with 1 L removed in 3 hour session. K now within nl at 4.5 pupils are sluggish but responsive to light and no longer fixed and dilated. remains intubated and sedated. appears more volume overloaded on exam. with reacumulated ascites despite 9 L paracentesis done yesterday. 10/24/2025 Patient examined bedside, labs reviewed. Abdomen is still notably firm and distended with positive fluid wave. HD not happening today instead had sequential ultrafiltration with 3 L removed. Plan to downgrade stalled because patient BPs dropped and was not responsive to fluids per NICOM restarted dobutamine and levophed to maintain SvO2 >65. 10/25/2025: Patient examined at bedside, labs reviewed. Patient was extubated, and placed on bipap, ABG are difficult to draw, they demonstrate persistent acidosis, so bipap settings were augmented. Presidex protocol was initiated given some agitation. 10/26/2025: Patient seen and examined at bedside, labs reviewed. Patient with notable puralent drainage slightly blood tinged on his R ear, and tenderness with pulling of the pinnea, L ear nl. R ear c/f otitis externa, started on cipro drops BID for 7 day course. On Bipap 08/23, pt requesting that we contact his brother, Otoniel Amador to provide updates. Pt underwent trial of bumex yesterday, with good UOP, so today will hold HD and diurese with 2 bumex and albumin. possible downgrade. 10/27/2025: Downgraded to MedSurg. Tolerated BiPAP well. Hold dialysis today in light of good urine output overnight s/p Bumex per nephrology recommendation. Continue to diuresis with 2mg bumex QD with close UOP monitoring. Exam Vital Signs Temp Pulse Resp BP Pulse Ox O2 Del Method O2 Flow Rate 97.0 F 99 13 106/88 H 97 BiPAP 3 10/26/25 12:00 10/26/25 12:30 10/26/25 12:00 10/26/25 12:30 10/26/25 10:20 10/26/25 11:01 10/26/25 08:54 FiO2 70 10/26/25 11:01 Narrative Exam General: Awake and in no acute distress. On BiPAP. HEENT: Normocephalic, atraumatic, mucous membranes moist. Right ear purulent drainage. Heart: Regular rate and rhythm Lungs: Clear to auscultation with no wheezing or crackles. No increases WOB. Abdomen: Soft, nondistended, nontender. No guarding or rebound tenderness. Neurologic: No gross neurological deficit Extremities: 1+ edema throughout, no mottling or ecchymosis. Objective Labs 10/26/25 04:12 10/26/25 04:12 Labs: Laboratory Results - last 24 hr 10/22/25 10/24/25 10/25/25 06:35 04:32 14:40 WBC RBC Hgb Hct MCV MCH MCHC RDW Std Deviation Plt Count Neut % (Auto) Lymph % (Auto) Montgomery % (Auto) Eos % (Auto) Baso % (Auto) Neut # (Auto) Lymph # (Auto) Montgomery # (Auto) Eos # (Auto) Baso # (Auto) Immature Gran # (Auto) Absolute Nucleated RBC Immature Gran % Nucleated RBC % PT INR Puncture Site Left Radial ABG pH 7.26 L ABG pCO2 49 H ABG pO2 230 H D ABG HCO3 22 ABG O2 Saturation 100 H ABG Base Excess -6 L FiO2 30 Sodium Potassium Chloride Carbon Dioxide Anion Gap BUN Creatinine Estim Creat Clear Calc eGFR BUN/Creatinine Ratio Glucose Calculated Osmolality Calcium Corrected Calcium Phosphorus Magnesium Total Bilirubin AST ALT Alkaline Phosphatase Total Protein Albumin Globulin Albumin/Globulin Ratio Hepatitis A IgM Ab Non Reactive Hep Bs Antigen Non Reactive Hep B Core IgM Ab Non Reactive Hepatitis C Antibody Non Reactive Crossmatch See Detail 10/25/25 10/25/25 10/26/25 16:26 20:00 01:25 WBC RBC Hgb Hct MCV MCH MCHC RDW Std Deviation Plt Count Neut % (Auto) Lymph % (Auto) Montgomery % (Auto) Eos % (Auto) Baso % (Auto) Neut # (Auto) Lymph # (Auto) Montgomery # (Auto) Eos # (Auto) Baso # (Auto) Immature Gran # (Auto) Absolute Nucleated RBC Immature Gran % Nucleated RBC % PT INR Puncture Site Left Radial Right Radial Right Radial ABG pH 7.25 L 7.28 L 7.32 L ABG pCO2 53 H 51 H 46 ABG pO2 87 D 68 L 120 H D ABG HCO3 24 24 23 ABG O2 Saturation 95 91 99 H ABG Base Excess -4 L -3 -3 FiO2 50 50 70 Sodium Potassium Chloride Carbon Dioxide Anion Gap BUN Creatinine Estim Creat Clear Calc eGFR BUN/Creatinine Ratio Glucose Calculated Osmolality Calcium Corrected Calcium Phosphorus Magnesium Total Bilirubin AST ALT Alkaline Phosphatase Total Protein Albumin Globulin Albumin/Globulin Ratio Hepatitis A IgM Ab Hep Bs Antigen Hep B Core IgM Ab Hepatitis C Antibody Crossmatch 10/26/25 04:12 WBC 11.7 H RBC 4.94 Hgb 11.1 L Hct 36.5 L MCV 74 L MCH 22.5 L MCHC 30.4 L RDW Std Deviation 62.5 H Plt Count 103 L Neut % (Auto) 77 Lymph % (Auto) 7 L Montgomery % (Auto) 15 H Eos % (Auto) 0 Baso % (Auto) 0 Neut # (Auto) 9.1 H Lymph # (Auto) 0.8 L Montgomery # (Auto) 1.8 H Eos # (Auto) 0.0 Baso # (Auto) 0.0 Immature Gran # (Auto) 0.07 H Absolute Nucleated RBC 0.28 H Immature Gran % 1 H Nucleated RBC % 2 H PT 15.6 H INR 1.5 H Puncture Site ABG pH ABG pCO2 ABG pO2 ABG HCO3 ABG O2 Saturation ABG Base Excess FiO2 Sodium 138 Potassium 5.1 Chloride 98 Carbon Dioxide 26.3 Anion Gap 14 BUN 50 H Creatinine 3.5 H Estim Creat Clear Calc 24.1 L eGFR 19 L BUN/Creatinine Ratio 14 Glucose 87 Calculated Osmolality 287 Calcium 9.2 Corrected Calcium 9.5 Phosphorus 7.6 H Magnesium 2.0 Total Bilirubin 1.8 H AST 18 ALT 9 L Alkaline Phosphatase 163 H D Total Protein 6.7 Albumin 3.6 Globulin 3.1 Albumin/Globulin Ratio 1.2 Hepatitis A IgM Ab Hep Bs Antigen Hep B Core IgM Ab Hepatitis C Antibody Crossmatch ABG Interpretation ABG results: 10/22/25 10/22/25 10/22/25 03:27 11:26 15:35 ABG pH 7.30 L 7.10 L* D 7.29 L D ABG pCO2 48 80 H* D 48 D ABG pO2 80 L 34 L* D 236 H D ABG HCO3 24 25 23 ABG O2 Saturation 98 40 L 101 H ABG Base Excess -2 -5 L -3 VBG pH VBG pCO2 VBG pO2 VBG Base Excess 10/22/25 10/23/25 10/23/25 19:01 05:11 19:30 ABG pH 7.36 7.34 L 7.48 H D ABG pCO2 43 50 H 36 D ABG pO2 173 H D 40 L* D 72 L D ABG HCO3 24 27 H 27 H ABG O2 Saturation 100 H 65 L 95 ABG Base Excess -1 1 4 H VBG pH VBG pCO2 VBG pO2 VBG Base Excess 10/24/25 10/24/25 10/24/25 04:47 15:55 16:18 ABG pH 7.47 H Cancelled ABG pCO2 37 Cancelled ABG pO2 76 L Cancelled ABG HCO3 27 H Cancelled ABG O2 Saturation 96 Cancelled ABG Base Excess 4 H Cancelled VBG pH 7.18 L VBG pCO2 72 H VBG pO2 36 VBG Base Excess -3 10/24/25 10/24/25 10/24/25 18:15 19:39 21:50 ABG pH ABG pCO2 ABG pO2 ABG HCO3 ABG O2 Saturation ABG Base Excess VBG pH 7.25 L 7.26 L 7.27 L VBG pCO2 54 D 55 51 VBG pO2 67 H D 51 42 VBG Base Excess -4 L -3 -4 L 10/24/25 10/25/25 10/25/25 23:17 01:28 03:15 ABG pH ABG pCO2 ABG pO2 ABG HCO3 ABG O2 Saturation ABG Base Excess VBG pH 7.28 L 7.27 L 7.36 VBG pCO2 52 55 40 D VBG pO2 31 37 56 VBG Base Excess -3 -2 -3 10/25/25 10/25/25 10/25/25 04:41 06:20 07:44 ABG pH 7.29 L D ABG pCO2 46 ABG pO2 128 H D ABG HCO3 22 ABG O2 Saturation 99 H ABG Base Excess -5 L VBG pH 7.25 L 7.25 L VBG pCO2 57 H D 56 VBG pO2 49 42 VBG Base Excess -3 -3 10/25/25 10/25/25 10/25/25 09:50 11:04 11:37 ABG pH Cancelled ABG pCO2 Cancelled ABG pO2 Cancelled ABG HCO3 Cancelled ABG O2 Saturation Cancelled ABG Base Excess Cancelled VBG pH 7.29 L 7.25 L VBG pCO2 51 59 H VBG pO2 37 41 VBG Base Excess -3 -3 10/25/25 10/25/25 10/25/25 14:40 16:26 20:00 ABG pH 7.26 L 7.25 L 7.28 L ABG pCO2 49 H 53 H 51 H ABG pO2 230 H D 87 D 68 L ABG HCO3 22 24 24 ABG O2 Saturation 100 H 95 91 ABG Base Excess -6 L -4 L -3 VBG pH VBG pCO2 VBG pO2 VBG Base Excess 10/26/25 01:25 ABG pH 7.32 L ABG pCO2 46 ABG pO2 120 H D ABG HCO3 23 ABG O2 Saturation 99 H ABG Base Excess -3 VBG pH VBG pCO2 VBG pO2 VBG Base Excess Quality Measures Quality Measures VTE prophylaxis Assessment & Plan Assessment Current Active Medications: Generic Name Dose Route Start Last Admin Trade Name Mary PRN Reason Stop Dose Admin Acetaminophen 650 mg 10/22/25 06:01 Acetaminophen 325 Mg Tablet PO 11/21/25 06:00 Q6H PRN Fever >101.5 Albuterol/Ipratropium 3 ml 10/25/25 19:00 10/26/25 10:19 Albuterol/Ipratropium (Duoneb) Rt Irais 3 Ml Nebu INH 11/24/25 18:59 3 ml Q4HRRT YOVANI Administration Ciprofloxacin/Hydrocortisone 3 drop 10/26/25 09:00 10/26/25 10:43 Ciprofloxacin/Hc Otic Gretta 10 Ml Btl BOTH EARS 11/02/25 08:59 3 drops BID YOVANI Administration Enoxaparin Sodium 30 mg 10/22/25 09:00 10/26/25 08:56 Enoxaparin Sod Inj 30 Mg/0.3 Ml Syringe SC 11/05/25 08:59 30 mg QDAY YOVANI Administration Heparin Sodium (Porcine) 3,000 unit 10/22/25 18:42 10/25/25 14:06 Heparin Sod Inj 1000 Unit/Ml Vial 10 Ml [facility] 11/05/25 18:41 3,000 unit PRN PRN Administration heplock vascath Heparin Sodium (Porcine) 3,000 unit 10/22/25 20:09 10/23/25 15:49 Heparin Sod Inj 1000 Unit/Ml Vial 10 Ml [facility] 11/05/25 20:08 3,000 unit X1 PRN Administration DIALYSIS Octreotide Acetate 1,000 mcg/ 102 mls @ 5.1 mls/hr 10/23/25 04:30 10/25/25 20:45 Sodium Chloride IV 10/27/25 04:29 50 mcg/hr .Q20H YOVANI 5.1 mls/hr Protocol Administration 50 MCG/HR Albumin Human 25 gm in 100 mls @ 0 mls/hr 10/22/25 19:47 Albuminex 25% Ivpb IV Q30MIN PRN To maintain SBP>90 Per Protocol Fentanyl Citrate 2,500 mcg in 250 mls @ 2.5 mls/hr 10/22/25 22:51 10/24/25 08:17 Sublimaze Inj 2,500 Mcg/250 Ml Bag IV 10/27/25 12:08 0 mcg/hr .Q24H PRN 0 mls/hr PER PROTOCOL Titration Protocol 25 MCG/HR Propofol 1,000 mg in 100 mls @ 2.864 mls/hr 10/22/25 22:51 10/24/25 08:17 Diprivan Ivpb IV 11/21/25 12:08 0 mcg/kg/min .Q24H PRN 0 mls/hr PER PROTOCOL Titration Protocol 5 MCG/KG/MIN Norepinephrine/Dextrose 8 mg in 250 mls @ 9.703 mls/hr 10/24/25 10:14 Levophed In D5w 8mg/250ml IV 11/23/25 10:13 .Q24H PRN PER PROTOCOL Protocol 0.05 MCG/KG/MIN Piperacillin/Tazobactam/Dextrose 3.375 gm in 50 mls @ 12.5 mls/hr 10/24/25 22:00 10/26/25 05:50 Zosyn IV 10/31/25 21:59 12.5 mls/hr Q8HR YOVANI Administration Protocol Dobutamine HCl/Dextrose 500 mg in 250 mls @ 14.85 mls/hr 10/24/25 18:00 10/26/25 04:36 Dobutrex/D5w Ivpb IV 11/23/25 17:43 Not Given .[id number] YOVANI 5 MCG/KG/MIN Dexmedetomidine/Sodium Chloride 400 mcg in 100 mls @ 4.915 mls/hr 10/25/25 08:34 10/25/25 18:54 Precedex Ivpb IV 11/24/25 08:33 0 mcg/kg/hr .[id number] PRN 0 mls/hr Per PROTOCOL Titration Protocol 0.2 MCG/KG/HR Lactulose 20 gm 10/22/25 06:15 10/26/25 12:30 Lactulose Syrup 20 Gm/30 Ml Udc PO 11/21/25 06:14 20 gm QID YOVANI Administration Protocol Levothyroxine Sodium 25 mcg 10/23/25 06:00 10/26/25 05:16 Levothyroxine Sodium 25 Mcg Tablet PO 11/22/25 05:59 Not Given ACBR YOVANI Multivitamins/Minerals 1 ml 10/26/25 21:00 Multivitamin 15 Ml Udc PO 11/25/25 20:59 [id number]@2100 YOVANI Rifaximin 550 mg 10/24/25 21:00 10/26/25 08:55 Rifaximin 550 Mg Tablet PO 10/31/25 20:59 550 mg BID YOVANI Administration Sevelamer Carbonate 800 mg 10/23/25 12:00 10/26/25 12:30 Sevelamer Carbonate 800 Mg Tablet PO 11/22/25 11:59 800 mg TIDWM YOVANI Administration Sodium Chloride 3 ml 10/22/25 17:47 Sodium Chloride Rt Irais 0.9% 3 Ml Nebu INH 11/21/25 17:46 PRN PRN SOLN Plan This is a 60-year-old gentleman with history of heart failure with reduced ejection fraction ,alcohol-related cirrhosis, COPD on home oxygen, hypertension, CKD, and right neck mass (Lymphoma?) was brought in for 1 week of shortness of breath from jail who had severe refractory hyperkalemia that was refractory to hyperkalemia cocktail upgraded from floors to the ICU with severe acidemia and refractory hyper-K. Extubated and now off sedation, on Bipap, downgraded to ICU today. #Acute metabolic encephalopathy secondary to acute decompensated liver failure - resolved #Hepatic encephalopathy #Agitation - resolved #Severe ascites s/p paracentesis #cirrhosis - s/p paracentesis (10/22) with 9,000 mL of ascitic fluid removed. - ammonia 32, WNL - Continue lactulose 20gm q6hr - SAAG 1.2, consistent with portal hypertension 2/2 to cirrhosis - Follow-up LFTs - repeat paracentesis if clinically indicated, replete albumin #Acute CHF exacerbation likely 2/2 to PNA #Heart failure with reduced ejection fraction 25-30 %, on this admission 10/2025 #CADY on CKD versus worsening CKD #Hyperkalemia - Resolved with HD #Hyperphosphatemia - downtrending Home medications GDMT carvedilol, spironolactone, empagliflozin not on GREY or ARB - Daily renal panel - Monitor UOP, UOP 30-40 cc/hr, responsive to bumex - Hold HD in setting of good uop with 2 bumex given yesterday - Albumin 25 x 1 - Bumex 2 mg IV QD - Nephrology consulted, appreciate recs - Sevalomer 800 3 times daily #R Aspiration PNA- Pseudamonas #COPD Exacerbation #Community-acquired pneumonia versus healthcare associated pneumonia - Serial cxr, imaging looks improved from prior - ET secretions with Pseudamonas - Continue Zosyn 3.375gm TID (10/24- - Duonebs q4hr prn #Hypothyroidism - Patient has history of hypothyroidism, takes levothyroxine 25 at home, plan for oral given patient is not on vasopressors actively - outpatient f/u - Continue levothyroxine 25mcg ACBR #Chronic microcytic anemia - likely iron deficiency anemia vs anemia of chronic disease vs ckd - iron 19 low, TIBC 181 low, iron saturation 10 low - transfuse if < 7 #R Otitis Externa - monitor for failure to respond to standard therapy and cranial nerve involvement, patient without any facial nerve palsy. - purulent drainage from R ear. - continue Ciprofloxacin 3 drops, 10/26 - (intend for 7 day course) Health maintenance Dispo: ICU downgrade DVT prophylaxis: Lovenox 30mg SC QD GI prophylaxis: N/A Antibiotics: Zosyn Bowel Regimen: lactulose Diet: Renal diet Lines: RIJ, PIV, morgan cath Code status: Full code Case discussed with my senior resident Dr. Quiñonez Case discussed with my attending Dr. Alvaro Cueva, PGY 1
[2025-10-26 14:30] LABS: Allen Test Performed/OK; Base Excess -3 (-3-3); HCO3 24 mEq/L (20-26); Inspired Oxygen, FIO2 70 %; O2 Saturation 100 % (91-98); PCO2 48 mmHg (32.0-48.0); PO2 171 mmHg (83-108); Puncture Site Right Radial; pH, Arterial 7.31 (7.35-7.45)
[2025-10-26] MEDS: OCTREOTIDE ACET INJ 1,000 MCG in SODIUM CHLORIDE 0.9% 100 ML 5.1 MCG IV (17:44)
[2025-10-26] MEDS: MULTIVITAMIN 15 ML UDC PO (21:07)
[2025-10-27] VITALS (18 sets, daily range): BP systolic 93–122; BP diastolic 54–90; PULSE 83–102; RESP 15–25; TEMP 36.1–36.8; O2SAT 90–98; BMI 34.8
[2025-10-27] MEDS: ALBUTEROL/IPRATROPIUM (Duoneb) RT SOL 3 ML NEBU INH ×4 (02:25→19:21)
[2025-10-27] MEDS: LACTULOSE SYRUP 20 GM/30 ML UDC PO ×4 (04:37→21:15)
[2025-10-27] MEDS: LEVOTHYROXINE SODIUM 25 MCG TABLET PO (04:37)
[2025-10-27] MEDS: PIPER/TAZO 3.375 GM PREMIX 3.375 GM/50 ML BAG IV ×3 (04:38→21:16)
--- NOTE | 2025-10-27 05:00 | XR_ITS ---
EXAMINATION: AP chest single view TECHNIQUE: AP portable semiupright chest single view Date and time: October 27, 2025, 0514 hours, comparison October 26, 2025 INDICATIONS: Hypoxic respiratory failure, mild heart failure on earlier chest imaging FINDINGS: Atelectasis versus mild pneumonia left base Mild to moderate enlargement cardiac contour with mild to moderate vascular congestion Right internal jugular dialysis catheter tip right atrium No pneumothorax Moderate osteopenia IMPRESSION: Atelectasis versus mild pneumonia left base Mild to moderate vascular congestion
[2025-10-27 05:17] LABS: Basophils # (Auto) 0.0 Thou/mm3 (0.0-0.2); Basophils % (Auto) 0 % (0-2.5); Eosinophils # (Auto) 0.1 Thou/mm3 (0.0-0.5); Eosinophils % (Auto) 1 % (0-10); Hematocrit 36.1 % (41.0-53.0); Hemoglobin 11.0 g/dL (13.5-16.0); Immature Granulocytes Auto 0.05 Thou/mm3 (0.00-0.00); Lymphocytes # (Auto) 0.8 Thou/mm3 (1.0-4.8); Lymphocytes % (Auto) 8 % (10-50); Mean Corpuscular HGB Conc 30.5 g/dl (31.0-37.0); Mean Corpuscular Hemoglobin 22.4 pg (25.0-35.0); Mean Corpuscular Volume 74 fL (80-100); Monocytes # (Auto) 1.5 Thou/mm3 (0.0-0.8); Monocytes % (Auto) 15 % (0-12); Neutrophils # (Auto) 7.7 Thou/mm3 (1.8-7.7); Neutrophils % (Auto) 76 % (37-80); Nucleated Red Blood Cell # 0.21 Thou/mm3 (0.00-0.00); Nucleated Red Blood Cell % 2 /100 WBC (0); Platelet Count 115 Thou/mm3 (140-440); RDW Standard Deviation 63.1 fL (35.1-43.9); Red Blood Count 4.90 Miln/mm3 (4.50-5.90); White Blood Count 10.0 Thou/mm3 (3.8-10.6)
[2025-10-27 05:27] LABS: Allen Test Performed/OK; Base Excess -2 (-3-3); HCO3 24 mEq/L (20-26); Inspired Oxygen, FIO2 70 %; O2 Saturation 99 % (91-98); PCO2 46 mmHg (32.0-48.0); PO2 134 mmHg (83-108); Puncture Site Right Radial; pH, Arterial 7.33 (7.35-7.45)
[2025-10-27 05:38] LABS: INR 1.4 (0.9-1.3); Prothrombin Time 14.6 Seconds (9.0-12.2)
[2025-10-27 06:09] LABS: Alanine Aminotransferase 8 U/L (10-49); Albumin, Serum 3.6 gm/dL (3.5-5.0); Albumin/Globulin Ratio 1.2 (1.2-2.2); Alkaline Phosphatase 140 U/L (46-116); Anion Gap 13 (7-16); Aspartate Amino Transferase 17 U/L (0-34); BUN/Creatinine Ratio 15 Ratio (12-20); Bilirubin,Total 1.6 mg/dL (0.3-1.2); Blood Urea Nitrogen 54 mg/dL (9-23); Calcium 8.9 mg/dL (8.3-10.6); Calcium (Corrected) 9.2 mg/dL (8.5-10.1); Carbon Dioxide 26.9 mMol/L (20.0-31.0); Chloride 100 mMol/L (98-107); Creatinine (Component) 3.6 mg/dL (0.6-1.3); Estimated Creatinine Clearance 23.4 mL/min (>60); Globulin 3.1 gm/dL (2.3-3.5); Glucose 122 mg/dL (74-106); Magnesium 2.0 mg/dL (1.6-2.6); Osmolality,Calculated 295 (275-295); Phosphorous 7.3 mg/dL (2.4-5.1); Potassium 4.7 mMol/L (3.4-5.1); Sodium 140 mMol/L (136-145); Total Protein 6.7 gm/dL (5.7-8.2); eGFR 19 See Note
[2025-10-27] MEDS: SEVELAMER CARBONATE 800 MG TABLET PO ×3 (07:37→18:03)
[2025-10-27] MEDS: ACETAMINOPHEN 325 MG TABLET 650 MG PO ×2 (07:39→15:16)
[2025-10-27] MEDS: BUMETANIDE INJ 0.25 MG/ML VIAL 4 ML 2 MG IVP (08:41)
[2025-10-27] MEDS: ENOXAPARIN SOD INJ 30 MG/0.3 ML SYRINGE SC (08:42)
--- NOTE | 2025-10-27 09:12 | PD.RESPRO ---
Documentation for date of: 10/27/25 Subjective Subjective Interval history: 60-year-old male past medical history of COPD, alcoholic cirrhosis, diabetes, gout, hypertension, A-fib, heart failure, hyperlipidemia, acidosis, CKD, stage III lymphoma who presented from SN[facility] on 10/22 with shortness of breath and altered mental status. He was found to have a potassium of 6.3, BNP of 638, creatinine of 2.9, and ascites. Per staff, patient is AOx4 and conversational at baseline. ED course: - Vitals: BP 108/89. Patient was desaturating into the 70s on 4 L nasal cannula, however upon arousal he would return to the 90s. - Labs: Potassium 6.3, BUN 42, creatinine 2.9, alk phos 307, BNP 638, PT 15.4, INR 1.5, D-dimer 1600, ABG pH of 7.3, pO2 of 80. - Imaging: Chest x-ray showed vascular congestion, heart failure. Abdominal ultrasound showed ascites. - Patient received DuoNeb treatment, 4 mg morphine, 4 mg Zofran, methylprednisolone 125 IV push x 1, dextrose, 10 units of insulin, and 1 g of calcium gluconate, and 15 GM sodium polystyrene sulfonate orally. Current Medications: allopurinol 100 mg, budesonide 2 mg, buspirone 7.5 mg, carvedilol 3.125 mg, empagliflozin 10 mg, vitamin D2, gabapentin 300 mg, levothyroxine 25 mg, pantoprazole 40 mg, potassium chloride 10 mill EQ tablets, spironolactone 100 mg, tamsulosin 0.4 mg, hydrocodone 5-3 25, ipratropium, fluticasone, lactulose, albuterol, hydroxyzine 25 mg, rifaximin 550 mg, furosemide 40 mg Allergies: No known drug allergies Patient was admitted for acute decompensated cirrhosis, hyperkalemia, and CADY, upgraded to ICU for worsening AHRF requiring intubation. Nephrology was consulted for urgent dialysis for hyperkalemia likely secondary to concomitant use of spironolactone and potassium. 10/23/25: Right femoral triple lumen line placed yesterday in ICU. Received HD last night, no ultrafiltration, tolerated session well. Patient seen and examined at bedside. Creatinine 2.9, improved to 2.1 in the afternoon. Scheduled for dialysis again today, goal 1L fluid removal. 10/24/25: Patient seen and assessed in ICU. Off sedation, tachycardic with HR 130s at bedside. Dialysis day #3, removed 1L yesterday, will remove 3L. Potassium 4.8. Creatinine 2.4. Ordered PPD and hepatitis panel in anticipation for outpatient dialysis. 10/25/2025 patient extubated and is currently on BiPAP. Short of breath and is currently seen on dialysis. In ICU. Heart rate 92-100. Labs and medications reviewed. 10/26/25: Patient seen and assessed in ICU. S/p Bumex 2mg IVP overnight, UOP 700 cc. On BiPAP. WBC downtrending. Sodium 138, potassium 5.1, chloride 98, BUN 50, creatinine 3.5, GFR 19, calcium 9.2, phosphorus 7.6. No dialysis today, continue Bumex and monitor urine output. 10/27/25: Patient seen and assessed in telemetry, downgraded yesterday. UOP 2.1L on IV Bumex 2mg daily. Saturating well on room air. Potassium 4.7, BUN 54, creatinine 3.6, GFR 19, phosphorus 7.3. Increase sevelamer 800 mg to two tabs with meals for today, follow up labs tomorrow. No need for dialysis as patient is maintaining good urine output. Exam Vital Signs Temp Pulse Resp BP Pulse Ox O2 Del Method O2 Flow Rate 97.2 F 99 20 112/54 L 98 Nasal Cannula 3 10/27/25 06:05 10/27/25 08:41 10/27/25 06:48 10/27/25 08:41 10/27/25 06:05 10/27/25 06:05 10/27/25 06:48 FiO2 70 10/27/25 02:26 Narrative Exam Physical Exam General: Awake and in no acute distress. Conversational and non-toxic appearing. Saturating well on room air. HEENT: Normocephalic, atraumatic, mucous membranes moist. Heart: Regular rate and rhythm, normal S1 and S2, no murmurs. Lungs: Bibasilar crackles. Abdomen: Soft, obese, positive bowel sounds. Moderate ascites. No guarding or rebound tenderness. Neurologic: No gross neurological deficit, and patient able to move all 4 extremities. Extremities: Significant edema Skin: Scattered freckles on face and upper arms. No rash or ecchymoses. Objective Labs 10/27/25 04:10 10/27/25 04:10 Labs: Laboratory Results - last 24 hr 10/26/25 10/27/25 10/27/25 14:20 04:10 05:14 WBC 10.0 RBC 4.90 Hgb 11.0 L Hct 36.1 L MCV 74 L MCH 22.4 L MCHC 30.5 L RDW Std Deviation 63.1 H Plt Count 115 L Neut % (Auto) 76 Lymph % (Auto) 8 L [place] % (Auto) 15 H Eos % (Auto) 1 Baso % (Auto) 0 Neut # (Auto) 7.7 Lymph # (Auto) 0.8 L [place] # (Auto) 1.5 H Eos # (Auto) 0.1 Baso # (Auto) 0.0 Immature Gran # (Auto) 0.05 H Absolute Nucleated RBC 0.21 H Immature Gran % 1 H Nucleated RBC % 2 H PT 14.6 H INR 1.4 H Puncture Site Right Radial Right Radial ABG pH 7.31 L 7.33 L ABG pCO2 48 46 ABG pO2 171 H D 134 H D ABG HCO3 24 24 ABG O2 Saturation 100 H 99 H ABG Base Excess -3 -2 FiO2 70 70 Sodium 140 Potassium 4.7 Chloride 100 Carbon Dioxide 26.9 Anion Gap 13 BUN 54 H Creatinine 3.6 H Estim Creat Clear Calc 23.4 L eGFR 19 L BUN/Creatinine Ratio 15 Glucose 122 H Calculated Osmolality 295 Calcium 8.9 Corrected Calcium 9.2 Phosphorus 7.3 H Magnesium 2.0 Total Bilirubin 1.6 H AST 17 ALT 8 L Alkaline Phosphatase 140 H D Total Protein 6.7 Albumin 3.6 Globulin 3.1 Albumin/Globulin Ratio 1.2 ABG Interpretation ABG results: 10/22/25 10/22/25 10/22/25 03:27 11:26 15:35 ABG pH 7.30 L 7.10 L* D 7.29 L D ABG pCO2 48 80 H* D 48 D ABG pO2 80 L 34 L* D 236 H D ABG HCO3 24 25 23 ABG O2 Saturation 98 40 L 101 H ABG Base Excess -2 -5 L -3 VBG pH VBG pCO2 VBG pO2 VBG Base Excess 10/22/25 10/23/2525 19:01 05:11 19:30 ABG pH 7.36 7.34 L 7.48 H D ABG pCO2 43 50 H 36 D ABG pO2 173 H D 40 L* D 72 L D ABG HCO3 24 27 H 27 H ABG O2 Saturation 100 H 65 L 95 ABG Base Excess -1 1 4 H VBG pH VBG pCO2 VBG pO2 VBG Base Excess 10/24/25 10/24/25 10/24/25 04:47 15:55 16:18 ABG pH 7.47 H Cancelled ABG pCO2 37 Cancelled ABG pO2 76 L Cancelled ABG HCO3 27 H Cancelled ABG O2 Saturation 96 Cancelled ABG Base Excess 4 H Cancelled VBG pH 7.18 L VBG pCO2 72 H VBG pO2 36 VBG Base Excess -3 10/24/25 10/24/25 10/24/25 18:15 19:39 21:50 ABG pH ABG pCO2 ABG pO2 ABG HCO3 ABG O2 Saturation ABG Base Excess VBG pH 7.25 L 7.26 L 7.27 L VBG pCO2 54 D 55 51 VBG pO2 67 H D 51 42 VBG Base Excess -4 L -3 -4 L 10/24/25 10/25/25 10/25/25 23:17 01:28 03:15 ABG pH ABG pCO2 ABG pO2 ABG HCO3 ABG O2 Saturation ABG Base Excess VBG pH 7.28 L 7.27 L 7.36 VBG pCO2 52 55 40 D VBG pO2 31 37 56 VBG Base Excess -3 -2 -3 10/25/25 10/25/25 10/25/25 04:41 06:20 07:44 ABG pH 7.29 L D ABG pCO2 46 ABG pO2 128 H D ABG HCO3 22 ABG O2 Saturation 99 H ABG Base Excess -5 L VBG pH 7.25 L 7.25 L VBG pCO2 57 H D 56 VBG pO2 49 42 VBG Base Excess -3 -3 10/25/25 10/25/25 10/25/25 09:50 11:04 11:37 ABG pH Cancelled ABG pCO2 Cancelled ABG pO2 Cancelled ABG HCO3 Cancelled ABG O2 Saturation Cancelled ABG Base Excess Cancelled VBG pH 7.29 L 7.25 L VBG pCO2 51 59 H VBG pO2 37 41 VBG Base Excess -3 -3 10/25/25 10/25/25 10/25/25 14:40 16:26 20:00 ABG pH 7.26 L 7.25 L 7.28 L ABG pCO2 49 H 53 H 51 H ABG pO2 230 H D 87 D 68 L ABG HCO3 22 24 24 ABG O2 Saturation 100 H 95 91 ABG Base Excess -6 L -4 L -3 VBG pH VBG pCO2 VBG pO2 VBG Base Excess 10/26/25 10/26/25 10/27/25 01:25 14:20 05:14 ABG pH 7.32 L 7.31 L 7.33 L ABG pCO2 46 48 46 ABG pO2 120 H D 171 H D 134 H D ABG HCO3 23 24 24 ABG O2 Saturation 99 H 100 H 99 H ABG Base Excess -3 -3 -2 VBG pH VBG pCO2 VBG pO2 VBG Base Excess Quality Measures Quality Measures VTE prophylaxis Assessment & Plan Assessment Current Active Medications: Generic Name Dose Route Start Last Admin Trade Name Freq PRN Reason Stop Dose Admin Acetaminophen 650 mg 10/22/25 06:01 10/27/25 07:39 Acetaminophen 325 Mg Tablet PO 11/21/25 06:00 650 mg Q6H PRN Administration Fever >101.5 Albuterol/Ipratropium 3 ml 10/25/25 19:00 10/27/25 06:47 Albuterol/Ipratropium (Duoneb) Rt Irais 3 Ml Nebu INH 11/24/25 18:59 3 ml Q4HRRT YOVANI Administration Bumetanide 2 mg 10/27/25 09:00 10/27/25 08:41 Bumetanide Inj 0.25 Mg/Ml Vial 4 Ml IVP 11/26/25 08:59 2 mg QDAY YOVANI Administration Ciprofloxacin/Hydrocortisone 3 drop 10/26/25 09:00 10/27/25 08:43 Ciprofloxacin/Hc Otic Gretta 10 Ml Btl BOTH EARS 11/02/25 08:59 3 drops BID YOVANI Administration Enoxaparin Sodium 30 mg 10/22/25 09:00 10/27/25 08:42 Enoxaparin Sod Inj 30 Mg/0.3 Ml Syringe SC 11/05/25 08:59 30 mg QDAY YOVANI Administration Heparin Sodium (Porcine) 3,000 unit 10/22/25 18:42 10/25/25 14:06 Heparin Sod Inj 1000 Unit/Ml Vial 10 Ml [facility] 11/05/25 18:41 3,000 unit PRN PRN Administration heplock vascath Heparin Sodium (Porcine) 3,000 unit 10/22/25 20:09 10/23/25 15:49 Heparin Sod Inj 1000 Unit/Ml Vial 10 Ml [facility] 11/05/25 20:08 3,000 unit X1 PRN Administration DIALYSIS Albumin Human 25 gm in 100 mls @ 0 mls/hr 10/22/25 19:47 Albuminex 25% Ivpb IV Q30MIN PRN To maintain SBP>90 Per Protocol Piperacillin/Tazobactam/Dextrose 3.375 gm in 50 mls @ 12.5 mls/hr 10/24/25 22:00 10/27/25 04:38 Zosyn IV 10/31/25 21:59 12.5 mls/hr Q8HR YOVANI Administration Protocol Lactulose 20 gm 10/27/25 07:19 Lactulose Syrup 20 Gm/30 Ml Udc PO 11/21/25 06:14 QID YOVANI Protocol Levothyroxine Sodium 25 mcg 10/23/25 06:00 10/27/25 04:37 Levothyroxine Sodium 25 Mcg Tablet PO 11/22/25 05:59 25 mcg ACBR YOVANI Administration Multivitamins/Minerals 1 ml 10/26/25 21:00 10/26/25 21:07 Multivitamin 15 Ml Udc PO 11/25/25 20:59 1 ml Q48HR@2100 YOVANI Administration Rifaximin 550 mg 10/24/25 21:00 10/27/25 08:43 Rifaximin 550 Mg Tablet PO 10/31/25 20:59 550 mg BID YOVANI Administration Sevelamer Carbonate 800 mg 10/23/25 12:00 10/27/25 07:37 Sevelamer Carbonate 800 Mg Tablet PO 11/22/25 11:59 800 mg TIDWM YOVANI Administration Sodium Chloride 3 ml 10/22/25 17:47 Sodium Chloride Rt Irais 0.9% 3 Ml Nebu INH 11/21/25 17:46 PRN PRN SOLN Plan 60-year-old male past medical history of COPD, alcoholic cirrhosis, diabetes, gout, hypertension, A-fib, heart failure, hyperlipidemia, acidosis, CKD IIIa, stage III lymphoma who presented from SNF on 10/22 with shortness of breath and altered mental status, upgraded to ICU due to worsening AHRF requiring intubation. Extubated and downgraded to telemetry 10/26. Nephrology consulted for urgent dialysis for hyperkalemia. #Hyperkalemia (resolved) #CADY on CKD IIIa versus CKD IV - Presented with altered mental status from SNF - Home medications include potassium chloride 10 mill EQ tablets and spiranolactone 100 mg - Potassium 6.3 on admission, increased to 7.0 despite insulin, albuterol, and Kayexelate - Cr 2.9 --> 2.4 (10/24) -> 3.5 (10/25) --> 3.6 - Creatinine previously 1.4 in 01/2024 however unclear baseline - EKG showed normal sinus rhythm, no peaked T waves observed - Upgraded to ICU 10/22, HD cath placed in right IJ - S/p HD 10/22 (no ultrafiltration), 10/23 (-1L), 10/25 (-2.5L) Plan: - Hold dialysis today in light of good urine output overnight s/p Bumex - IV Bumex 2 mg daily - Hold potassium and spiranolactone - Strict INOs - Monitor renal panel daily - Avoid nephrotoxic agents - Renally dose medications #Hyperphosphatemia - Phosphorus 7.3 Plan: - Increase Sevelamer 800 TID to 2 tablets with meals - Re-evaluate renal panel tomorrow #Respiratory acidosis #AHRF #Intubated #Acute decompensated cirrhosis 2/2 alcohol use #Acute encephalopathy #HFrEF #Hypertension #Hypothyroidism #Microcytic Anemia #History of gout #Stage III lymphoma #Diabetes #Afib paroxysmal? #HLD - Defer to ICU team for management Thank you for your consultation, please do not hesitate to reach out if you have any question or concern Patient plan of care was discussed with the attending physician, Dr. Platt. Celeste Nation DO, PGY-1 Attending Provider Attestation/Addendum Patient seen and examined with resident physician Dr. Nation. Note reviewed, agree with findings and recommendations. Patient more alert and awake he started to make good urine with the diuretics. Replace electrolytes. No need for dialysis today. Will monitor his renal function closely. If clinically stable in the next 1 to 2 days will DC dialysis catheter.
--- NOTE | 2025-10-27 10:04 | XR_ITS ---
Examination: Abdomen sonogram, Limited Date and time of exam: October 27, 2025, 1009 hours INDICATIONS: Abdominal distention several weeks clinical diagnosis ascites Technique: Real-time guerra scale transabdominal sonographic images of the abdomen obtained. Findings: Moderate ascites IMPRESSION: Moderate ascites
--- NOTE | 2025-10-27 10:07 | ESPR_ITS ---
<Statement entered by Ramiro Sharp MD - 10/28/25 12:36> Patient was examined and case was reviewed with team including attending physician. Note reviewed, I agree with most of its contents and agree with the patient's care as documented by Dr. Cueva Patient seen today at the bedside found awake, alert, orientedx3. No overnight events reported. Vital signs and labs reviewed. Patient endorses feeling much better. On physical exam noted to have increased abdominal distention despite having paracentesis with 9.2L removal on prior days. Will likely require and additional paracentesis in addition to current diuretic therapy. Case discussed with my attending Dr. Aubrey Sharp MD PGY-2 Documentation for date of: 10/27/25 Subjective Subjective Interval history: Mr. Amador is a 60-year-old gentleman with a past medical history significant for left neck lymphoma, cirrhosis, COPD on 3L home oxygen, CKD, hypertension, chronic lower back pain who presented with worsening shortness of breath from [facility]. He was admitted to ICU initially for AMS and hyperkalemia. 10/22/2025: CT head with Negative for acute hemorrhage, mass effect or midline shift, pupils were fixed and dilated. He was intubated, and started on HD after multiple attempts at getting central access. R ij was placed. had paracentesis with 9 L off. cytology sent 10/23/2025: Patient seen and examined at bedside with abdomen notably firm and distended with positive fluid wave. HD today with 1 L removed in 3 hour session. K now within nl at 4.5 pupils are sluggish but responsive to light and no longer fixed and dilated. remains intubated and sedated. appears more volume overloaded on exam. with reacumulated ascites despite 9 L paracentesis done yesterday. 10/24/2025 Patient examined bedside, labs reviewed. Abdomen is still notably firm and distended with positive fluid wave. HD not happening today instead had sequential ultrafiltration with 3 L removed. Plan to downgrade stalled because patient BPs dropped and was not responsive to fluids per NICOM restarted dobutamine and levophed to maintain SvO2 >65. 10/25/2025: Patient examined at bedside, labs reviewed. Patient was extubated, and placed on bipap, ABG are difficult to draw, they demonstrate persistent acidosis, so bipap settings were augmented. Presidex protocol was initiated given some agitation. 10/26/2025: Patient seen and examined at bedside, labs reviewed. Patient with notable puralent drainage slightly blood tinged on his R ear, and tenderness with pulling of the pinnea, L ear nl. R ear c/f otitis externa, started on cipro drops BID for 7 day course. On Bipap 08/23, pt requesting that we contact his brother, Otoniel Amador to provide updates. Pt underwent trial of bumex yesterday, with good UOP, so today will hold HD and diurese with 2 bumex and albumin. possible downgrade. 10/26/2025 PM: Downgraded to MedSurg. Tolerated BiPAP well. Hold dialysis today in light of good urine output overnight s/p Bumex per nephrology recommendation. Continue to diuresis with 2mg bumex QD with close UOP monitoring. 10/27/2025: NAOE. On exam, abdomen appears to be distended again, US abdomen revealed re-accumulation of moderate ascitic fluid. Plan for US guided paracentesis tmr. UOP 2.1L on IV Bumex 2mg daily. Increase sevelamer 800 mg to two tabs with meals for today per nephrology recommendation. PT consulted, recs rehab placement for skilled therapy services. Exam Vital Signs Temp Pulse Resp BP Pulse Ox O2 Del Method O2 Flow Rate 96.9 F 99 16 112/54 L 97 Nasal Cannula 3 10/27/25 08:00 10/27/25 08:41 10/27/25 08:00 10/27/25 08:41 10/27/25 08:00 10/27/25 08:00 10/27/25 08:00 FiO2 70 10/27/25 02:26 Narrative Exam General: Awake and in no acute distress. On 3L NC. HEENT: Normocephalic, atraumatic, mucous membranes moist. Right ear purulent drainage. Heart: Regular rate and rhythm Lungs: Clear to auscultation with no wheezing or crackles. No increases WOB. Abdomen: Distended, but nontender. No guarding or rebound tenderness. Neurologic: No gross neurological deficit Extremities: 1+ edema throughout, no mottling or ecchymosis. Objective Labs 10/28/25 04:15 10/28/25 04:15 Labs: Laboratory Results - last 24 hr 10/26/25 10/27/25 10/27/25 14:20 04:10 05:14 WBC 10.0 RBC 4.90 Hgb 11.0 L Hct 36.1 L MCV 74 L MCH 22.4 L MCHC 30.5 L RDW Std Deviation 63.1 H Plt Count 115 L Neut % (Auto) 76 Lymph % (Auto) 8 L [place] % (Auto) 15 H Eos % (Auto) 1 Baso % (Auto) 0 Neut # (Auto) 7.7 Lymph # (Auto) 0.8 L [place] # (Auto) 1.5 H Eos # (Auto) 0.1 Baso # (Auto) 0.0 Immature Gran # (Auto) 0.05 H Absolute Nucleated RBC 0.21 H Immature Gran % 1 H Nucleated RBC % 2 H PT 14.6 H INR 1.4 H Puncture Site Right Radial Right Radial ABG pH 7.31 L 7.33 L ABG pCO2 48 46 ABG pO2 171 H D 134 H D ABG HCO3 24 24 ABG O2 Saturation 100 H 99 H ABG Base Excess -3 -2 FiO2 70 70 Sodium 140 Potassium 4.7 Chloride 100 Carbon Dioxide 26.9 Anion Gap 13 BUN 54 H Creatinine 3.6 H Estim Creat Clear Calc 23.4 L eGFR 19 L BUN/Creatinine Ratio 15 Glucose 122 H Calculated Osmolality 295 Calcium 8.9 Corrected Calcium 9.2 Phosphorus 7.3 H Magnesium 2.0 Total Bilirubin 1.6 H AST 17 ALT 8 L Alkaline Phosphatase 140 H D Total Protein 6.7 Albumin 3.6 Globulin 3.1 Albumin/Globulin Ratio 1.2 ABG Interpretation ABG results: 10/22/25 10/22/25 10/22/25 03:27 11:26 15:35 ABG pH 7.30 L 7.10 L* D 7.29 L D ABG pCO2 48 80 H* D 48 D ABG pO2 80 L 34 L* D 236 H D ABG HCO3 24 25 23 ABG O2 Saturation 98 40 L 101 H ABG Base Excess -2 -5 L -3 VBG pH VBG pCO2 VBG pO2 VBG Base Excess 10/22/25 10/23/25 10/23/25 19:01 05:11 19:30 ABG pH 7.36 7.34 L 7.48 H D ABG pCO2 43 50 H 36 D ABG pO2 173 H D 40 L* D 72 L D ABG HCO3 24 27 H 27 H ABG O2 Saturation 100 H 65 L 95 ABG Base Excess -1 1 4 H VBG pH VBG pCO2 VBG pO2 VBG Base Excess 10/24/25 10/24/25 10/24/25 04:47 15:55 16:18 ABG pH 7.47 H Cancelled ABG pCO2 37 Cancelled ABG pO2 76 L Cancelled ABG HCO3 27 H Cancelled ABG O2 Saturation 96 Cancelled ABG Base Excess 4 H Cancelled VBG pH 7.18 L VBG pCO2 72 H VBG pO2 36 VBG Base Excess -3 10/24/25 10/24/25 10/24/25 18:15 19:39 21:50 ABG pH ABG pCO2 ABG pO2 ABG HCO3 ABG O2 Saturation ABG Base Excess VBG pH 7.25 L 7.26 L 7.27 L VBG pCO2 54 D 55 51 VBG pO2 67 H D 51 42 VBG Base Excess -4 L -3 -4 L 10/24/25 10/25/25 10/25/25 23:17 01:28 03:15 ABG pH ABG pCO2 ABG pO2 ABG HCO3 ABG O2 Saturation ABG Base Excess VBG pH 7.28 L 7.27 L 7.36 VBG pCO2 52 55 40 D VBG pO2 31 37 56 VBG Base Excess -3 -2 -3 10/25/25 10/25/25 10/25/25 04:41 06:20 07:44 ABG pH 7.29 L D ABG pCO2 46 ABG pO2 128 H D ABG HCO3 22 ABG O2 Saturation 99 H ABG Base Excess -5 L VBG pH 7.25 L 7.25 L VBG pCO2 57 H D 56 VBG pO2 49 42 VBG Base Excess -3 -3 10/25/25 10/25/25 10/25/25 09:50 11:04 11:37 ABG pH Cancelled ABG pCO2 Cancelled ABG pO2 Cancelled ABG HCO3 Cancelled ABG O2 Saturation Cancelled ABG Base Excess Cancelled VBG pH 7.29 L 7.25 L VBG pCO2 51 59 H VBG pO2 37 41 VBG Base Excess -3 -3 10/25/25 10/25/25 10/25/25 14:40 16:26 20:00 ABG pH 7.26 L 7.25 L 7.28 L ABG pCO2 49 H 53 H 51 H ABG pO2 230 H D 87 D 68 L ABG HCO3 22 24 24 ABG O2 Saturation 100 H 95 91 ABG Base Excess -6 L -4 L -3 VBG pH VBG pCO2 VBG pO2 VBG Base Excess 10/26/25 10/26/25 10/27/25 01:25 14:20 05:14 ABG pH 7.32 L 7.31 L 7.33 L ABG pCO2 46 48 46 ABG pO2 120 H D 171 H D 134 H D ABG HCO3 23 24 24 ABG O2 Saturation 99 H 100 H 99 H ABG Base Excess -3 -3 -2 VBG pH VBG pCO2 VBG pO2 VBG Base Excess Quality Measures Quality Measures VTE prophylaxis Assessment & Plan Assessment Current Active Medications: Generic Name Dose Route Start Last Admin Trade Name Freq PRN Reason Stop Dose Admin Acetaminophen 650 mg 10/22/25 06:01 10/27/25 07:39 Acetaminophen 325 Mg Tablet PO 11/21/25 06:00 650 mg Q6H PRN Administration Fever >101.5 Albuterol/Ipratropium 3 ml 10/25/25 19:00 10/27/25 06:47 Albuterol/Ipratropium (Duoneb) Rt Irais 3 Ml Nebu INH 11/24/25 18:59 3 ml Q4HRRT YOVANI Administration Bumetanide 2 mg 10/27/25 09:00 10/27/25 08:41 Bumetanide Inj 0.25 Mg/Ml Vial 4 Ml IVP 11/26/25 08:59 2 mg QDAY YOVANI Administration Ciprofloxacin/Hydrocortisone 3 drop 10/26/25 09:00 10/27/25 08:43 Ciprofloxacin/Hc Otic Gretta 10 Ml Btl BOTH EARS 11/02/25 08:59 3 drops BID YOVANI Administration Enoxaparin Sodium 30 mg 10/22/25 09:00 10/27/25 08:42 Enoxaparin Sod Inj 30 Mg/0.3 Ml Syringe SC 11/05/25 08:59 30 mg QDAY YOVANI Administration Heparin Sodium (Porcine) 3,000 unit 10/22/25 18:42 10/25/25 14:06 Heparin Sod Inj 1000 Unit/Ml Vial 10 Ml INDWELLCAT 11/05/25 18:41 3,000 unit PRN PRN Administration heplock vascath Heparin Sodium (Porcine) 3,000 unit 10/22/25 20:09 10/23/25 15:49 Heparin Sod Inj 1000 Unit/Ml Vial 10 Ml INDWELLCAT 11/05/25 20:08 3,000 unit X1 PRN Administration DIALYSIS Albumin Human 25 gm in 100 mls @ 0 mls/hr 10/22/25 19:47 Albuminex 25% Ivpb IV Q30MIN PRN To maintain SBP>90 Per Protocol Piperacillin/Tazobactam/Dextrose 3.375 gm in 50 mls @ 12.5 mls/hr 10/24/25 22:00 10/27/25 04:38 Zosyn IV 10/31/25 21:59 12.5 mls/hr Q8HR YOVANI Administration Protocol Lactulose 20 gm 10/27/25 07:19 Lactulose Syrup 20 Gm/30 Ml Udc PO 11/21/25 06:14 QID YOVANI Protocol Levothyroxine Sodium 25 mcg 10/23/25 06:00 10/27/25 04:37 Levothyroxine Sodium 25 Mcg Tablet PO 11/22/25 05:59 25 mcg ACBR YOVANI Administration Multivitamins/Minerals 1 ml 10/26/25 21:00 10/26/25 21:07 Multivitamin 15 Ml Udc PO 11/25/25 20:59 1 ml Q48HR@2100 YOVANI Administration Rifaximin 550 mg 10/24/25 21:00 10/27/25 08:43 Rifaximin 550 Mg Tablet PO 10/31/25 20:59 550 mg BID YOVANI Administration Sevelamer Carbonate 800 mg 10/23/25 12:00 10/27/25 07:37 Sevelamer Carbonate 800 Mg Tablet PO 11/22/25 11:59 800 mg TIDWM YOVANI Administration Sodium Chloride 3 ml 10/22/25 17:47 Sodium Chloride Rt Irais 0.9% 3 Ml Nebu INH 11/21/25 17:46 PRN PRN SOLN Plan This is a 60-year-old gentleman with history of heart failure with reduced ejection fraction ,alcohol-related cirrhosis, COPD on 3L home oxygen, hypertension, CKD, and right neck mass (Lymphoma?) was brought in for 1 week of shortness of breath from [facility] who had severe refractory hyperkalemia that was refractory to hyperkalemia cocktail upgraded from floors to the ICU with severe acidemia and refractory hyper-K. Extubated and now off sedation, on Bipap, downgraded to MedSurg 10/26/25. #Acute metabolic encephalopathy secondary to acute decompensated liver failure - resolved #Hepatic encephalopathy #Agitation - resolved #Severe ascites s/p paracentesis #cirrhosis - s/p paracentesis (10/22) with 9,000 mL of ascitic fluid removed. - ammonia 32, WNL - Continue lactulose 20gm q6hr - SAAG 1.2, consistent with portal hypertension 2/2 to cirrhosis - Follow-up LFTs - repeat paracentesis if clinically indicated, replete albumin - US-guided paracentesis ordered due to reaccumulation of moderate asicites as evident on US abdomen 10/27/25. #Acute CHF exacerbation likely /2 to PNA #Heart failure with reduced ejection fraction 25-30 %, on this admission 10/2025 #CADY on CKD versus worsening CKD #Hyperkalemia - Resolved with HD #Hyperphosphatemia - downtrending - Consider restarting home medications GDMT: carvedilol, spironolactone, empagliflozin, not on GREY or ARB, if BP stable. - Daily renal panel - Monitor UOP, UOP 30-40 cc/hr, responsive to bumex - Hold HD in setting of good uop with 2mg bumex - Albumin 25 x 1 - Bumex 2 mg IV QD - Nephrology consulted, appreciate recs - Sevalomer 800mg 2 tabs with meal, 3 times daily #R Aspiration PNA- Pseudamonas #COPD Exacerbation #Community-acquired pneumonia versus healthcare associated pneumonia - Serial cxr, imaging looks improved from prior - ET secretions with Pseud[place] - Continue Zosyn 3.375gm TID (10/24-10/31) - Duonebs q4hr prn #Hypothyroidism - Patient has history of hypothyroidism, takes levothyroxine 25 at home, plan for oral given patient is not on vasopressors actively - outpatient f/u - Continue levothyroxine 25mcg ACBR #Chronic microcytic anemia - likely iron deficiency anemia vs anemia of chronic disease vs ckd - iron 19 low, TIBC 181 low, iron saturation 10 low - transfuse if < 7 - Continue home med ferrous sulfate 325mg PO BID. #R Otitis Externa - monitor for failure to respond to standard therapy and cranial nerve involvement, patient without any facial nerve palsy. - purulent drainage from R ear. - continue Ciprofloxacin 3 drops, 10/26 -11/02 (intend for 7 day course) Health maintenance Dispo: ICU downgrade DVT prophylaxis: Lovenox 30mg SC QD GI prophylaxis: N/A Antibiotics: Zosyn Bowel Regimen: lactulose Diet: Renal diet Lines: RIJ, PIV, morgan cath Code status: Full code Case discussed with my senior resident Dr. Maurice Case discussed with my attending Dr. Aubrey Cueva DO PGY 1 Attending Provider Attestation/Addendum I have seen and examined the patient. I was physically present for the [place]ount portions of the services provided including history, physical exam, diagnosis, treatment plans and orders. I agree with assessment and plan of care as documented by residents. Even though this this note was carefully revised there may still be minor errors in drying and winding supervisor due to voice recognition software. Nicole Burgos MD
[2025-10-27] MEDS: HYDROcodone/APAP 5/325 TABLET 1 TAB PO ×2 (11:02→18:03)
[2025-10-27] MEDS: FERROUS SULF 325 MG TABLET PO (21:16)
[2025-10-28] VITALS (16 sets, daily range): BP systolic 101–122; BP diastolic 63–85; PULSE 73–94; RESP 18–24; TEMP 36.1–36.6; O2SAT 93–99
[2025-10-28] MEDS: HYDROcodone/APAP 5/325 TABLET 1 TAB PO ×3 (02:08→13:49)
[2025-10-28] MEDS: ALBUTEROL/IPRATROPIUM (Duoneb) RT SOL 3 ML NEBU INH ×5 (03:10→23:54)
--- NOTE | 2025-10-28 04:09 | PC.RT ---
pt taken off bipap mask alarming, went in to assess pt spo2 89% pt okay to go back on bipap at 70% fio2 spo2 improved to 94% no distress noted.
--- NOTE | 2025-10-28 05:00 | XR_ITS ---
EXAMINATION: AP chest single view TECHNIQUE: AP portable semiupright chest single view Date and time: October 28, 2025, 0544 hours, comparison October 27, 2025 INDICATIONS: Shortness of breath this week. FINDINGS: Mild bibasilar pneumonia Mild to moderate enlargement cardiac contour with moderate vascular congestion. No amelia pulmonary edema Right internal jugular temporary dialysis catheter tip right atrium IMPRESSION: Mild bibasilar pneumonia Moderate vascular congestion
[2025-10-28 05:17] LABS: Basophils # (Auto) 0.0 Thou/mm3 (0.0-0.2); Basophils % (Auto) 0 % (0-2.5); Eosinophils # (Auto) 0.3 Thou/mm3 (0.0-0.5); Eosinophils % (Auto) 3 % (0-10); Hematocrit 33.7 % (41.0-53.0); Hemoglobin 10.4 g/dL (13.5-16.0); Immature Granulocytes Auto 0.09 Thou/mm3 (0.00-0.00); Lymphocytes # (Auto) 0.9 Thou/mm3 (1.0-4.8); Lymphocytes % (Auto) 10 % (10-50); Mean Corpuscular HGB Conc 30.9 g/dl (31.0-37.0); Mean Corpuscular Hemoglobin 22.3 pg (25.0-35.0); Mean Corpuscular Volume 72 fL (80-100); Monocytes # (Auto) 1.8 Thou/mm3 (0.0-0.8); Monocytes % (Auto) 19 % (0-12); Neutrophils # (Auto) 6.3 Thou/mm3 (1.8-7.7); Neutrophils % (Auto) 67 % (37-80); Nucleated Red Blood Cell # 0.19 Thou/mm3 (0.00-0.00); Nucleated Red Blood Cell % 2 /100 WBC (0); Platelet Count 119 Thou/mm3 (140-440); RDW Standard Deviation 61.8 fL (35.1-43.9); Red Blood Count 4.66 Miln/mm3 (4.50-5.90); White Blood Count 9.4 Thou/mm3 (3.8-10.6)
[2025-10-28] MEDS: LACTULOSE SYRUP 20 GM/30 ML UDC PO ×4 (05:22→21:07)
[2025-10-28] MEDS: PIPER/TAZO 3.375 GM PREMIX 3.375 GM/50 ML BAG IV (05:22)
[2025-10-28] MEDS: LEVOTHYROXINE SODIUM 25 MCG TABLET PO (05:22)
[2025-10-28 05:26] LABS: INR 1.4 (0.9-1.3); Prothrombin Time 14.9 Seconds (9.0-12.2)
[2025-10-28 05:58] LABS: Alanine Aminotransferase 8 U/L (10-49); Albumin, Serum 3.7 gm/dL (3.5-5.0); Albumin/Globulin Ratio 1.2 (1.2-2.2); Alkaline Phosphatase 172 U/L (46-116); Anion Gap 16 (7-16); Aspartate Amino Transferase 19 U/L (0-34); BUN/Creatinine Ratio 15 Ratio (12-20); Bilirubin,Total 1.6 mg/dL (0.3-1.2); Blood Urea Nitrogen 50 mg/dL (9-23); Calcium 8.7 mg/dL (8.3-10.6); Calcium (Corrected) 8.9 mg/dL (8.5-10.1); Carbon Dioxide 24.3 mMol/L (20.0-31.0); Chloride 96 mMol/L (98-107); Creatinine (Component) 3.4 mg/dL (0.6-1.3); Estimated Creatinine Clearance 24.9 mL/min (>60); Globulin 3.1 gm/dL (2.3-3.5); Glucose 101 mg/dL (74-106); Magnesium 1.9 mg/dL (1.6-2.6); Osmolality,Calculated 285 (275-295); Phosphorous 6.2 mg/dL (2.4-5.1); Potassium 4.2 mMol/L (3.4-5.1); Sodium 136 mMol/L (136-145); Total Protein 6.8 gm/dL (5.7-8.2); eGFR 20 See Note
[2025-10-28] MEDS: FERROUS SULF 325 MG TABLET PO ×2 (08:49→21:07)
[2025-10-28] MEDS: BUMETANIDE INJ 0.25 MG/ML VIAL 4 ML 2 MG IVP (08:49)
[2025-10-28] MEDS: ENOXAPARIN SOD INJ 30 MG/0.3 ML SYRINGE SC (08:51)
[2025-10-28 09:01] LABS: Base Excess 0 (-3-3); HCO3 26 mEq/L (20-26); Inspired Oxygen, FIO2 2 %; O2 Saturation 93 % (91-98); PCO2 48 mmHg (32.0-48.0); PO2 71 mmHg (83-108); pH, Arterial 7.35 (7.35-7.45)
--- NOTE | 2025-10-28 09:14 | PD.RESPRO ---
Documentation for date of: 10/28/25 Subjective Subjective Interval history: 60-year-old male past medical history of COPD, alcoholic cirrhosis, diabetes, gout, hypertension, A-fib, heart failure, hyperlipidemia, acidosis, CKD, stage III lymphoma who presented from SN[facility] on 10/22 with shortness of breath and altered mental status. He was found to have a potassium of 6.3, BNP of 638, creatinine of 2.9, and ascites. Per staff, patient is AOx4 and conversational at baseline. ED course: - Vitals: BP 108/89. Patient was desaturating into the 70s on 4 L nasal cannula, however upon arousal he would return to the 90s. - Labs: Potassium 6.3, BUN 42, creatinine 2.9, alk phos 307, BNP 638, PT 15.4, INR 1.5, D-dimer 1600, ABG pH of 7.3, pO2 of 80. - Imaging: Chest x-ray showed vascular congestion, heart failure. Abdominal ultrasound showed ascites. - Patient received DuoNeb treatment, 4 mg morphine, 4 mg Zofran, methylprednisolone 125 IV push x 1, dextrose, 10 units of insulin, and 1 g of calcium gluconate, and 15 GM sodium polystyrene sulfonate orally. Current Medications: allopurinol 100 mg, budesonide 2 mg, buspirone 7.5 mg, carvedilol 3.125 mg, empagliflozin 10 mg, vitamin D2, gabapentin 300 mg, levothyroxine 25 mg, pantoprazole 40 mg, potassium chloride 10 mill EQ tablets, spironolactone 100 mg, tamsulosin 0.4 mg, hydrocodone 5-3 25, ipratropium, fluticasone, lactulose, albuterol, hydroxyzine 25 mg, rifaximin 550 mg, furosemide 40 mg Allergies: No known drug allergies Patient was admitted for acute decompensated cirrhosis, hyperkalemia, and CADY, upgraded to ICU for worsening AHRF requiring intubation. Nephrology was consulted for urgent dialysis for hyperkalemia likely secondary to concomitant use of spironolactone and potassium. 10/23/25: Right femoral triple lumen line placed yesterday in ICU. Received HD last night, no ultrafiltration, tolerated session well. Patient seen and examined at bedside. Creatinine 2.9, improved to 2.1 in the afternoon. Scheduled for dialysis again today, goal 1L fluid removal. 10/24/25: Patient seen and assessed in ICU. Off sedation, tachycardic with HR 130s at bedside. Dialysis day #3, removed 1L yesterday, will remove 3L. Potassium 4.8. Creatinine 2.4. Ordered PPD and hepatitis panel in anticipation for outpatient dialysis. 10/25/2025 patient extubated and is currently on BiPAP. Short of breath and is currently seen on dialysis. In ICU. Heart rate 92-100. Labs and medications reviewed. 10/26/25: Patient seen and assessed in ICU. S/p Bumex 2mg IVP overnight, UOP 700 cc. On BiPAP. WBC downtrending. Sodium 138, potassium 5.1, chloride 98, BUN 50, creatinine 3.5, GFR 19, calcium 9.2, phosphorus 7.6. No dialysis today, continue Bumex and monitor urine output. 10/27/25: Patient seen and assessed in telemetry, downgraded yesterday. UOP 2.1L on IV Bumex 2mg daily. Saturating well on room air. Potassium 4.7, BUN 54, creatinine 3.6, GFR 19, phosphorus 7.3. Increase sevelamer 800 mg to two tabs with meals for today, follow up labs tomorrow. No need for dialysis as patient is maintaining good urine output. 10/28/25: Patient seen and assessed in telemetry. On BiPAP overnight. More lethargic on exam today. UOP 2.5 L. BUN 51 creatinine 3.4 (from 3.6), GFR 20. Phosphorus elevated at 6.2, continue sevelamer 800 3 times daily, 2 tablets with meals. Magnesium 1.9, repleted. No dialysis as patient maintaining good urine output. Exam Vital Signs Temp Pulse Resp BP Pulse Ox O2 Del Method O2 Flow Rate 97.4 F 89 21 H 119/85 H 98 Nasal Cannula 5 10/28/25 01:14 10/28/25 08:49 10/28/25 06:10 10/28/25 08:49 10/28/25 06:10 10/28/25 01:14 10/28/25 01:14 FiO2 50 10/28/25 06:10 Narrative Exam Physical Exam General: Awake but lethargic. On BiPAP. HEENT: Normocephalic, atraumatic, mucous membranes moist. Heart: Regular rate and rhythm, normal S1 and S2, no murmurs. Lungs: Bibasilar crackles. Abdomen: Soft, obese, distended, tense, positive bowel sounds. Significant ascites. No guarding or rebound tenderness. Neurologic: No gross neurological deficit, and patient able to move all 4 extremities. Extremities: 2+ pitting edema in lower extremities. Skin: Scattered freckles on face and upper arms. No rash or ecchymoses. Objective Labs 11/01/25 04:42 11/01/25 04:42 Labs: Laboratory Results - last 24 hr 10/28/25 04:15 WBC 9.4 RBC 4.66 Hgb 10.4 L Hct 33.7 L MCV 72 L MCH 22.3 L MCHC 30.9 L RDW Std Deviation 61.8 H Plt Count 119 L Neut % (Auto) 67 Lymph % (Auto) 10 Hinds % (Auto) 19 H Eos % (Auto) 3 Baso % (Auto) 0 Neut # (Auto) 6.3 Lymph # (Auto) 0.9 L Hinds # (Auto) 1.8 H Eos # (Auto) 0.3 Baso # (Auto) 0.0 Immature Gran # (Auto) 0.09 H Absolute Nucleated RBC 0.19 H Immature Gran % 1 H Nucleated RBC % 2 H PT 14.9 H INR 1.4 H Sodium 136 Potassium 4.2 D Chloride 96 L Carbon Dioxide 24.3 Anion Gap 16 BUN 50 H Creatinine 3.4 H Estim Creat Clear Calc 24.9 L eGFR 20 L BUN/Creatinine Ratio 15 Glucose 101 Calculated Osmolality 285 Calcium 8.7 Corrected Calcium 8.9 Phosphorus 6.2 H Magnesium 1.9 Total Bilirubin 1.6 H AST 19 ALT 8 L Alkaline Phosphatase 172 H D Total Protein 6.8 Albumin 3.7 Globulin 3.1 Albumin/Globulin Ratio 1.2 ABG Interpretation ABG results: 10/22/25 10/22/25 10/22/25 03:27 11:26 15:35 ABG pH 7.30 L 7.10 L* D 7.29 L D ABG pCO2 48 80 H* D 48 D ABG pO2 80 L 34 L* D 236 H D ABG HCO3 24 25 23 ABG O2 Saturation 98 40 L 101 H ABG Base Excess -2 -5 L -3 VBG pH VBG pCO2 VBG pO2 VBG Base Excess 10/22/25 10/23/25 10/23/25 19:01 05:11 19:30 ABG pH 7.36 7.34 L 7.48 H D ABG pCO2 43 50 H 36 D ABG pO2 173 H D 40 L* D 72 L D ABG HCO3 24 27 H 27 H ABG O2 Saturation 100 H 65 L 95 ABG Base Excess -1 1 4 H VBG pH VBG pCO2 VBG pO2 VBG Base Excess 10/24/25 10/24/25 10/24/25 04:47 15:55 16:18 ABG pH 7.47 H Cancelled ABG pCO2 37 Cancelled ABG pO2 76 L Cancelled ABG HCO3 27 H Cancelled ABG O2 Saturation 96 Cancelled ABG Base Excess 4 H Cancelled VBG pH 7.18 L VBG pCO2 72 H VBG pO2 36 VBG Base Excess -3 10/24/25 10/24/25 10/24/25 18:15 19:39 21:50 ABG pH ABG pCO2 ABG pO2 ABG HCO3 ABG O2 Saturation ABG Base Excess VBG pH 7.25 L 7.26 L 7.27 L VBG pCO2 54 D 55 51 VBG pO2 67 H D 51 42 VBG Base Excess -4 L -3 -4 L 10/24/25 10/25/25 10/25/25 23:17 01:28 03:15 ABG pH ABG pCO2 ABG pO2 ABG HCO3 ABG O2 Saturation ABG Base Excess VBG pH 7.28 L 7.27 L 7.36 VBG pCO2 52 55 40 D VBG pO2 31 37 56 VBG Base Excess -3 -2 -3 10/25/25 10/25/25 10/25/25 04:41 06:20 07:44 ABG pH 7.29 L D ABG pCO2 46 ABG pO2 128 H D ABG HCO3 22 ABG O2 Saturation 99 H ABG Base Excess -5 L VBG pH 7.25 L 7.25 L VBG pCO2 57 H D 56 VBG pO2 49 42 VBG Base Excess -3 -3 10/25/25 10/25/25 10/25/25 09:50 11:04 11:37 ABG pH Cancelled ABG pCO2 Cancelled ABG pO2 Cancelled ABG HCO3 Cancelled ABG O2 Saturation Cancelled ABG Base Excess Cancelled VBG pH 7.29 L 7.25 L VBG pCO2 51 59 H VBG pO2 37 41 VBG Base Excess -3 -3 10/25/25 10/25/25 10/25/25 14:40 16:26 20:00 ABG pH 7.26 L 7.25 L 7.28 L ABG pCO2 49 H 53 H 51 H ABG pO2 230 H D 87 D 68 L ABG HCO3 22 24 24 ABG O2 Saturation 100 H 95 91 ABG Base Excess -6 L -4 L -3 VBG pH VBG pCO2 VBG pO2 VBG Base Excess 10/26/25 10/26/25 10/27/25 01:25 14:20 05:14 ABG pH 7.32 L 7.31 L 7.33 L ABG pCO2 46 48 46 ABG pO2 120 H D 171 H D 134 H D ABG HCO3 23 24 24 ABG O2 Saturation 99 H 100 H 99 H ABG Base Excess -3 -3 -2 VBG pH VBG pCO2 VBG pO2 VBG Base Excess Quality Measures Quality Measures VTE prophylaxis Assessment & Plan Assessment Current Active Medications: Generic Name Dose Route Start Last Admin Trade Name Freq PRN Reason Stop Dose Admin Acetaminophen 650 mg 10/22/25 06:01 10/27/25 15:16 Acetaminophen 325 Mg Tablet PO 11/21/25 06:00 650 mg Q6H PRN Administration Fever >101.5 Hydrocodone Bitart/Acetaminophen 1 tab 10/27/25 16:01 10/28/25 09:04 Hydrocodone/Apap 5/325 Tablet PO 11/01/25 16:00 1 tab Q6HR PRN Administration PAIN Albuterol/Ipratropium 3 ml 10/25/25 19:00 10/28/25 06:09 Albuterol/Ipratropium (Duoneb) Rt Irais 3 Ml Nebu INH 11/24/25 18:59 3 ml Q4HRRT YOVANI Administration Bumetanide 2 mg 10/27/25 09:00 10/28/25 08:49 Bumetanide Inj 0.25 Mg/Ml Vial 4 Ml IVP 11/26/25 08:59 2 mg QDAY YOVANI Administration Ciprofloxacin/Hydrocortisone 3 drop 10/26/25 09:00 10/28/25 08:51 Ciprofloxacin/Hc Otic Gretta 10 Ml Btl BOTH EARS 11/02/25 08:59 3 drops BID YOVANI Administration Enoxaparin Sodium 30 mg 10/22/25 09:00 10/28/25 08:51 Enoxaparin Sod Inj 30 Mg/0.3 Ml Syringe SC 11/05/25 08:59 30 mg QDAY YOVANI Administration Ferrous Sulfate 325 mg 10/27/25 21:00 10/28/25 08:49 Ferrous Sulf 325 Mg Tablet PO 11/26/25 20:59 325 mg BID YOVANI Administration Heparin Sodium (Porcine) 3,000 unit 10/22/25 18:42 10/25/25 14:06 Heparin Sod Inj 1000 Unit/Ml Vial 10 Ml [facility] 11/05/25 18:41 3,000 unit PRN PRN Administration heplock vascath Heparin Sodium (Porcine) 3,000 unit 10/22/25 20:09 10/23/25 15:49 Heparin Sod Inj 1000 Unit/Ml Vial [address] [facility] 11/05/25 20:08 3,000 unit X1 PRN Administration DIALYSIS Albumin Human 25 gm in 100 mls @ 0 mls/hr 10/22/25 19:47 Albuminex 25% Ivpb IV Q30MIN PRN To maintain SBP>90 Per Protocol Piperacillin/Tazobactam/Dextrose 3.375 gm in 50 mls @ 12.5 mls/hr 10/24/25 22:00 10/28/25 05:22 Zosyn IV 10/31/25 21:59 12.5 mls/hr Q8HR YOVANI Administration Protocol Lactulose 20 gm 10/27/25 07:19 10/28/25 05:22 Lactulose Syrup 20 Gm/30 Ml Udc PO 11/21/25 06:14 20 gm QID YOVANI Administration Protocol Levothyroxine Sodium 25 mcg 10/23/25 06:00 10/28/25 05:22 Levothyroxine Sodium 25 Mcg Tablet PO 11/22/25 05:59 25 mcg ACBR YOVANI Administration Multivitamins/Minerals 1 ml 10/26/25 21:00 10/26/25 21:07 Multivitamin 15 Ml Udc PO 11/25/25 20:59 1 ml Q48HR@2100 YOVANI Administration Rifaximin 550 mg 10/24/25 21:00 10/28/25 08:49 Rifaximin 550 Mg Tablet PO 10/31/25 20:59 550 mg BID YOVANI Administration Sevelamer Carbonate 1,600 mg 10/28/25 08:42 Sevelamer Carbonate 800 Mg Tablet PO 11/22/25 11:59 TIDWM YOVANI Sodium Chloride 3 ml 10/22/25 17:47 Sodium Chloride Rt Irais 0.9% 3 Ml Nebu INH 11/21/25 17:46 PRN PRN SOLN Plan 60-year-old male past medical history of COPD, alcoholic cirrhosis, diabetes, gout, hypertension, A-fib, heart failure, hyperlipidemia, acidosis, CKD IIIa, stage III lymphoma who presented from SNF on 10/22 with shortness of breath and altered mental status, upgraded to ICU due to worsening AHRF requiring intubation. Extubated and downgraded to telemetry 10/26. Nephrology consulted for urgent dialysis for hyperkalemia. #Hyperkalemia (resolved) #CADY on CKD IIIa versus CKD IV - Presented with altered mental status from SNF - Home medications include potassium chloride 10 mill EQ tablets and spiranolactone 100 mg - Potassium 6.3 on admission, increased to 7.0 despite insulin, albuterol, and Kayexelate - Cr 2.9 --> 2.4 (10/24) -> 3.5 (10/25) --> 3.6 - Creatinine previously 1.4 in 01/2024 however unclear baseline - EKG showed normal sinus rhythm, no peaked T waves observed - Upgraded to ICU 10/22, HD cath placed in right IJ - S/p HD 10/22 (no ultrafiltration), 10/23 (-1L), 10/25 (-2.5L) Plan: - Hold dialysis today in light of good urine output overnight s/p Bumex - IV Bumex 2 mg daily - Hold potassium and spiranolactone - Strict INOs - Monitor renal panel daily - Avoid nephrotoxic agents - Renally dose medications #Hyperphosphatemia - Phosphorus 7.3, improved to 6.2 (10/28) Plan: - Continue Sevelamer 800 TID to 2 tablets with meals - Follow up AM renal panel #Respiratory acidosis #AHRF #Intubated #Acute decompensated cirrhosis 2/2 alcohol use #Acute encephalopathy #HFrEF #Hypertension #Hypothyroidism #Microcytic Anemia #History of gout #Stage III lymphoma #Diabetes #Afib paroxysmal? #HLD - Defer to ICU team for management Thank you for your consultation, please do not hesitate to reach out if you have any question or concern Patient plan of care was discussed with the attending physician, Dr. Platt. Celeste Nation DO, PGY-1 Attending Provider Attestation/Addendum Patient seen and examined with resident physician Dr. Nation. Note reviewed, agree with findings and recommendations.
[2025-10-28 09:17] LABS: Allen Test Performed/OK; Puncture Site Left Radial
[2025-10-28 09:59] LABS: Ammonia 35 uMol/L (11-32)
--- NOTE | 2025-10-28 10:18 | XR_ITS ---
Examination: Venous duplex lower extremity sonogram, bilateral. Date and time of exam: 10/28/2025 at 2:21 p.m. Technique: Multiple sonographic images of the deep venous system have been obtained. B-mode/2-D grayscale imaging of vascular structures and Doppler spectral analysis (waveforms) and color performed Both legs are examined. Findings: Deep venous systems do not demonstrate abnormal echogenicity. All visualized deep veins exhibit compressibility. All visualized deep veins exhibit augmentation. Impression: 1. there is inadequate visualization of the jugular vein at both the right and left lower neck regions. This is due to a central intravenous line on the right, and the technologist states that the patient was very tense during this exam and she was not able to visualize the left jugular vein, either. 2. In all other respects this study is entirely negative for deep vein thrombophlebitis in both the right and left upper extremities
--- NOTE | 2025-10-28 10:24 | ESPR_ITS ---
<Statement entered by Ramiro Sharp MD - 10/29/25 14:48> Patient was examined and case was reviewed with team including attending physician. Note reviewed, I agree with most of its contents and agree with the patient's care. Ramiro Sharp MD PGY-2 Documentation for date of: 10/28/25 Subjective Subjective Interval history: Mr. Amador is a 60-year-old gentleman with a past medical history significant for left neck lymphoma, cirrhosis, COPD on 3L home oxygen, CKD, hypertension, chronic lower back pain who presented with worsening shortness of breath from longterm. He was admitted to ICU initially for AMS and hyperkalemia. 10/22/2025: CT head with Negative for acute hemorrhage, mass effect or midline shift, pupils were fixed and dilated. He was intubated, and started on HD after multiple attempts at getting central access. R ij was placed. had paracentesis with 9 L off. cytology sent 10/23/2025: Patient seen and examined at bedside with abdomen notably firm and distended with positive fluid wave. HD today with 1 L removed in 3 hour session. K now within nl at 4.5 pupils are sluggish but responsive to light and no longer fixed and dilated. remains intubated and sedated. appears more volume overloaded on exam. with reacumulated ascites despite 9 L paracentesis done yesterday. 10/24/2025 Patient examined bedside, labs reviewed. Abdomen is still notably firm and distended with positive fluid wave. HD not happening today instead had sequential ultrafiltration with 3 L removed. Plan to downgrade stalled because patient BPs dropped and was not responsive to fluids per NICOM restarted dobutamine and levophed to maintain SvO2 >65. 10/25/2025: Patient examined at bedside, labs reviewed. Patient was extubated, and placed on bipap, ABG are difficult to draw, they demonstrate persistent acidosis, so bipap settings were augmented. Presidex protocol was initiated given some agitation. 10/26/2025: Patient seen and examined at bedside, labs reviewed. Patient with notable puralent drainage slightly blood tinged on his R ear, and tenderness with pulling of the pinnea, L ear nl. R ear c/f otitis externa, started on cipro drops BID for 7 day course. On Bipap 08/23, pt requesting that we contact his brother, Otoniel Amador to provide updates. Pt underwent trial of bumex yesterday, with good UOP, so today will hold HD and diurese with 2 bumex and albumin. possible downgrade. 10/26/2025 PM: Downgraded to MedSurg. Tolerated BiPAP well. Hold dialysis today in light of good urine output overnight s/p Bumex per nephrology recommendation. Continue to diuresis with 2mg bumex QD with close UOP monitoring. 10/27/2025: NAOE. On exam, abdomen appears to be distended again, US abdomen revealed re-accumulation of moderate ascitic fluid. Plan for US guided paracentesis tmr. UOP 2.1L on IV Bumex 2mg daily. Increase sevelamer 800 mg to two tabs with meals for today per nephrology recommendation. PT consulted, recs rehab placement for skilled therapy services. 10/28/2025: Overnight tele reported 2 short runs of nonsustaining VT. De- escalate Zosyn to levoflxacin today for pneumonia coverage. Paracentesis today with 5L out, no complication, replaced with 25g albumin. Please see operative note for further details. Patient continues to make good UOP, 2.4L last 24H. Phos decreased from 7 to 6.2 today. On exam, patient's upper arms appear edematous, doppler US oredered with negative findings for DVT in both R and L UE. Exam Vital Signs Temp Pulse Resp BP Pulse Ox O2 Del Method O2 Flow Rate 97.9 F 89 20 119/85 H 98 Nasal Cannula 5 10/28/25 08:00 10/28/25 08:49 10/28/25 08:00 10/28/25 08:49 10/28/25 08:00 10/28/25 08:00 10/28/25 08:00 FiO2 50 10/28/25 08:00 Narrative Exam General: Awake and in no acute distress. Conversational. Eyes open to voice. On 3L NC. HEENT: Normocephalic, atraumatic, mucous membranes moist. Right ear drainage. Heart: Regular rate and rhythm Lungs: Clear to auscultation with no wheezing or crackles. No increases WOB. Abdomen: Distended, but nontender. No guarding or rebound tenderness. Neurologic: No gross neurological deficit Extremities: 1+ edema throughout, no mottling or ecchymosis Objective Labs 10/28/25 04:15 10/28/25 04:15 Labs: Laboratory Results - last 24 hr 10/28/25 10/28/25 10/28/25 04:15 09:00 09:20 WBC 9.4 RBC 4.66 Hgb 10.4 L Hct 33.7 L MCV 72 L MCH 22.3 L MCHC 30.9 L RDW Std Deviation 61.8 H Plt Count 119 L Neut % (Auto) 67 Lymph % (Auto) 10 Taney % (Auto) 19 H Eos % (Auto) 3 Baso % (Auto) 0 Neut # (Auto) 6.3 Lymph # (Auto) 0.9 L Taney # (Auto) 1.8 H Eos # (Auto) 0.3 Baso # (Auto) 0.0 Immature Gran # (Auto) 0.09 H Absolute Nucleated RBC 0.19 H Immature Gran % 1 H Nucleated RBC % 2 H PT 14.9 H INR 1.4 H Puncture Site Left Radial ABG pH 7.35 ABG pCO2 48 ABG pO2 71 L D ABG HCO3 26 ABG O2 Saturation 93 ABG Base Excess 0 FiO2 2 Sodium 136 Potassium 4.2 D Chloride 96 L Carbon Dioxide 24.3 Anion Gap 16 BUN 50 H Creatinine 3.4 H Estim Creat Clear Calc 24.9 L eGFR 20 L BUN/Creatinine Ratio 15 Glucose 101 Calculated Osmolality 285 Calcium 8.7 Corrected Calcium 8.9 Phosphorus 6.2 H Magnesium 1.9 Total Bilirubin 1.6 H AST 19 ALT 8 L Alkaline Phosphatase 172 H D Ammonia 35 H Total Protein 6.8 Albumin 3.7 Globulin 3.1 Albumin/Globulin Ratio 1.2 ABG Interpretation ABG results: 10/22/25 10/22/25 10/22/25 03:27 11:26 15:35 ABG pH 7.30 L 7.10 L* D 7.29 L D ABG pCO2 48 80 H* D 48 D ABG pO2 80 L 34 L* D 236 H D ABG HCO3 24 25 23 ABG O2 Saturation 98 40 L 101 H ABG Base Excess -2 -5 L -3 VBG pH VBG pCO2 VBG pO2 VBG Base Excess 10/22/25 10/23/25 10/23/25 19:01 05:11 19:30 ABG pH 7.36 7.34 L 7.48 H D ABG pCO2 43 50 H 36 D ABG pO2 173 H D 40 L* D 72 L D ABG HCO3 24 27 H 27 H ABG O2 Saturation 100 H 65 L 95 ABG Base Excess -1 1 4 H VBG pH VBG pCO2 VBG pO2 VBG Base Excess 10/24/25 10/24/25 10/24/25 04:47 15:55 16:18 ABG pH 7.47 H Cancelled ABG pCO2 37 Cancelled ABG pO2 76 L Cancelled ABG HCO3 27 H Cancelled ABG O2 Saturation 96 Cancelled ABG Base Excess 4 H Cancelled VBG pH 7.18 L VBG pCO2 72 H VBG pO2 36 VBG Base Excess -3 10/24/25 10/24/25 10/24/25 18:15 19:39 21:50 ABG pH ABG pCO2 ABG pO2 ABG HCO3 ABG O2 Saturation ABG Base Excess VBG pH 7.25 L 7.26 L 7.27 L VBG pCO2 54 D 55 51 VBG pO2 67 H D 51 42 VBG Base Excess -4 L -3 -4 L 10/24/25 10/25/25 10/25/25 23:17 01:28 03:15 ABG pH ABG pCO2 ABG pO2 ABG HCO3 ABG O2 Saturation ABG Base Excess VBG pH 7.28 L 7.27 L 7.36 VBG pCO2 52 55 40 D VBG pO2 31 37 56 VBG Base Excess -3 -2 -3 10/25/25 10/25/25 10/25/25 04:41 06:20 07:44 ABG pH 7.29 L D ABG pCO2 46 ABG pO2 128 H D ABG HCO3 22 ABG O2 Saturation 99 H ABG Base Excess -5 L VBG pH 7.25 L 7.25 L VBG pCO2 57 H D 56 VBG pO2 49 42 VBG Base Excess -3 -3 10/25/25 10/25/25 10/25/25 09:50 11:04 11:37 ABG pH Cancelled ABG pCO2 Cancelled ABG pO2 Cancelled ABG HCO3 Cancelled ABG O2 Saturation Cancelled ABG Base Excess Cancelled VBG pH 7.29 L 7.25 L VBG pCO2 51 59 H VBG pO2 37 41 VBG Base Excess -3 -3 10/25/25 10/25/25 10/25/25 14:40 16:26 20:00 ABG pH 7.26 L 7.25 L 7.28 L ABG pCO2 49 H 53 H 51 H ABG pO2 230 H D 87 D 68 L ABG HCO3 22 24 24 ABG O2 Saturation 100 H 95 91 ABG Base Excess -6 L -4 L -3 VBG pH VBG pCO2 VBG pO2 VBG Base Excess 10/26/25 10/26/25 10/27/25 01:25 14:20 05:14 ABG pH 7.32 L 7.31 L 7.33 L ABG pCO2 46 48 46 ABG pO2 120 H D 171 H D 134 H D ABG HCO3 23 24 24 ABG O2 Saturation 99 H 100 H 99 H ABG Base Excess -3 -3 -2 VBG pH VBG pCO2 VBG pO2 VBG Base Excess 10/28/25 09:00 ABG pH 7.35 ABG pCO2 48 ABG pO2 71 L D ABG HCO3 26 ABG O2 Saturation 93 ABG Base Excess 0 VBG pH VBG pCO2 VBG pO2 VBG Base Excess Quality Measures Quality Measures VTE prophylaxis Assessment & Plan Assessment Current Active Medications: Generic Name Dose Route Start Last Admin Trade Name Freq PRN Reason Stop Dose Admin Acetaminophen 650 mg 10/22/25 06:01 10/27/25 15:16 Acetaminophen 325 Mg Tablet PO 11/21/25 06:00 650 mg Q6H PRN Administration Fever >101.5 Hydrocodone Bitart/Acetaminophen 1 tab 10/27/25 16:01 10/28/25 09:04 Hydrocodone/Apap 5/325 Tablet PO 11/01/25 16:00 1 tab Q6HR PRN Administration PAIN Albuterol/Ipratropium 3 ml 10/25/25 19:00 10/28/25 06:09 Albuterol/Ipratropium (Duoneb) Rt Irais 3 Ml Nebu INH 11/24/25 18:59 3 ml Q4HRRT YOVANI Administration Bumetanide 2 mg 10/27/25 09:00 10/28/25 08:49 Bumetanide Inj 0.25 Mg/Ml Vial 4 Ml IVP 11/26/25 08:59 2 mg QDAY YOVANI Administration Ciprofloxacin/Hydrocortisone 3 drop 10/26/25 09:00 10/28/25 08:51 Ciprofloxacin/Hc Otic Gretta 10 Ml Btl BOTH EARS 11/02/25 08:59 3 drops BID YOVANI Administration Enoxaparin Sodium 30 mg 10/22/25 09:00 10/28/25 08:51 Enoxaparin Sod Inj 30 Mg/0.3 Ml Syringe SC 11/05/25 08:59 30 mg QDAY YOVANI Administration Ferrous Sulfate 325 mg 10/27/25 21:00 10/28/25 08:49 Ferrous Sulf 325 Mg Tablet PO 11/26/25 20:59 325 mg BID YOVANI Administration Heparin Sodium (Porcine) 3,000 unit 10/22/25 18:42 10/25/25 14:06 Heparin Sod Inj 1000 Unit/Ml Vial 10 Ml [facility] 11/05/25 18:41 3,000 unit PRN PRN Administration heplock vascath Heparin Sodium (Porcine) 3,000 unit 10/22/25 20:09 10/23/25 15:49 Heparin Sod Inj 1000 Unit/Ml Vial 10 Ml [facility] 11/05/25 20:08 3,000 unit X1 PRN Administration DIALYSIS Albumin Human 25 gm in 100 mls @ 0 mls/hr 10/22/25 19:47 Albuminex 25% Ivpb IV Q30MIN PRN To maintain SBP>90 Per Protocol Levofloxacin/Dextrose 750 mg in 150 mls @ 100 mls/hr 10/28/25 21:00 Levaquin Ivpb IV 11/04/25 20:59 Q48HR@2100 [facility] Lactulose 20 gm 10/27/25 07:19 10/28/25 05:22 Lactulose Syrup 20 Gm/30 Ml Udc PO 11/21/25 06:14 20 gm QID YOVANI Administration Protocol Levothyroxine Sodium 25 mcg 10/23/25 06:00 10/28/25 05:22 Levothyroxine Sodium 25 Mcg Tablet PO 11/22/25 05:59 25 mcg ACBR YOVANI Administration Multivitamins/Minerals 1 ml 10/26/25 21:00 10/26/25 21:07 Multivitamin 15 Ml Udc PO 11/25/25 20:59 1 ml Q48HR@2100 YOVANI Administration Rifaximin 550 mg 10/24/25 21:00 10/28/25 08:49 Rifaximin 550 Mg Tablet PO 10/31/25 20:59 550 mg BID YOVANI Administration Sevelamer Carbonate 1,600 mg 10/28/25 08:42 Sevelamer Carbonate 800 Mg Tablet PO 11/22/25 11:59 TIDWM YOVANI Sodium Chloride 3 ml 10/22/25 17:47 Sodium Chloride Rt Irais 0.9% 3 Ml Nebu INH 11/21/25 17:46 PRN PRN SOLN Plan This is a 60-year-old gentleman with history of heart failure with reduced ejection fraction ,alcohol-related cirrhosis, COPD on 3L home oxygen, hypertension, CKD, and right neck mass (Lymphoma?) was brought in for 1 week of shortness of breath from longterm who had severe refractory hyperkalemia that was refractory to hyperkalemia cocktail upgraded from floors to the ICU with severe acidemia and refractory hyper-K. Extubated and now off sedation, on Bipap, downgraded to MedSurg 10/26/25. #Acute metabolic encephalopathy secondary to acute decompensated liver failure - resolved #Hepatic encephalopathy #Agitation - resolved #Severe ascites s/p paracentesis (10/22/25, 10/28/25) #cirrhosis - s/p paracentesis (10/22) with 9,000 mL of ascitic fluid removed. - ammonia 32, WNL - Continue lactulose 20gm q6hr - SAAG 1.2, consistent with portal hypertension 2/2 to cirrhosis - Follow-up LFTs - repeat paracentesis if clinically indicated, replete albumin - S/p US-guided paracentesis (10/28/25), 5L out, replete with 25g albumin. #Acute CHF exacerbation likely 2/2 to PNA #Heart failure with reduced ejection fraction 25-30 %, on this admission 10/2025 #CADY on CKD versus worsening CKD #Hyperkalemia - Resolved with HD #Hyperphosphatemia - downtrending - Consider restarting home medications GDMT: carvedilol, spironolactone, empagliflozin, not on GREY or ARB, if BP stable. - Daily renal panel - Monitor UOP, UOP 30-40 cc/hr, responsive to bumex - Hold HD in setting of good uop with 2mg bumex - Albumin 25 x 1 - Bumex 2 mg IV QD - Nephrology consulted, appreciate recs - Sevalomer 800mg 2 tabs with meal, 3 times daily #R Aspiration PNA- Pseudamonas #COPD Exacerbation #Community-acquired pneumonia versus healthcare associated pneumonia - Serial cxr, imaging looks improved from prior - ET secretions with Pseudamonas - De-escalate from Zosyn (10/24-10/31) to levofloxacin 750mg Q48H - Duonebs q4hr prn #Hypothyroidism - Patient has history of hypothyroidism, takes levothyroxine 25 at home, plan for oral given patient is not on vasopressors actively - outpatient f/u - Continue levothyroxine 25mcg ACBR #Chronic microcytic anemia - likely iron deficiency anemia vs anemia of chronic disease vs ckd - iron 19 low, TIBC 181 low, iron saturation 10 low - transfuse if < 7 - Continue home med ferrous sulfate 325mg PO BID. #R Otitis Externa - monitor for failure to respond to standard therapy and cranial nerve involvement, patient without any facial nerve palsy. - purulent drainage from R ear. - continue Ciprofloxacin 3 drops, 10/26 -11/02 (intend for 7 day course) Health maintenance Dispo: ICU downgrade, pneumonia treatment. DVT prophylaxis: Lovenox 30mg SC QD GI prophylaxis: N/A Antibiotics: Levofloxacin Bowel Regimen: lactulose Diet: Renal diet Lines: RIJ, PIV, morgan cath Code status: Full code Case discussed with my senior resident Dr. Maurice Case discussed with my attending Dr. Aubrey Prabhakarh, PGY 1 Attending Provider Attestation/Addendum I have seen and examined the patient. I was physically present for the blount portions of the services provided including history, physical exam, diagnosis, treatment plans and orders. I agree with assessment and plan of care as documented by residents. Even though this this note was carefully revised there may still be minor errors in bias binding cutter due to voice recognition software. Nicole Burgos MD
[2025-10-28] MEDS: SEVELAMER CARBONATE 800 MG TABLET 1600 MG PO ×2 (13:46→17:32)
[2025-10-28] MEDS: ALBUMIN HUMAN-KJDA 25% IVPB 25 GM/100 ML BTL IV (13:49)
--- NOTE | 2025-10-28 14:27 | PD.RESPROC ---
PROCEDURES: Procedure Date / Time 10/28/25 1427 Paracentesis Procedure comment: Paracentesis Indication: Ascites Informed consent obtained: from patient Time out done, and the following verified: correct patient, side and site, procedure and patient position Procedure: therapeutic paracentesis Location: RLQ Local anesthetic used: lidocaine 1% Amount of anesthesia used (mL): 7 Bedside ultrasound used: yes, Ascites confirmed and location marked Preparation: sterile prep and drape Amount of fluid obtained (mL): 5,000 Fluid: Clear yellow fluid. EBL(ml): 0 Post procedure exam: Awake, Alert, normal blood pressure, normal heart rate, normal SpO2. Patient tolerated procedure: well Complications: none Procedure comment: Indication: Symptomatic ascites with abdominal distention Supervising Physician: Dr. Jacobson (Systems Integration Manager) ? present, supervised, and assisted throughout the procedure. Performing Physician: Dr. Coley, PGY1 Consent: I discussed the presence of significant ascites causing abdominal distention and discomfort. The patient expressed understanding and verbally agreed to proceed with therapeutic paracentesis. Risks, benefits, and alternatives were explained. The patient consented to the procedure. Time Out: Completed. Verified correct patient, procedure, site, side (RLQ), and patient position prior to starting. Procedure: Therapeutic paracentesis Location: Right lower quadrant (RLQ) Bedside Ultrasound: Used; confirmed large volume ascites and appropriate needle insertion site. Site was marked. Preparation: Sterile technique maintained throughout. Area prepped with antiseptic solution and draped. Anesthesia: Local anesthesia with 1% lidocaine; total of 7 mL used. Technique: Using ultrasound guidance, a paracentesis needle/catheter was advanced into the ascitic fluid pocket. Clear yellow fluid was aspirated without resistance. Catheter connected to drainage system. Amount of Fluid Removed: 5,000 mL of ascitic fluid removed. Fluid Studies: None EBL: 0 mL Needle Size: Standard paracentesis catheter (per hospital kit). Post-Procedure Exam: Patient stable no complaints. Abdomen softer and less tense. Hemodynamically stable. Complications: None observed. Procedure tolerated well. Successful large-volume therapeutic paracentesis performed under direct supervision of Dr. Jacobson. No immediate complications. ----- Jared Coley MD PGY-1 Internal Medicine
--- NOTE | 2025-10-28 14:56 | PC.SS ---
Rounding: On lactulose, DC plan [facility]
[2025-10-28] MEDS: VIT B12/Vit C/FA (Nephrovite) TABLET 1 TAB PO (17:32)
[2025-10-29] VITALS (17 sets, daily range): BP systolic 103–123; BP diastolic 63–80; PULSE 72–88; RESP 12–22; TEMP 36.3–37.1; O2SAT 90–99
[2025-10-29] MEDS: ALBUTEROL/IPRATROPIUM (Duoneb) RT SOL 3 ML NEBU INH ×6 (02:40→22:58)
[2025-10-29] MEDS: LEVOTHYROXINE SODIUM 25 MCG TABLET PO (05:15)
[2025-10-29] MEDS: LACTULOSE SYRUP 20 GM/30 ML UDC PO ×4 (05:15→20:39)
[2025-10-29 05:30] LABS: Basophils # (Auto) 0.0 Thou/mm3 (0.0-0.2); Basophils % (Auto) 0 % (0-2.5); Eosinophils # (Auto) 0.4 Thou/mm3 (0.0-0.5); Eosinophils % (Auto) 5 % (0-10); Hematocrit 34.8 % (41.0-53.0); Hemoglobin 10.8 g/dL (13.5-16.0); Immature Granulocytes Auto 0.11 Thou/mm3 (0.00-0.00); Lymphocytes # (Auto) 0.8 Thou/mm3 (1.0-4.8); Lymphocytes % (Auto) 10 % (10-50); Mean Corpuscular HGB Conc 31.0 g/dl (31.0-37.0); Mean Corpuscular Hemoglobin 22.3 pg (25.0-35.0); Mean Corpuscular Volume 72 fL (80-100); Monocytes # (Auto) 1.4 Thou/mm3 (0.0-0.8); Monocytes % (Auto) 17 % (0-12); Neutrophils # (Auto) 5.6 Thou/mm3 (1.8-7.7); Neutrophils % (Auto) 67 % (37-80); Nucleated Red Blood Cell # 0.09 Thou/mm3 (0.00-0.00); Nucleated Red Blood Cell % 1 /100 WBC (0); Platelet Count 115 Thou/mm3 (140-440); RDW Standard Deviation 59.8 fL (35.1-43.9); Red Blood Count 4.85 Miln/mm3 (4.50-5.90); White Blood Count 8.3 Thou/mm3 (3.8-10.6)
[2025-10-29] MEDS: HYDROcodone/APAP 5/325 TABLET 1 TAB PO ×2 (05:32→11:36)
[2025-10-29 05:44] LABS: INR 1.5 (0.9-1.3); Prothrombin Time 15.5 Seconds (9.0-12.2)
[2025-10-29 06:27] LABS: Alanine Aminotransferase 7 U/L (10-49); Albumin, Serum 3.5 gm/dL (3.5-5.0); Albumin/Globulin Ratio 1.3 (1.2-2.2); Alkaline Phosphatase 172 U/L (46-116); Anion Gap 14 (7-16); Aspartate Amino Transferase 19 U/L (0-34); BUN/Creatinine Ratio 18 Ratio (12-20); Bilirubin,Total 1.5 mg/dL (0.3-1.2); Blood Urea Nitrogen 48 mg/dL (9-23); Calcium 8.7 mg/dL (8.3-10.6); Calcium (Corrected) 9.1 mg/dL (8.5-10.1); Carbon Dioxide 27.7 mMol/L (20.0-31.0); Chloride 95 mMol/L (98-107); Creatinine (Component) 2.7 mg/dL (0.6-1.3); Estimated Creatinine Clearance 30.4 mL/min (>60); Globulin 2.8 gm/dL (2.3-3.5); Glucose 91 mg/dL (74-106); Magnesium 1.5 mg/dL (1.6-2.6); Osmolality,Calculated 286 (275-295); Phosphorous 5.6 mg/dL (2.4-5.1); Potassium 4.0 mMol/L (3.4-5.1); Sodium 137 mMol/L (136-145); Total Protein 6.3 gm/dL (5.7-8.2); eGFR 26 See Note
--- NOTE | 2025-10-29 08:37 | PC.SS ---
Addendum entered by Glenda Benavides 10/30/25 10:03: SS reached out to [facility] as referral has not been accepted, pending response. Pt may be ready today but will require auth. Addendum entered by Glenda Benavides 10/29/25 12:34: Eug[facility] at [facility] can take pt per Octavia at [facility]. MELI sent inquiry to [facility] via [facility] Addendum entered by Glenda Benavides 10/29/25 12:02: Per Octavia no male beds available. She will check with sister facilities. Pt will also need routine paracenthesis in which she said they couldn't accommodate that right now but she will reaxh out to sister facilties Addendum entered by Gledna Benavides 10/29/25 08:52: Pt bed hold at [facility], Octavia will see if they have a male bed available Original Note: MELI sent updated clinicals and PT to Octavia at [facility], as pt will need auth to return
--- NOTE | 2025-10-29 08:42 | PD.RESPRO ---
Documentation for date of: 10/29/25 Subjective Subjective Interval history: 60-year-old male past medical history of COPD, alcoholic cirrhosis, diabetes, gout, hypertension, A-fib, heart failure, hyperlipidemia, acidosis, CKD, stage III lymphoma who presented from SNF on 10/22 with shortness of breath and altered mental status. He was found to have a potassium of 6.3, BNP of 638, creatinine of 2.9, and ascites. Per staff, patient is AOx4 and conversational at baseline. ED course: - Vitals: BP 108/89. Patient was desaturating into the 70s on 4 L nasal cannula, however upon arousal he would return to the 90s. - Labs: Potassium 6.3, BUN 42, creatinine 2.9, alk phos 307, BNP 638, PT 15.4, INR 1.5, D-dimer 1600, ABG pH of 7.3, pO2 of 80. - Imaging: Chest x-ray showed vascular congestion, heart failure. Abdominal ultrasound showed ascites. - Patient received DuoNeb treatment, 4 mg morphine, 4 mg Zofran, methylprednisolone 125 IV push x 1, dextrose, 10 units of insulin, and 1 g of calcium gluconate, and 15 GM sodium polystyrene sulfonate orally. Current Medications: allopurinol 100 mg, budesonide 2 mg, buspirone 7.5 mg, carvedilol 3.125 mg, empagliflozin 10 mg, vitamin D2, gabapentin 300 mg, levothyroxine 25 mg, pantoprazole 40 mg, potassium chloride 10 mill EQ tablets, spironolactone 100 mg, tamsulosin 0.4 mg, hydrocodone 5-3 25, ipratropium, fluticasone, lactulose, albuterol, hydroxyzine 25 mg, rifaximin 550 mg, furosemide 40 mg Allergies: No known drug allergies Patient was admitted for acute decompensated cirrhosis, hyperkalemia, and CADY, upgraded to ICU for worsening AHRF requiring intubation. Nephrology was consulted for urgent dialysis for hyperkalemia likely secondary to concomitant use of spironolactone and potassium. 10/23/25: Right femoral triple lumen line placed yesterday in ICU. Received HD last night, no ultrafiltration, tolerated session well. Patient seen and examined at bedside. Creatinine 2.9, improved to 2.1 in the afternoon. Scheduled for dialysis again today, goal 1L fluid removal. 10/24/25: Patient seen and assessed in ICU. Off sedation, tachycardic with HR 130s at bedside. Dialysis day #3, removed 1L yesterday, will remove 3L. Potassium 4.8. Creatinine 2.4. Ordered PPD and hepatitis panel in anticipation for outpatient dialysis. 10/25/2025 patient extubated and is currently on BiPAP. Short of breath and is currently seen on dialysis. In ICU. Heart rate 92-100. Labs and medications reviewed. 10/26/25: Patient seen and assessed in ICU. S/p Bumex 2mg IVP overnight, UOP 700 cc. On BiPAP. WBC downtrending. Sodium 138, potassium 5.1, chloride 98, BUN 50, creatinine 3.5, GFR 19, calcium 9.2, phosphorus 7.6. No dialysis today, continue Bumex and monitor urine output. 10/27/25: Patient seen and assessed in telemetry, downgraded yesterday. UOP 2.1L on IV Bumex 2mg daily. Saturating well on room air. Potassium 4.7, BUN 54, creatinine 3.6, GFR 19, phosphorus 7.3. Increase sevelamer 800 mg to two tabs with meals for today, follow up labs tomorrow. No need for dialysis as patient is maintaining good urine output. 10/28/25: Patient seen and assessed in telemetry. On BiPAP overnight. More lethargic on exam today. UOP 2.5 L. BUN 51 creatinine 3.4 (from 3.6), GFR 20. Phosphorus elevated at 6.2, continue sevelamer 800 3 times daily, 2 tablets with meals. Magnesium 1.9, repleted. No dialysis as patient maintaining good urine output. 10/29/25: Patient seen and assessed in telemetry. Off BiPAP. Conversational, back to baseline. S/p paracentesis, removed 5 L. Continue IV albumin. UOP 3.5 L. BUN 48, creatinine 2.7, improving. GFR 26. Calcium 9.1, phosphorus 5.6 (from 6.2), magnesium 1.5, repleted. Recommend starting on spironolactone given possible hepatorenal syndrome. Remove right IJ central line. Plan to DC to SNF today. Exam Vital Signs Temp Pulse Resp BP Pulse Ox O2 Del Method O2 Flow Rate 96.9 F 81 18 101/74 90 L Nasal Cannula 3 10/28/25 20:00 10/29/25 08:33 10/29/25 08:33 10/28/25 20:00 10/29/25 08:33 10/28/25 20:00 10/29/25 08:33 FiO2 40 10/29/25 02:31 Narrative Exam Physical Exam General: Awake and in no acute distress. Conversational and non-toxic appearing. HEENT: Normocephalic, atraumatic, mucous membranes moist. Heart: Regular rate and rhythm, normal S1 and S2, no murmurs. Lungs: Clear to auscultation with no wheezing or crackles. Abdomen: Soft, obese, positive bowel sounds. Mild ascites. No guarding or rebound tenderness. Neurologic: No gross neurological deficit, and patient able to move all 4 extremities. Extremities: 1+ pitting edema in lower extremities. Skin: Scattered freckles on face and upper arms. No rash or ecchymoses. Objective Labs 11/01/25 04:42 11/01/25 04:42 Labs: Laboratory Results - last 24 hr 10/28/25 10/28/25 10/29/25 09:00 09:20 04:45 WBC 8.3 RBC 4.85 Hgb 10.8 L Hct 34.8 L MCV 72 L MCH 22.3 L MCHC 31.0 RDW Std Deviation 59.8 H Plt Count 115 L Neut % (Auto) 67 Lymph % (Auto) 10 [place] % (Auto) 17 H Eos % (Auto) 5 Baso % (Auto) 0 Neut # (Auto) 5.6 Lymph # (Auto) 0.8 L [place] # (Auto) 1.4 H Eos # (Auto) 0.4 Baso # (Auto) 0.0 Immature Gran # (Auto) 0.11 H Absolute Nucleated RBC 0.09 H Immature Gran % 1 H Nucleated RBC % 1 H PT 15.5 H INR 1.5 H Puncture Site Left Radial ABG pH 7.35 ABG pCO2 48 ABG pO2 71 L D ABG HCO3 26 ABG O2 Saturation 93 ABG Base Excess 0 FiO2 2 Sodium 137 Potassium 4.0 Chloride 95 L Carbon Dioxide 27.7 Anion Gap 14 BUN 48 H Creatinine 2.7 H D Estim Creat Clear Calc 30.4 L eGFR 26 L BUN/Creatinine Ratio 18 Glucose 91 Calculated Osmolality 286 Calcium 8.7 Corrected Calcium 9.1 Phosphorus 5.6 H Magnesium 1.5 L Total Bilirubin 1.5 H AST 19 ALT 7 L Alkaline Phosphatase 172 H Ammonia 35 H Total Protein 6.3 Albumin 3.5 Globulin 2.8 Albumin/Globulin Ratio 1.3 ABG Interpretation ABG results: 10/22/25 10/22/25 10/22/25 03:27 11:26 15:35 ABG pH 7.30 L 7.10 L* D 7.29 L D ABG pCO2 48 80 H* D 48 D ABG pO2 80 L 34 L* D 236 H D ABG HCO3 24 25 23 ABG O2 Saturation 98 40 L 101 H ABG Base Excess -2 -5 L -3 VBG pH VBG pCO2 VBG pO2 VBG Base Excess 10/22/25 10/23/25 10/23/25 19:01 05:11 19:30 ABG pH 7.36 7.34 L 7.48 H D ABG pCO2 43 50 H 36 D ABG pO2 173 H D 40 L* D 72 L D ABG HCO3 24 27 H 27 H ABG O2 Saturation 100 H 65 L 95 ABG Base Excess -1 1 4 H VBG pH VBG pCO2 VBG pO2 VBG Base Excess 10/24/25 10/24/25 10/24/25 04:47 15:55 16:18 ABG pH 7.47 H Cancelled ABG pCO2 37 Cancelled ABG pO2 76 L Cancelled ABG HCO3 27 H Cancelled ABG O2 Saturation 96 Cancelled ABG Base Excess 4 H Cancelled VBG pH 7.18 L VBG pCO2 72 H VBG pO2 36 VBG Base Excess -3 10/24/25 10/24/25 10/24/25 18:15 19:39 21:50 ABG pH ABG pCO2 ABG pO2 ABG HCO3 ABG O2 Saturation ABG Base Excess VBG pH 7.25 L 7.26 L 7.27 L VBG pCO2 54 D 55 51 VBG pO2 67 H D 51 42 VBG Base Excess -4 L -3 -4 L 10/24/25 10/25/25 10/25/25 23:17 01:28 03:15 ABG pH ABG pCO2 ABG pO2 ABG HCO3 ABG O2 Saturation ABG Base Excess VBG pH 7.28 L 7.27 L 7.36 VBG pCO2 52 55 40 D VBG pO2 31 37 56 VBG Base Excess -3 -2 -3 10/25/25 10/25/25 10/25/25 04:41 06:20 07:44 ABG pH 7.29 L D ABG pCO2 46 ABG pO2 128 H D ABG HCO3 22 ABG O2 Saturation 99 H ABG Base Excess -5 L VBG pH 7.25 L 7.25 L VBG pCO2 57 H D 56 VBG pO2 49 42 VBG Base Excess -3 -3 10/25/25 10/25/25 10/25/25 09:50 11:04 11:37 ABG pH Cancelled ABG pCO2 Cancelled ABG pO2 Cancelled ABG HCO3 Cancelled ABG O2 Saturation Cancelled ABG Base Excess Cancelled VBG pH 7.29 L 7.25 L VBG pCO2 51 59 H VBG pO2 37 41 VBG Base Excess -3 -3 10/25/25 10/25/25 10/25/25 14:40 16:26 20:00 ABG pH 7.26 L 7.25 L 7.28 L ABG pCO2 49 H 53 H 51 H ABG pO2 230 H D 87 D 68 L ABG HCO3 22 24 24 ABG O2 Saturation 100 H 95 91 ABG Base Excess -6 L -4 L -3 VBG pH VBG pCO2 VBG pO2 VBG Base Excess 10/26/25 10/26/25 10/27/25 01:25 14:20 05:14 ABG pH 7.32 L 7.31 L 7.33 L ABG pCO2 46 48 46 ABG pO2 120 H D 171 H D 134 H D ABG HCO3 23 24 24 ABG O2 Saturation 99 H 100 H 99 H ABG Base Excess -3 -3 -2 VBG pH VBG pCO2 VBG pO2 VBG Base Excess 10/28/25 09:00 ABG pH 7.35 ABG pCO2 48 ABG pO2 71 L D ABG HCO3 26 ABG O2 Saturation 93 ABG Base Excess 0 VBG pH VBG pCO2 VBG pO2 VBG Base Excess Quality Measures Quality Measures VTE prophylaxis Assessment & Plan Assessment Current Active Medications: Generic Name Dose Route Start Last Admin Trade Name Freq PRN Reason Stop Dose Admin Acetaminophen 650 mg 10/22/25 06:01 10/27/25 15:16 Acetaminophen 325 Mg Tablet PO 11/21/25 06:00 650 mg Q6H PRN Administration Fever >101.5 Hydrocodone Bitart/Acetaminophen 1 tab 10/27/25 16:01 10/29/25 05:32 Hydrocodone/Apap 5/325 Tablet PO 11/01/25 16:00 1 tab Q6HR PRN Administration PAIN Albuterol/Ipratropium 3 ml 10/25/25 19:00 10/29/25 07:23 Albuterol/Ipratropium (Duoneb) Rt Irais 3 Ml Nebu INH 11/24/25 18:59 3 ml Q4HRRT YOVANI Administration Bumetanide 2 mg 10/27/25 09:00 10/28/25 08:49 Bumetanide Inj 0.25 Mg/Ml Vial 4 Ml IVP 11/26/25 08:59 2 mg QDAY YOVANI Administration Ciprofloxacin/Hydrocortisone 3 drop 10/26/25 09:00 10/28/25 21:16 Ciprofloxacin/Hc Otic Gretta 10 Ml Btl BOTH EARS 11/02/25 08:59 3 drops BID YOVANI Administration Enoxaparin Sodium 30 mg 10/22/25 09:00 10/28/25 08:51 Enoxaparin Sod Inj 30 Mg/0.3 Ml Syringe SC 11/05/25 08:59 30 mg QDAY YOVANI Administration Ferrous Sulfate 325 mg 10/27/25 21:00 10/28/25 21:07 Ferrous Sulf 325 Mg Tablet PO 11/26/25 20:59 325 mg BID YOVANI Administration Heparin Sodium (Porcine) 3,000 unit 10/22/25 18:42 10/25/25 14:06 Heparin Sod Inj 1000 Unit/Ml Vial 10 Ml INDWELLCAT 11/05/25 18:41 3,000 unit PRN PRN Administration heplock vascath Albumin Human 25 gm in 100 mls @ 0 mls/hr 10/22/25 19:47 Albuminex 25% Ivpb IV Q30MIN PRN To maintain SBP>90 Per Protocol Levofloxacin/Dextrose 750 mg in 150 mls @ 100 mls/hr 10/28/25 21:00 10/28/25 21:08 Levaquin Ivpb IV 11/04/25 20:59 100 mls/hr Q48HR@2100 YOVANI Administration Albumin Human 25 gm in 100 mls @ 100 mls/hr 10/28/25 13:14 10/28/25 13:49 Albuminex 25% Ivpb IV 10/31/25 13:13 100 mls/hr QDAY YOVANI Administration Magnesium Sulfate 4 gm in 50 mls @ 12.5 mls/hr 10/29/25 08:12 Magnesium Sulfate Ivpb IV 10/29/25 12:11 X1 ONE Lactulose 20 gm 10/27/25 07:19 10/29/25 05:15 Lactulose Syrup 20 Gm/30 Ml Udc PO 11/21/25 06:14 20 gm QID YOVANI Administration Protocol Levothyroxine Sodium 25 mcg 10/23/25 06:00 10/29/25 05:15 Levothyroxine Sodium 25 Mcg Tablet PO 11/22/25 05:59 25 mcg ACBR YOVANI Administration Rifaximin 550 mg 10/24/25 21:00 10/28/25 21:08 Rifaximin 550 Mg Tablet PO 10/31/25 20:59 550 mg BID YOVANI Administration Sevelamer Carbonate 1,600 mg 10/28/25 08:42 10/28/25 17:32 Sevelamer Carbonate 800 Mg Tablet PO 11/22/25 11:59 1,600 mg TIDWM YOVANI Administration Sodium Chloride 3 ml 10/22/25 17:47 Sodium Chloride Rt Irais 0.9% 3 Ml Nebu INH 11/21/25 17:46 PRN PRN SOLN Vitamin B Complex/Vit C/Folic Acid 1 tab 10/28/25 14:30 10/28/25 17:32 Vit B12/Vit C/Fa (Nephrovite) Tablet PO 11/27/25 14:29 1 tab QDAY YOVANI Administration Plan 60-year-old male past medical history of COPD, alcoholic cirrhosis, diabetes, gout, hypertension, A-fib, heart failure, hyperlipidemia, acidosis, CKD IIIa, stage III lymphoma who presented from SNF on 10/22 with shortness of breath and altered mental status, upgraded to ICU due to worsening AHRF requiring intubation. Extubated and downgraded to telemetry 10/26. Nephrology consulted for urgent dialysis for hyperkalemia. #Hyperkalemia (resolved) #CADY on CKD IIIa versus CKD IV - Presented with altered mental status from SNF - Home medications include potassium chloride 10 mill EQ tablets and spiranolactone 100 mg - Potassium 6.3 on admission, increased to 7.0 despite insulin, albuterol, and Kayexelate - Cr 2.9 --> 2.4 (10/24) -> 3.5 (10/25) --> 3.6 - Creatinine previously 1.4 in 01/2024 however unclear baseline - EKG showed normal sinus rhythm, no peaked T waves observed - Upgraded to ICU 10/22, HD cath placed in right IJ - S/p HD 10/22 (no ultrafiltration), 10/23 (-1L), 10/25 (-2.5L) Plan: - No need for dialysis as renal function continuing to improve. Remove IJ catheter. - IV Bumex 2 mg daily, transition to PO Bumex 2 mg daily. Recommend restarting on spiranolactone for possible hepatorenal syndrome. - Discontinue potassium - Strict INOs - Monitor renal panel daily - Avoid nephrotoxic agents - Renally dose medications #Hyperphosphatemia - Phosphorus 7.3, improved to 6.2 (10/28) Plan: - Sevelamer 1600 mg TID #Respiratory acidosis #AHRF #Intubated #Acute decompensated cirrhosis 2/2 alcohol use #Acute encephalopathy #HFrEF #Hypertension #Hypothyroidism #Microcytic Anemia #History of gout #Stage III lymphoma #Diabetes #Afib paroxysmal? #HLD - Defer to hospitalist team for management Thank you for your consultation, please do not hesitate to reach out if you have any question or concern Patient plan of care was discussed with the attending physician, Dr. Platt. Celeste Nation DO, PGY-1 Attending Provider Attestation/Addendum Patient seen and examined with resident physician Dr. Nation. Note reviewed, agree with findings and recommendations.
[2025-10-29] MEDS: ENOXAPARIN SOD INJ 30 MG/0.3 ML SYRINGE SC (09:41)
[2025-10-29] MEDS: ALBUMIN HUMAN-KJDA 25% IVPB 25 GM/100 ML BTL IV (09:42)
[2025-10-29] MEDS: Magnesium Sulfate 4 GM Ivpb 4 GM/50 ML BAG IV (09:42)
[2025-10-29] MEDS: BUMETANIDE INJ 0.25 MG/ML VIAL 4 ML 2 MG IVP (09:44)
[2025-10-29] MEDS: SEVELAMER CARBONATE 800 MG TABLET 1600 MG PO ×3 (09:44→16:32)
[2025-10-29] MEDS: FERROUS SULF 325 MG TABLET PO ×2 (09:44→20:39)
[2025-10-29] MEDS: VIT B12/Vit C/FA (Nephrovite) TABLET 1 TAB PO (09:44)
--- NOTE | 2025-10-29 13:53 | ESPR_ITS ---
<Statement entered by Ramiro Sharp MD - 10/31/25 06:00> Patient was examined and case was reviewed with team including attending physician. Note reviewed, I agree with most of its contents and agree with the patient's care. Ramiro Sharp MD PGY-2 Documentation for date of: 10/29/25 Subjective Subjective Interval history: Mr. Amador is a 60-year-old gentleman with a past medical history significant for left neck lymphoma, cirrhosis, COPD on 3L home oxygen, CKD, hypertension, chronic lower back pain who presented with worsening shortness of breath from snf. He was admitted to ICU initially for AMS and hyperkalemia. 10/22/2025: CT head with Negative for acute hemorrhage, mass effect or midline shift, pupils were fixed and dilated. He was intubated, and started on HD after multiple attempts at getting central access. R ij was placed. had paracentesis with 9 L off. cytology sent 10/23/2025: Patient seen and examined at bedside with abdomen notably firm and distended with positive fluid wave. HD today with 1 L removed in 3 hour session. K now within nl at 4.5 pupils are sluggish but responsive to light and no longer fixed and dilated. remains intubated and sedated. appears more volume overloaded on exam. with reacumulated ascites despite 9 L paracentesis done yesterday. 10/24/2025 Patient examined bedside, labs reviewed. Abdomen is still notably firm and distended with positive fluid wave. HD not happening today instead had sequential ultrafiltration with 3 L removed. Plan to downgrade stalled because patient BPs dropped and was not responsive to fluids per NICOM restarted dobutamine and levophed to maintain SvO2 >65. 10/25/2025: Patient examined at bedside, labs reviewed. Patient was extubated, and placed on bipap, ABG are difficult to draw, they demonstrate persistent acidosis, so bipap settings were augmented. Presidex protocol was initiated given some agitation. 10/26/2025: Patient seen and examined at bedside, labs reviewed. Patient with notable puralent drainage slightly blood tinged on his R ear, and tenderness with pulling of the pinnea, L ear nl. R ear c/f otitis externa, started on cipro drops BID for 7 day course. On Bipap 08/23, pt requesting that we contact his brother, Otoniel Amador to provide updates. Pt underwent trial of bumex yesterday, with good UOP, so today will hold HD and diurese with 2 bumex and albumin. possible downgrade. 10/26/2025 PM: Downgraded to MedSurg. Tolerated BiPAP well. Hold dialysis today in light of good urine output overnight s/p Bumex per nephrology recommendation. Continue to diuresis with 2mg bumex QD with close UOP monitoring. 10/27/2025: NAOE. On exam, abdomen appears to be distended again, US abdomen revealed re-accumulation of moderate ascitic fluid. Plan for US guided paracentesis tmr. UOP 2.1L on IV Bumex 2mg daily. Increase sevelamer 800 mg to two tabs with meals for today per nephrology recommendation. PT consulted, recs rehab placement for skilled therapy services. 10/28/2025: Overnight tele reported 2 short runs of nonsustaining VT. De- escalate Zosyn to levoflxacin today for pneumonia coverage. Paracentesis today with 5L out, no complication, replaced with 25g albumin. Please see operative note for further details. Patient continues to make good UOP, 2.4L last 24H. Phos decreased from 7 to 6.2 today. On exam, patient's upper arms appear edematous, doppler US oredered with negative findings for DVT in both R and L UE. 10/29/2025: NAOE. Patient appears more awake and alert today, a/o x 4. Phos 5.6 today. UOP 3.5L last 24H. Started prednisone 30mg PO today for patient's gout. Per nephrology, started patient back on spironolactone given possible hepatorenal syndrome. Right IJ central line removed. May remove morgan tmr morning if stable for discharge to [facility] tmr. Exam Vital Signs Temp Pulse Resp BP Pulse Ox O2 Del Method O2 Flow Rate 97.4 F 82 19 118/63 97 Nasal Cannula 3 10/29/25 12:00 10/29/25 12:00 10/29/25 12:00 10/29/25 12:00 10/29/25 12:00 10/29/25 12:00 10/29/25 12:00 FiO2 40 10/29/25 09:31 Narrative Exam General: Appears comfortable, more alert and awake. Conversational. Eyes open to voice. On 3L NC. HEENT: Normocephalic, atraumatic, mucous membranes moist. Minimal right ear drainage. Heart: Regular rate and rhythm Lungs: Clear to auscultation with no wheezing or crackles. No increases WOB. Abdomen: Distended, but nontender. No guarding or rebound tenderness. Neurologic: No gross neurological deficit Extremities: 1+ edema throughout, no mottling or ecchymosis Objective Labs 10/30/25 05:07 10/30/25 05:07 Labs: Laboratory Results - last 24 hr 10/29/25 04:45 WBC 8.3 RBC 4.85 Hgb 10.8 L Hct 34.8 L MCV 72 L MCH 22.3 L MCHC 31.0 RDW Std Deviation 59.8 H Plt Count 115 L Neut % (Auto) 67 Lymph % (Auto) 10 [place] % (Auto) 17 H Eos % (Auto) 5 Baso % (Auto) 0 Neut # (Auto) 5.6 Lymph # (Auto) 0.8 L [place] # (Auto) 1.4 H Eos # (Auto) 0.4 Baso # (Auto) 0.0 Immature Gran # (Auto) 0.11 H Absolute Nucleated RBC 0.09 H Immature Gran % 1 H Nucleated RBC % 1 H PT 15.5 H INR 1.5 H Sodium 137 Potassium 4.0 Chloride 95 L Carbon Dioxide 27.7 Anion Gap 14 BUN 48 H Creatinine 2.7 H D Estim Creat Clear Calc 30.4 L eGFR 26 L BUN/Creatinine Ratio 18 Glucose 91 Calculated Osmolality 286 Calcium 8.7 Corrected Calcium 9.1 Phosphorus 5.6 H Magnesium 1.5 L Total Bilirubin 1.5 H AST 19 ALT 7 L Alkaline Phosphatase 172 H Total Protein 6.3 Albumin 3.5 Globulin 2.8 Albumin/Globulin Ratio 1.3 ABG Interpretation ABG results: 10/22/25 10/22/25 10/22/25 03:27 11:26 15:35 ABG pH 7.30 L 7.10 L* D 7.29 L D ABG pCO2 48 80 H* D 48 D ABG pO2 80 L 34 L* D 236 H D ABG HCO3 24 25 23 ABG O2 Saturation 98 40 L 101 H ABG Base Excess -2 -5 L -3 VBG pH VBG pCO2 VBG pO2 VBG Base Excess 10/22/25 10/23/25 10/23/25 19:01 05:11 19:30 ABG pH 7.36 7.34 L 7.48 H D ABG pCO2 43 50 H 36 D ABG pO2 173 H D 40 L* D 72 L D ABG HCO3 24 27 H 27 H ABG O2 Saturation 100 H 65 L 95 ABG Base Excess -1 1 4 H VBG pH VBG pCO2 VBG pO2 VBG Base Excess 10/24/25 10/24/25 10/24/25 04:47 15:55 16:18 ABG pH 7.47 H Cancelled ABG pCO2 37 Cancelled ABG pO2 76 L Cancelled ABG HCO3 27 H Cancelled ABG O2 Saturation 96 Cancelled ABG Base Excess 4 H Cancelled VBG pH 7.18 L VBG pCO2 72 H VBG pO2 36 VBG Base Excess -3 10/24/25 10/24/25 10/24/25 18:15 19:39 21:50 ABG pH ABG pCO2 ABG pO2 ABG HCO3 ABG O2 Saturation ABG Base Excess VBG pH 7.25 L 7.26 L 7.27 L VBG pCO2 54 D 55 51 VBG pO2 67 H D 51 42 VBG Base Excess -4 L -3 -4 L 10/24/25 10/25/25 10/25/25 23:17 01:28 03:15 ABG pH ABG pCO2 ABG pO2 ABG HCO3 ABG O2 Saturation ABG Base Excess VBG pH 7.28 L 7.27 L 7.36 VBG pCO2 52 55 40 D VBG pO2 31 37 56 VBG Base Excess -3 -2 -3 10/25/25 10/25/25 10/25/25 04:41 06:20 07:44 ABG pH 7.29 L D ABG pCO2 46 ABG pO2 128 H D ABG HCO3 22 ABG O2 Saturation 99 H ABG Base Excess -5 L VBG pH 7.25 L 7.25 L VBG pCO2 57 H D 56 VBG pO2 49 42 VBG Base Excess -3 -3 10/25/25 10/25/25 10/25/25 09:50 11:04 11:37 ABG pH Cancelled ABG pCO2 Cancelled ABG pO2 Cancelled ABG HCO3 Cancelled ABG O2 Saturation Cancelled ABG Base Excess Cancelled VBG pH 7.29 L 7.25 L VBG pCO2 51 59 H VBG pO2 37 41 VBG Base Excess -3 -3 10/25/25 10/25/25 10/25/25 14:40 16:26 20:00 ABG pH 7.26 L 7.25 L 7.28 L ABG pCO2 49 H 53 H 51 H ABG pO2 230 H D 87 D 68 L ABG HCO3 22 24 24 ABG O2 Saturation 100 H 95 91 ABG Base Excess -6 L -4 L -3 VBG pH VBG pCO2 VBG pO2 VBG Base Excess 10/26/25 10/26/25 10/27/25 01:25 14:20 05:14 ABG pH 7.32 L 7.31 L 7.33 L ABG pCO2 46 48 46 ABG pO2 120 H D 171 H D 134 H D ABG HCO3 23 24 24 ABG O2 Saturation 99 H 100 H 99 H ABG Base Excess -3 -3 -2 VBG pH VBG pCO2 VBG pO2 VBG Base Excess 10/28/25 09:00 ABG pH 7.35 ABG pCO2 48 ABG pO2 71 L D ABG HCO3 26 ABG O2 Saturation 93 ABG Base Excess 0 VBG pH VBG pCO2 VBG pO2 VBG Base Excess Quality Measures Quality Measures VTE prophylaxis Assessment & Plan Assessment Current Active Medications: Generic Name Dose Route Start Last Admin Trade Name Freq PRN Reason Stop Dose Admin Acetaminophen 325 mg 10/29/25 13:48 Acetaminophen 325 Mg Tablet PO 11/21/25 06:00 Q6H PRN Fever >101.5, pain 1-4 Hydrocodone Bitart/Acetaminophen 1 tab 10/29/25 13:49 Hydrocodone/Apap 10/325 Tab PO 11/03/25 13:46 Q6HR PRN Pain 5-10 Albuterol/Ipratropium 3 ml 10/25/25 19:00 10/29/25 11:47 Albuterol/Ipratropium (Duoneb) Rt Irais 3 Ml Nebu INH 11/24/25 18:59 3 ml Q4HRRT YOVANI Administration Bumetanide 2 mg 10/27/25 09:00 10/29/25 09:44 Bumetanide Inj 0.25 Mg/Ml Vial 4 Ml IVP 11/26/25 08:59 2 mg QDAY YOVANI Administration Ciprofloxacin/Hydrocortisone 3 drop 10/26/25 09:00 10/29/25 09:47 Ciprofloxacin/Hc Otic Gretta 10 Ml Btl BOTH EARS 11/02/25 08:59 3 drops BID YOVANI Administration Enoxaparin Sodium 30 mg 10/22/25 09:00 10/29/25 09:41 Enoxaparin Sod Inj 30 Mg/0.3 Ml Syringe SC 11/05/25 08:59 30 mg QDAY YOVANI Administration Ferrous Sulfate 325 mg 10/27/25 21:00 10/29/25 09:44 Ferrous Sulf 325 Mg Tablet PO 11/26/25 20:59 325 mg BID YOVANI Administration Heparin Sodium (Porcine) 3,000 unit 10/22/25 18:42 10/25/25 14:06 Heparin Sod Inj 1000 Unit/Ml Vial 10 Ml INDWELLCAT 11/05/25 18:41 3,000 unit PRN PRN Administration heplock vascath Albumin Human 25 gm in 100 mls @ 0 mls/hr 10/22/25 19:47 Albuminex 25% Ivpb IV Q30MIN PRN To maintain SBP>90 Per Protocol Levofloxacin/Dextrose 750 mg in 150 mls @ 100 mls/hr 10/28/25 21:00 10/28/25 21:08 Levaquin Ivpb IV 11/04/25 20:59 100 mls/hr Q48HR@2100 YOVANI Administration Albumin Human 25 gm in 100 mls @ 100 mls/hr 10/28/25 13:14 10/29/25 09:42 Albuminex 25% Ivpb IV 10/31/25 13:13 100 mls/hr QDAY YOVANI Administration Lactulose 20 gm 10/27/25 07:19 10/29/25 11:36 Lactulose Syrup 20 Gm/30 Ml Udc PO 11/21/25 06:14 20 gm QID YOVANI Administration Protocol Levothyroxine Sodium 25 mcg 10/23/25 06:00 10/29/25 05:15 Levothyroxine Sodium 25 Mcg Tablet PO 11/22/25 05:59 25 mcg ACBR YOVANI Administration Prednisone 30 mg 10/29/25 13:30 Prednisone 20 Mg Tablet PO 11/05/25 13:18 QDAY YOVANI Rifaximin 550 mg 10/24/25 21:00 10/29/25 09:43 Rifaximin 550 Mg Tablet PO 10/31/25 20:59 550 mg BID YOVANI Administration Sevelamer Carbonate 1,600 mg 10/28/25 08:42 10/29/25 11:36 Sevelamer Carbonate 800 Mg Tablet PO 11/22/25 11:59 1,600 mg TIDWM YOVANI Administration Sodium Chloride 3 ml 10/22/25 17:47 Sodium Chloride Rt Irais 0.9% 3 Ml Nebu INH 11/21/25 17:46 PRN PRN SOLN Vitamin B Complex/Vit C/Folic Acid 1 tab 10/28/25 14:30 10/29/25 09:44 Vit B12/Vit C/Fa (Nephrovite) Tablet PO 11/27/25 14:29 1 tab QDAY YOVANI Administration Plan This is a 60-year-old gentleman with history of heart failure with reduced ejection fraction ,alcohol-related cirrhosis, COPD on 3L home oxygen, hypertension, CKD, and right neck mass (Lymphoma?) was brought in for 1 week of shortness of breath from snf who had severe refractory hyperkalemia that was refractory to hyperkalemia cocktail upgraded from floors to the ICU with severe acidemia and refractory hyper-K. Extubated and now off sedation, on Bipap, downgraded to MedSurg 10/26/25. #Acute metabolic encephalopathy secondary to acute decompensated liver failure - resolved #Hepatic encephalopathy #Agitation - resolved #Severe ascites s/p paracentesis (10/22/25, 10/28/25) #cirrhosis #heptorenal syndrome - s/p paracentesis (10/22) with 9,000 mL of ascitic fluid removed. - ammonia 32, WNL - Continue lactulose 20gm q6hr - SAAG 1.2, consistent with portal hypertension 2/2 to cirrhosis - Follow-up LFTs - repeat paracentesis if clinically indicated, replete albumin - S/p US-guided paracentesis (10/28/25), 5L out, replete with 25g albumin. - Started home spironlactone 100mg PO QD #Acute CHF exacerbation likely 2/2 to PNA #Heart failure with reduced ejection fraction 25-30 %, on this admission 10/2025 #CADY on CKD versus worsening CKD #Hyperkalemia - Resolved with HD #Hyperphosphatemia - downtrending - Consider restarting home medications GDMT: carvedilol, spironolactone, empagliflozin, not on GREY or ARB, if BP stable. Spironolactone restarted. - Daily renal panel - Monitor UOP, UOP 30-40 cc/hr, responsive to bumex - Hold HD in setting of good uop with 2mg bumex - Albumin 25 x 1 - Bumex 2 mg IV QD - Nephrology consulted, appreciate recs - Sevalomer 800mg 2 tabs with meal, 3 times daily #R Aspiration PNA- Pseudamonas #COPD Exacerbation #Community-acquired pneumonia versus healthcare associated pneumonia - Serial cxr, imaging looks improved from prior - ET secretions with Pseudamonas - De-escalate from Zosyn (10/24-10/31) to levofloxacin 750mg Q48H - Duonebs q4hr prn #Hypothyroidism - Patient has history of hypothyroidism, takes levothyroxine 25 at home, plan for oral given patient is not on vasopressors actively - outpatient f/u - Continue levothyroxine 25mcg ACBR #Chronic microcytic anemia - likely iron deficiency anemia vs anemia of chronic disease vs ckd - iron 19 low, TIBC 181 low, iron saturation 10 low - transfuse if < 7 - Continue home med ferrous sulfate 325mg PO BID. #R Otitis Externa - monitor for failure to respond to standard therapy and cranial nerve involvement, patient without any facial nerve palsy. - purulent drainage from R ear. - continue Ciprofloxacin 3 drops, 10/26 -11/02 (intend for 7 day course) #Gout - chronic medical problem - Started on prednisone 30mg PO QD - Held home allopurinol due to acute flare improving renal function. Health maintenance Dispo: ICU downgrade, pneumonia treatment. DVT prophylaxis: Lovenox 30mg SC QD GI prophylaxis: N/A Antibiotics: Levofloxacin Bowel Regimen: lactulose Diet: Renal diet Lines: PIV, morgan cath Code status: Full code Case discussed with my senior resident Dr. Maurice Case discussed with my attending Dr. Aubrey Cueva, DO PGY 1 Attending Provider Attestation/Addendum I have seen and examined the patient. I was physically present for the blount portions of the services provided including history, physical exam, diagnosis, treatment plans and orders. I agree with assessment and plan of care as documented by residents. Even though this this note was carefully revised there may still be minor errors in sergeant of corrections due to voice recognition software. Nicole Burgos MD
[2025-10-30] VITALS (13 sets, daily range): BP systolic 114–129; BP diastolic 67–78; PULSE 70–89; RESP 12–20; TEMP 36.3–36.6; O2SAT 93–99; BMI 33.6
[2025-10-30] MEDS: ALBUTEROL/IPRATROPIUM (Duoneb) RT SOL 3 ML NEBU INH ×5 (02:40→22:13)
[2025-10-30] MEDS: LACTULOSE SYRUP 20 GM/30 ML UDC PO ×4 (05:39→20:09)
[2025-10-30] MEDS: LEVOTHYROXINE SODIUM 25 MCG TABLET PO (05:40)
[2025-10-30 05:53] LABS: Basophils # (Auto) 0.0 Thou/mm3 (0.0-0.2); Basophils % (Auto) 0 % (0-2.5); Eosinophils # (Auto) 0.2 Thou/mm3 (0.0-0.5); Eosinophils % (Auto) 2 % (0-10); Hematocrit 34.8 % (41.0-53.0); Hemoglobin 10.8 g/dL (13.5-16.0); Immature Granulocytes Auto 0.07 Thou/mm3 (0.00-0.00); Lymphocytes # (Auto) 0.6 Thou/mm3 (1.0-4.8); Lymphocytes % (Auto) 7 % (10-50); Mean Corpuscular HGB Conc 31.0 g/dl (31.0-37.0); Mean Corpuscular Hemoglobin 22.3 pg (25.0-35.0); Mean Corpuscular Volume 72 fL (80-100); Monocytes # (Auto) 1.2 Thou/mm3 (0.0-0.8); Monocytes % (Auto) 15 % (0-12); Neutrophils # (Auto) 5.7 Thou/mm3 (1.8-7.7); Neutrophils % (Auto) 74 % (37-80); Nucleated Red Blood Cell # 0.04 Thou/mm3 (0.00-0.00); Nucleated Red Blood Cell % 1 /100 WBC (0); Platelet Count 113 Thou/mm3 (140-440); RDW Standard Deviation 60.9 fL (35.1-43.9); Red Blood Count 4.85 Miln/mm3 (4.50-5.90); White Blood Count 7.7 Thou/mm3 (3.8-10.6)
[2025-10-30 06:31] LABS: Albumin, Serum 3.7 gm/dL (3.5-5.0); Albumin/Globulin Ratio 1.3 (1.2-2.2); Alkaline Phosphatase 185 U/L (46-116); Anion Gap 14 (7-16); Aspartate Amino Transferase 21 U/L (0-34); BUN/Creatinine Ratio 16 Ratio (12-20); Bilirubin,Total 1.7 mg/dL (0.3-1.2); Blood Urea Nitrogen 34 mg/dL (9-23); Calcium 8.9 mg/dL (8.3-10.6); Calcium (Corrected) 9.1 mg/dL (8.5-10.1); Carbon Dioxide 27.4 mMol/L (20.0-31.0); Chloride 95 mMol/L (98-107); Creatinine (Component) 2.1 mg/dL (0.6-1.3); Estimated Creatinine Clearance 38.7 mL/min (>60); Globulin 2.9 gm/dL (2.3-3.5); Glucose 103 mg/dL (74-106); Magnesium 2.0 mg/dL (1.6-2.6); Osmolality,Calculated 279 (275-295); Phosphorous 4.4 mg/dL (2.4-5.1); Potassium 3.8 mMol/L (3.4-5.1); Sodium 136 mMol/L (136-145); Total Protein 6.6 gm/dL (5.7-8.2); eGFR 36 See Note
[2025-10-30 06:33] LABS: Alanine Aminotransferase 7 U/L (10-49)
--- NOTE | 2025-10-30 07:42 | PC.NURSE ---
Pt has a significant amount of moisture dermatitis in the groin area and white discharge in the folds around his penis that looks like yeast. pt is also complaining of burn in the tip of his penis. Called Dr. Burgos and made aware. will place new orders. Will continue to monitor.
[2025-10-30] MEDS: SEVELAMER CARBONATE 800 MG TABLET 1600 MG PO ×3 (08:10→17:16)
[2025-10-30] MEDS: VIT B12/Vit C/FA (Nephrovite) TABLET 1 TAB PO (08:11)
[2025-10-30] MEDS: ALBUMIN HUMAN-KJDA 25% IVPB 25 GM/100 ML BTL IV (08:11)
[2025-10-30] MEDS: ENOXAPARIN SOD INJ 30 MG/0.3 ML SYRINGE SC (08:11)
[2025-10-30] MEDS: SPIRONOLACTONE 25 MG TABLET 100 MG PO (08:12)
[2025-10-30] MEDS: KETOCONAZOLE CR 2% 15 GM TUBE TOP ×2 (08:12→20:10)
[2025-10-30] MEDS: BUMETANIDE INJ 0.25 MG/ML VIAL 4 ML 2 MG IVP (08:14)
[2025-10-30] MEDS: FERROUS SULF 325 MG TABLET PO ×2 (08:15→20:09)
[2025-10-30 09:33] LABS: C-Reactive Protein 2.0 mg/dL (0.0-0.9); Uric Acid 8.8 mg/dL (3.7-9.2)
[2025-10-30 10:00] LABS: Sed Rate (ESR) 7 mm/hr (0-20)
--- NOTE | 2025-10-30 11:02 | PD.NEPHPROG ---
Documentation for date of: 10/30/25 Subjective Subjective Interval history: 60-year-old male past medical history of COPD, alcoholic cirrhosis, diabetes, gout, hypertension, A-fib, heart failure, hyperlipidemia, acidosis, CKD, stage III lymphoma who presented from SNF on 10/22 with shortness of breath and altered mental status. He was found to have a potassium of 6.3, BNP of 638, creatinine of 2.9, and ascites. Per staff, patient is AOx4 and conversational at baseline. ED course: - Vitals: BP 108/89. Patient was desaturating into the 70s on 4 L nasal cannula, however upon arousal he would return to the 90s. - Labs: Potassium 6.3, BUN 42, creatinine 2.9, alk phos 307, BNP 638, PT 15.4, INR 1.5, D-dimer 1600, ABG pH of 7.3, pO2 of 80. - Imaging: Chest x-ray showed vascular congestion, heart failure. Abdominal ultrasound showed ascites. - Patient received DuoNeb treatment, 4 mg morphine, 4 mg Zofran, methylprednisolone 125 IV push x 1, dextrose, 10 units of insulin, and 1 g of calcium gluconate, and 15 GM sodium polystyrene sulfonate orally. Current Medications: allopurinol 100 mg, budesonide 2 mg, buspirone 7.5 mg, carvedilol 3.125 mg, empagliflozin 10 mg, vitamin D2, gabapentin 300 mg, levothyroxine 25 mg, pantoprazole 40 mg, potassium chloride 10 mill EQ tablets, spironolactone 100 mg, tamsulosin 0.4 mg, hydrocodone 5-3 25, ipratropium, fluticasone, lactulose, albuterol, hydroxyzine 25 mg, rifaximin 550 mg, furosemide 40 mg Allergies: No known drug allergies Patient was admitted for acute decompensated cirrhosis, hyperkalemia, and CADY, upgraded to ICU for worsening AHRF requiring intubation. Nephrology was consulted for urgent dialysis for hyperkalemia likely secondary to concomitant use of spironolactone and potassium. 10/23/25: Right femoral triple lumen line placed yesterday in ICU. Received HD last night, no ultrafiltration, tolerated session well. Patient seen and examined at bedside. Creatinine 2.9, improved to 2.1 in the afternoon. Scheduled for dialysis again today, goal 1L fluid removal. 10/24/25: Patient seen and assessed in ICU. Off sedation, tachycardic with HR 130s at bedside. Dialysis day #3, removed 1L yesterday, will remove 3L. Potassium 4.8. Creatinine 2.4. Ordered PPD and hepatitis panel in anticipation for outpatient dialysis. 10/25/2025 patient extubated and is currently on BiPAP. Short of breath and is currently seen on dialysis. In ICU. Heart rate 92-100 Labs and medications reviewed. 10/30/2025 patient comfortable. Breathing better. Discharge planning to rehab. DC dialysis catheter Review of Systems Review of Systems Narrative Review of Systems: Shortness of breath better Exam Vital Signs Temp Pulse Resp BP Pulse Ox O2 Del Method O2 Flow Rate 36.3 C 80 16 119/78 98 Nasal Cannula 3 10/30/25 08:00 10/30/25 08:14 10/30/25 08:00 10/30/25 08:14 10/30/25 08:00 10/30/25 08:00 10/30/25 08:00 FiO2 40 10/30/25 02:41 Narrative Exam Physical Exam General: Awake and in no acute distress. Conversational and non-toxic appearing. HEENT: Normocephalic, atraumatic, mucous membranes moist. Heart: Regular rate and rhythm, normal S1 and S2, no murmurs. Lungs: Clear to auscultation with no wheezing or crackles. Abdomen: Soft, obese, positive bowel sounds. Mild ascites. No guarding or rebound tenderness. Neurologic: No gross neurological deficit, and patient able to move all 4 extremities. Extremities: 1+ pitting edema in lower extremities. Skin: Scattered freckles on face and upper arms. No rash or ecchymoses. Objective Labs 11/01/25 04:42 11/01/25 04:42 Labs: Laboratory Results - last 24 hr 10/30/25 05:07 WBC 7.7 RBC 4.85 Hgb 10.8 L Hct 34.8 L MCV 72 L MCH 22.3 L MCHC 31.0 RDW Std Deviation 60.9 H Plt Count 113 L Neut % (Auto) 74 Lymph % (Auto) 7 L [place] % (Auto) 15 H Eos % (Auto) 2 Baso % (Auto) 0 Neut # (Auto) 5.7 Lymph # (Auto) 0.6 L [place] # (Auto) 1.2 H Eos # (Auto) 0.2 Baso # (Auto) 0.0 Immature Gran # (Auto) 0.07 H Absolute Nucleated RBC 0.04 H Immature Gran % 1 H Nucleated RBC % 1 H ESR 7 Sodium 136 Potassium 3.8 Chloride 95 L Carbon Dioxide 27.4 Anion Gap 14 BUN 34 H Creatinine 2.1 H D Estim Creat Clear Calc 38.7 L eGFR 36 L BUN/Creatinine Ratio 16 Glucose 103 Calculated Osmolality 279 Uric Acid 8.8 Calcium 8.9 Corrected Calcium 9.1 Phosphorus 4.4 Magnesium 2.0 Total Bilirubin 1.7 H AST 21 ALT 7 L Alkaline Phosphatase 185 H C-Reactive Prot, Quant 2.0 H Total Protein 6.6 Albumin 3.7 Globulin 2.9 Albumin/Globulin Ratio 1.3 ABG Interpretation ABG results: 10/22/25 10/22/25 10/22/25 03:27 11:26 15:35 ABG pH 7.30 L 7.10 L* D 7.29 L D ABG pCO2 48 80 H* D 48 D ABG pO2 80 L 34 L* D 236 H D ABG HCO3 24 25 23 ABG O2 Saturation 98 40 L 101 H ABG Base Excess -2 -5 L -3 VBG pH VBG pCO2 VBG pO2 VBG Base Excess 10/22/25 10/23/25 10/23/25 19:01 05:11 19:30 ABG pH 7.36 7.34 L 7.48 H D ABG pCO2 43 50 H 36 D ABG pO2 173 H D 40 L* D 72 L D ABG HCO3 24 27 H 27 H ABG O2 Saturation 100 H 65 L 95 ABG Base Excess -1 1 4 H VBG pH VBG pCO2 VBG pO2 VBG Base Excess 10/24/25 10/24/25 10/24/25 04:47 15:55 16:18 ABG pH 7.47 H Cancelled ABG pCO2 37 Cancelled ABG pO2 76 L Cancelled ABG HCO3 27 H Cancelled ABG O2 Saturation 96 Cancelled ABG Base Excess 4 H Cancelled VBG pH 7.18 L VBG pCO2 72 H VBG pO2 36 VBG Base Excess -3 10/24/25 10/24/25 10/24/25 18:15 19:39 21:50 ABG pH ABG pCO2 ABG pO2 ABG HCO3 ABG O2 Saturation ABG Base Excess VBG pH 7.25 L 7.26 L 7.27 L VBG pCO2 54 D 55 51 VBG pO2 67 H D 51 42 VBG Base Excess -4 L -3 -4 L 10/24/25 10/25/25 10/25/25 23:17 01:28 03:15 ABG pH ABG pCO2 ABG pO2 ABG HCO3 ABG O2 Saturation ABG Base Excess VBG pH 7.28 L 7.27 L 7.36 VBG pCO2 52 55 40 D VBG pO2 31 37 56 VBG Base Excess -3 -2 -3 10/25/25 10/25/25 10/25/25 04:41 06:20 07:44 ABG pH 7.29 L D ABG pCO2 46 ABG pO2 128 H D ABG HCO3 22 ABG O2 Saturation 99 H ABG Base Excess -5 L VBG pH 7.25 L 7.25 L VBG pCO2 57 H D 56 VBG pO2 49 42 VBG Base Excess -3 -3 10/25/25 10/25/25 10/25/25 09:50 11:04 11:37 ABG pH Cancelled ABG pCO2 Cancelled ABG pO2 Cancelled ABG HCO3 Cancelled ABG O2 Saturation Cancelled ABG Base Excess Cancelled VBG pH 7.29 L 7.25 L VBG pCO2 51 59 H VBG pO2 37 41 VBG Base Excess -3 -3 10/25/25 10/25/25 10/25/25 14:40 16:26 20:00 ABG pH 7.26 L 7.25 L 7.28 L ABG pCO2 49 H 53 H 51 H ABG pO2 230 H D 87 D 68 L ABG HCO3 22 24 24 ABG O2 Saturation 100 H 95 91 ABG Base Excess -6 L -4 L -3 VBG pH VBG pCO2 VBG pO2 VBG Base Excess 10/26/25 10/26/25 10/27/25 01:25 14:20 05:14 ABG pH 7.32 L 7.31 L 7.33 L ABG pCO2 46 48 46 ABG pO2 120 H D 171 H D 134 H D ABG HCO3 23 24 24 ABG O2 Saturation 99 H 100 H 99 H ABG Base Excess -3 -3 -2 VBG pH VBG pCO2 VBG pO2 VBG Base Excess 10/28/25 09:00 ABG pH 7.35 ABG pCO2 48 ABG pO2 71 L D ABG HCO3 26 ABG O2 Saturation 93 ABG Base Excess 0 VBG pH VBG pCO2 VBG pO2 VBG Base Excess Assessment & Plan Additional Assessment & Plan Additional Plan: 60-year-old male past medical history of COPD, alcoholic cirrhosis, diabetes, gout, hypertension, A-fib, heart failure, hyperlipidemia, acidosis, CKD IIIa, stage III lymphoma who presented from SNF on 10/22 with shortness of breath and altered mental status, upgraded to ICU due to worsening AHRF requiring intubation. Nephrology consulted for urgent dialysis for hyperkalemia. #Hyperkalemia (resolved) #CADY on CKD IIIa - Presented with altered mental status from SNF - Home medications include potassium chloride 10 mill EQ tablets and spironolactone 100 mg - Potassium 6.3 on admission, increased to 7.0 despite insulin, albuterol, and Kayexelate - Cr 2.9 on admission, previously 1.4 in 01/2024 - EKG showed normal sinus rhythm, no peaked T waves observed - Upgraded to ICU 10/22, HD cath placed in right IJ - S/p HD 10/22 (no ultrafiltration), 10/23 (-1L) Plan: No need for dialysis. #Respiratory acidosis #AHRF #Intubated #Acute decompensated cirrhosis 2/2 alcohol use #Acute encephalopathy #HFrEF #Hypertension #Hypothyroidism #Microcytic Anemia #History of gout #Stage III lymphoma #Diabetes #Afib paroxysmal? #HLD - Defer to primary team for management Care discussed with ICU team Quality - progress note Quality Measures Quality Measures: VTE prophylaxis Reason for Continued Stay Reason for Continued Stay: further monitoring
--- NOTE | 2025-10-30 11:20 | PC.SS ---
Addendum entered by Glenda Benavides 10/30/25 13:15: SS spoke to pt brother Eleni Amador qnd informed him of [facility] acceptance due to no beds available at [facility]. Auth is currently pending Original Note: SS booked [facility] via sarahy BAUTISTA Auth has been initiated as of today 10/30/25
--- NOTE | 2025-10-30 19:57 | PD.HHPROG ---
Documentation for date of: 10/30/25 Subjective - Hospitalist Subjective Interval history: Patient seen and examined at bedside this morning. Appears comfortable and denies any new complaints. States that his right hand joint pain and swelling is improving compared to yesterday. CRP elevated at 2.0. Hemoglobin remained stable. Patient continues to be alert and oriented, able to answer question and follow commands appropriately. Noted to have rashes around his groin, we will start him on antifungal cream and obtain wound care. Awaiting placement to SNF. Review of Systems Review of Systems Systems Reviewed: All systems reviewed, normal except as documented Exam Vital Signs Temp Pulse Resp BP Pulse Ox O2 Del Method O2 Flow Rate 97.7 F 80 20 116/67 99 Nasal Cannula 3 10/30/25 16:00 10/30/25 19:08 10/30/25 19:08 10/30/25 16:00 10/30/25 19:08 10/30/25 16:00 10/30/25 19:08 FiO2 40 10/30/25 02:41 Narrative GENERAL: Well built male/female, in no acute distress, laying comfortably on bed HEENT: Normocephalic, atraumatic, extraocular movements intact, pupils equal and reactive to light NECK: Supple, no JVD or bruits. CARDIOVASULAR: RRR, S1 and S2 heard, without murmur, rubs or gallops. LUNGS/CHEST: Clear to auscultation bilaterally. No rails, rhonchi, or wheezing. ABDOMEN: Soft, nontender, with normal bowel sounds. No rebound, rigidity, or guarding. EXTREMITIES: Trace edema in bilateral lower extremity, clubbing or cyanosis. No joint deformity. Able to move all limbs. SKIN: Scattered freckles around face and upper extremities NEURO: Alert, awake and oriented x4. Cranial nerves: II through XII grossly intact. normal speech, able to answer questions and follow commands appropriately, strength and sensation normal and equal bilaterally, no focal neurological deficits PSYCHIATRIC: Normal mood and affect. Objective - Hospitalist Labs Diagram: 10/30/25 05:07 10/30/25 05:07 Labs: Laboratory Results - last 24 hr 10/30/25 05:07 WBC 7.7 RBC 4.85 Hgb 10.8 L Hct 34.8 L MCV 72 L MCH 22.3 L MCHC 31.0 RDW Std Deviation 60.9 H Plt Count 113 L Neut % (Auto) 74 Lymph % (Auto) 7 L [place] % (Auto) 15 H Eos % (Auto) 2 Baso % (Auto) 0 Neut # (Auto) 5.7 Lymph # (Auto) 0.6 L [place] # (Auto) 1.2 H Eos # (Auto) 0.2 Baso # (Auto) 0.0 Immature Gran # (Auto) 0.07 H Absolute Nucleated RBC 0.04 H Immature Gran % 1 H Nucleated RBC % 1 H ESR 7 Sodium 136 Potassium 3.8 Chloride 95 L Carbon Dioxide 27.4 Anion Gap 14 BUN 34 H Creatinine 2.1 H D Estim Creat Clear Calc 38.7 L eGFR 36 L BUN/Creatinine Ratio 16 Glucose 103 Calculated Osmolality 279 Uric Acid 8.8 Calcium 8.9 Corrected Calcium 9.1 Phosphorus 4.4 Magnesium 2.0 Total Bilirubin 1.7 H AST 21 ALT 7 L Alkaline Phosphatase 185 H C-Reactive Prot, Quant 2.0 H Total Protein 6.6 Albumin 3.7 Globulin 2.9 Albumin/Globulin Ratio 1.3 ABG Interpretation ABG results: 10/22/25 10/22/25 10/22/25 03:27 11:26 15:35 ABG pH 7.30 L 7.10 L* D 7.29 L D ABG pCO2 48 80 H* D 48 D ABG pO2 80 L 34 L* D 236 H D ABG HCO3 24 25 23 ABG O2 Saturation 98 40 L 101 H ABG Base Excess -2 -5 L -3 VBG pH VBG pCO2 VBG pO2 VBG Base Excess 10/22/25 10/23/25 10/23/25 19:01 05:11 19:30 ABG pH 7.36 7.34 L 7.48 H D ABG pCO2 43 50 H 36 D ABG pO2 173 H D 40 L* D 72 L D ABG HCO3 24 27 H 27 H ABG O2 Saturation 100 H 65 L 95 ABG Base Excess -1 1 4 H VBG pH VBG pCO2 VBG pO2 VBG Base Excess 10/24/25 10/24/25 10/24/25 04:47 15:55 16:18 ABG pH 7.47 H Cancelled ABG pCO2 37 Cancelled ABG pO2 76 L Cancelled ABG HCO3 27 H Cancelled ABG O2 Saturation 96 Cancelled ABG Base Excess 4 H Cancelled VBG pH 7.18 L VBG pCO2 72 H VBG pO2 36 VBG Base Excess -3 10/24/25 10/24/25 10/24/25 18:15 19:39 21:50 ABG pH ABG pCO2 ABG pO2 ABG HCO3 ABG O2 Saturation ABG Base Excess VBG pH 7.25 L 7.26 L 7.27 L VBG pCO2 54 D 55 51 VBG pO2 67 H D 51 42 VBG Base Excess -4 L -3 -4 L 10/24/25 10/25/25 10/25/25 23:17 01:28 03:15 ABG pH ABG pCO2 ABG pO2 ABG HCO3 ABG O2 Saturation ABG Base Excess VBG pH 7.28 L 7.27 L 7.36 VBG pCO2 52 55 40 D VBG pO2 31 37 56 VBG Base Excess -3 -2 -3 10/25/25 10/25/25 10/25/25 04:41 06:20 07:44 ABG pH 7.29 L D ABG pCO2 46 ABG pO2 128 H D ABG HCO3 22 ABG O2 Saturation 99 H ABG Base Excess -5 L VBG pH 7.25 L 7.25 L VBG pCO2 57 H D 56 VBG pO2 49 42 VBG Base Excess -3 -3 10/25/25 10/25/25 10/25/25 09:50 11:04 11:37 ABG pH Cancelled ABG pCO2 Cancelled ABG pO2 Cancelled ABG HCO3 Cancelled ABG O2 Saturation Cancelled ABG Base Excess Cancelled VBG pH 7.29 L 7.25 L VBG pCO2 51 59 H VBG pO2 37 41 VBG Base Excess -3 -3 10/25/25 10/25/25 10/25/25 14:40 16:26 20:00 ABG pH 7.26 L 7.25 L 7.28 L ABG pCO2 49 H 53 H 51 H ABG pO2 230 H D 87 D 68 L ABG HCO3 22 24 24 ABG O2 Saturation 100 H 95 91 ABG Base Excess -6 L -4 L -3 VBG pH VBG pCO2 VBG pO2 VBG Base Excess 10/26/25 10/26/25 10/27/25 01:25 14:20 05:14 ABG pH 7.32 L 7.31 L 7.33 L ABG pCO2 46 48 46 ABG pO2 120 H D 171 H D 134 H D ABG HCO3 23 24 24 ABG O2 Saturation 99 H 100 H 99 H ABG Base Excess -3 -3 -2 VBG pH VBG pCO2 VBG pO2 VBG Base Excess 10/28/25 09:00 ABG pH 7.35 ABG pCO2 48 ABG pO2 71 L D ABG HCO3 26 ABG O2 Saturation 93 ABG Base Excess 0 VBG pH VBG pCO2 VBG pO2 VBG Base Excess Assessment & Plan Patient Synopsis This is a 60-year-old gentleman with history of heart failure with reduced ejection fraction ,alcohol-related cirrhosis, COPD on 3L home oxygen, hypertension, CKD, and right neck mass (Lymphoma?) was brought in for 1 week of shortness of breath from correction who had severe refractory hyperkalemia that was refractory to hyperkalemia cocktail upgraded from floors to the ICU with severe acidemia and refractory hyper-K. Extubated and now off sedation, on Bipap, downgraded to MedSurg 10/26/25. #Acute metabolic encephalopathy secondary to acute decompensated liver failure - resolved #Hepatic encephalopathy #Agitation - resolved #Severe ascites s/p paracentesis (10/22/25, 10/28/25) #cirrhosis #heptorenal syndrome - s/p paracentesis (10/22) with 9,000 mL of ascitic fluid removed. - ammonia 32, WNL - Continue lactulose 20gm q6hr - SAAG 1.2, consistent with portal hypertension 2/2 to cirrhosis - Follow-up LFTs - repeat paracentesis if clinically indicated, replete albumin - S/p US-guided paracentesis (10/28/25), 5L out, replete with 25g albumin. - Started home spironlactone 100mg PO QD #Groin rash -Started on ketoconazole cream -Wound care referral #Acute CHF exacerbation likely 2/2 to PNA #Heart failure with reduced ejection fraction 25-30 %, on this admission 10/2025 #CADY on CKD versus worsening CKD #Hyperkalemia - Resolved with HD #Hyperphosphatemia - downtrending - Consider restarting home medications GDMT: carvedilol, spironolactone, empagliflozin, not on GREY or ARB, if BP stable. Spironolactone restarted. - Daily renal panel - Monitor UOP, UOP 30-40 cc/hr, responsive to bumex - Hold HD in setting of good uop with 2mg bumex - Albumin 25 x 1 - Bumex 2 mg IV QD - Nephrology following, appreciate recs - Sevalomer 800mg 2 tabs with meal, 3 times daily #R Aspiration PNA- Pseudamonas #COPD Exacerbation #Community-acquired pneumonia versus healthcare associated pneumonia - Serial cxr, imaging looks improved from prior - ET secretions with Pseud[place]as - De-escalate from Zosyn (10/24-10/31) to levofloxacin 750mg Q48H - Duonebs q4hr prn #Hypothyroidism - Patient has history of hypothyroidism, takes levothyroxine 25 at home, plan for oral given patient is not on vasopressors actively - outpatient f/u - Continue levothyroxine 25mcg ACBR #Chronic microcytic anemia - likely iron deficiency anemia vs anemia of chronic disease vs ckd - iron 19 low, TIBC 181 low, iron saturation 10 low - transfuse if < 7 - Continue home med ferrous sulfate 325mg PO BID. #R Otitis Externa - monitor for failure to respond to standard therapy and cranial nerve involvement, patient without any facial nerve palsy. - purulent drainage from R ear. - continue Ciprofloxacin 3 drops, 10/26 -11/02 (intend for 7 day course) #Gout - chronic medical problem - Started on prednisone 30mg PO QD - Held home allopurinol due to acute flare improving renal function. Health maintenance Dispo: Telemetry, awaiting placement DVT prophylaxis: Lovenox 30mg SC QD Bowel Regimen: lactulose Diet: Renal diet Lines: PIV Code status: Full code Time Spent with Patient Time: Total time spent is greater than 50% in coordination of care (as documented) at patient's floor/unit and/or counseling patient: Time with patient: Greater than 35 minutes Reason for Continued Stay Reason for continued stay: further monitoring Quality Measures Quality Measures VTE prophylaxis
[2025-10-31] VITALS (17 sets, daily range): BP systolic 114–146; BP diastolic 77–97; PULSE 75–93; RESP 12–28; TEMP 36.1–36.2; O2SAT 93–100
[2025-10-31] MEDS: ALBUTEROL/IPRATROPIUM (Duoneb) RT SOL 3 ML NEBU INH ×6 (02:46→22:59)
[2025-10-31] MEDS: LEVOTHYROXINE SODIUM 25 MCG TABLET PO (05:27)
[2025-10-31] MEDS: MORPHINE SULF INJ 4 MG/ML VIAL 1 MG IVP (05:27)
[2025-10-31 06:25] LABS: Basophils # (Auto) 0.0 Thou/mm3 (0.0-0.2); Basophils % (Auto) 0 % (0-2.5); Eosinophils # (Auto) 0.0 Thou/mm3 (0.0-0.5); Eosinophils % (Auto) 0 % (0-10); Hematocrit 38.9 % (41.0-53.0); Hemoglobin 12.0 g/dL (13.5-16.0); Immature Granulocytes Auto 0.05 Thou/mm3 (0.00-0.00); Lymphocytes # (Auto) 0.3 Thou/mm3 (1.0-4.8); Lymphocytes % (Auto) 4 % (10-50); Mean Corpuscular HGB Conc 30.8 g/dl (31.0-37.0); Mean Corpuscular Hemoglobin 22.1 pg (25.0-35.0); Mean Corpuscular Volume 72 fL (80-100); Monocytes # (Auto) 0.6 Thou/mm3 (0.0-0.8); Monocytes % (Auto) 8 % (0-12); Neutrophils # (Auto) 7.0 Thou/mm3 (1.8-7.7); Neutrophils % (Auto) 88 % (37-80); Nucleated Red Blood Cell # 0.02 Thou/mm3 (0.00-0.00); Nucleated Red Blood Cell % 0 /100 WBC (0); Platelet Count 147 Thou/mm3 (140-440); RDW Standard Deviation 59.9 fL (35.1-43.9); Red Blood Count 5.42 Miln/mm3 (4.50-5.90); White Blood Count 8.0 Thou/mm3 (3.8-10.6)
[2025-10-31 06:43] LABS: Alanine Aminotransferase 10 U/L (10-49); Albumin, Serum 4.3 gm/dL (3.5-5.0); Albumin/Globulin Ratio 1.3 (1.2-2.2); Alkaline Phosphatase 192 U/L (46-116); Anion Gap 13 (7-16); Aspartate Amino Transferase 23 U/L (0-34); BUN/Creatinine Ratio 19 Ratio (12-20); Bilirubin,Total 1.9 mg/dL (0.3-1.2); Blood Urea Nitrogen 37 mg/dL (9-23); Calcium 9.8 mg/dL (8.3-10.6); Calcium (Corrected) 9.8 mg/dL (8.5-10.1); Carbon Dioxide 28.7 mMol/L (20.0-31.0); Chloride 94 mMol/L (98-107); Creatinine (Component) 1.9 mg/dL (0.6-1.3); Estimated Creatinine Clearance 42.7 mL/min (>60); Globulin 3.3 gm/dL (2.3-3.5); Glucose 124 mg/dL (74-106); Magnesium 2.0 mg/dL (1.6-2.6); Osmolality,Calculated 281 (275-295); Phosphorous 3.1 mg/dL (2.4-5.1); Potassium 3.5 mMol/L (3.4-5.1); Sodium 136 mMol/L (136-145); Total Protein 7.6 gm/dL (5.7-8.2); eGFR 40 See Note
[2025-10-31] MEDS: BUMETANIDE INJ 0.25 MG/ML VIAL 4 ML 2 MG IVP (08:48)
[2025-10-31] MEDS: ENOXAPARIN SOD INJ 30 MG/0.3 ML SYRINGE SC (08:48)
[2025-10-31] MEDS: SPIRONOLACTONE 25 MG TABLET 100 MG PO (08:49)
[2025-10-31] MEDS: FERROUS SULF 325 MG TABLET PO ×2 (08:49→22:12)
[2025-10-31] MEDS: SEVELAMER CARBONATE 800 MG TABLET 1600 MG PO ×3 (08:49→17:19)
[2025-10-31] MEDS: VIT B12/Vit C/FA (Nephrovite) TABLET 1 TAB PO (08:49)
[2025-10-31] MEDS: ALBUMIN HUMAN-KJDA 25% IVPB 25 GM/100 ML BTL IV (08:49)
[2025-10-31] MEDS: KETOCONAZOLE CR 2% 15 GM TUBE TOP ×2 (08:51→22:12)
--- NOTE | 2025-10-31 10:00 | PC.SS ---
SS update: LPN RN was notified by doctors that patient was not aware of d/c to [facility] and requested that LPN RN confirm with patient. LPN RN spoke to patient at bedside to confirm d/c plan. Patient is agreeable to [facility]. LPN RN spoke to Eugenia at [facility], to verify if authorization has been granted. Eugenia at [facility] stated that they have not received auth from insurance yet but will notify LPN RN once received.
--- NOTE | 2025-10-31 10:24 | PD.RESPRO ---
Documentation for date of: 10/31/25 Subjective Subjective Interval history: Interval history: 60-year-old male past medical history of COPD, alcoholic cirrhosis, diabetes, gout, hypertension, A-fib, heart failure, hyperlipidemia, acidosis, CKD, stage III lymphoma who presented from SNF on 10/22 with shortness of breath and altered mental status. He was found to have a potassium of 6.3, BNP of 638, creatinine of 2.9, and ascites. Per staff, patient is AOx4 and conversational at baseline. ED course: - Vitals: BP 108/89. Patient was desaturating into the 70s on 4 L nasal cannula, however upon arousal he would return to the 90s. - Labs: Potassium 6.3, BUN 42, creatinine 2.9, alk phos 307, BNP 638, PT 15.4, INR 1.5, D-dimer 1600, ABG pH of 7.3, pO2 of 80. - Imaging: Chest x-ray showed vascular congestion, heart failure. Abdominal ultrasound showed ascites. - Patient received DuoNeb treatment, 4 mg morphine, 4 mg Zofran, methylprednisolone 125 IV push x 1, dextrose, 10 units of insulin, and 1 g of calcium gluconate, and 15 GM sodium polystyrene sulfonate orally. Current Medications: allopurinol 100 mg, budesonide 2 mg, buspirone 7.5 mg, carvedilol 3.125 mg, empagliflozin 10 mg, vitamin D2, gabapentin 300 mg, levothyroxine 25 mg, pantoprazole 40 mg, potassium chloride 10 mill EQ tablets, spironolactone 100 mg, tamsulosin 0.4 mg, hydrocodone 5-3 25, ipratropium, fluticasone, lactulose, albuterol, hydroxyzine 25 mg, rifaximin 550 mg, furosemide 40 mg Allergies: No known drug allergies Patient was admitted for acute decompensated cirrhosis, hyperkalemia, and CADY, upgraded to ICU for worsening AHRF requiring intubation. Nephrology was consulted for urgent dialysis for hyperkalemia likely secondary to concomitant use of spironolactone and potassium. 10/23/25: Right femoral triple lumen line placed yesterday in ICU. Received HD last night, no ultrafiltration, tolerated session well. Patient seen and examined at bedside. Creatinine 2.9, improved to 2.1 in the afternoon. Scheduled for dialysis again today, goal 1L fluid removal. 10/24/25: Patient seen and assessed in ICU. Off sedation, tachycardic with HR 130s at bedside. Dialysis day #3, removed 1L yesterday, will remove 3L. Potassium 4.8. Creatinine 2.4. Ordered PPD and hepatitis panel in anticipation for outpatient dialysis. 10/25/2025 patient extubated and is currently on BiPAP. Short of breath and is currently seen on dialysis. In ICU. Heart rate 92-100. Labs and medications reviewed. 10/26/25: Patient seen and assessed in ICU. S/p Bumex 2mg IVP overnight, UOP 700 cc. On BiPAP. WBC downtrending. Sodium 138, potassium 5.1, chloride 98, BUN 50, creatinine 3.5, GFR 19, calcium 9.2, phosphorus 7.6. No dialysis today, continue Bumex and monitor urine output. 10/27/25: Patient seen and assessed in telemetry, downgraded yesterday. UOP 2.1L on IV Bumex 2mg daily. Saturating well on room air. Potassium 4.7, BUN 54, creatinine 3.6, GFR 19, phosphorus 7.3. Increase sevelamer 800 mg to two tabs with meals for today, follow up labs tomorrow. No need for dialysis as patient is maintaining good urine output. 10/28/25: Patient seen and assessed in telemetry. On BiPAP overnight. More lethargic on exam today. UOP 2.5 L. BUN 51 creatinine 3.4 (from 3.6), GFR 20. Phosphorus elevated at 6.2, continue sevelamer 800 3 times daily, 2 tablets with meals. Magnesium 1.9, repleted. No dialysis as patient maintaining good urine output. 10/29/25: Patient seen and assessed in telemetry. Off BiPAP. Conversational, back to baseline. S/p paracentesis, removed 5 L. Continue IV albumin. UOP 3.5 L. BUN 48, creatinine 2.7, improving. GFR 26. Calcium 9.1, phosphorus 5.6 (from 6.2), magnesium 1.5, repleted. Recommend starting on spironolactone given possible hepatorenal syndrome. Remove right IJ central line. Plan to DC to SNF today. 10/30/25: Patient seen and assessed in telemetry. Renal function improving. 10/31/25: Patient seen and assessed in telemetry. Maintaining good urine output. BUN 37, creatinine 1.9 (from 2.1). Continue Bumex 2mg IV daily, transition to PO Bumex 2 mg daily. Continue spiranolactone and sevelamer, stop potassium. Nephrology will be signing off as patient no longer requires dialysis and renal function continues to improve. Exam Vital Signs Temp Pulse Resp BP Pulse Ox O2 Del Method O2 Flow Rate 97.0 F 87 18 128/79 96 Nasal Cannula 2 10/31/25 05:52 10/31/25 10:16 10/31/25 10:16 10/31/25 08:49 10/31/25 10:16 10/31/25 05:52 10/31/25 10:16 FiO2 40 10/31/25 02:46 Narrative Exam Physical Exam General: Awake and in no acute distress. Conversational and non-toxic appearing. HEENT: Normocephalic, atraumatic, mucous membranes moist. Heart: Regular rate and rhythm, normal S1 and S2, no murmurs. Lungs: Clear to auscultation with no wheezing or crackles. Abdomen: Soft, distended, positive bowel sounds. No guarding or rebound tenderness. Neurologic: No gross neurological deficit, and patient able to move all 4 extremities. Extremities: Trace edema in lower extremities. Skin: Scattered freckles on face and upper arms. No rash or ecchymoses. Objective Labs 11/01/25 04:42 11/01/25 04:42 Labs: Laboratory Results - last 24 hr 10/31/25 04:26 WBC 8.0 RBC 5.42 Hgb 12.0 L Hct 38.9 L MCV 72 L MCH 22.1 L MCHC 30.8 L RDW Std Deviation 59.9 H Plt Count 147 D Neut % (Auto) 88 H Lymph % (Auto) 4 L [place] % (Auto) 8 Eos % (Auto) 0 Baso % (Auto) 0 Neut # (Auto) 7.0 Lymph # (Auto) 0.3 L [place] # (Auto) 0.6 Eos # (Auto) 0.0 Baso # (Auto) 0.0 Immature Gran # (Auto) 0.05 H Absolute Nucleated RBC 0.02 H Immature Gran % 1 H Nucleated RBC % 0 Sodium 136 Potassium 3.5 Chloride 94 L Carbon Dioxide 28.7 Anion Gap 13 BUN 37 H Creatinine 1.9 H Estim Creat Clear Calc 42.7 L eGFR 40 L BUN/Creatinine Ratio 19 Glucose 124 H Calculated Osmolality 281 Calcium 9.8 Corrected Calcium 9.8 Phosphorus 3.1 Magnesium 2.0 Total Bilirubin 1.9 H AST 23 ALT 10 Alkaline Phosphatase 192 H Total Protein 7.6 Albumin 4.3 D Globulin 3.3 Albumin/Globulin Ratio 1.3 ABG Interpretation ABG results: 10/22/25 10/22/25 10/22/25 03:27 11:26 15:35 ABG pH 7.30 L 7.10 L* D 7.29 L D ABG pCO2 48 80 H* D 48 D ABG pO2 80 L 34 L* D 236 H D ABG HCO3 24 25 23 ABG O2 Saturation 98 40 L 101 H ABG Base Excess -2 -5 L -3 VBG pH VBG pCO2 VBG pO2 VBG Base Excess 10/22/25 10/23/25 10/23/25 19:01 05:11 19:30 ABG pH 7.36 7.34 L 7.48 H D ABG pCO2 43 50 H 36 D ABG pO2 173 H D 40 L* D 72 L D ABG HCO3 24 27 H 27 H ABG O2 Saturation 100 H 65 L 95 ABG Base Excess -1 1 4 H VBG pH VBG pCO2 VBG pO2 VBG Base Excess 10/24/25 10/24/25 10/24/25 04:47 15:55 16:18 ABG pH 7.47 H Cancelled ABG pCO2 37 Cancelled ABG pO2 76 L Cancelled ABG HCO3 27 H Cancelled ABG O2 Saturation 96 Cancelled ABG Base Excess 4 H Cancelled VBG pH 7.18 L VBG pCO2 72 H VBG pO2 36 VBG Base Excess -3 10/24/25 10/24/25 10/24/25 18:15 19:39 21:50 ABG pH ABG pCO2 ABG pO2 ABG HCO3 ABG O2 Saturation ABG Base Excess VBG pH 7.25 L 7.26 L 7.27 L VBG pCO2 54 D 55 51 VBG pO2 67 H D 51 42 VBG Base Excess -4 L -3 -4 L 10/24/25 10/25/25 10/25/25 23:17 01:28 03:15 ABG pH ABG pCO2 ABG pO2 ABG HCO3 ABG O2 Saturation ABG Base Excess VBG pH 7.28 L 7.27 L 7.36 VBG pCO2 52 55 40 D VBG pO2 31 37 56 VBG Base Excess -3 -2 -3 10/25/25 10/25/25 10/25/25 04:41 06:20 07:44 ABG pH 7.29 L D ABG pCO2 46 ABG pO2 128 H D ABG HCO3 22 ABG O2 Saturation 99 H ABG Base Excess -5 L VBG pH 7.25 L 7.25 L VBG pCO2 57 H D 56 VBG pO2 49 42 VBG Base Excess -3 -3 10/25/25 10/25/25 10/25/25 09:50 11:04 11:37 ABG pH Cancelled ABG pCO2 Cancelled ABG pO2 Cancelled ABG HCO3 Cancelled ABG O2 Saturation Cancelled ABG Base Excess Cancelled VBG pH 7.29 L 7.25 L VBG pCO2 51 59 H VBG pO2 37 41 VBG Base Excess -3 -3 10/25/25 10/25/25 10/25/25 14:40 16:26 20:00 ABG pH 7.26 L 7.25 L 7.28 L ABG pCO2 49 H 53 H 51 H ABG pO2 230 H D 87 D 68 L ABG HCO3 22 24 24 ABG O2 Saturation 100 H 95 91 ABG Base Excess -6 L -4 L -3 VBG pH VBG pCO2 VBG pO2 VBG Base Excess 10/26/25 10/26/25 10/27/25 01:25 14:20 05:14 ABG pH 7.32 L 7.31 L 7.33 L ABG pCO2 46 48 46 ABG pO2 120 H D 171 H D 134 H D ABG HCO3 23 24 24 ABG O2 Saturation 99 H 100 H 99 H ABG Base Excess -3 -3 -2 VBG pH VBG pCO2 VBG pO2 VBG Base Excess 10/28/25 09:00 ABG pH 7.35 ABG pCO2 48 ABG pO2 71 L D ABG HCO3 26 ABG O2 Saturation 93 ABG Base Excess 0 VBG pH VBG pCO2 VBG pO2 VBG Base Excess Quality Measures Quality Measures VTE prophylaxis Assessment & Plan Assessment Current Active Medications: Generic Name Dose Route Start Last Admin Trade Name Mary PRN Reason Stop Dose Admin Acetaminophen 325 mg 10/29/25 13:48 Acetaminophen 325 Mg Tablet PO 11/21/25 06:00 Q6H PRN Fever >101.5, pain 1-4 Hydrocodone Bitart/Acetaminophen 1 tab 10/29/25 13:49 10/31/25 09:50 Hydrocodone/Apap 10/325 Tab PO 11/03/25 13:46 1 tab Q6HR PRN Administration Pain 5-10 Albuterol/Ipratropium 3 ml 10/25/25 19:00 10/31/25 10:15 Albuterol/Ipratropium (Duoneb) Rt Irais 3 Ml Nebu INH 11/24/25 18:59 3 ml Q4HRRT YOVANI Administration Bumetanide 2 mg 10/27/25 09:00 10/31/25 08:48 Bumetanide Inj 0.25 Mg/Ml Vial 4 Ml IVP 11/26/25 08:59 2 mg QDAY YOVANI Administration Ciprofloxacin/Hydrocortisone 3 drop 10/26/25 09:00 10/31/25 08:50 Ciprofloxacin/Hc Otic Gretta 10 Ml Btl BOTH EARS 11/02/25 08:59 6 drops BID YOVANI Administration Enoxaparin Sodium 30 mg 10/22/25 09:00 10/31/25 08:48 Enoxaparin Sod Inj 30 Mg/0.3 Ml Syringe SC 11/05/25 08:59 30 mg QDAY YOVANI Administration Ferrous Sulfate 325 mg 10/27/25 21:00 10/31/25 08:49 Ferrous Sulf 325 Mg Tablet PO 11/26/25 20:59 325 mg BID YOVANI Administration Heparin Sodium (Porcine) 3,000 unit 10/22/25 18:42 10/25/25 14:06 Heparin Sod Inj 1000 Unit/Ml Vial 10 Ml INDWELLCAT 11/05/25 18:41 3,000 unit PRN PRN Administration heplock vascath Albumin Human 25 gm in 100 mls @ 0 mls/hr 10/22/25 19:47 Albuminex 25% Ivpb IV Q30MIN PRN To maintain SBP>90 Per Protocol Levofloxacin/Dextrose 750 mg in 150 mls @ 100 mls/hr 10/28/25 21:00 10/30/25 20:10 Levaquin Ivpb IV 11/04/25 20:59 100 mls/hr Q48HR@2100 YOVANI Administration Albumin Human 25 gm in 100 mls @ 100 mls/hr 10/28/25 13:14 10/31/25 08:49 Albuminex 25% Ivpb IV 10/31/25 13:13 100 mls/hr QDAY YOVANI Administration Ketoconazole 0 gm 10/30/25 09:00 10/31/25 08:51 Ketoconazole Cr 2% 15 Gm Tube TOP 11/29/25 08:59 1 applicatio BID YOVANI Administration Lactulose 20 gm 10/27/25 07:19 10/31/25 05:00 Lactulose Syrup 20 Gm/30 Ml Udc PO 11/21/25 06:14 Not Given QID YOVANI Protocol Levothyroxine Sodium 25 mcg 10/23/25 06:00 10/31/25 05:27 Levothyroxine Sodium 25 Mcg Tablet PO 11/22/25 05:59 25 mcg ACBR YOVANI Administration Prednisone 30 mg 10/29/25 13:30 10/31/25 08:49 Prednisone 20 Mg Tablet PO 11/05/25 13:18 30 mg QDAY YOVANI Administration Rifaximin 550 mg 10/24/25 21:00 10/31/25 08:49 Rifaximin 550 Mg Tablet PO 10/31/25 20:59 550 mg BID YOVANI Administration Sevelamer Carbonate 1,600 mg 10/28/25 08:42 10/31/25 08:49 Sevelamer Carbonate 800 Mg Tablet PO 11/22/25 11:59 1,600 mg TIDWM YOVANI Administration Sodium Chloride 3 ml 10/22/25 17:47 Sodium Chloride Rt Irais 0.9% 3 Ml Nebu INH 11/21/25 17:46 PRN PRN SOLN Spironolactone 100 mg 10/30/25 09:00 10/31/25 08:49 Spironolactone 25 Mg Tablet PO 11/29/25 08:59 100 mg QDAY YOVANI Administration Vitamin B Complex/Vit C/Folic Acid 1 tab 10/28/25 14:30 10/31/25 08:49 Vit B12/Vit C/Fa (Nephrovite) Tablet PO 11/27/25 14:29 1 tab QDAY YOVANI Administration Plan 60-year-old male past medical history of COPD, alcoholic cirrhosis, diabetes, gout, hypertension, A-fib, heart failure, hyperlipidemia, acidosis, CKD IIIa, stage III lymphoma who presented from SNF on 10/22 with shortness of breath and altered mental status, upgraded to ICU due to worsening AHRF requiring intubation. Extubated and downgraded to telemetry 10/26. Nephrology consulted for urgent dialysis for hyperkalemia. #Hyperkalemia (resolved) #CDAY on CKD IIIa versus CKD IV - Presented with altered mental status from SNF - Home medications include potassium chloride 10 mill EQ tablets and spiranolactone 100 mg - Potassium 6.3 on admission, increased to 7.0 despite insulin, albuterol, and Kayexelate - Cr 2.9 --> 2.4 (10/24) -> 3.5 (10/25) --> 3.6 - Creatinine previously 1.4 in 01/2024 however unclear baseline - EKG showed normal sinus rhythm, no peaked T waves observed - Upgraded to ICU 10/22, HD cath placed in right IJ - S/p HD 10/22 (no ultrafiltration), 10/23 (-1L), 10/25 (-2.5L) Plan: - No need for dialysis as renal function continuing to improve. Remove IJ catheter. - IV Bumex 2 mg daily, transition to PO Bumex 2 mg daily. Recommend restarting on spiranolactone for possible hepatorenal syndrome. - Discontinue potassium - Strict INOs - Monitor renal panel daily - Avoid nephrotoxic agents - Renally dose medications #Hyperphosphatemia - Phosphorus 7.3, improved to 6.2 (10/28) Plan: - Sevelamer 1600 mg TID #Respiratory acidosis #AHRF #Intubated #Acute decompensated cirrhosis 2/2 alcohol use #Acute encephalopathy #HFrEF #Hypertension #Hypothyroidism #Microcytic Anemia #History of gout #Stage III lymphoma #Diabetes #Afib paroxysmal? #HLD - Defer to hospitalist team for management Thank you for your consultation, please do not hesitate to reach out if you have any question or concern Patient plan of care was discussed with the attending physician, Dr. Platt. Celeste Nation DO, PGY-1 Attending Provider Attestation/Addendum Patient seen and examined with resident physician Dr. Nation. Note reviewed, agree with findings and recommendations.
[2025-10-31] MEDS: LACTULOSE SYRUP 20 GM/30 ML UDC PO ×2 (12:14→17:19)
--- NOTE | 2025-10-31 12:33 | ESPR_ITS ---
<Statement entered by Ramiro Sharp MD - 10/31/25 12:40> Patient was examined and case was reviewed with team including attending physician. Note reviewed, I agree with most of its contents and agree with the patient's care as documented by Dr. Laguna Patient seen today at the bedside found awake, alert, orientedx3. No overnight events reported. Vitals and labs reviewed. Currently doing well on minimal oxygen, abdomen still distended however improving after diuresis and paracentesis on prior days. Patient is currently pending authorization for SNF placement. Case discussed with my attending Dr. Aubrey Sharp MD PGY-2 Disclaimer: Despite multiple revisions, due to the dictation software being used, the document bellow may not be free of grammatical errors including phonetic/typographic errors. However, this does not deter from our commitment to providing health care in the patient's best interest in mind. Documentation for date of: 10/31/25 Subjective Subjective Interval history: Mr. Amador is a 60-year-old gentleman with a past medical history significant for left neck lymphoma, cirrhosis, COPD on 3L home oxygen, CKD, hypertension, chronic lower back pain who [facility] He was admitted to ICU initially for AMS and hyperkalemia. 10/22/2025: CT head with Negative for acute hemorrhage, mass effect or midline shift, pupils were fixed and dilated. He was intubated, and started on HD after multiple attempts at getting central access. R ij was placed. had paracentesis with 9 L off. cytology sent 10/23/2025: Patient seen and examined at bedside with abdomen notably firm and distended with positive fluid wave. HD today with 1 L removed in 3 hour session. K now within nl at 4.5 pupils are sluggish but responsive to light and no longer fixed and dilated. remains intubated and sedated. appears more volume overloaded on exam. with reacumulated ascites despite 9 L paracentesis done yesterday. 10/24/2025 Patient examined bedside, labs reviewed. Abdomen is still notably firm and distended with positive fluid wave. HD not happening today instead had sequential ultrafiltration with 3 L removed. Plan to downgrade stalled because patient BPs dropped and was not responsive to fluids per NICOM restarted dobutamine and levophed to maintain SvO2 >65. 10/25/2025: Patient examined at bedside, labs reviewed. Patient was extubated, and placed on bipap, ABG are difficult to draw, they demonstrate persistent acidosis, so bipap settings were augmented. Presidex protocol was initiated given some agitation. 10/26/2025: Patient seen and examined at bedside, labs reviewed. Patient with notable puralent drainage slightly blood tinged on his R ear, and tenderness with pulling of the pinnea, L ear nl. R ear c/f otitis externa, started on cipro drops BID for 7 day course. On Bipap 08/23, pt requesting that we contact his brother, Otoniel Amador to provide updates. Pt underwent trial of bumex yesterday, with good UOP, so today will hold HD and diurese with 2 bumex and albumin. possible downgrade. 10/26/2025 PM: Downgraded to MedSurg. Tolerated BiPAP well. Hold dialysis today in light of good urine output overnight s/p Bumex per nephrology recommendation. Continue to diuresis with 2mg bumex QD with close UOP monitoring. 10/27/2025: NAOE. On exam, abdomen appears to be distended again, US abdomen revealed re-accumulation of moderate ascitic fluid. Plan for US guided paracentesis tmr. UOP 2.1L on IV Bumex 2mg daily. Increase sevelamer 800 mg to two tabs with meals for today per nephrology recommendation. PT consulted, recs rehab placement for skilled therapy services. 10/28/2025: Overnight tele reported 2 short runs of nonsustaining VT. De- escalate Zosyn to levoflxacin today for pneumonia coverage. Paracentesis today with 5L out, no complication, replaced with 25g albumin. Please see operative note for further details. Patient continues to make good UOP, 2.4L last 24H. Phos decreased from 7 to 6.2 today. On exam, patient's upper arms appear edematous, doppler US oredered with negative findings for DVT in both R and L UE. 10/29/2025: NAOE. Patient appears more awake and alert today, a/o x 4. Phos 5.6 today. UOP 3.5L last 24H. Started prednisone 30mg PO today for patient's gout. Per nephrology, started patient back on spironolactone given possible hepatorenal syndrome. Right IJ central line removed. May remove morgan tmr morning if stable for discharge to SNF tmr. 10/30/2025: Patient seen and examined at bedside this morning. Appears comfortable and denies any new complaints. States that his right hand joint pain and swelling is improving compared to yesterday. CRP elevated at 2.0. Hemoglobin remained stable. Patient continues to be alert and oriented, able to answer question and follow commands appropriately. Noted to have rashes around his groin, we will start him on antifungal cream and obtain wound care. Awaiting placement to SNF. 10/31/2025: NAOE. Updated patient at bedside regarding status on SNF placement, still awaiting insurance auth. Patient is medically stable for discharge. On exam, abdomen appears distended. May attempt paracentesis today if reaccumulation of asicitic fluid on bedside US. Exam Vital Signs Temp Pulse Resp BP Pulse Ox O2 Del Method O2 Flow Rate 96.9 F 87 18 128/79 96 Oxy Mask 2 10/31/25 08:00 10/31/25 10:16 10/31/25 10:16 10/31/25 08:49 10/31/25 10:16 10/31/25 08:00 10/31/25 10:16 FiO2 40 10/31/25 02:46 Narrative Exam General: Appears comfortable, more alert and awake. Conversational. GCS15. On 3L NC at baseline. HEENT: Normocephalic, atraumatic, mucous membranes moist. Minimal right ear drainage. Heart: Regular rate and rhythm Lungs: Clear to auscultation with no wheezing or crackles. No increases WOB. Abdomen: Distended, but nontender. No guarding or rebound tenderness. Neurologic: No gross neurological deficit Extremities: No mottling or ecchymosis. Objective Labs 11/01/25 04:42 11/01/25 04:42 Labs: Laboratory Results - last 24 hr 10/31/25 04:26 WBC 8.0 RBC 5.42 Hgb 12.0 L Hct 38.9 L MCV 72 L MCH 22.1 L MCHC 30.8 L RDW Std Deviation 59.9 H Plt Count 147 D Neut % (Auto) 88 H Lymph % (Auto) 4 L [place] % (Auto) 8 Eos % (Auto) 0 Baso % (Auto) 0 Neut # (Auto) 7.0 Lymph # (Auto) 0.3 L [place] # (Auto) 0.6 Eos # (Auto) 0.0 Baso # (Auto) 0.0 Immature Gran # (Auto) 0.05 H Absolute Nucleated RBC 0.02 H Immature Gran % 1 H Nucleated RBC % 0 Sodium 136 Potassium 3.5 Chloride 94 L Carbon Dioxide 28.7 Anion Gap 13 BUN 37 H Creatinine 1.9 H Estim Creat Clear Calc 42.7 L eGFR 40 L BUN/Creatinine Ratio 19 Glucose 124 H Calculated Osmolality 281 Calcium 9.8 Corrected Calcium 9.8 Phosphorus 3.1 Magnesium 2.0 Total Bilirubin 1.9 H AST 23 ALT 10 Alkaline Phosphatase 192 H Total Protein 7.6 Albumin 4.3 D Globulin 3.3 Albumin/Globulin Ratio 1.3 ABG Interpretation ABG results: 10/22/25 10/22/25 10/22/25 03:27 11:26 15:35 ABG pH 7.30 L 7.10 L* D 7.29 L D ABG pCO2 48 80 H* D 48 D ABG pO2 80 L 34 L* D 236 H D ABG HCO3 24 25 23 ABG O2 Saturation 98 40 L 101 H ABG Base Excess -2 -5 L -3 VBG pH VBG pCO2 VBG pO2 VBG Base Excess 10/22/25 10/23/25 10/23/25 19:01 05:11 19:30 ABG pH 7.36 7.34 L 7.48 H D ABG pCO2 43 50 H 36 D ABG pO2 173 H D 40 L* D 72 L D ABG HCO3 24 27 H 27 H ABG O2 Saturation 100 H 65 L 95 ABG Base Excess -1 1 4 H VBG pH VBG pCO2 VBG pO2 VBG Base Excess 10/24/25 10/24/25 10/24/25 04:47 15:55 16:18 ABG pH 7.47 H Cancelled ABG pCO2 37 Cancelled ABG pO2 76 L Cancelled ABG HCO3 27 H Cancelled ABG O2 Saturation 96 Cancelled ABG Base Excess 4 H Cancelled VBG pH 7.18 L VBG pCO2 72 H VBG pO2 36 VBG Base Excess -3 12/05/1310/24/25 10/24/25 18:15 19:39 21:50 ABG pH ABG pCO2 ABG pO2 ABG HCO3 ABG O2 Saturation ABG Base Excess VBG pH 7.25 L 7.26 L 7.27 L VBG pCO2 54 D 55 51 VBG pO2 67 H D 51 42 VBG Base Excess -4 L -3 -4 L 10/24/25 10/25/25 10/25/25 23:17 01:28 03:15 ABG pH ABG pCO2 ABG pO2 ABG HCO3 ABG O2 Saturation ABG Base Excess VBG pH 7.28 L 7.27 L 7.36 VBG pCO2 52 55 40 D VBG pO2 31 37 56 VBG Base Excess -3 -2 -3 10/25/25 10/25/25 10/25/25 04:41 06:20 07:44 ABG pH 7.29 L D ABG pCO2 46 ABG pO2 128 H D ABG HCO3 22 ABG O2 Saturation 99 H ABG Base Excess -5 L VBG pH 7.25 L 7.25 L VBG pCO2 57 H D 56 VBG pO2 49 42 VBG Base Excess -3 -3 10/25/25 10/25/25 10/25/25 09:50 11:04 11:37 ABG pH Cancelled ABG pCO2 Cancelled ABG pO2 Cancelled ABG HCO3 Cancelled ABG O2 Saturation Cancelled ABG Base Excess Cancelled VBG pH 7.29 L 7.25 L VBG pCO2 51 59 H VBG pO2 37 41 VBG Base Excess -3 -3 10/25/25 10/25/25 10/25/25 14:40 16:26 20:00 ABG pH 7.26 L 7.25 L 7.28 L ABG pCO2 49 H 53 H 51 H ABG pO2 230 H D 87 D 68 L ABG HCO3 22 24 24 ABG O2 Saturation 100 H 95 91 ABG Base Excess -6 L -4 L -3 VBG pH VBG pCO2 VBG pO2 VBG Base Excess 10/26/25 10/26/25 10/27/25 01:25 14:20 05:14 ABG pH 7.32 L 7.31 L 7.33 L ABG pCO2 46 48 46 ABG pO2 120 H D 171 H D 134 H D ABG HCO3 23 24 24 ABG O2 Saturation 99 H 100 H 99 H ABG Base Excess -3 -3 -2 VBG pH VBG pCO2 VBG pO2 VBG Base Excess 10/28/25 09:00 ABG pH 7.35 ABG pCO2 48 ABG pO2 71 L D ABG HCO3 26 ABG O2 Saturation 93 ABG Base Excess 0 VBG pH VBG pCO2 VBG pO2 VBG Base Excess Quality Measures Quality Measures VTE prophylaxis Assessment & Plan Assessment Current Active Medications: Generic Name Dose Route Start Last Admin Trade Name Freq PRN Reason Stop Dose Admin Acetaminophen 325 mg 10/29/25 13:48 Acetaminophen 325 Mg Tablet PO 11/21/25 06:00 Q6H PRN Fever >101.5, pain 1-4 Hydrocodone Bitart/Acetaminophen 1 tab 10/29/25 13:49 10/31/25 09:50 Hydrocodone/Apap 10/325 Tab PO 11/03/25 13:46 1 tab Q6HR PRN Administration Pain 5-10 Albuterol/Ipratropium 3 ml 10/25/25 19:00 10/31/25 10:15 Albuterol/Ipratropium (Duoneb) Rt Irais 3 Ml Nebu INH 11/24/25 18:59 3 ml Q4HRRT YOVANI Administration Bumetanide 2 mg 10/27/25 09:00 10/31/25 08:48 Bumetanide Inj 0.25 Mg/Ml Vial 4 Ml IVP 11/26/25 08:59 2 mg QDAY YOVANI Administration Ciprofloxacin/Hydrocortisone 3 drop 10/26/25 09:00 10/31/25 08:50 Ciprofloxacin/Hc Otic Gretta 10 Ml Btl BOTH EARS 11/02/25 08:59 6 drops BID YOVANI Administration Enoxaparin Sodium 40 mg 11/01/25 09:00 Enoxaparin Sod Inj 40 Mg/0.4 Ml Syringe SC 11/05/25 08:59 QDAY YOVANI Ferrous Sulfate 325 mg 10/27/25 21:00 10/31/25 08:49 Ferrous Sulf 325 Mg Tablet PO 11/26/25 20:59 325 mg BID YOVANI Administration Heparin Sodium (Porcine) 3,000 unit 10/22/25 18:42 10/25/25 14:06 Heparin Sod Inj 1000 Unit/Ml Vial 10 Ml INDWELLCAT 11/05/25 18:41 3,000 unit PRN PRN Administration heplock vascath Albumin Human 25 gm in 100 mls @ 0 mls/hr 10/22/25 19:47 Albuminex 25% Ivpb IV Q30MIN PRN To maintain SBP>90 Per Protocol Levofloxacin/Dextrose 750 mg in 150 mls @ 100 mls/hr 10/28/25 21:00 10/30/25 20:10 Levaquin Ivpb IV 11/04/25 20:59 100 mls/hr Q48HR@2100 YOVANI Administration Albumin Human 25 gm in 100 mls @ 100 mls/hr 10/28/25 13:14 10/31/25 08:49 Albuminex 25% Ivpb IV 10/31/25 13:13 100 mls/hr QDAY YOVANI Administration Ketoconazole 0 gm 10/30/25 09:00 10/31/25 08:51 Ketoconazole Cr 2% 15 Gm Tube TOP 11/29/25 08:59 1 applicatio BID YOVANI Administration Lactulose 20 gm 10/27/25 07:19 10/31/25 12:14 Lactulose Syrup 20 Gm/30 Ml Udc PO 11/21/25 06:14 20 gm QID YOVANI Administration Protocol Levothyroxine Sodium 25 mcg 10/23/25 06:00 10/31/25 05:27 Levothyroxine Sodium 25 Mcg Tablet PO 11/22/25 05:59 25 mcg ACBR YOVANI Administration Prednisone 30 mg 10/29/25 13:30 10/31/25 08:49 Prednisone 20 Mg Tablet PO 11/05/25 13:18 30 mg QDAY YOVANI Administration Rifaximin 550 mg 10/24/25 21:00 10/31/25 08:49 Rifaximin 550 Mg Tablet PO 10/31/25 20:59 550 mg BID YOVANI Administration Sevelamer Carbonate 1,600 mg 10/28/25 08:42 10/31/25 12:14 Sevelamer Carbonate 800 Mg Tablet PO 11/22/25 11:59 1,600 mg TIDWM YOVANI Administration Sodium Chloride 3 ml 10/22/25 17:47 Sodium Chloride Rt Irais 0.9% 3 Ml Nebu INH 11/21/25 17:46 PRN PRN SOLN Spironolactone 100 mg 10/30/25 09:00 10/31/25 08:49 Spironolactone 25 Mg Tablet PO 11/29/25 08:59 100 mg QDAY YOVANI Administration Vitamin B Complex/Vit C/Folic Acid 1 tab 10/28/25 14:30 10/31/25 08:49 Vit B12/Vit C/Fa (Nephrovite) Tablet PO 11/27/25 14:29 1 tab QDAY YOVANI Administration Plan This is a 60-year-old gentleman with history of heart failure with reduced ejection fraction ,alcohol-related cirrhosis, COPD on 3L home oxygen, hypertension, CKD, and right neck mass (Lymphoma?) was brought in for 1 week of [facility]ness [facility] who had severe refractory hyperkalemia that was refractory to hyperkalemia cocktail upgraded from floors to the ICU with severe acidemia and refractory hyper-K. Extubated and now off sedation, on Bipap, downgraded to MedSurg 10/26/25. #Acute metabolic encephalopathy secondary to acute decompensated liver failure - resolved #Hepatic encephalopathy #Agitation - resolved #Severe ascites s/p paracentesis (10/22/25, 10/28/25) #cirrhosis #heptorenal syndrome - s/p paracentesis (10/22) with 9,000 mL of ascitic fluid removed. - ammonia 32, WNL - Continue lactulose 20gm q6hr - SAAG 1.2, consistent with portal hypertension 2/2 to cirrhosis - Follow-up LFTs - repeat paracentesis if clinically indicated, replete albumin - S/p US-guided paracentesis (10/28/25), 5L out, replete with 25g albumin. - Continue home spironlactone 100mg PO QD #Groin rash -Continue ketoconazole cream -Wound care referral #Acute CHF exacerbation likely 2/2 to PNA #Heart failure with reduced ejection fraction 25-30 %, on this admission 10/2025 #CADY on CKD versus worsening CKD #Hyperkalemia - Resolved with HD #Hyperphosphatemia - downtrending - Consider restarting home medications GDMT: carvedilol, spironolactone, empagliflozin, not on GREY or ARB, if BP stable. Spironolactone restarted. - Daily renal panel - Monitor UOP, UOP 30-40 cc/hr, responsive to bumex - Hold HD in setting of good uop with 2mg bumex - Albumin 25 x 1 - Bumex 2 mg IV QD - Nephrology following, appreciate recs - Sevalomer 800mg 2 tabs with meal, 3 times daily #R Aspiration PNA- Pseudamonas #COPD Exacerbation #Community-acquired pneumonia versus healthcare associated pneumonia - Serial cxr, imaging looks improved from prior - ET secretions with Pseudamonas - De-escalate from Zosyn (10/24-10/31) to levofloxacin 750mg Q48H - Duonebs q4hr prn #Hypothyroidism - Patient has history of hypothyroidism, takes levothyroxine 25 at home, plan for oral given patient is not on vasopressors actively - outpatient f/u - Continue levothyroxine 25mcg ACBR #Chronic microcytic anemia - likely iron deficiency anemia vs anemia of chronic disease vs ckd - iron 19 low, TIBC 181 low, iron saturation 10 low - transfuse if < 7 - Continue home med ferrous sulfate 325mg PO BID. #R Otitis Externa - monitor for failure to respond to standard therapy and cranial nerve involvement, patient without any facial nerve palsy. - purulent drainage from R ear. - continue Ciprofloxacin 3 drops, 10/26 -11/02 (intend for 7 day course) #Gout - chronic medical problem - Continue prednisone 30mg PO QD - Held home allopurinol due to acute flare improving renal function. Health maintenance Dispo: Telemetry, awaiting placement DVT prophylaxis: Lovenox 40mg SC QD Bowel Regimen: lactulose Antibiotic: Levofloxacin Diet: Renal diet Lines: PIV Code status: Full code Case discussed with my senior resident Dr. Maurice Case discussed with my attending Dr. Aubrey Lelsie [facility], PGY 1 Attending Provider Attestation/Addendum I have seen and examined the patient. I was physically present for the blount portions of the services provided including history, physical exam, diagnosis, treatment plans and orders. I agree with assessment and plan of care as documented by residents. Even though this this note was carefully revised there may still be minor errors in registered safety engineer due to voice recognition software. Nicole Burgos MD
--- NOTE | 2025-10-31 17:35 | PC.NURSE ---
Patient states he is only willing to have spaghetti for dinner, per MD, it is okay to have pasta for tonight.
[2025-11-01] VITALS (14 sets, daily range): BP systolic 113–128; BP diastolic 76–89; PULSE 73–95; RESP 12–20; TEMP 36.1–36.5; O2SAT 97–100
[2025-11-01] MEDS: ALBUTEROL/IPRATROPIUM (Duoneb) RT SOL 3 ML NEBU INH ×6 (02:33→22:33)
[2025-11-01 05:35] LABS: Basophils # (Auto) 0.0 Thou/mm3 (0.0-0.2); Basophils % (Auto) 0 % (0-2.5); Eosinophils # (Auto) 0.0 Thou/mm3 (0.0-0.5); Eosinophils % (Auto) 0 % (0-10); Hematocrit 35.8 % (41.0-53.0); Hemoglobin 11.2 g/dL (13.5-16.0); Immature Granulocytes Auto 0.05 Thou/mm3 (0.00-0.00); Lymphocytes # (Auto) 0.3 Thou/mm3 (1.0-4.8); Lymphocytes % (Auto) 3 % (10-50); Mean Corpuscular HGB Conc 31.3 g/dl (31.0-37.0); Mean Corpuscular Hemoglobin 22.2 pg (25.0-35.0); Mean Corpuscular Volume 71 fL (80-100); Monocytes # (Auto) 0.7 Thou/mm3 (0.0-0.8); Monocytes % (Auto) 7 % (0-12); Neutrophils # (Auto) 8.8 Thou/mm3 (1.8-7.7); Neutrophils % (Auto) 89 % (37-80); Nucleated Red Blood Cell # 0.00 Thou/mm3 (0.00-0.00); Nucleated Red Blood Cell % 0 /100 WBC (0); Platelet Count 143 Thou/mm3 (140-440); RDW Standard Deviation 59.9 fL (35.1-43.9); Red Blood Count 5.04 Miln/mm3 (4.50-5.90); White Blood Count 9.8 Thou/mm3 (3.8-10.6)
[2025-11-01] MEDS: LEVOTHYROXINE SODIUM 25 MCG TABLET PO (05:45)
[2025-11-01] MEDS: LACTULOSE SYRUP 20 GM/30 ML UDC PO ×4 (05:45→20:58)
[2025-11-01 05:55] LABS: Anion Gap 11 (7-16); BUN/Creatinine Ratio 22 Ratio (12-20); Blood Urea Nitrogen 35 mg/dL (9-23); Calcium 9.4 mg/dL (8.3-10.6); Carbon Dioxide 31.5 mMol/L (20.0-31.0); Chloride 95 mMol/L (98-107); Creatinine (Component) 1.6 mg/dL (0.6-1.3); Estimated Creatinine Clearance 50.7 mL/min (>60); Glucose 128 mg/dL (74-106); Osmolality,Calculated 283 (275-295); Phosphorous 3.4 mg/dL (2.4-5.1); Potassium 4.3 mMol/L (3.4-5.1); Sodium 137 mMol/L (136-145); eGFR 49 See Note
[2025-11-01 05:56] LABS: Alanine Aminotransferase 9 U/L (10-49); Albumin, Serum 3.8 gm/dL (3.5-5.0); Albumin/Globulin Ratio 1.4 (1.2-2.2); Alkaline Phosphatase 155 U/L (46-116); Aspartate Amino Transferase 31 U/L (0-34); Bilirubin,Total 1.6 mg/dL (0.3-1.2); Calcium (Corrected) 9.6 mg/dL (8.5-10.1); Globulin 2.7 gm/dL (2.3-3.5); Magnesium 1.7 mg/dL (1.6-2.6); Total Protein 6.5 gm/dL (5.7-8.2)
[2025-11-01] MEDS: SEVELAMER CARBONATE 800 MG TABLET 1600 MG PO ×3 (09:21→17:14)
[2025-11-01] MEDS: BUMETANIDE INJ 0.25 MG/ML VIAL 4 ML 2 MG IVP (09:21)
[2025-11-01] MEDS: VIT B12/Vit C/FA (Nephrovite) TABLET 1 TAB PO (09:22)
[2025-11-01] MEDS: SPIRONOLACTONE 25 MG TABLET 100 MG PO (09:23)
[2025-11-01] MEDS: KETOCONAZOLE CR 2% 15 GM TUBE TOP ×2 (09:23→20:58)
[2025-11-01] MEDS: FERROUS SULF 325 MG TABLET PO ×2 (09:23→20:58)
[2025-11-01] MEDS: ENOXAPARIN SOD INJ 40 MG/0.4 ML SYRINGE SC (09:23)
[2025-11-01] MEDS: ALBUMIN HUMAN-KJDA 25% IVPB 25 GM/100 ML BTL IV (10:25)
--- NOTE | 2025-11-01 12:15 | ESPR_ITS ---
Documentation for date of: 11/01/25 Subjective Subjective Interval history: Mr. Amador is a 60-year-old gentleman with a past medical history significant for left neck lymphoma, cirrhosis, COPD on 3L home oxygen, CKD, hypertension, chronic lower back pain who presented with worsening shortness of breath from [facility]. He was admitted to ICU initially for AMS and hyperkalemia. 10/22/2025: CT head with Negative for acute hemorrhage, mass effect or midline shift, pupils were fixed and dilated. He was intubated, and started on HD after multiple attempts at getting central access. R ij was placed. had paracentesis with 9 L off. cytology sent 10/23/2025: Patient seen and examined at bedside with abdomen notably firm and distended with positive fluid wave. HD today with 1 L removed in 3 hour session. K now within nl at 4.5 pupils are sluggish but responsive to light and no longer fixed and dilated. remains intubated and sedated. appears more volume overloaded on exam. with reacumulated ascites despite 9 L paracentesis done yesterday. 10/24/2025 Patient examined bedside, labs reviewed. Abdomen is still notably firm and distended with positive fluid wave. HD not happening today instead had sequential ultrafiltration with 3 L removed. Plan to downgrade stalled because patient BPs dropped and was not responsive to fluids per NICOM restarted dobutamine and levophed to maintain SvO2 >65. 10/25/2025: Patient examined at bedside, labs reviewed. Patient was extubated, and placed on bipap, ABG are difficult to draw, they demonstrate persistent acidosis, so bipap settings were augmented. Presidex protocol was initiated given some agitation. 10/26/2025: Patient seen and examined at bedside, labs reviewed. Patient with notable puralent drainage slightly blood tinged on his R ear, and tenderness with pulling of the pinnea, L ear nl. R ear c/f otitis externa, started on cipro drops BID for 7 day course. On Bipap 08/23, pt requesting that we contact his brother, Otoniel Amador to provide updates. Pt underwent trial of bumex yesterday, with good UOP, so today will hold HD and diurese with 2 bumex and albumin. possible downgrade. 10/26/2025 PM: Downgraded to MedSurg. Tolerated BiPAP well. Hold dialysis today in light of good urine output overnight s/p Bumex per nephrology recommendation. Continue to diuresis with 2mg bumex QD with close UOP monitoring. 10/27/2025: NAOE. On exam, abdomen appears to be distended again, US abdomen revealed re-accumulation of moderate ascitic fluid. Plan for US guided paracentesis tmr. UOP 2.1L on IV Bumex 2mg daily. Increase sevelamer 800 mg to two tabs with meals for today per nephrology recommendation. PT consulted, recs rehab placement for skilled therapy services. 10/28/2025: Overnight tele reported 2 short runs of nonsustaining VT. De- escalate Zosyn to levoflxacin today for pneumonia coverage. Paracentesis today with 5L out, no complication, replaced with 25g albumin. Please see operative note for further details. Patient continues to make good UOP, 2.4L last 24H. Phos decreased from 7 to 6.2 today. On exam, patient's upper arms appear edematous, doppler US oredered with negative findings for DVT in both R and L UE. 10/29/2025: NAOE. Patient appears more awake and alert today, a/o x 4. Phos 5.6 today. UOP 3.5L last 24H. Started prednisone 30mg PO today for patient's gout. Per nephrology, started patient back on spironolactone given possible hepatorenal syndrome. Right IJ central line removed. May remove morgan tmr morning if stable for discharge to SNF tmr. 10/30/2025: Patient seen and examined at bedside this morning. Appears comfortable and denies any new complaints. States that his right hand joint pain and swelling is improving compared to yesterday. CRP elevated at 2.0. Hemoglobin remained stable. Patient continues to be alert and oriented, able to answer question and follow commands appropriately. Noted to have rashes around his groin, we will start him on antifungal cream and obtain wound care. Awaiting placement to SNF. 10/31/2025: NAOE. Updated patient at bedside regarding status on SNF placement, still awaiting insurance auth. Patient is medically stable for discharge. On exam, abdomen appears distended. May attempt paracentesis today if reaccumulation of asicitic fluid on bedside US. 11/01/2025: NAOE. Pending insurance auth for SNF. Patient's abdomen distended on exam, US paracentesis ordered. Restart home allopurinol. Exam Vital Signs Temp Pulse Resp BP Pulse Ox O2 Del Method O2 Flow Rate 97.0 F 80 12 113/80 97 Nasal Cannula 2 11/01/25 08:00 11/01/25 09:23 11/01/25 08:00 11/01/25 09:23 11/01/25 08:00 11/01/25 08:00 11/01/25 08:00 FiO2 40 10/31/25 02:46 Narrative Exam General: Appears comfortable. Alert and awake. Conversational. GCS15. On 3L NC at baseline. HEENT: Normocephalic, atraumatic Heart: Regular rate and rhythm Lungs: Clear to auscultation with no wheezing or crackles. No increases WOB. Abdomen: Distended, but nontender. No guarding or rebound tenderness. Neurologic: No gross neurological deficit Extremities: No mottling or ecchymosis. Slight edema to LE. Objective Labs 11/01/25 04:42 11/01/25 04:42 Labs: Laboratory Results - last 24 hr 11/01/25 04:42 WBC 9.8 RBC 5.04 Hgb 11.2 L Hct 35.8 L MCV 71 L MCH 22.2 L MCHC 31.3 RDW Std Deviation 59.9 H Plt Count 143 Neut % (Auto) 89 H Lymph % (Auto) 3 L [place] % (Auto) 7 Eos % (Auto) 0 Baso % (Auto) 0 Neut # (Auto) 8.8 H Lymph # (Auto) 0.3 L [place] # (Auto) 0.7 Eos # (Auto) 0.0 Baso # (Auto) 0.0 Immature Gran # (Auto) 0.05 H Absolute Nucleated RBC 0.00 Immature Gran % 1 H Nucleated RBC % 0 Sodium 137 Potassium 4.3 D Chloride 95 L Carbon Dioxide 31.5 H Anion Gap 11 BUN 35 H Creatinine 1.6 H Estim Creat Clear Calc 50.7 L eGFR 49 L BUN/Creatinine Ratio 22 H Glucose 128 H Calculated Osmolality 283 Calcium 9.4 Corrected Calcium 9.6 Phosphorus 3.4 Magnesium 1.7 Total Bilirubin 1.6 H AST 31 ALT 9 L Alkaline Phosphatase 155 H D Total Protein 6.5 Albumin 3.8 D Globulin 2.7 Albumin/Globulin Ratio 1.4 ABG Interpretation ABG results: 10/22/25 10/22/25 10/22/25 03:27 11:26 15:35 ABG pH 7.30 L 7.10 L* D 7.29 L D ABG pCO2 48 80 H* D 48 D ABG pO2 80 L 34 L* D 236 H D ABG HCO3 24 25 23 ABG O2 Saturation 98 40 L 101 H ABG Base Excess -2 -5 L -3 VBG pH VBG pCO2 VBG pO2 VBG Base Excess 10/22/25 10/23/25 10/23/25 19:01 05:11 19:30 ABG pH 7.36 7.34 L 7.48 H D ABG pCO2 43 50 H 36 D ABG pO2 173 H D 40 L* D 72 L D ABG HCO3 24 27 H 27 H ABG O2 Saturation 100 H 65 L 95 ABG Base Excess -1 1 4 H VBG pH VBG pCO2 VBG pO2 VBG Base Excess 10/24/25 10/24/25 10/24/25 04:47 15:55 16:18 ABG pH 7.47 H Cancelled ABG pCO2 37 Cancelled ABG pO2 76 L Cancelled ABG HCO3 27 H Cancelled ABG O2 Saturation 96 Cancelled ABG Base Excess 4 H Cancelled VBG pH 7.18 L VBG pCO2 72 H VBG pO2 36 VBG Base Excess -3 10/24/25 10/24/25 10/24/25 18:15 19:39 21:50 ABG pH ABG pCO2 ABG pO2 ABG HCO3 ABG O2 Saturation ABG Base Excess VBG pH 7.25 L 7.26 L 7.27 L VBG pCO2 54 D 55 51 VBG pO2 67 H D 51 42 VBG Base Excess -4 L -3 -4 L 10/24/25 10/25/25 10/25/25 23:17 01:28 03:15 ABG pH ABG pCO2 ABG pO2 ABG HCO3 ABG O2 Saturation ABG Base Excess VBG pH 7.28 L 7.27 L 7.36 VBG pCO2 52 55 40 D VBG pO2 31 37 56 VBG Base Excess -3 -2 -3 10/25/25 10/25/2525 04:41 06:20 07:44 ABG pH 7.29 L D ABG pCO2 46 ABG pO2 128 H D ABG HCO3 22 ABG O2 Saturation 99 H ABG Base Excess -5 L VBG pH 7.25 L 7.25 L VBG pCO2 57 H D 56 VBG pO2 49 42 VBG Base Excess -3 -3 10/25/25 10/25/25 10/25/25 09:50 11:04 11:37 ABG pH Cancelled ABG pCO2 Cancelled ABG pO2 Cancelled ABG HCO3 Cancelled ABG O2 Saturation Cancelled ABG Base Excess Cancelled VBG pH 7.29 L 7.25 L VBG pCO2 51 59 H VBG pO2 37 41 VBG Base Excess -3 -3 10/25/25 10/25/25 10/25/25 14:40 16:26 20:00 ABG pH 7.26 L 7.25 L 7.28 L ABG pCO2 49 H 53 H 51 H ABG pO2 230 H D 87 D 68 L ABG HCO3 22 24 24 ABG O2 Saturation 100 H 95 91 ABG Base Excess -6 L -4 L -3 VBG pH VBG pCO2 VBG pO2 VBG Base Excess 10/26/25 10/26/25 10/27/25 01:25 14:20 05:14 ABG pH 7.32 L 7.31 L 7.33 L ABG pCO2 46 48 46 ABG pO2 120 H D 171 H D 134 H D ABG HCO3 23 24 24 ABG O2 Saturation 99 H 100 H 99 H ABG Base Excess -3 -3 -2 VBG pH VBG pCO2 VBG pO2 VBG Base Excess 10/28/25 09:00 ABG pH 7.35 ABG pCO2 48 ABG pO2 71 L D ABG HCO3 26 ABG O2 Saturation 93 ABG Base Excess 0 VBG pH VBG pCO2 VBG pO2 VBG Base Excess Quality Measures Quality Measures VTE prophylaxis Assessment & Plan Assessment Current Active Medications: Generic Name Dose Route Start Last Admin Trade Name Freq PRN Reason Stop Dose Admin Acetaminophen 325 mg 10/29/25 13:48 Acetaminophen 325 Mg Tablet PO 11/21/25 06:00 Q6H PRN Fever >101.5, pain 1-4 Hydrocodone Bitart/Acetaminophen 1 tab 10/29/25 13:49 11/01/25 10:25 Hydrocodone/Apap 10/325 Tab PO 11/03/25 13:46 1 tab Q6HR PRN Administration Pain 5-10 Albuterol/Ipratropium 3 ml 10/25/25 19:00 11/01/25 06:16 Albuterol/Ipratropium (Duoneb) Rt Irais 3 Ml Nebu INH 11/24/25 18:59 3 ml Q4HRRT YOVANI Administration Allopurinol 100 mg 11/01/25 09:00 11/01/25 09:22 Allopurinol 100 Mg Tablet PO 12/01/25 08:59 100 mg QDAY YOVANI Administration Bumetanide 2 mg 10/27/25 09:00 11/01/25 09:21 Bumetanide Inj 0.25 Mg/Ml Vial 4 Ml IVP 11/26/25 08:59 2 mg QDAY YOVANI Administration Ciprofloxacin/Hydrocortisone 3 drop 10/26/25 09:00 11/01/25 09:22 Ciprofloxacin/Hc Otic Gretta 10 Ml Btl BOTH EARS 11/02/25 08:59 6 drops BID YOVANI Administration Enoxaparin Sodium 40 mg 11/01/25 09:00 11/01/25 09:23 Enoxaparin Sod Inj 40 Mg/0.4 Ml Syringe SC 11/05/25 08:59 40 mg QDAY YOVANI Administration Ferrous Sulfate 325 mg 10/27/25 21:00 11/01/25 09:23 Ferrous Sulf 325 Mg Tablet PO 11/26/25 20:59 325 mg BID YOVANI Administration Heparin Sodium (Porcine) 3,000 unit 10/22/25 18:42 10/25/25 14:06 Heparin Sod Inj 1000 Unit/Ml Vial 10 Ml INDWELLCAT 11/05/25 18:41 3,000 unit PRN PRN Administration heplock vascath Albumin Human 25 gm in 100 mls @ 0 mls/hr 10/22/25 19:47 Albuminex 25% Ivpb IV Q30MIN PRN To maintain SBP>90 Per Protocol Levofloxacin/Dextrose 750 mg in 150 mls @ 100 mls/hr 10/28/25 21:00 10/30/25 20:10 Levaquin Ivpb IV 11/04/25 20:59 100 mls/hr Q48HR@2100 YOVANI Administration Albumin Human 25 gm in 100 mls @ 100 mls/hr 11/01/25 09:27 11/01/25 10:25 Albuminex 25% Ivpb IV 11/04/25 09:26 100 mls/hr QDAY YOVANI Administration Ketoconazole 0 gm 10/30/25 09:00 11/01/25 09:23 Ketoconazole Cr 2% 15 Gm Tube TOP 11/29/25 08:59 1 applicatio BID YOVANI Administration Lactulose 20 gm 10/27/25 07:19 11/01/25 12:14 Lactulose Syrup 20 Gm/30 Ml Udc PO 11/21/25 06:14 20 gm QID YOVANI Administration Protocol Levothyroxine Sodium 25 mcg 10/23/25 06:00 11/01/25 05:45 Levothyroxine Sodium 25 Mcg Tablet PO 11/22/25 05:59 25 mcg ACBR YOVANI Administration Prednisone 30 mg 10/29/25 13:30 11/01/25 09:22 Prednisone 20 Mg Tablet PO 11/05/25 13:18 30 mg QDAY YOVANI Administration Sevelamer Carbonate 1,600 mg 10/28/25 08:42 11/01/25 12:14 Sevelamer Carbonate 800 Mg Tablet PO 11/22/25 11:59 1,600 mg TIDWM YOVANI Administration Sodium Chloride 3 ml 10/22/25 17:47 Sodium Chloride Rt Irais 0.9% 3 Ml Nebu INH 11/21/25 17:46 PRN PRN SOLN Spironolactone 100 mg 10/30/25 09:00 11/01/25 09:23 Spironolactone 25 Mg Tablet PO 11/29/25 08:59 100 mg QDAY YOVANI Administration Vitamin B Complex/Vit C/Folic Acid 1 tab 10/28/25 14:30 11/01/25 09:22 Vit B12/Vit C/Fa (Nephrovite) Tablet PO 11/27/25 14:29 1 tab QDAY YOVANI Administration Plan This is a 60-year-old gentleman with history of heart failure with reduced ejection fraction ,alcohol-related cirrhosis, COPD on 3L home oxygen, hypertension, CKD, and right neck mass (Lymphoma?) was brought in for 1 week of shortness of breath from [facility] who had severe refractory hyperkalemia that was refractory to hyperkalemia cocktail upgraded from floors to the ICU with severe acidemia and refractory hyper-K. Extubated and now off sedation, on Bipap, downgraded to MedSurg 10/26/25. #Acute metabolic encephalopathy secondary to acute decompensated liver failure - resolved #Hepatic encephalopathy #Agitation - resolved #Severe ascites s/p paracentesis (10/22/25, 10/28/25) #cirrhosis #heptorenal syndrome - s/p paracentesis (10/22) with 9,000 mL of ascitic fluid removed. - ammonia 32, WNL - Continue lactulose 20gm q6hr - SAAG 1.2, consistent with portal hypertension 2/2 to cirrhosis - Follow-up LFTs - repeat paracentesis if clinically indicated, replete albumin - S/p US-guided paracentesis (10/28/25), 5L out, replete with 25g albumin. - Continue home spironlactone 100mg PO QD #Groin rash -Continue ketoconazole cream -Wound care referral #Acute CHF exacerbation likely 2/2 to PNA #Heart failure with reduced ejection fraction 25-30 %, on this admission 10/2025 #CADY on CKD versus worsening CKD #Hyperkalemia - Resolved with HD #Hyperphosphatemia - downtrending - Consider restarting home medications GDMT: carvedilol, spironolactone, empagliflozin, not on GREY or ARB, if BP stable. Spironolactone restarted. - Daily renal panel - Monitor UOP, UOP 30-40 cc/hr, responsive to bumex - Hold HD in setting of good uop with 2mg bumex - Albumin 25 x 1 - Bumex 2 mg IV QD - Nephrology following, appreciate recs - Sevalomer 800mg 2 tabs with meal, 3 times daily #R Aspiration PNA- Pseudamonas #COPD Exacerbation #Community-acquired pneumonia versus healthcare associated pneumonia - Serial cxr, imaging looks improved from prior - ET secretions with [place] - De-escalate from Zosyn (10/24-10/31) to levofloxacin 750mg Q48H - Duonebs q4hr prn #Hypothyroidism - Patient has history of hypothyroidism, takes levothyroxine 25 at home, plan for oral given patient is not on vasopressors actively - outpatient f/u - Continue levothyroxine 25mcg ACBR #Chronic microcytic anemia - likely iron deficiency anemia vs anemia of chronic disease vs ckd - iron 19 low, TIBC 181 low, iron saturation 10 low - transfuse if < 7 - Continue home med ferrous sulfate 325mg PO BID. #R Otitis Externa - monitor for failure to respond to standard therapy and cranial nerve involvement, patient without any facial nerve palsy. - purulent drainage from R ear. - continue Ciprofloxacin 3 drops, 10/26 -11/02 (intend for 7 day course) #Gout - chronic medical problem - Continue prednisone 30mg PO QD - Start home allopurinol - Held home allopurinol due to acute flare improving renal function. Health maintenance Dispo: Telemetry, awaiting placement DVT prophylaxis: Lovenox 40mg SC QD Bowel Regimen: lactulose Antibiotic: Levofloxacin Diet: Renal diet Lines: PIV Code status: Full code Case discussed with my senior resident Dr. Maurice Case discussed with my attending Dr. Aubrey Cueva, DO PGY 1 Attending Provider Attestation/Addendum I have seen and examined the patient. I was physically present for the blount portions of the services provided including history, physical exam, diagnosis, treatment plans and orders. I agree with assessment and plan of care as documented by residents. Patient seen and examined at bedside this morning. Appears comfortable and denies any new complaints. No acute overnight events. Saturating well on room air. States that his pain around his small joints of hands have improved with steroid therapy. Noted to have abdominal distention concerning for accumulation of ascitic fluid, we will order paracentesis. Even though this this note was carefully revised there may still be minor errors in repairer maintenance building due to voice recognition software. Nicole Burgos MD
--- NOTE | 2025-11-01 15:31 | ESPR_ITS ---
Documentation for date of: 11/01/25 Subjective Subjective Interval history: 60-year-old male past medical history of COPD, alcoholic cirrhosis, diabetes, gout, hypertension, A-fib, heart failure, hyperlipidemia, acidosis, CKD, stage III lymphoma who presented from SNF on 10/22 with shortness of breath and altered mental status. He was found to have a potassium of 6.3, BNP of 638, creatinine of 2.9, and ascites. Per staff, patient is AOx4 and conversational at baseline. ED course: - Vitals: BP 108/89. Patient was desaturating into the 70s on 4 L nasal cannula, however upon arousal he would return to the 90s. - Labs: Potassium 6.3, BUN 42, creatinine 2.9, alk phos 307, BNP 638, PT 15.4, INR 1.5, D-dimer 1600, ABG pH of 7.3, pO2 of 80. - Imaging: Chest x-ray showed vascular congestion, heart failure. Abdominal ultrasound showed ascites. - Patient received DuoNeb treatment, 4 mg morphine, 4 mg Zofran, methylprednisolone 125 IV push x 1, dextrose, 10 units of insulin, and 1 g of calcium gluconate, and 15 GM sodium polystyrene sulfonate orally. Current Medications: allopurinol 100 mg, budesonide 2 mg, buspirone 7.5 mg, carvedilol 3.125 mg, empagliflozin 10 mg, vitamin D2, gabapentin 300 mg, levothyroxine 25 mg, pantoprazole 40 mg, potassium chloride 10 mill EQ tablets, spironolactone 100 mg, tamsulosin 0.4 mg, hydrocodone 5-3 25, ipratropium, fluticasone, lactulose, albuterol, hydroxyzine 25 mg, rifaximin 550 mg, furosemide 40 mg Allergies: No known drug allergies Patient was admitted for acute decompensated cirrhosis, hyperkalemia, and CADY, upgraded to ICU for worsening AHRF requiring intubation. Nephrology was consulted for urgent dialysis for hyperkalemia likely secondary to concomitant use of spironolactone and potassium. 10/23/25: Right femoral triple lumen line placed yesterday in ICU. Received HD last night, no ultrafiltration, tolerated session well. Patient seen and examined at bedside. Creatinine 2.9, improved to 2.1 in the afternoon. Scheduled for dialysis again today, goal 1L fluid removal. 10/24/25: Patient seen and assessed in ICU. Off sedation, tachycardic with HR 130s at bedside. Dialysis day #3, removed 1L yesterday, will remove 3L. Potassium 4.8. Creatinine 2.4. Ordered PPD and hepatitis panel in anticipation for outpatient dialysis. 10/25/2025 patient extubated and is currently on BiPAP. Short of breath and is currently seen on dialysis. In ICU. Heart rate 92-100 Labs and medications reviewed. 11/01/2025 patient comfortable. Breathing better. Discharge planning to rehab. DC dialysis catheter Review of Systems Review of Systems Narrative Review of Systems: Breathing better. Denies any chest pain. Exam Vital Signs Temp Pulse Resp BP Pulse Ox O2 Del Method O2 Flow Rate 36.2 C 80 17 114/82 97 Nasal Cannula 2 11/01/25 20:00 11/01/25 20:00 11/01/25 20:00 11/01/25 20:00 11/01/25 20:00 11/01/25 20:00 11/01/25 20:00 FiO2 40 10/31/25 02:46 Narrative Exam Physical Exam General: Awake and in no acute distress. Conversational and non-toxic appearing. HEENT: Normocephalic, atraumatic, mucous membranes moist. Heart: Regular rate and rhythm, normal S1 and S2, no murmurs. Lungs: Clear to auscultation with no wheezing or crackles. Abdomen: Soft, obese, positive bowel sounds. No guarding or rebound tenderness. Neurologic: No gross neurological deficit, and patient able to move all 4 extremities. Extremities: 1+ pitting edema in lower extremities. Skin: Scattered freckles on face and upper arms. No rash or ecchymoses. Objective Labs 11/03/25 05:56 11/03/25 05:56 Labs: Laboratory Results - last 24 hr 11/01/25 04:42 WBC 9.8 RBC 5.04 Hgb 11.2 L Hct 35.8 L MCV 71 L MCH 22.2 L MCHC 31.3 RDW Std Deviation 59.9 H Plt Count 143 Neut % (Auto) 89 H Lymph % (Auto) 3 L [place] % (Auto) 7 Eos % (Auto) 0 Baso % (Auto) 0 Neut # (Auto) 8.8 H Lymph # (Auto) 0.3 L [place] # (Auto) 0.7 Eos # (Auto) 0.0 Baso # (Auto) 0.0 Immature Gran # (Auto) 0.05 H Absolute Nucleated RBC 0.00 Immature Gran % 1 H Nucleated RBC % 0 Sodium 137 Potassium 4.3 D Chloride 95 L Carbon Dioxide 31.5 H Anion Gap 11 BUN 35 H Creatinine 1.6 H Estim Creat Clear Calc 50.7 L eGFR 49 L BUN/Creatinine Ratio 22 H Glucose 128 H Calculated Osmolality 283 Calcium 9.4 Corrected Calcium 9.6 Phosphorus 3.4 Magnesium 1.7 Total Bilirubin 1.6 H AST 31 ALT 9 L Alkaline Phosphatase 155 H D Total Protein 6.5 Albumin 3.8 D Globulin 2.7 Albumin/Globulin Ratio 1.4 ABG Interpretation ABG results: 10/22/25 10/22/25 10/22/25 03:27 11:26 15:35 ABG pH 7.30 L 7.10 L* D 7.29 L D ABG pCO2 48 80 H* D 48 D ABG pO2 80 L 34 L* D 236 H D ABG HCO3 24 25 23 ABG O2 Saturation 98 40 L 101 H ABG Base Excess -2 -5 L -3 VBG pH VBG pCO2 VBG pO2 VBG Base Excess 10/22/25 10/23/25 10/23/25 19:01 05:11 19:30 ABG pH 7.36 7.34 L 7.48 H D ABG pCO2 43 50 H 36 D ABG pO2 173 H D 40 L* D 72 L D ABG HCO3 24 27 H 27 H ABG O2 Saturation 100 H 65 L 95 ABG Base Excess -1 1 4 H VBG pH VBG pCO2 VBG pO2 VBG Base Excess 10/24/25 10/24/25 10/24/25 04:47 15:55 16:18 ABG pH 7.47 H Cancelled ABG pCO2 37 Cancelled ABG pO2 76 L Cancelled ABG HCO3 27 H Cancelled ABG O2 Saturation 96 Cancelled ABG Base Excess 4 H Cancelled VBG pH 7.18 L VBG pCO2 72 H VBG pO2 36 VBG Base Excess -3 10/24/25 10/24/25 10/24/25 18:15 19:39 21:50 ABG pH ABG pCO2 ABG pO2 ABG HCO3 ABG O2 Saturation ABG Base Excess VBG pH 7.25 L 7.26 L 7.27 L VBG pCO2 54 D 55 51 VBG pO2 67 H D 51 42 VBG Base Excess -4 L -3 -4 L 10/24/25 10/25/25 10/25/25 23:17 01:28 03:15 ABG pH ABG pCO2 ABG pO2 ABG HCO3 ABG O2 Saturation ABG Base Excess VBG pH 7.28 L 7.27 L 7.36 VBG pCO2 52 55 40 D VBG pO2 31 37 56 VBG Base Excess -3 -2 -3 10/25/25 10/25/25 10/25/25 04:41 06:20 07:44 ABG pH 7.29 L D ABG pCO2 46 ABG pO2 128 H D ABG HCO3 22 ABG O2 Saturation 99 H ABG Base Excess -5 L VBG pH 7.25 L 7.25 L VBG pCO2 57 H D 56 VBG pO2 49 42 VBG Base Excess -3 -3 10/25/25 10/25/25 10/25/25 09:50 11:04 11:37 ABG pH Cancelled ABG pCO2 Cancelled ABG pO2 Cancelled ABG HCO3 Cancelled ABG O2 Saturation Cancelled ABG Base Excess Cancelled VBG pH 7.29 L 7.25 L VBG pCO2 51 59 H VBG pO2 37 41 VBG Base Excess -3 -3 10/25/25 10/25/25 10/25/25 14:40 16:26 20:00 ABG pH 7.26 L 7.25 L 7.28 L ABG pCO2 49 H 53 H 51 H ABG pO2 230 H D 87 D 68 L ABG HCO3 22 24 24 ABG O2 Saturation 100 H 95 91 ABG Base Excess -6 L -4 L -3 VBG pH VBG pCO2 VBG pO2 VBG Base Excess 10/26/25 10/26/25 10/27/25 01:25 14:20 05:14 ABG pH 7.32 L 7.31 L 7.33 L ABG pCO2 46 48 46 ABG pO2 120 H D 171 H D 134 H D ABG HCO3 23 24 24 ABG O2 Saturation 99 H 100 H 99 H ABG Base Excess -3 -3 -2 VBG pH VBG pCO2 VBG pO2 VBG Base Excess 10/28/25 09:00 ABG pH 7.35 ABG pCO2 48 ABG pO2 71 L D ABG HCO3 26 ABG O2 Saturation 93 ABG Base Excess 0 VBG pH VBG pCO2 VBG pO2 VBG Base Excess Assessment & Plan Additional Assessment & Plan Additional Plan: 60-year-old male past medical history of COPD, alcoholic cirrhosis, diabetes, gout, hypertension, A-fib, heart failure, hyperlipidemia, acidosis, CKD IIIa, stage III lymphoma who presented from SNF on 10/22 with shortness of breath and altered mental status, upgraded to ICU due to worsening AHRF requiring intubation. Nephrology consulted for urgent dialysis for hyperkalemia. #Hyperkalemia (resolved) #CADY on CKD IIIa - Presented with altered mental status from SNF - Home medications include potassium chloride 10 mill EQ tablets and spironolactone 100 mg - Potassium 6.3 on admission, increased to 7.0 despite insulin, albuterol, and Kayexelate - Cr 2.9 on admission, previously 1.4 in 01/2024 - EKG showed normal sinus rhythm, no peaked T waves observed - Upgraded to ICU 10/22, HD cath placed in right IJ - S/p HD 10/22 (no ultrafiltration), 10/23 (-1L) Plan: No need for dialysis. #Respiratory acidosis #AHRF #Intubated #Acute decompensated cirrhosis 2/2 alcohol use #Acute encephalopathy #HFrEF #Hypertension #Hypothyroidism #Microcytic Anemia #History of gout #Stage III lymphoma #Diabetes #Afib paroxysmal? #HLD - Defer to primary team for management Care discussed with ICU team
[2025-11-02] VITALS (16 sets, daily range): BP systolic 116–137; BP diastolic 83–96; PULSE 74–96; RESP 15–20; TEMP 36.3–36.4; O2SAT 90–100; BMI 33.0
[2025-11-02] MEDS: ALBUTEROL/IPRATROPIUM (Duoneb) RT SOL 3 ML NEBU INH ×5 (02:46→22:35)
[2025-11-02] MEDS: LEVOTHYROXINE SODIUM 25 MCG TABLET PO (05:11)
[2025-11-02 06:28] LABS: Basophils # (Auto) 0.0 Thou/mm3 (0.0-0.2); Basophils % (Auto) 0 % (0-2.5); Eosinophils # (Auto) 0.0 Thou/mm3 (0.0-0.5); Eosinophils % (Auto) 0 % (0-10); Hematocrit 36.7 % (41.0-53.0); Hemoglobin 11.5 g/dL (13.5-16.0); Immature Granulocytes Auto 0.05 Thou/mm3 (0.00-0.00); Lymphocytes # (Auto) 0.3 Thou/mm3 (1.0-4.8); Lymphocytes % (Auto) 3 % (10-50); Mean Corpuscular HGB Conc 31.3 g/dl (31.0-37.0); Mean Corpuscular Hemoglobin 22.5 pg (25.0-35.0); Mean Corpuscular Volume 72 fL (80-100); Monocytes # (Auto) 0.6 Thou/mm3 (0.0-0.8); Monocytes % (Auto) 7 % (0-12); Neutrophils # (Auto) 8.0 Thou/mm3 (1.8-7.7); Neutrophils % (Auto) 89 % (37-80); Nucleated Red Blood Cell # 0.00 Thou/mm3 (0.00-0.00); Nucleated Red Blood Cell % 0 /100 WBC (0); Platelet Count 144 Thou/mm3 (140-440); RDW Standard Deviation 60.6 fL (35.1-43.9); Red Blood Count 5.11 Miln/mm3 (4.50-5.90); White Blood Count 9.0 Thou/mm3 (3.8-10.6)
[2025-11-02 07:02] LABS: Alanine Aminotransferase 10 U/L (10-49); Albumin, Serum 4.0 gm/dL (3.5-5.0); Albumin/Globulin Ratio 1.4 (1.2-2.2); Alkaline Phosphatase 172 U/L (46-116); Anion Gap 10 (7-16); Aspartate Amino Transferase 25 U/L (0-34); BUN/Creatinine Ratio 18 Ratio (12-20); Bilirubin,Total 1.8 mg/dL (0.3-1.2); Blood Urea Nitrogen 29 mg/dL (9-23); Calcium 9.4 mg/dL (8.3-10.6); Calcium (Corrected) 9.4 mg/dL (8.5-10.1); Carbon Dioxide 32.1 mMol/L (20.0-31.0); Chloride 95 mMol/L (98-107); Creatinine (Component) 1.6 mg/dL (0.6-1.3); Estimated Creatinine Clearance 50.3 mL/min (>60); Globulin 2.8 gm/dL (2.3-3.5); Glucose 115 mg/dL (74-106); Magnesium 1.4 mg/dL (1.6-2.6); Osmolality,Calculated 280 (275-295); Phosphorous 2.5 mg/dL (2.4-5.1); Potassium 3.9 mMol/L (3.4-5.1); Sodium 137 mMol/L (136-145); Total Protein 6.8 gm/dL (5.7-8.2); eGFR 49 See Note
[2025-11-02] MEDS: SEVELAMER CARBONATE 800 MG TABLET 1600 MG PO ×3 (07:55→17:33)
[2025-11-02] MEDS: SPIRONOLACTONE 25 MG TABLET 100 MG PO (08:01)
[2025-11-02] MEDS: FERROUS SULF 325 MG TABLET PO ×2 (08:04→20:53)
[2025-11-02] MEDS: VIT B12/Vit C/FA (Nephrovite) TABLET 1 TAB PO (08:04)
[2025-11-02] MEDS: ENOXAPARIN SOD INJ 40 MG/0.4 ML SYRINGE SC (08:06)
[2025-11-02] MEDS: BUMETANIDE INJ 0.25 MG/ML VIAL 4 ML 2 MG IVP (08:08)
[2025-11-02] MEDS: ALBUMIN HUMAN-KJDA 25% IVPB 25 GM/100 ML BTL IV (08:17)
[2025-11-02] MEDS: Magnesium Sulfate 4 GM Ivpb 4 GM/50 ML BAG IV (09:20)
[2025-11-02] MEDS: KETOCONAZOLE CR 2% 15 GM TUBE TOP ×2 (09:23→20:54)
--- NOTE | 2025-11-02 10:16 | ESDS_ITS ---
<Statement entered by Richard John MD - 11/12/25 08:25> I reviewed above note and agree with findings and plans. I have also personally examined the patient with medicine team and went over assessment and plan with medical team including health information internship and resident physician. <Statement entered by Ramiro Sharp MD - 11/02/25 17:14> Patient was examined and case was reviewed with team including attending physician. Note reviewed, I agree with most of its contents and agree with the patient's care as documented by Dr. Hammad Sharp MD PGY-2 Planned Discharge Date 11/02/25 DS: Providers Provider Date of admission: 10/22/25 06:01 Primary care physician: Gal Paz MD Admitting Provider: Nicole Burgos MD Attending Provider on Admission: Penelope Jacobson MD Consults: 10/22/25 10:59 Consult to Nephrology Stat Comment: Inpatient HD Consulting Provider: Vi Platt 10/25/25 09:55 Referral Speech Therapy Routine Comment: swallow eval 10/27/25 10:03 Referral Physical Therapy Routine Comment: Physician Instructions: 10/30/25 16:43 Referral Wound Care Routine Comment: Attending Provider on DC: Richard John MD Discharging Provider: Anuj Cueva DO Anticipated date of discharge: 11/02/25 DS: Diagnosis Problem List Completed Was Problem List Reviewed/Reconciled?: Yes Hospital Course Hospital Course Hospital course: Mr. Amador is a 60-year-old gentleman with a past medical history significant for left neck lymphoma, cirrhosis, COPD on 3L home oxygen, CKD, hypertension, chronic lower back pain who presented initially on 10/22/25 with worsening shortness of breath from shelter. He reported since a week prior to admission, he had shortness of breath that was gradually worsening and progressive in nature. Labs at the time of admission are significant for hemoglobin 9.7, platelets 272, INR 1.5, potassium 6.3, BUN 42, creatinine 2.9, total bilirubin 1.3, BNP 638. Chest x-ray noted to have cardiomegaly and significant left base pneumonia. Abdominal ultrasound showed cirrhosis, ascites, mildly dilated CBD secondary to postcholecystectomy state. He received hyperkalemia treatment with 1g ceftriaxone for SBP prophylaxis in the ED, and started on empiric antibiotics for his pneumonia. He was admitted to ICU after respiratory failure secondary to CO2 retention complicated with respiratory acidosis requiring emergent endotracheal intubation. Nephrology was consulted at the time with recommendations for hemodialysis per Dr Platt. Patient had paracentesis diagnostic and therapeutic done and had 9 L removed while in ICU. Fluid study negative for SBP. He was eventually downgraded to 10/26/25 after extubation and weaned off pressors. On the same day, it was noted patient to have puralent drainage slightly blood tinged on his R ear, and tenderness with pulling of the pinnea, he was started on cipro drops BID for 7 day course. Through out this admission, patient appeared to have reaccumulation of ascite fluid in his abdomen, US guided paracentesis was performed three times (10/22, 10/28, and 11/02) with replacement of albumin status post procedure. Patient continued to improve clinically, where he no longer requires dialysis given good urine output on 2mg bumex. On 10/28/25, his antibiotic regimen was de-escalated to levofloxacin from Zosyn for coverage of his pneumonia. At this time, patient is medically and physically stable for discharge for SNF. All questions and concerns addressed, plan of care discussed with patient, return precautions given. Diagnosis: #Acute metabolic encephalopathy secondary to acute decompensated liver failure #Hepatic encephalopathy #Agitation #Severe ascites s/p paracentesis (10/22/25, 10/28/25, 11/02/25) #cirrhosis #heptorenal syndrome #Groin rash #Acute CHF exacerbation likely 2/2 to PNA #Heart failure with reduced ejection fraction 25-30 %, on this admission 10/2025 #CADY on CKD versus worsening CKD #Hyperkalemia - Resolved with HD #Hyperphosphatemia #R Aspiration PNA- [place] #COPD Exacerbation #Community-acquired pneumonia versus healthcare associated pneumonia #Hypothyroidism #Chronic microcytic anemia #R Otitis Externa #Gout Discharge Plan: Follow up with primary care physician within 1 week of discharge Instructions have been explained to the patient with regards to their medications and how to take them. Patient was able to explain back to physician and nursing staff how to take their medications. Patient expressed understanding with instructions. New Medications: Lactulose 20g every day 4 times a day prednisone 10mg everyday and as instructed Ketoconazole topical twice a day If you notice your abdomen increasing in girth please come to the Emergency department to get paracentesis to remove fluid from your abdomen. Continue to take the rest of your medications as prescribed by your primary care physician. Patient has been explained that should any symptoms recur or worsen patient is instructed to return to the Emergency Department. Case discussed with my senior resident Dr. Maurice Case discussed with my attending Dr. Alvaro Cueva DO PGY 1 Status at Discharge Overall status at discharge: patient is back to baseline Time Spent with Patient Time attestation: Total time spent providing and/or coordinating discharge services: Time spent: Greater than 30 minutes Exam Vital Signs Temp Pulse Resp BP Pulse Ox O2 Del Method O2 Flow Rate 97.6 F 86 16 132/96 H 90 L Nasal Cannula 3 11/02/25 08:00 11/02/25 08:08 11/02/25 08:00 11/02/25 08:08 11/02/25 08:00 11/02/25 08:00 11/02/25 08:00 FiO2 40 11/02/25 08:00 Narrative Exam General: Awake and in no acute distress. A/O x 3. Conversational. HEENT: Normocephalic, atraumatic. Heart: Regular rate and rhythm Lungs: Clear to auscultation with no wheezing or crackles. Abdomen: Soft, distended, but nontender. No guarding or rebound tenderness. Neurologic: Alert and oriented x3, no gross neurological deficit, and patient able to move all 4 extremities. Extremities: No pitting edema to lower extremities. Skin:No ecchymoses. Groin rash noted. Discharge Plan Plan Patient Disposition: [facility] [place] [facility] (SNF) Disposition Comment: [facility] Patient condition on transfer: Stable Care Plan Goals: Follow up with primary care physician within 1 week of discharge Instructions have been explained to the patient with regards to their medications and how to take them. Patient was able to explain back to physician and nursing staff how to take their medications. Patient expressed understanding with instructions. New Medications: Lactulose 20g every day 4 times a day prednisone 10mg everyday and as instructed Ketoconazole topical twice a day If you notice your abdomen increasing in girth please come to the Emergency department to get paracentesis to remove fluid from your abdomen. Continue to take the rest of your medications as prescribed by your primary care physician. Patient has been explained that should any symptoms recur or worsen patient is instructed to return to the Emergency Department. Prescriptions/Referrals Prescriptions/Med Rec: New ketoconazole 2 % Cream 1 applic top BID 14 Days Qty: 30 0RF lactulose 10 gram/15 mL Solution 20 g PO QID 30 Days Qty: 3600 0RF prednisone 10 mg tablet 10 mg PO QDAY Qty: 22 0RF Taper: Prednisone Taper 30 mg DAILY for 5 Days and 0 Hour 20 mg DAILY for 2 Days and 0 Hour 10 mg DAILY for 3 Days and 0 Hour Continued albuterol sulfate 1.25 mg/3 mL solution for nebulization 1.25 mg inhalation Q4HR PRN (Reason: shortness of breath or wheezing) hydrocodone-acetaminophen 5-325 mg tablet 1 tab PO Q6HR PRN (Reason: pain) fluticasone furoate-vilanterol [Breo Ellipta] 100-25 mcg/dose blister with device 1 inh inhalation QDAY thiamine HCl (vitamin B1) [Vitamin B-1] 100 mg tablet 100 mg PO QDAY tamsulosin 0.4 mg capsule 0.4 mg PO QDAY spironolactone [Aldactone] 100 mg tablet 100 mg PO QDAY docusate sodium 100 mg capsule 100 mg PO BID buspirone 7.5 mg tablet 7.5 mg PO BID Jardiance 10 mg tablet 10 mg PO QDAY ferrous sulfate [Feosol] 325 mg (65 mg iron) tablet 325 mg PO BID bumetanide 2 mg tablet 2 mg PO QDAY pantoprazole [Protonix] 40 mg tablet,delayed release (DR/EC) 40 mg PO QDAY melatonin 3 mg capsule 3 mg PO HS allopurinol 100 mg tablet 100 mg PO QDAY ipratropium-albuterol 0.5 mg-3 mg(2.5 mg base)/3 mL solution for nebulization 3 ml INHALATION Q4HR PRN (Reason: shortness of breath or wheezing) alum-mag hydroxide-simeth [Jayashree-Lanta] 5 ml PO Q4HR PRN (Reason: upset stomach) midodrine 10 mg tablet 10 mg PO TID Rx Instructions: do not give last dose of day after 6PM or within 4 hrs of bedtime hydroxyzine HCl 25 mg tablet 25 mg PO Q8H PRN (Reason: itching) bisacodyl [Dulcolax (bisacodyl)] 10 mg suppository 10 mg AR QDAY PRN (Reason: constipation) Enema 19-7 gram/118 mL enema 118 ml AR QDAY PRN (Reason: constipation) magnesium hydroxide [Milk of Magnesia] 400 mg/5 mL suspension 5 ml PO QDAY PRN (Reason: constipation) Changed levothyroxine [Synthroid] 25 mcg tablet 25 mcg PO ACBR 30 Days Qty: 30 0RF gabapentin 300 mg capsule 200 mg PO TID 30 Days Qty: 60 0RF Held carvedilol 3.125 mg tablet 3.125 mg PO BID Hold Instructions: Resume on 11/25/25. Until discussed with PCP Rx Instructions: hold if SBP<100 or DBP <60 or HR <60 ergocalciferol (vitamin D2) [Vitamin D2] 1,250 mcg (50,000 unit) capsule 1,250 mcg PO QDAY Hold Instructions: Resume on 11/25/25. Please discuss with PCP before restarting Rx Instructions: QDAY every Discontinued ibuprofen 600 mg tablet 600 mg PO Q8H PRN (Reason: pain) Qty: 14 0RF nystatin 100,000 unit/gram powder 1 applic TOPICAL BID Rx Instructions: x7 days; end on 10/24/2025 lactulose 20 gram packet 20 g PO BID neomycin 500 mg tablet 500 mg PO QID Rx Instructions: For hepatic encephalopathy potassium chloride 10 mEq tablet extended release 10 meq PO BID acetaminophen [Tylenol] 325 mg PO Q4H PRN (Reason: mild pain (scale score 1-4)) Referrals: Gal Paz MD [Primary Care Provider] Patient/Caregiver Discharge Instructions Education Materials: Paracentesis Dc Print Language: Malay Stand Alone Forms: Norma Award Info., Patient Portal Info Letter Quality Discharge Quality Measures none
--- NOTE | 2025-11-02 10:20 | XR_ITS ---
Examination: Abdomen sonogram, Limited Date and time of exam: November 02, 2025, 1342 hours INDICATIONS: Abdominal distention this week Technique: Real-time guerra scale transabdominal sonographic images of the upper abdomen obtained. Findings: Minimal ascitic fluid IMPRESSION: Minimal ascitic fluid
[2025-11-02] MEDS: LACTULOSE SYRUP 20 GM/30 ML UDC PO ×3 (12:14→20:53)
--- NOTE | 2025-11-02 13:14 | PC.SS ---
SS received a call from Eugenia at [facility], she has auth for the pt. Pt pending para then dc after.
[2025-11-03] VITALS (9 sets, daily range): BP systolic 114–133; BP diastolic 70–86; PULSE 80–93; RESP 16–19; TEMP 36.4–37.1; O2SAT 93–99
[2025-11-03] MEDS: ALBUTEROL/IPRATROPIUM (Duoneb) RT SOL 3 ML NEBU INH ×3 (02:27→10:34)
[2025-11-03] MEDS: LACTULOSE SYRUP 20 GM/30 ML UDC PO ×2 (06:13→12:03)
[2025-11-03] MEDS: LEVOTHYROXINE SODIUM 25 MCG TABLET PO (06:13)
[2025-11-03 06:24] LABS: Basophils # (Auto) 0.0 Thou/mm3 (0.0-0.2); Basophils % (Auto) 0 % (0-2.5); Eosinophils # (Auto) 0.0 Thou/mm3 (0.0-0.5); Eosinophils % (Auto) 0 % (0-10); Hematocrit 34.3 % (41.0-53.0); Hemoglobin 10.9 g/dL (13.5-16.0); Immature Granulocytes Auto 0.04 Thou/mm3 (0.00-0.00); Lymphocytes # (Auto) 0.4 Thou/mm3 (1.0-4.8); Lymphocytes % (Auto) 4 % (10-50); Mean Corpuscular HGB Conc 31.8 g/dl (31.0-37.0); Mean Corpuscular Hemoglobin 22.5 pg (25.0-35.0); Mean Corpuscular Volume 71 fL (80-100); Monocytes # (Auto) 0.9 Thou/mm3 (0.0-0.8); Monocytes % (Auto) 9 % (0-12); Neutrophils # (Auto) 8.2 Thou/mm3 (1.8-7.7); Neutrophils % (Auto) 86 % (37-80); Nucleated Red Blood Cell # 0.00 Thou/mm3 (0.00-0.00); Nucleated Red Blood Cell % 0 /100 WBC (0); Platelet Count 142 Thou/mm3 (140-440); RDW Standard Deviation 60.6 fL (35.1-43.9); Red Blood Count 4.84 Miln/mm3 (4.50-5.90); White Blood Count 9.5 Thou/mm3 (3.8-10.6)
[2025-11-03 06:54] LABS: Alanine Aminotransferase 13 U/L (10-49); Albumin, Serum 3.9 gm/dL (3.5-5.0); Albumin/Globulin Ratio 1.4 (1.2-2.2); Alkaline Phosphatase 176 U/L (46-116); Anion Gap 9 (7-16); Aspartate Amino Transferase 25 U/L (0-34); BUN/Creatinine Ratio 21 Ratio (12-20); Bilirubin,Total 1.6 mg/dL (0.3-1.2); Blood Urea Nitrogen 30 mg/dL (9-23); Calcium 9.4 mg/dL (8.3-10.6); Calcium (Corrected) 9.5 mg/dL (8.5-10.1); Carbon Dioxide 30.4 mMol/L (20.0-31.0); Chloride 98 mMol/L (98-107); Creatinine (Component) 1.4 mg/dL (0.6-1.3); Estimated Creatinine Clearance 56.4 mL/min (>60); Globulin 2.7 gm/dL (2.3-3.5); Glucose 121 mg/dL (74-106); Magnesium 1.9 mg/dL (1.6-2.6); Osmolality,Calculated 281 (275-295); Phosphorous 1.9 mg/dL (2.4-5.1); Potassium 3.8 mMol/L (3.4-5.1); Sodium 137 mMol/L (136-145); Total Protein 6.6 gm/dL (5.7-8.2); eGFR 58 See Note
[2025-11-03] MEDS: SEVELAMER CARBONATE 800 MG TABLET 1600 MG PO (07:43)
[2025-11-03] MEDS: ENOXAPARIN SOD INJ 40 MG/0.4 ML SYRINGE SC (08:18)
[2025-11-03] MEDS: FERROUS SULF 325 MG TABLET PO (08:18)
[2025-11-03] MEDS: VIT B12/Vit C/FA (Nephrovite) TABLET 1 TAB PO (08:18)
[2025-11-03] MEDS: SPIRONOLACTONE 25 MG TABLET 100 MG PO (08:18)
[2025-11-03] MEDS: ALBUMIN HUMAN-KJDA 25% IVPB 25 GM/100 ML BTL IV (08:18)
[2025-11-03] MEDS: KETOCONAZOLE CR 2% 15 GM TUBE TOP (08:19)
--- NOTE | 2025-11-03 10:26 | PC.SS ---
SS set up transport through [facility], assigned to [facility] set for 1300. SS informed RNBarbie. Packet on chart. Eugenia at [facility] made aware.
--- NOTE | 2025-11-03 10:29 | ESDS_ITS ---
<Statement entered by Richard John MD - 11/12/25 08:26> I reviewed above note and agree with findings and plans. I have also personally examined the patient with medicine team and went over assessment and plan with medical team including hospital intern and resident physician. <Statement entered by Lilian Quiñonez MD - 11/03/25 18:03> In summary: A 60-year-old male with a history of left neck lymphoma, cirrhosis, COPD, CKD, hypertension, and chronic back pain was admitted on 10/22/25 with worsening shortness of breath. He developed respiratory failure from CO2 retention, requiring intubation. Labs showed anemia, hyperkalemia, and elevated BNP, while chest x-ray revealed cardiomegaly and left base pneumonia. Abdominal ultrasound confirmed cirrhosis with ascites. He was started on antibiotics and treated for hyperkalemia. Nephrology recommended hemodialysis, and paracentesis removed 9L of fluid, though SBP was negative. He was extubated, weaned off pressors, and treated for an ear infection with ciprofloxacin drops. Multiple paracenteses were performed due to reaccumulation of ascites. His antibiotic regimen was de-escalated, and he improved with good urine output. By 10/28/25, he was stable for discharge to SNF. I?ve reviewed the note and agree with this assessment and plan, with the exceptions outlined above. I personally went over the labs, imaging, home medications, and prior records, and examined the patient. The case was also reviewed with the attending physician. Please note: this document was transcribed using voice recognition technology; minor inaccuracies may be present. Lilian Quiñonez DO PGY II Planned Discharge Date 11/03/25 DS: Providers Provider Date of admission: 10/22/25 06:01 Primary care physician: Gal Paz MD Admitting Provider: Nicole Burgos MD Attending Provider on Admission: Penelope Jacobson MD Consults: 10/22/25 10:59 Consult to Nephrology Stat Comment: Inpatient HD Consulting Provider: Vi Platt 10/25/25 09:55 Referral Speech Therapy Routine Comment: manpreet eval 10/27/25 10:03 Referral Physical Therapy Routine Comment: Physician Instructions: 10/30/25 16:43 Referral Wound Care Routine Comment: Attending Provider on DC: Richard John MD Discharging Provider: Anuj Cueva DO Anticipated date of discharge: 11/03/25 DS: Diagnosis Problem List Completed Was Problem List Reviewed/Reconciled?: Yes Hospital Course Hospital Course Hospital course: Patient was planned for discharge 11/02/25 after US paracentesis, however, no attempt made given minimal ascitic fluid. Plan for discharge today to SNF with transport arranged at 1pm. Mr. Amador is a 60-year-old gentleman with a past medical history significant for left neck lymphoma, cirrhosis, COPD on 3L home oxygen, CKD, hypertension, chronic lower back pain who presented initially on 10/22/25 with worsening shortness of breath from [facility]. He reported since a week prior to admission, he had shortness of breath that was gradually worsening and progressive in nature. Labs at the time of admission are significant for hemoglobin 9.7, platelets 272, INR 1.5, potassium 6.3, BUN 42, creatinine 2.9, total bilirubin 1.3, BNP 638. Chest x-ray noted to have cardiomegaly and significant left base pneumonia. Abdominal ultrasound showed cirrhosis, ascites, mildly dilated CBD secondary to postcholecystectomy state. He received hyperkalemia treatment with 1g ceftriaxone for SBP prophylaxis in the ED, and started on empiric antibiotics for his pneumonia. He was admitted to ICU after respiratory failure secondary to CO2 retention complicated with respiratory acidosis requiring emergent endotracheal intubation. Nephrology was consulted at the time with recommendations for hemodialysis per Dr Platt. Patient had paracentesis diagnostic and therapeutic done and had 9 L removed while in ICU. Fluid study negative for SBP. He was eventually downgraded to 10/26/25 after extubation and weaned off pressors. On the same day, it was noted patient to have puralent drainage slightly blood tinged on his R ear, and tenderness with pulling of the pinnea, he was started on cipro drops BID for 7 day course. Through out this admission, patient appeared to have reaccumulation of ascite fluid in his abdomen, US guided paracentesis was performed three times (10/22, 10/28, and 11/02) with replacement of albumin status post procedure. Patient continued to improve clinically, where he no longer requires dialysis given good urine output on 2mg bumex. On 10/28/25, his antibiotic regimen was de-escalated to levofloxacin from Zosyn for coverage of his pneumonia. At this time, patient is medically and physically stable for discharge for SNF. All questions and concerns addressed, plan of care discussed with patient, return precautions given. Diagnosis: #Acute metabolic encephalopathy secondary to acute decompensated liver failure #Hepatic encephalopathy #Agitation #Severe ascites s/p paracentesis (10/22/25, 10/28/25, 11/02/25) #cirrhosis #heptorenal syndrome #Groin rash #Acute CHF exacerbation likely / to PNA #Heart failure with reduced ejection fraction 25-30 %, on this admission 10/2025 #CADY on CKD versus worsening CKD #Hyperkalemia - Resolved with HD #Hyperphosphatemia #R Aspiration PNA- [place] #COPD Exacerbation #Community-acquired pneumonia versus healthcare associated pneumonia #Hypothyroidism #Chronic microcytic anemia #R Otitis Externa #Gout Discharge Plan: Follow up with primary care physician within 1 week of discharge Instructions have been explained to the patient with regards to their medications and how to take them. Patient was able to explain back to physician and nursing staff how to take their medications. Patient expressed understanding with instructions. New Medications: Lactulose 20g every day 4 times a day prednisone 10mg everyday and as instructed Ketoconazole topical twice a day If you notice your abdomen increasing in girth please come to the Emergency department to get paracentesis to remove fluid from your abdomen. Continue to take the rest of your medications as prescribed by your primary care physician. Patient has been explained that should any symptoms recur or worsen patient is instructed to return to the Emergency Department. Case discussed with my senior resident Dr. Quiñonez Case discussed with my attending Dr. Alvaro Cueva, PGY 1 Status at Discharge Overall status at discharge: patient is back to baseline Time Spent with Patient Time attestation: Total time spent providing and/or coordinating discharge services: Time spent: Greater than 30 minutes Exam Vital Signs Temp Pulse Resp BP Pulse Ox O2 Del Method O2 Flow Rate 98.8 F 86 19 133/82 H 94 L Nasal Cannula 2 11/03/25 08:00 11/03/25 08:18 11/03/25 08:00 11/03/25 08:18 11/03/25 08:00 11/03/25 04:00 11/03/25 07:04 FiO2 40 11/02/25 08:00 Narrative Exam General: Awake and in no acute distress. A/O x 3. Conversational. HEENT: Normocephalic, atraumatic. Heart: Regular rate and rhythm Lungs: Clear to auscultation with no wheezing or crackles. Abdomen: Soft, distended, but nontender. No guarding or rebound tenderness. Neurologic: Alert and oriented x3, no gross neurological deficit, and patient able to move all 4 extremities. Extremities: No pitting edema to lower extremities. Skin:No ecchymoses. Groin rash noted. Discharge Plan Plan Patient Disposition: Xfer Skilled Nsg Fac (SNF) Disposition Comment: [facility] Patient condition on transfer: Stable Care Plan Goals: Follow up with primary care physician within 1 week of discharge Instructions have been explained to the patient with regards to their medications and how to take them. Patient was able to explain back to physician and nursing staff how to take their medications. Patient expressed understanding with instructions. New Medications: Lactulose 20g every day 4 times a day prednisone 10mg everyday and as instructed Ketoconazole topical twice a day If you notice your abdomen increasing in girth please come to the Emergency department to get paracentesis to remove fluid from your abdomen. Continue to take the rest of your medications as prescribed by your primary care physician. Patient has been explained that should any symptoms recur or worsen patient is instructed to return to the Emergency Department. Prescriptions/Referrals Prescriptions/Med Rec: New ketoconazole 2 % Cream 1 applic top BID 14 Days Qty: 30 0RF lactulose 10 gram/15 mL Solution 20 g PO QID 30 Days Qty: 3600 0RF prednisone 10 mg tablet 10 mg PO QDAY Qty: 22 0RF Taper: Prednisone Taper 30 mg DAILY for 5 Days and 0 Hour 20 mg DAILY for 2 Days and 0 Hour 10 mg DAILY for 3 Days and 0 Hour Continued albuterol sulfate 1.25 mg/3 mL solution for nebulization 1.25 mg inhalation Q4HR PRN (Reason: shortness of breath or wheezing) hydrocodone-acetaminophen 5-325 mg tablet 1 tab PO Q6HR PRN (Reason: pain) fluticasone furoate-vilanterol [Breo Ellipta] 100-25 mcg/dose blister with device 1 inh inhalation QDAY thiamine HCl (vitamin B1) [Vitamin B-1] 100 mg tablet 100 mg PO QDAY tamsulosin 0.4 mg capsule 0.4 mg PO QDAY spironolactone [Aldactone] 100 mg tablet 100 mg PO QDAY docusate sodium 100 mg capsule 100 mg PO BID buspirone 7.5 mg tablet 7.5 mg PO BID Jardiance 10 mg tablet 10 mg PO QDAY ferrous sulfate [Feosol] 325 mg (65 mg iron) tablet 325 mg PO BID bumetanide 2 mg tablet 2 mg PO QDAY pantoprazole [Protonix] 40 mg tablet,delayed release (DR/EC) 40 mg PO QDAY melatonin 3 mg capsule 3 mg PO HS allopurinol 100 mg tablet 100 mg PO QDAY ipratropium-albuterol 0.5 mg-3 mg(2.5 mg base)/3 mL solution for nebulization 3 ml INHALATION Q4HR PRN (Reason: shortness of breath or wheezing) alum-mag hydroxide-simeth [Jayashree-Lanta] 5 ml PO Q4HR PRN (Reason: upset stomach) midodrine 10 mg tablet 10 mg PO TID Rx Instructions: do not give last dose of day after 6PM or within 4 hrs of bedtime hydroxyzine HCl 25 mg tablet 25 mg PO Q8H PRN (Reason: itching) bisacodyl [Dulcolax (bisacodyl)] 10 mg suppository 10 mg MN QDAY PRN (Reason: constipation) Enema 19-7 gram/118 mL enema 118 ml MN QDAY PRN (Reason: constipation) magnesium hydroxide [Milk of Magnesia] 400 mg/5 mL suspension 5 ml PO QDAY PRN (Reason: constipation) Changed levothyroxine [Synthroid] 25 mcg tablet 25 mcg PO ACBR 30 Days Qty: 30 0RF gabapentin 300 mg capsule 200 mg PO TID 30 Days Qty: 60 0RF Held carvedilol 3.125 mg tablet 3.125 mg PO BID Hold Instructions: Resume on 11/25/25. Until discussed with PCP Rx Instructions: hold if SBP<100 or DBP <60 or HR <60 ergocalciferol (vitamin D2) [Vitamin D2] 1,250 mcg (50,000 unit) capsule 1,250 mcg PO QDAY Hold Instructions: Resume on 11/25/25. Please discuss with PCP before restarting Rx Instructions: QDAY every Discontinued ibuprofen 600 mg tablet 600 mg PO Q8H PRN (Reason: pain) Qty: 14 0RF nystatin 100,000 unit/gram powder 1 applic TOPICAL BID Rx Instructions: x7 days; end on 10/24/2025 lactulose 20 gram packet 20 g PO BID neomycin 500 mg tablet 500 mg PO QID Rx Instructions: For hepatic encephalopathy potassium chloride 10 mEq tablet extended release 10 meq PO BID acetaminophen [Tylenol] 325 mg PO Q4H PRN (Reason: mild pain (scale score 1-4)) Referrals: Gal Paz MD [Primary Care Provider] Patient/Caregiver Discharge Instructions Education Materials: Paracentesis Dc Print Language: Faroese Stand Alone Forms: Norma Award Info., Patient Portal Info Letter Discharge Order Discharge Orders: Discharge (Routine); Ordered 11/03/25 Ordered By: Anuj Cueva Quality Discharge Quality Measures none
== END 2025-11-03 13:05 | disposition skilled nursing facility (03) | DRG 280 ==
LOC: SERX 06:12 → SERHOLD 06:29 → S2NX 08:31 → S2SX 12:14 → S2NX 10-27 05:58
PROVIDERS: Internal Medicine; Student in an Organized Health Care Education/Training Program; Admitting Provider Student in an Organized Health Care Education/Training Program; Emergency Provider Emergency Medicine; PCP Hospitalist; Visit Provider Internal Medicine
DX: K70.31 Alcoholic cirrhosis of liver with ascites (principal); M54.50 Low back pain, unspecified; G89.29 Other chronic pain; J44.9 Chronic obstructive pulmonary disease, unspecified; I13.0 Hypertensive heart and chronic kidney disease with heart failure and stage 1 through stage 4 chronic kidney disease, or unspecified chronic kidney disease; N18.30 Chronic kidney disease, stage 3 unspecified; I50.20 Unspecified systolic (congestive) heart failure; Z87.891 Personal history of nicotine dependence; E87.5 Hyperkalemia; K76.7 Hepatorenal syndrome; N17.8 Other acute kidney failure; J96.00 Acute respiratory failure, unspecified whether with hypoxia or hypercapnia; M10.9 Gout, unspecified; E03.9 Hypothyroidism, unspecified; D50.9 Iron deficiency anemia, unspecified; E11.22 Type 2 diabetes mellitus with diabetic chronic kidney disease; E78.5 Hyperlipidemia, unspecified; G93.41 Metabolic encephalopathy; E83.39 Other disorders of phosphorus metabolism; D68.4 Acquired coagulation factor deficiency; K76.82 Hepatic encephalopathy; K70.40 Alcoholic hepatic failure without coma; K83.8 Other specified diseases of biliary tract; N18.31 Chronic kidney disease, stage 3a; J69.0 Pneumonitis due to inhalation of food and vomit; J44.1 Chronic obstructive pulmonary disease with (acute) exacerbation; J96.01 Acute respiratory failure with hypoxia; K76.6 Portal hypertension; T88.4XXA Failed or difficult intubation, initial encounter; Z79.4 Long term (current) use of insulin; Z79.899 Other long term (current) drug therapy; Z99.2 Dependence on renal dialysis; Z99.81 Dependence on supplemental oxygen; C85.90 Non-Hodgkin lymphoma, unspecified, unspecified site; H60.91 Unspecified otitis externa, right ear; I27.20 Pulmonary hypertension, unspecified; E87.29 Other acidosis
CPT/HCPCS: 36415; 36600; 51702; 70450; 70490; 71045; 76700; 76705; 80053; 80069; 80074; 81001; 82042; 82140; 82728; 82803; 82945; 83036; 83540; 83550; 83605; 83735; 83880; 84100; 84132; 84157; 84439; 84443; 84478; 84484; 84550; 85014; 85018; 85025; 85379; 85610; 85652; 85730; 86140; 86580; 86850; 86900; 86901; 86923; 87040; 87070; 87077; 87081; 87186; 87205; 87811; 89051; 92526; 92610; 93005; 93306; 93970; 94002; 94003; 94640; 94644; 94660; 94664; 94667; 96374; 96375; 97162; 99284; A4314; A9270; J0168; J0612; J0696; J1120; J1250; J1643; J1650; J1815; J1956; J2250; J2270; J2354; J2405; J2470; J2543; J2704; J2919; J3010; J3475; J3490; J7050; J7512; J7602; P9016; P9047; Q5106; J7611

== ENCOUNTER 2025-11-13 08:03 | Emergency (ER) | payer MEDICAID, SELFPAY ==
[2025-11-13 08:06] VITALS: BP 124/86; PULSE 84; RESP 19; TEMP 36.5; O2SAT 96
[2025-11-13 08:43] VITALS: RESP 18; O2SAT 97
--- NOTE | 2025-11-13 12:14 | EKG_ITS ---
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: : [id number] Requested By: Jayjay Cassidy Order Number: [id number] Reading MD: Jayjay Cassidy Measurements Intervals [place] Rate: 78 P: HI: QRS: 256 QRSD: 145 T: 93 QT: 412 QTc: 471 Interpretive Statements ATRIAL FIBRILLATION INTRAVENTRICULAR CONDUCTION DELAY [130+ ms QRS DURATION] RIGHT VENTRICULAR HYPERTROPHY [SOME/ALL OF: PROMINENT R IN V1, LATE TRANSITION, RAD, SYL, SSS] POSSIBLE ANTERIOR MYOCARDIAL INFARCTION , PROBABLY OLD [30 ms Q WAVE IN V3/V4, OR R < 0.2 mV IN V4] INFERIOR MYOCARDIAL INFARCTION , PROBABLY OLD [40+ ms Q WAVE AND/OR ST/T ABNORMALITY IN II/aVF] Compared to ECG 10/25/2025 11:19:36 Intraventricular conduction delay now present Atrial abnormality now present Right ventricular hypertrophy now present Right-axis deviation no longer present Right bundle-branch block no longer present Myocardial infarct finding still present /store/S0/[id number]/ecg/[id number]
--- NOTE | 2025-11-13 12:16 | XR_ITS ---
Examination: CT abdomen with intravenous contrast CT pelvis with intravenous contrast 2-D coronal reconstructions 2-D sagittal reconstructions Date and time of exam: 11/13/2025 at 3:29 p.m . CTDI: vol (mGy) 10.4 DLP: (mGycm) 531 INDICATION: Generalized abdominal pain with nausea Technique: Multiple axial sections of the abdomen and pelvis have been obtained. 64 slice high-resolution scanner used. 3 mm axial sections have been obtained, post intravenous injection of 30 mL 2-D sagittal, coronal reconstructions obtained. Low dose protocols were performed. One or more of the following dose reduction techniques were used; automated exposure control, adjustment of the mA and/or KV according to patient size, use of iterative reconstruction technique. Findings: In the lateral base of both right and left lower lobes, there are patchy linear and thick densities noted which are strongly suggestive for the presence of bibasilar areas of postinflammatory fibrosis. No acute pneumonia can be seen at either lung base. The left ventricle and left atrium are mildly enlarged, but there is MASSIVE enlargement of the right atrium and right ventricle the inferior vena cava is very markedly abnormally enlarged. The left renal vein is enlarged, secondary to the enlargement of the IVC the inferior vena cava is abnormally enlarged all the way down to its bifurcation, and both external iliac veins are mildly enlarged as are the common femoral veins There is moderate enlargement of the liver with mild lobulation of its contour, there is decreased density in the liver consistent with fatty infiltration. There is a large amount of ascites seen throughout the abdomen and pelvis The adrenal glands and kidneys and all appear normal. Surgical clips are seen in the gallbladder fossa the loops of small bowel appear normal in caliber. The cecum is located high in the right upper abdomen, and the appendix is visible filled with air and is normal. No abnormalities are seen involving any portion of the colon, it is pretty much entirely filled with fecal material. There is a sharply circumscribed oval fluid collection in the left adnexa measuring 3.5 cm which almost certainly represents a prominent left ovarian cyst minimal patchy fluid density is noted throughout the subcutaneous fat bilaterally IMPRESSION: 1. Within the heart, there is massive enlargement of the right atrium and right ventricle. There is also significant enlargement of the inferior vena cava, extending all the way down through its bifurcation, with the dilatation involving the external iliac veins and common femoral veins bilaterally. 2 there is moderate enlargement and fatty infiltration of the liver. 3 status post cholecystectomy 4. Diffuse moderately prominent ascites throughout the entire abdomen and pelvis. 5. Prominent 3.4 cm fluid-filled cyst left ovary 6 there is mild but generalized fluid density noted throughout the subcutaneous fat along both right and left lateral abdominal granger.
[2025-11-13 12:53] LABS: Collection Type, Urine Clean Catch
[2025-11-13 12:59] LABS: Basophils # (Auto) 0.1 Thou/mm3 (0.0-0.2); Basophils % (Auto) 1 % (0-2.5); Eosinophils # (Auto) 0.0 Thou/mm3 (0.0-0.5); Eosinophils % (Auto) 0 % (0-10); Hematocrit 37.9 % (41.0-53.0); Hemoglobin 11.9 g/dL (13.5-16.0); Immature Granulocytes Auto 0.55 Thou/mm3 (0.00-0.00); Lymphocytes # (Auto) 1.1 Thou/mm3 (1.0-4.8); Lymphocytes % (Auto) 13 % (10-50); Mean Corpuscular HGB Conc 31.4 g/dl (31.0-37.0); Mean Corpuscular Hemoglobin 22.3 pg (25.0-35.0); Mean Corpuscular Volume 71 fL (80-100); Monocytes # (Auto) 0.8 Thou/mm3 (0.0-0.8); Monocytes % (Auto) 9 % (0-12); Neutrophils # (Auto) 6.5 Thou/mm3 (1.8-7.7); Neutrophils % (Auto) 71 % (37-80); Nucleated Red Blood Cell # 0.03 Thou/mm3 (0.00-0.00); Nucleated Red Blood Cell % 0 /100 WBC (0); Platelet Count 195 Thou/mm3 (140-440); RDW Standard Deviation 62.3 fL (35.1-43.9); Red Blood Count 5.34 Miln/mm3 (4.50-5.90); White Blood Count 9.1 Thou/mm3 (3.8-10.6)
[2025-11-13 13:06] LABS: Bilirubin,Urine Negative (Negative); Blood,Urine Negative (Negative); Clarity,Urine Clear (Clear/Hazy); Color,Urine Lt-Yellow (Lt Yel-Yel); Culture Indicated,Urine Not Indicated; Glucose, Urine Trace (Negative); Ketones,Urine Negative (Negative); Leukocyte Esterase,Urine Negative (Negative); Nitrite,Urine Negative (Negative); PH,Urine 6.5 (5.0-7.0); Protein,Urine Negative (Neg - Trace); RBC,Urine 1 /hpf (0-3); Specific Gravity,Urine 1.016 (1.001-1.035); Squamous Epithelial Cell,Urine < 1 /hpf (0-5); Urobilinogen,Urine Negative mg/dL (0.0-1.0); WBC,Urine 1 /hpf (0-5)
[2025-11-13 13:15] LABS: INR 1.1 (0.9-1.3); Partial Thromboplastin Time 25.4 Seconds (22.0-36.0); Prothrombin Time 12.1 Seconds (9.0-12.2)
[2025-11-13 13:16] LABS: Ammonia 11 uMol/L (11-32)
[2025-11-13 13:17] LABS: Alanine Aminotransferase 55 U/L (10-49); Albumin, Serum 4.3 gm/dL (3.5-5.0); Albumin/Globulin Ratio 1.4 (1.2-2.2); Alkaline Phosphatase 255 U/L (46-116); Anion Gap 12 (7-16); Aspartate Amino Transferase 38 U/L (0-34); BUN/Creatinine Ratio 25 Ratio (12-20); Bilirubin,Total 1.5 mg/dL (0.3-1.2); Blood Urea Nitrogen 35 mg/dL (9-23); Calcium 9.4 mg/dL (8.3-10.6); Calcium (Corrected) 9.4 mg/dL (8.5-10.1); Carbon Dioxide 26.8 mMol/L (20.0-31.0); Chloride 96 mMol/L (98-107); Creatinine (Component) 1.4 mg/dL (0.6-1.3); Globulin 3.1 gm/dL (2.3-3.5); Glucose 95 mg/dL (74-106); Lipase 64 U/L (12-53); Magnesium 2.0 mg/dL (1.6-2.6); Osmolality,Calculated 278 (275-295); Potassium 4.5 mMol/L (3.4-5.1); Sodium 135 mMol/L (136-145); Total Protein 7.4 gm/dL (5.7-8.2); eGFR 58 See Note
[2025-11-13] MEDS: HYDROmorphone INJ 2 MG/ML VIAL 0.5 MG IVP ×3 (13:19→16:36)
[2025-11-13] MEDS: SODIUM CHLORIDE 0.9% 1000 ML 1,000 ML 999 ML IV (13:20)
[2025-11-13] MEDS: ONDANSETRON INJ 2 MG/ML INJ 2 ML 4 MG IVP (13:20)
--- NOTE | 2025-11-13 15:38 | PD.EDABDPN ---
ED Abdominal Pain RME/HPI General Chief Complaint: Abdominal Pain Stated complaint: ABDOMINAL PAIN Time seen by provider: 11/13/25 08:36 Arrival date/time: 11/13/25 08:03 RME / HPI RME / HPI narrative: See MDM Related Data Home Medications ?Medication ?Instructions ?Recorded ?Confirmed albuterol sulfate 1.25 mg/3 mL 1.25 mg inhalation Q4HR PRN 10/24/25 10/24/25 solution for nebulization shortness of breath or wheezing allopurinol 100 mg tablet 100 mg PO QDAY 10/24/25 10/24/25 alum-mag hydroxide-simeth 5 ml PO Q4HR PRN upset stomach 10/24/25 10/24/25 bisacodyl 10 mg rectal suppository 10 mg IN QDAY PRN constipation 10/24/25 10/24/25 (Dulcolax (bisacodyl)) bumetanide 2 mg tablet 2 mg PO QDAY 10/24/25 10/24/25 buspirone 7.5 mg tablet 7.5 mg PO BID ANXIETY 10/24/25 10/24/25 carvedilol 3.125 mg tablet 3.125 mg PO BID 10/24/25 10/24/25 Held on 10/30/25. Instructions: Resume on 11/25/25. Until discussed with PCP docusate sodium 100 mg capsule 100 mg PO BID 10/24/25 10/24/25 empagliflozin 10 mg tablet 10 mg PO QDAY 10/24/25 10/24/25 (Jardiance) ergocalciferol (vitamin D2) 1,250 1,250 mcg PO QDAY 10/24/25 10/24/25 mcg (50,000 unit) capsule (Vitamin D2) Held on 10/30/25. Instructions: Resume on 11/25/25. Please discuss with PCP before restarting ferrous sulfate 325 mg (65 mg 325 mg PO BID 10/24/25 10/24/25 iron) tablet (Feosol) fluticasone furoate 100 1 inh inhalation QDAY 10/24/25 10/24/25 mcg-vilanterol 25 mcg/dose inhalation powder (Breo Ellipta) hydrocodone 5 mg-acetaminophen 325 1 tab PO Q6HR PRN pain 12/06/25 12/06/25 mg tablet hydroxyzine HCl 25 mg tablet 25 mg PO Q8H PRN itching 10/24/25 10/24/25 ipratropium 0.5 mg-albuterol 3 mg 3 ml inhalation Q4HR PRN shortness 10/24/25 10/24/25 (2.5 mg base)/3 mL nebulization of breath or wheezing soln magnesium hydroxide 400 mg/5 mL 5 ml PO QDAY PRN constipation 10/24/25 10/24/25 oral suspension (Milk of Magnesia) melatonin 3 mg capsule 3 mg PO HS 10/24/25 10/24/25 midodrine 10 mg tablet 10 mg PO TID 10/24/25 10/24/25 pantoprazole 40 mg tablet,delayed 40 mg PO QDAY 10/24/25 10/24/25 release (Protonix) sodium phosphates 19 gram-7 118 ml IN QDAY PRN constipation 10/24/25 10/24/25 gram/118 mL enema (Enema) spironolactone 100 mg tablet 100 mg PO QDAY 10/24/25 10/24/25 (Aldactone) tamsulosin 0.4 mg capsule 0.4 mg PO QDAY 10/24/25 10/24/25 thiamine HCl (vitamin B1) 100 mg 100 mg PO QDAY 10/24/25 10/24/25 tablet (Vitamin B-1) Previous Rx's ?Medication ?Instructions ?Recorded gabapentin 300 mg capsule 200 mg (0.6667 x 300 mg) PO TID 1 10/30/25 month #60 caps lactulose 10 gram/15 mL oral 20 g (30 mL) PO QID 1 month #3,600 10/30/25 solution mL levothyroxine 25 mcg tablet 25 mcg PO ACBR 1 month #30 tabs 10/30/25 (Synthroid) prednisone 10 mg tablet 10 mg PO QDAY #22 tabs 10/30/25 Allergies Allergy/AdvReac Type Severity Reaction Status Date / Time No Known Allergies Allergy Verified 01/26/24 20:00 Review of Systems Review of Systems Systems Reviewed: All systems reviewed, normal except as documented Past Medical History Past Medical History CARDIAC: Positive Cardiac Disorders, Atrial Fibrillation (occasional?), Congestive Heart Failure, Congenital Heart Disease, Deep Vein Thrombosis and Hypertension RESPIRATORY: Positive Chronic Obstructive Pulmonary Disease (COPD) and Asthma (COPD) GASTROINTESTINAL: Positive Cirrhosis (ASCITES) Social History SMOKING STATUS: Never smoker ED Exam Narrative Physical exam: See MDM Course Quality Measures none Orders Category Date Time Status CT Screening NOW Care 11/13/25 12:16 Active [employer] STAT Care 11/13/25 12:15 Active Continuous Pulse Oximetry STAT Care 11/13/25 12:15 Active EKG (ED ONLY) *Do not use* NOW Care 11/13/25 12:15 Active Insert IV STAT Care 11/13/25 12:14 Active NPO STAT Care 11/13/25 12:[address] abdomen pelvis w con Stat Exams 11/13/25 12:16 Completed EKG (ED Only) Stat Exams 11/13/25 12:14 Draft Ammonia Stat Lab 11/13/25 12:41 Completed CBC Stat Lab 11/13/25 12:41 Completed Comprehensive Metabolic Panel Stat Lab 11/13/25 12:41 Completed Lipase Stat Lab 11/13/25 12:41 Completed Magnesium Stat Lab 11/13/25 12:41 Completed Partial Thromboplastin Time Stat Lab 11/13/25 12:41 Completed Prothrombin Time with INR Stat Lab 11/13/25 12:41 Completed Type and Screen Stat Lab 11/13/25 12:41 Completed Urinalysis, C/S if Indicated Stat Lab 11/13/25 12:50 Completed HYDROmorphone INJ [Dilaudid Inj] Med 11/13/25 12:19 Active 0.5 mg IVP Q30MIN PRN Ondansetron Inj [Zofran Inj] Med 11/13/25 12:19 Discontinued 4 mg IVP X1 ONE Sodium Chloride 0.9% 1000 ml [Ns] 1,000 ml Med 11/13/25 12:14 Discontinued IV 999 mls/hr Vital Signs Vital signs: Vital Signs Temperature 97.7 F 11/13/25 08:06 Pulse Rate 84 11/13/25 08:06 Respiratory Rate 19 11/13/25 08:06 Blood Pressure 124/86 H 11/13/25 08:06 Pulse Oximetry (%) 96 11/13/25 08:06 Abdominal Pain MDM MDM Narrative MDM Narrative:: This section includes all my notes and documentations, including HPI, PE, and ED course. Sincere Youngblood MD ? HPI: 60 year old male with history of large left neck lipoma, hypertension, cirrhosis, past episodes of ascites requiring paracentesis, COPD on 3L home oxygen, CKD, chronic lower back pain, s/p cholecystectomy presents to the ED [facility] from [facility] for evaluation of abdominal pain beginning intermittently 2 weeks ago and worsening yesterday evening. Described as aching in sensation that is located diffusely, rating 9/10 in severity. Accompanied by change in bowel habits. States his stool is still formed though now green in color with a strong foul odor. Denies change in stool consistency. Patient also reports decreased oral intake for 2 days. Denies fevers, chills, chest pain, cough, shortness of breath, or urinary symptoms. ? ROS: All negative except as documented in HPI. ? PE: GENERAL APPEARANCE:? alert and oriented x 4, well-developed, well-nourished, no acute distress VITALS: All vitals were reviewed and the pulse ox is % on room air, which is normal according to my interpretation. HEENT: Normocephalic, atraumatic; pupils equal, round, reactive to light; EOMI; mucous membranes pink, moist; oropharynx clear NECK: Supple, there is a lipoma to the left side of neck LUNGS: CTABL; no wheezes, no rales, no rhonchi HEART: Regular rate, regular rhythm; normal S1, S2; no murmurs ABDOMEN: non distended; normal BS;? soft, mild tenderness throughout, no guarding, no rebound; no masses, no organomegaly, no hernia?? EXTREMITIES:? atraumatic; no edema NEUROLOGIC: awake; alert and oriented x4; cranial nerves II-XII grossly intact; no focal sensory or motor deficits PSYCHIATRIC:? appropriate mood and affect SKIN: warm, dry, normal color; no rashes ? I reviewed EMS notes. ? I reviewed all diagnostic test results: My interpretation of the EKG @ 15:41,atrial fibrillation, ventricular rate 78, left axis deviation, Q-waves leads II III and aVF, generalized ST abnormalities, no STEMI. My review of the abdomen pelvis CT report is: Diffuse moderately prominent ascites throughout the entire abdomen and pelvis. Blood tests and urine test: CBC with mild microcytic hypochromic anemia, no leukocytosis PT/PTT within normal limits Lipase minimally elevated ? At this point, diagnoses include: Abdominal pain Cirrhosis Anemia Dehydration ? Treatment here included: Dilaudid x2 IV fluids Zofran ? Significant improvement noted. ? Recommended outpatient care. ? Based on my best medical judgment, made decision no further evaluation or treatment indicated at this time. Patient understands and agrees to the customized discharge instructions and printed, see below. ? Discharge instructions from Dr. Youngblood: Yanira you were seen in the emergency department for abdominal pain. We sent blood work, urine, we got a CT of your abdomen and pelvis, we got an EKG and chest x-ray. We found that you have mild anemia but you do not need a blood transfusion, you had some dehydration and we gave you fluids for that, but as far as the CT goes it did not show a definite reason for your pain. You should pay attention to your body and if you feel like you are getting worse in any way just return to the emergency department right away and we will help you. Otherwise you should follow-up with your primary care doctor within the next several days It might be beneficial to speak with your primary care doctor about the [place] that you take for pain. You have cirrhosis so I would ask your primary doctor if a medication that includes Tylenol is the best option for you. It may wind up being the best option for you but I would definitely ask your primary doctor about it. If he wanted to change it to a different medication that did not contain acetaminophen, he could order oxycodones. That will be up to your primary care doctor's discretion Patient data External records reviewed:: [facility] previous records, EMS form and Pen[facility]ent[facility] records ([facility] ) Clinical information provided by:: patient Social determinants that could affect healthcare access:: housing ([place] resident ) Patient has the following chronic illnesses:: left neck lymphoma, hypertension, cirrhosis, COPD on 3L home oxygen, CKD, chronic lower back pain How is presenting disease/condition affected by chronic disease/condition?: exacerbated by Evaluation data The following diagnostics were reviewed and interpreted by me:: lab results, radiology exam(s) and EKG tracing(s) Lab and/or radiology exams considered but not ordered:: None Interpretation Summary: See above Medications / Prescriptions Medications or Prescriptions considered but not ordered:: None Medication administrations:: Medication Administration History Hydromorphone HCl (Hydromorphone Inj 2 Mg/Ml Vial) 0.5 mg IVP Q30MIN PRN PRN Reason: Abdominal pain Stop: 11/18/25 12:29 Last Admin: 11/13/25 15:04 Dose: 0.5 mg Documented By: Admin: 11/13/25 13:19 Dose: 0.5 mg Documented By: CS Discontinued Medications Sodium Chloride (Ns) 1,000 mls @ 999 mls/hr IV .Q1H1M ONE Stop: 11/13/25 13:14 Last Admin: 11/13/25 13:20 Dose: 999 mls/hr Documented By: CS Ondansetron HCl (Ondansetron Inj 2 Mg/Ml Inj 2 Ml) 4 mg IVP X1 ONE; Protocol Stop: 11/13/25 12:20 Last Admin: 11/13/25 13:20 Dose: 4 mg Documented By: CS See above Consultations Consultation(s) initiated? (list below): No Diagnosis Differential diagnosis abdominal pain: abdominal pain, acute appendicitis, calculus of kidney, constipation and diverticulitis Most likely diagnosis given after review of the tests above:: Abdominal pain Cirrhosis Anemia Dehydration Admission Indicated Admission indicated?: not indicated Admission Request Was there a request for admission?: No Disposition Plan Disposition Plan: Discharge Discharge Attestation Discharge Attestation: The patient and all family members were given an opportunity to ask questions and understood the discharge instructions. Discharge instructions specifically effects, indications for sooner follow up or return to the emergency department, and the expected course of current diagnosis. Patient condition: Stable Discharge Plan Plan Patient Disposition: Xfer Skilled Nsg Fac ([facility]) Discharge Disposition comment: Stable for discharge back to the SNF Patient condition on transfer: Stable Prescriptions/Referrals Prescriptions/Med Rec: No Action albuterol sulfate 1.25 mg/3 mL solution for nebulization 1.25 mg inhalation Q4HR PRN (Reason: shortness of breath or wheezing) hydrocodone-acetaminophen 5-325 mg tablet 1 tab PO Q6HR PRN (Reason: pain) fluticasone furoate-vilanterol [Breo Ellipta] 100-25 mcg/dose blister with device 1 inh inhalation QDAY thiamine HCl (vitamin B1) [Vitamin B-1] 100 mg tablet 100 mg PO QDAY tamsulosin 0.4 mg capsule 0.4 mg PO QDAY spironolactone [Aldactone] 100 mg tablet 100 mg PO QDAY docusate sodium 100 mg capsule 100 mg PO BID carvedilol 3.125 mg tablet 3.125 mg PO BID Rx Instructions: hold if SBP<100 or DBP <60 or HR <60 buspirone 7.5 mg tablet 7.5 mg PO BID Jardiance 10 mg tablet 10 mg PO QDAY ferrous sulfate [Feosol] 325 mg (65 mg iron) tablet 325 mg PO BID bumetanide 2 mg tablet 2 mg PO QDAY pantoprazole [Protonix] 40 mg tablet,delayed release (DR/EC) 40 mg PO QDAY melatonin 3 mg capsule 3 mg PO HS allopurinol 100 mg tablet 100 mg PO QDAY ipratropium-albuterol 0.5 mg-3 mg(2.5 mg base)/3 mL solution for nebulization 3 ml INHALATION Q4HR PRN (Reason: shortness of breath or wheezing) alum-mag hydroxide-simeth [Jayashree-Lanta] 5 ml PO Q4HR PRN (Reason: upset stomach) midodrine 10 mg tablet 10 mg PO TID Rx Instructions: do not give last dose of day after 6PM or within 4 hrs of bedtime ergocalciferol (vitamin D2) [Vitamin D2] 1,250 mcg (50,000 unit) capsule 1,250 mcg PO QDAY Rx Instructions: QDAY every hydroxyzine HCl 25 mg tablet 25 mg PO Q8H PRN (Reason: itching) bisacodyl [Dulcolax (bisacodyl)] 10 mg suppository 10 mg IN QDAY PRN (Reason: constipation) Enema 19-7 gram/118 mL enema 118 ml IN QDAY PRN (Reason: constipation) magnesium hydroxide [Milk of Magnesia] 400 mg/5 mL suspension 5 ml PO QDAY PRN (Reason: constipation) lactulose 10 gram/15 mL Solution 20 g PO QID 30 Days Qty: 3600 0RF levothyroxine [Synthroid] 25 mcg tablet 25 mcg PO ACBR 30 Days Qty: 30 0RF gabapentin 300 mg capsule 200 mg PO TID 30 Days Qty: 60 0RF prednisone 10 mg tablet 10 mg PO QDAY Qty: 22 0RF Taper: Prednisone Taper 30 mg DAILY for 5 Days and 0 Hour 20 mg DAILY for 2 Days and 0 Hour 10 mg DAILY for 3 Days and 0 Hour Referrals: Gal Paz MD [Primary Care Provider] - In 1 week Problem List Clinical Impression: Abdominal pain, Cirrhosis, Anemia, Dehydration Patient/Caregiver Discharge Instructions Discharge Activity: activity as tolerated Diet Instructions: No restrictions Education Materials: Abdominal Pain, Anemia, ED Cirrhosis, ED Dehydration (Adult) Additional Instructions: Tonight you were seen in the emergency department for abdominal pain. We sent blood work, urine, we got a CT of your abdomen and pelvis, we got an EKG and chest x-ray. We found that you have mild anemia but you do not need a blood transfusion, you had some dehydration and we gave you fluids for that, but as far as the CT goes it did not show a definite reason for your pain. You should pay attention to your body and if you feel like you are getting worse in any way just return to the emergency department right away and we will help you. Otherwise you should follow-up with your primary care doctor within the next several days It might be beneficial to speak with your primary care doctor about the [place] that you take for pain. You have cirrhosis so I would ask your primary doctor if a medication that includes Tylenol is the best option for you. It may wind up being the best option for you but I would definitely ask your primary doctor about it. If he wanted to change it to a different medication that did not contain acetaminophen, he could order oxycodones. That will be up to your primary care doctor's discretion Print Language: Mexican Stand Alone Forms: Norma Award Info., Patient Portal Info Letter
== END 2025-11-13 20:29 | disposition skilled nursing facility (03) ==
PROVIDERS: Emergency Provider Emergency Medicine; PCP Hospitalist
DX: R10.9 Unspecified abdominal pain (principal); K74.60 Unspecified cirrhosis of liver; R18.8 Other ascites; D64.9 Anemia, unspecified; E86.0 Dehydration; I12.9 Hypertensive chronic kidney disease with stage 1 through stage 4 chronic kidney disease, or unspecified chronic kidney disease; N18.9 Chronic kidney disease, unspecified; R19.4 Change in bowel habit; Z90.49 Acquired absence of other specified parts of digestive tract; J44.9 Chronic obstructive pulmonary disease, unspecified; Z99.81 Dependence on supplemental oxygen; D17.0 Benign lipomatous neoplasm of skin and subcutaneous tissue of head, face and neck
CPT/HCPCS: 36415; 74177; 80053; 81001; 82140; 83690; 83735; 85025; 85610; 85730; 86850; 86900; 86901; 96361; 96374; 96375; 96376; 99284; A4649; J1171; J2405; J7030; Q9967